=== PATIENT | male | born 1970 | race Caucasian/White ===

== ENCOUNTER 2018-05-21 10:01 | Emergency (ER) | payer BC ==
[2018-05-21] MEDS ORDERED: SODIUM CHLORIDE 0.9% 1,000 ML IV STA ×2 (10:36)
[2018-05-21 11:11] LABS: Basophils # (A) 0.1 k/uL (0-0.2); Basophils % (A) 1 %; Eosinophils # (A) 0.2 k/uL (0-0.7); Eosinophils % (A) 3 %; HCT 45.4 % (39.0-53.0); Lymphocytes # (A) 1.4 k/uL (1.0-4.8); Lymphocytes % (A) 18 %; MCH 27.8 pg (25.0-35.0); MCV 84.1 fL (80.0-100.0); Mean Platelet Volume 7.2; Monocytes # (A) 0.4 k/uL (0-1.0); Monocytes % (A) 5 %; Neutrophils # (A) 5.7 k/uL (1.3-7.7); Neutrophils % (A) 72 %; Platelet Count 228 k/uL (150-450); RDW 13.2 % (11.5-15.5)
[2018-05-21 11:28] LABS: ALT 49 U/L (21-72); AST 27 U/L (17-59); Alkaline Phosphatase 86 U/L (38-126); Amylase 33 U/L (30-110); Anion Gap 9 mmol/L; Blood Urea Nitrogen 19 mg/dL (9-20); Calcium 9.5 mg/dL (8.4-10.2); Carbon Dioxide 25 mmol/L (22-30); Chloride 101 mmol/L (98-107); Glucose 489 mg/dL (74-99); Lipase 139 U/L (23-300); Magnesium 1.9 mg/dL (1.6-2.3); Potassium 4.7 mmol/L (3.5-5.1); Sodium 135 mmol/L (137-145); Total Bilirubin 1.1 mg/dL (0.2-1.3); Total Protein 6.9 g/dL (6.3-8.2)
[2018-05-21 11:29] LABS: Creatine Kinase 71 U/L (55-170)
[2018-05-21 11:42] LABS: Creatine Kinase MB 0.5 ng/mL (0.0-2.4); Troponin I <0.012 ng/mL (0.000-0.034)
[2018-05-21 11:47] LABS: INR 0.9 (<1.2); Prothrombin Time 9.5 sec (9.0-12.0)
[2018-05-21 11:53] LABS: Partial Thromboplastin Time 21.8 sec (22.0-30.0)
--- NOTE | 2018-05-21 11:53 | ED ---
Recheck HPI - General Chief Complaint: Recheck/Abnormal Lab/Rx Stated Complaint: Hypertension,Leg Swelling Time Seen by Provider: 05/21/18 10:31 Source: patient, RN notes reviewed, old records reviewed Mode of arrival: ambulatory Limitations: no limitations - History of Present Illness Initial Comments: Patient is a 48-year-old male presents emergency department today with chief complaint of high blood pressure this morning. He reports that upon awakening he just felt not right. Took his blood pressure was 177/117. He has not been diagnosed with high blood pressure formally. Patient did state that he took one of his sisters blood pressure medications before arriving here. Patient states that a few weeks ago he did test his blood sugar, at that time it was greater than 500. Patient states that he did not have this followed up with. He is to see a primary care physician within the first few weeks of May. He has not seen a doctor in many years. He states that he is also concerned because his right leg has been painful and swollen over the past few weeks. 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 Patient has concern for blood clot. He denies any chest pain or so she had shortness of breath.. - Related Data Previous Rx's Medication Instructions Recorded amLODIPine [Norvasc] 5 mg PO DAILY #7 tab 05/21/18 metFORMIN HCL [Glucophage] 500 mg PO BID #14 tab 05/21/18 Allergies Allergy/AdvReac Type Severity Reaction Status Date / Time No Known Allergies Allergy Verified 05/21/18 10:36 Review of Systems ROS Statement: Those systems with pertinent positive or pertinent negative responses have been documented in the HPI. ROS Other: All systems not noted in ROS Statement are negative. Past Medical History Past Medical History: No Reported History History of Any Multi-Drug Resistant Organisms: None Reported Past Surgical History: No Surgical Hx Reported Past Psychological History: No Psychological Hx Reported Smoking Status: Former smoker Past Alcohol Use History: Occasional Past Drug Use History: Marijuana General Exam - General Exam Comments Initial Comments: Morbidly obese 48-year-old male. Limitations: no limitations General appearance: alert, in no apparent distress Head exam: Present: atraumatic, normocephalic, normal inspection Eye exam: Present: normal appearance, PERRL, EOMI. Absent: scleral icterus, conjunctival injection, periorbital swelling ENT exam: Present: normal exam, mucous membranes moist Neck exam: Present: normal inspection. Absent: tenderness, meningismus, lymphadenopathy Respiratory exam: Present: normal lung sounds bilaterally. Absent: respiratory distress, wheezes, rales, rhonchi, stridor Cardiovascular Exam: Present: regular rate, normal rhythm, normal heart sounds. Absent: systolic murmur, diastolic murmur, rubs, gallop, clicks GI/Abdominal exam: Present: soft, normal bowel sounds. Absent: distended, tenderness, guarding, rebound, rigid Extremities exam: Present: normal inspection, other (Patient has tenderness over the right leg.There is no erythema. No significant swelling compared to left leg.) Back exam: Present: normal inspection Neurological exam: Present: alert, oriented X3, CN II-XII intact Psychiatric exam: Present: normal affect, normal mood Skin exam: Present: warm, dry, intact, normal color. Absent: rash Course Vital Signs 05/21/18 10:24 Temperature 98 F Pulse Rate 78 Respiratory 20 Rate Blood Pressure 161/104 O2 Sat by Pulse 97 Oximetry Medical Decision Making - Medical Decision Making This Patient is a 48-year-old male presents returns today multiple complaints. Patient reports he was concerned for elevated blood pressure, right leg pain and swelling, as well as concern for high blood sugar. Patient's labs show elevated blood sugar at 489. Patient was given insulin bolus. EKG was reviewed and negative for any acute process. Chest x-ray shows no acute changes. Due to the patient's concern for a leg pain, with chief complaint upper ultrasound. This is negative for DVT. Patient's chemistry panels and chest x-ray are reviewed and unremarkable. Discussed the case with Dr. Pascual. At this time we can put the Patient on metformin and have close follow -up with primary care physician. He states he did have an appointment scheduled with Dr. Bernard few weeks. I discussed the Patient follow-up sooner. We'll also put the Patient on a low dose of Norvasc until following up with his new PCP. All questions answered return parameters were discussed. Discussed diet modification and return parameters. - Lab Data Result diagrams: 05/21/18 10:55 05/21/18 10:55 Lab Results 05/21/18 05/21/18 05/21/18 Range/Units 10:55 10:55 10:55 WBC 8.0 (3.8-10.6) k/uL RBC 5.40 (4.30-5.90) m/uL Hgb 15.0 (13.0-17.5) gm/dL Hct 45.4 (39.0-53.0) % MCV 84.1 (80.0-100.0) fL MCH 27.8 (25.0-35.0) pg MCHC 33.0 (31.0-37.0) g/dL RDW 13.2 (11.5-15.5) % Plt Count 228 (150-450) k/uL Neutrophils % 72 % Lymphocytes % 18 % Monocytes % 5 % Eosinophils % 3 % Basophils % 1 % Neutrophils # 5.7 (1.3-7.7) k/uL Lymphocytes # 1.4 (1.0-4.8) k/uL Monocytes # 0.4 (0-1.0) k/uL Eosinophils # 0.2 (0-0.7) k/uL Basophils # 0.1 (0-0.2) k/uL PT (9.0-12.0) sec INR (<1.2) APTT (22.0-30.0) sec Sodium 135 L (137-145) mmol/L Potassium 4.7 (3.5-5.1) mmol/L Chloride 101 (98-107) mmol/L Carbon Dioxide 25 (22-30) mmol/L Anion Gap 9 mmol/L BUN 19 (9-20) mg/dL Creatinine 0.68 (0.66-1.25) mg/dL Est GFR (CKD-EPI)AfAm >90 (>60 ml/min/1.73 sqM) Est GFR (CKD-EPI)NonAf >90 (>60 ml/min/1.73 sqM) Glucose 489 H (74-99) mg/dL POC Glucose (mg/dL) (75-99) mg/dL POC Glu [facility] Care Case Manager ID Calcium 9.5 (8.4-10.2) mg/dL Magnesium 1.9 (1.6-2.3) mg/dL Total Bilirubin 1.1 (0.2-1.3) mg/dL AST 27 (17-59) U/L ALT 49 (21-72) U/L Alkaline Phosphatase 86 (38-126) U/L Total Creatine Kinase 71 (55-170) U/L CK-MB (CK-2) 0.5 (0.0-2.4) ng/mL CK-MB (CK-2) Rel Index 0.7 Troponin I <0.012 (0.000-0.034) ng/mL NT-Pro-B Natriuret Pep pg/mL Total Protein 6.9 (6.3-8.2) g/dL Albumin 4.0 (3.5-5.0) g/dL Amylase 33 (30-110) U/L Lipase 139 (23-300) U/L Acetone, Qual Negative (Negative) 05/21/18 05/21/18 05/21/18 Range/Units 10:55 10:55 12:32 WBC (3.8-10.6) k/uL RBC (4.30-5.90) m/uL Hgb (13.0-17.5) gm/dL Hct (39.0-53.0) % MCV (80.0-100.0) fL MCH (25.0-35.0) pg MCHC (31.0-37.0) g/dL RDW (11.5-15.5) % Plt Count (150-450) k/uL Neutrophils % % Lymphocytes % % Monocytes % % Eosinophils % % Basophils % % Neutrophils # (1.3-7.7) k/uL Lymphocytes # (1.0-4.8) k/uL Monocytes # (0-1.0) k/uL Eosinophils # (0-0.7) k/uL Basophils # (0-0.2) k/uL PT 9.5 (9.0-12.0) sec INR 0.9 (<1.2) APTT 21.8 L (22.0-30.0) sec Sodium (137-145) mmol/L Potassium (3.5-5.1) mmol/L Chloride (98-107) mmol/L Carbon Dioxide (22-30) mmol/L Anion Gap mmol/L BUN (9-20) mg/dL Creatinine (0.66-1.25) mg/dL Est GFR (CKD-EPI)AfAm (>60 ml/min/1.73 sqM) Est GFR (CKD-EPI)NonAf (>60 ml/min/1.73 sqM) Glucose (74-99) mg/dL POC Glucose (mg/dL) 368 H (75-99) mg/dL POC Glu [facility] Care Case Manager ID Keshia Lazaro Calcium (8.4-10.2) mg/dL Magnesium (1.6-2.3) mg/dL Total Bilirubin (0.2-1.3) mg/dL AST (17-59) U/L ALT (21-72) U/L Alkaline Phosphatase (38-126) U/L Total Creatine Kinase (55-170) U/L CK-MB (CK-2) (0.0-2.4) ng/mL CK-MB (CK-2) Rel Index Troponin I (0.000-0.034) ng/mL NT-Pro-B Natriuret Pep 38 pg/mL Total Protein (6.3-8.2) g/dL Albumin (3.5-5.0) g/dL Amylase (30-110) U/L Lipase (23-300) U/L Acetone, Qual (Negative) 05/21/18 11:57EKG performed at 1106 shows normal sinus rhythm normal EKG. Ventricular rate of 76 bpm. Paramedics 156 ms. QRS ration is 98 ms. QT QTc is 376/423 ms. - Radiology Data Radiology results: report reviewed Chest x-rays negative for any acute cardiopulmonary process. Ultrasound of the right leg is negative for DVT. Disposition Clinical Impression: Type 2 diabetes mellitus, Episode of hypertension Disposition: HOME SELF-CARE Condition: Good Instructions: Type 2 Diabetes in Adults: New Diagnosis (ED), Hypertension and Diabetes (ED) Additional Instructions: Patient advised to have close follow-up with primary care physician. Return to emergency department if any alarming signs or symptoms occur. Patient should start taking the medication as prescribed. Avoid high fat sugar in your diet, avoid sodas. Only drinking water. Prescriptions: amLODIPine [Norvasc] 5 mg PO DAILY #7 tab metFORMIN HCL [Glucophage] 500 mg PO BID #14 tab Is patient prescribed a controlled substance at d/c from ED?: No Referrals: None,Stated [Primary Care Provider] - 1-2 days So Collins MD [REFERRING] - 1-2 days Yasmani Bernard MD [REFERRING] - 1-2 days Time of Disposition: 12:48
--- NOTE | 2018-05-21 11:55 | XR ---
EXAMINATION TYPE: XR chest 2V DATE OF EXAM: 05/21/2018 COMPARISON: NONE HISTORY: Chest pain TECHNIQUE: Frontal and lateral views of the chest are obtained. FINDINGS: There is no focal air space opacity. There is incidental azygos lobe and fissure. No evidence for pneumothorax. No pleural effusion. The cardiac silhouette size is within normal limits. The osseous structures are grossly intact. IMPRESSION: 1. No acute cardiopulmonary process.
[2018-05-21] MEDS ORDERED: INSULIN REGULAR 100 UNIT in SODIUM CHLORIDE 0.9% 100 ML IV SCH (12:00)
--- NOTE | 2018-05-21 12:18 | US ---
EXAMINATION TYPE: US venous doppler duplex LE RT DATE OF EXAM: 05/21/2018 12:12 PM COMPARISON: NONE CLINICAL HISTORY: Pain. Pt states right leg pain x 1 day SIDE PERFORMED: Right TECHNIQUE: The lower extremity deep venous system is examined utilizing real time linear array sonog faustino with graded compression, doppler sonography and color-flow sonography. VESSELS IMAGED: External Iliac Vein (EIV) Common Femoral Vein Deep Femoral Vein Greater Saphenous Vein * Femoral Vein Popliteal Vein Small Saphenous Vein * Proximal Calf Veins (* superficial vessels) Morbidly obese pt Right Leg: Negative for DVT IMPRESSION: No evidence for DVT.
[2018-05-21 12:33] LABS: Glucose,Whole Blood 368 mg/dL (75-99)
[2018-05-21 13:24] LABS: Glucose,Whole Blood 329 mg/dL (75-99)
[2018-05-21 13:32] VITALS: BP 148/90; PULSE 79; RESP 35; TEMP 97.8
== END 2018-05-21 13:41 | disposition home or self-care (01) ==
LOC: EC 10:01
DX: E11.9 Type 2 diabetes mellitus without complications (principal); I10 Essential (primary) hypertension; M79.604 Pain in right leg; M79.89 Other specified soft tissue disorders; Z87.891 Personal history of nicotine dependence
CPT/HCPCS: 36415; 71046; 80053; 82009; 82150; 82550; 82553; 83690; 83735; 83880; 84484; 85025; 85610; 85730; 93005; 96360; 96361; 99284

== ENCOUNTER 2020-02-07 11:53 | Day surgery (SDC) | payer BC ==
[2020-02-05 14:35] VITALS: BMI 48.7
[~2020-02-07 11:53] MED LIST: DEXAMETHASONE SOD PHOSPHATE 10 MG/ML 1 ML VIAL IV ONE; HYDROmorphone 0.5 MG/0.5 ML SYRINGE IVP PRN; MIDAZOLAM 2 MG/2 ML VIAL IV PRN; ONDANSETRON 4 MG/2 ML VIAL IVP ONE; Pre Op ABX Message 1 EACH MISC MISCELLANE ONE
[2020-02-07] MEDS: LACTATED RINGERS 1,000 ML IV SCH ×3 (12:49→17:25)
[2020-02-07 12:56] LABS: Glucose,Whole Blood 119 mg/dL (75-99)
[2020-02-07] MEDS ORDERED: ONDANSETRON 4 MG/2 ML VIAL IVP ONE ×2 (13:05→16:00)
[2020-02-07] MEDS ORDERED: MIDAZOLAM 2 MG/2 ML VIAL IV ONE ×2 (13:10)
[2020-02-07] MEDS ORDERED: ceFAZolin 3 GM in SODIUM CHLORIDE 0.9% 100 ML IVPB ONE (13:17)
[2020-02-07] MEDS ORDERED: DEXAMETHASONE SOD PHOSPHATE 4 MG/ML 1 ML VIAL ONE (13:41)
[2020-02-07] MEDS ORDERED: MIDAZOLAM 2 MG/2 ML VIAL ONE (13:41)
[2020-02-07] MEDS ORDERED: ROPIVACAINE 5 MG/ML 30 ML VIAL ONE (13:41)
[2020-02-07] MEDS ORDERED: HYDROmorphone (PF) 1 MG/ML ONE (13:41)
[2020-02-07] MEDS ORDERED: SUCCINYLCHOLINE CHLORIDE VIAL 200 MG/10 ML VIAL IV ONE (13:41)
[2020-02-07] MEDS ORDERED: PROPOFOL 10 MG/ML 20 ML VIAL IV ONE (13:41)
[2020-02-07] MEDS ORDERED: fentaNYL (PF) 50 MCG/ML 2 ML AMP ONE (13:41)
[2020-02-07] MEDS ORDERED: LIDOCAINE 1% INJ 10MG/ML (20 ML MDV) ONE (13:41)
[2020-02-07] MEDS ORDERED: LIDOCAINE 1%-EPI 1:100,000 20 ML VIAL SQ ONE (14:22)
[2020-02-07] MEDS ORDERED: BUPIVACAINE (PF) 0.25% 30 ML VIAL SQ ONE (14:22)
[2020-02-07 15:29] VITALS: TEMP 97.9
[2020-02-07] MEDS ORDERED: ONDANSETRON 4 MG/2 ML VIAL ONE (15:56)
[2020-02-07 16:16] LABS: Glucose,Whole Blood 216 mg/dL (75-99)
[2020-02-07] MEDS: PROMETHAZINE INJ 6.25 MG in SODIUM CHLORIDE 0.9% 50 ML IVPB STA ×2 (16:43→17:00)
[2020-02-07 16:46] VITALS: RESP 20
[2020-02-07 17:01] VITALS: BP 142/79; PULSE 79
--- NOTE | 2020-02-08 03:22 | OP ---
OPERATIVE REPORT DATE PF PROCEDURE: 02/07/2020 SURGEON: Renan Richards MD. DIRECTOR OF SPA AND GUEST EXPERIENCE: Jem BRENNER. PREOPERATIVE DIAGNOSES: 1. Right shoulder full-thickness rotator cuff tear. 2. Right shoulder superior labral tear. 3. Right shoulder subacromial impingement. 4. Right shoulder medial subluxation long head of the biceps tendon. POSTOPERATIVE DIAGNOSES: 1. Right shoulder full-thickness tear of the supraspinatus 2 cm x 2 cm tear. 2. Right shoulder type 2 superior labral tear. 3. Right shoulder medial subluxation of long head of the biceps tendon and high-grade intra-articular partial tearing of the long head of the biceps tendon. 4. Right shoulder type 2 anterolateral acromial spur. PROCEDURE PERFORMED: 1. Right shoulder arthroscopic rotator cuff repair, 2 cm x 2 cm tear of the supraspinatus. 2. Right shoulder arthroscopic acromioplasty. 3. Right shoulder arthroscopic biceps tenotomy. 4. Right shoulder arthroscopic anterior superior and posterior labral debridement. ANESTHESIA: General endotracheal. ESTIMATED BLOOD LOSS: Minimal. TOURNIQUET: None. DRAINS: None. COMPLICATIONS: None apparent. DISPOSITION: Postanesthesia care unit. EXAMINATION UNDER ANESTHESIA OF THE RIGHT SHOULDER: Elevation 160 degrees, external rotation to the side was 40 degrees, external rotation at 90 degrees, abduction was 90 degrees. Internal rotation at 90 degrees, abduction was 60 degrees. Sulcus less than 1 cm, anterior translation glenoid face, posterior translation glenoid face. ARTHROSCOPIC FINDINGS RIGHT SHOULDER: 1. Superior labrum, type 2 superior labral tear tearing both anterior and posterior of the biceps anchor. The biceps anchor was not intact. There is also high-grade partial tearing of the intra-articular portion of long head of the biceps tendon. The biceps tendon was also medially subluxed out of the bicipital groove. 2. Anterior inferior labrum fraying but normal glenoid labral attachment. 3. Posterior labrum tearing of the posterior labrum from the 10 o'clock position to 12 o'clock position on the glenoid face. 4. Humeral head cartilage was normal. 5. Rotator cuff full-thickness tear of the supraspinatus 2 cm x 2 cm tear with just mild retraction. 6. Glenoid face cartilage was normal. 7. Subacromial space significant fraying of the undersurface of the coracoacromial ligament with a type 2 anterolateral acromial spur. INDICATIONS: Steffen is a 49-year-old male with right shoulder pain. He sustained an injury to the shoulder. He has noted weakness as well as significant pain in the shoulder. He has been through fairly significant course of nonoperative treatment up to this point. Further physical examination and MRI reveal tearing of the rotator cuff as well as medial subluxation of long head of the biceps tendon out of the bicipital groove. At this point in time, he feels that he has failed nonoperative treatment like to proceed with operative intervention. Long discussion was held with the patient with regards to treatment options. The risks of procedure were all discussed with him in detail. These risks included, but were not limited to risk of infection, nerve damage, bleeding, pain, and a small risk of deep vein thrombosis which could lead to fatal pulmonary embolism. Further risks include lack of healing rotator cuff and the possibility for biceps contour change with a biceps tenotomy. The patient understands the operation as well as the fact that there is no guarantee of improvement of his symptoms. An appropriate informed consent was obtained. DESCRIPTION OF THE PROCEDURE: Patient identified in preoperative holding area. Surgical site was marked by both the patient and myself. He was given 2 grams of Ancef IV for prophylactic purposes. He was then transported to the operative suite where he was placed supine on the operating room table. The patient was then intubated endotracheally and received general anesthesia throughout the operative procedure. Examination under anesthesia was then performed and the findings noted above. The patient was then placed into the beach chair position, well-padded in preparation for surgery. Great care was taken to ensure that his cervical spine was in neutral alignment, well-padded and maintained that way throughout the operative procedure. Great care was also taken to ensure that his legs were appropriately padded as well. The patient's right upper extremity was then prepped, draped in usual sterile fashion. Standard surgical pause undertaken to ensure that appropriate preoperative antibiotics had been given and that we were operating on the correct site. All staff in the room were in agreement and we proceeded. The acromion as well as the AC joint and coracoid were marked with surgical pen. The skin of the anticipated portal sites were also marked with surgical pen. The skin of the anticipated portal sites were then injected with 0.25% Marcaine with epinephrine. I then proceeded to make the posterior portal. A 30 degree arthroscope was introduced into the glenohumeral joint through this portal. The arthroscopic pump pressure was set at 40 mmHg and maintained at that level throughout the entire case. Next utilizing the 18-gauge spinal needle to topically localize the placement, the anterior superior portal was made. This was made just underneath the biceps tendon high in the rotator interval. A small 5.75 mm cannula was then placed and the outflow was then done through this cannula. Diagnostic arthroscopy of shoulder was then performed. The findings noted above. Great care was taken to probe the superior labral complex as well as the biceps anchor. The biceps anchor was not firmly attached. He had significant tearing of the superior labrum. This extended both anterior and posterior to the biceps anchor. The intra- articular portion of long head of the biceps tendon did have fairly high-grade partial tearing as well. It was also medially subluxed out of the bicipital groove. At this point I proceeded with a biceps tenotomy. The biceps was tenotomized near its attachment on the supraglenoid tubercle. This was done utilizing the ArthroCare wand. I then proceeded to debride the torn loose tissue of the superior labrum. This was debrided anteriorly, superiorly and posteriorly back to stable tissue. I then inspected the rotator cuff from intra-articular. He did have full-thickness tear of the supraspinatus. There was also fraying of the superior rolled border of the subscapularis, but an intact attachment to the lesser tuberosity. At this point in time, no further work seemed necessary for intra-articular. The arthroscope was removed from the glenohumeral joint and utilizing the same posterior skin incision, it was placed in the subacromial space. Next utilizing an 18-gauge spinal needle topically to localize placement of a lateral port was made under direct visualization. Subacromial bursectomy was then performed utilizing synovial shaver as well as the ArthroCare wand. There was significant fraying of the undersurface of the coracoacromial ligament. This was then taken down utilizing the ArthroCare wand. This exposed underlying type 2 anterolateral acromial spur. I then proceed with an acromioplasty. Utilizing synovial shaver in a demario-type fashion the acromioplasty was completed. When the acromioplasty was complete, the arthroscope was placed into the lateral portal. The shaver placed posteriorly to ensure there was adequate and coplanar with posterior aspect of the acromion. I then proceeded to repair the rotator cuff tear. He had full-thickness tear of the supraspinatus. It measured approximately 2 cm x 2 cm. The footprint of the greater tuberosity was then debrided of all devitalized tissue utilizing synovial shaver as well as the ArthroCare wand. I made a fourth portal off the anterolateral angle of the acromion. Again, this was done after first localizing its placement with an 18-gauge spinal needle. I then performed a light decortication of the greater tuberosity utilizing synovial shaver in a demario-type fashion. This provided a nice bleeding surface with repair. I then further placed small microfracture holes along the articular margin to again enhance the healing of the repair. I then utilized [employer] suture passer to place Arthrex FiberTape suture in inverted horizontal mattress fashion in the posterior half of the tear. These sutures were then shuttled out through the anterolateral portal. I then proceeded with a second Arthrex FiberTape suture which was placed in the anterior half of the tear in inverted horizontal mattress fashion. These sutures were also shuttled out through the anterolateral portal. I then proceeded with placement of the posterior anchor first. The awl was placed in the most posterior lateral aspect of the footprint. He had very good bone quality. An Arthrex 4.75 mm bio-SwiveLock anchor was chosen. The FiberTape sutures were shuttled through the eyelet of the anchor and the anchor was placed after tensioning the sutures appropriately. The anchor had an excellent purchase in bone. This brought the posterior half of the tear down very nicely to the most lateral aspect of the footprint. The FiberTape sutures were cut flush with the anchor. I then proceeded to place the awl in the most anterolateral aspect of the footprint. This was just posterior to the bicipital groove. Again, he had very good bone quality. An Arthrex 4.75 mm bio-SwiveLock anchor was chosen. The anterior FiberTape sutures were shuttled through the eyelet of the anchor and then tensioned appropriately. The anchor was placed with an excellent purchase in bone. This brought the anterior half of the tear down very nicely to the most anterolateral aspect of the footprint. At this point time, no further work seemed necessary. The shoulder was thoroughly irrigated and then drained with an outflow cannula. The repair was then probed. The rotator cuff had been repaired down very securely to the most lateral aspect of the footprint. The arthroscopic equipment was then removed from the shoulder. The arthroscopic portals were then closed with 3-0 nylon interrupted suture. Sterile compressive dressings were then applied. The patient's right upper extremity was placed into a standard sling. All sponge and needle counts were deemed correct prior to closure. The patient tolerated procedure without apparent complication. He was transferred to the recovery room in stable condition. MMODL / IJN: [id number] /
--- NOTE | 2020-02-08 07:12 | P.ANPRN ---
Procedure Note - Anesthesia - Nerve Block Performed Right Interscalene Single Time Out Performed: Yes Date of Procedure: 02/07/20 Procedure Start Time: 13:10 Procedure Stop Time: :20 Location of Patient: PreOp Indication: Acute Post-Operative Pain, Requested by Surgeon Sedation Type: Sedate with meaningful contact maintained Preparation: Sterile Prep Position: Supine Needle Types: Pajunk Needle Gauge: 21 Ultrasound used to visualize needle placement: Yes Ultrasound used to observe medication spread: Yes Blood Aspirated: No Pain Paresthesia on Injection Noted: No Resistance on Injection: Normal Image Stored and Saved: Yes Events: Uneventful and Well Tolerated (Ropivacaine 0.5% 30 mL plus dexamethasone 4 mg)
== END 2020-02-07 17:35 | disposition home or self-care (01) ==
LOC: OR 11:53
PROVIDERS: ATTEND Orthopaedic Surgery Sports Medicine
DX: S46.011A Strain of muscle(s) and tendon(s) of the rotator cuff of right shoulder, initial encounter (principal); S46.191A Other injury of muscle, fascia and tendon of long head of biceps, right arm, initial encounter; S43.431A Superior glenoid labrum lesion of right shoulder, initial encounter; S46.111A Strain of muscle, fascia and tendon of long head of biceps, right arm, initial encounter; M66.811 Spontaneous rupture of other tendons, right shoulder; M75.41 Impingement syndrome of right shoulder; M19.011 Primary osteoarthritis, right shoulder; I10 Essential (primary) hypertension; E11.40 Type 2 diabetes mellitus with diabetic neuropathy, unspecified; Z97.3 Presence of spectacles and contact lenses; Z79.84 Long term (current) use of oral hypoglycemic drugs; Z79.899 Other long term (current) drug therapy; Z82.49 Family history of ischemic heart disease and other diseases of the circulatory system; W20.8XXA Other cause of strike by thrown, projected or falling object, initial encounter
CPT/HCPCS: 64415; 76942; 29827; 29826; C1713 ×2; J2250; J0330; J1100 ×2; J2550; J0690; J2405; J2001; J3010; J1170; J2795; J2704

== ENCOUNTER → 2021-08-31 | Day surgery (SDC) | payer BC ==
[2021-08-28 14:42] VITALS: BMI 40.1
--- NOTE | 2021-08-29 15:05 | P.HPIHPCON ---
History of Present Illness H&P Date: 08/29/21 Chief Complaint: left hydrocele, vasectomy this is a 51-year-old male with history of a large left hydrocele, and patient was also interested in performing a vasectomy at the same setting. He is symptomatic from the hydrocele. Discussed with him the option of a left hydroc electomy. Discussed the risk which includes but not limited to bleeding, infection, injury to the testicle, injury to the vas, potential of recurrence. Discussed also the risk from anesthesia. Of note he was also interested in performing a vasectomy at the same setting. Discussed with him the risk of bleeding, infection, failure, chronic pain. Discussed with him that he will need to confirmatory semen analysis before he is cleared to have unprotected intercourse. I discussed with him even with a negative semen analysis there is still a potential of recanalization and . He understood all the risk and agreed to proceed with a left hydrocelectomy and vasectomy Consent for Procedure: I have explained the operation/procedure to the patient, including the risks, benefits, side effects, alternative therapies (including not receiving the proposed treatment or service), the likelihood of the patient achieving his/her goals, and potential recuperation problems for the procedure/sedation/analgesia, as well as any blood products, if indicated. I also explained to the patient the risks, benefits and side effects of the alternatives, as well as the risks related to not receiving the proposed procedure, care, treatment, or services. Past Medical History Past Medical History: COPD, Diabetes Mellitus, GERD/Reflux, Hyperlipidemia, Hypertension, Osteoarthritis (OA) Additional Past Medical History / Comment(s): rt foot neuropathy, edema feet & ankles History of Any Multi-Drug Resistant Organisms: None Reported Past Surgical History: Orthopedic Surgery Additional Past Surgical History / Comment(s): colonoscopy, arthroscopic right rotator cuff Past Anesthesia/Blood Transfusion Reactions: No Reported Reaction, Motion Sickness Additional Past Anesthesia/Blood Transfusion Reaction / Comment(s): has never had anesthesia Smoking Status: Current every day smoker - Past Family History Father Family Medical History: Cancer Additional Family Medical History / Comment(s): prostate cancer Brother(s) Family Medical History: Cancer Additional Family Medical History / Comment(s): lymphoma bicep Medications and Allergies Home Medications Medication Instructions Recorded Confirmed Type Atorvastatin [Lipitor] 10 mg PO DAILY 02/05/20 08/28/21 History Furosemide [Lasix] 20 mg PO DAILY 02/05/20 08/28/21 History Omeprazole 20 mg PO DAILY 02/05/20 08/28/21 History Pregabalin [Lyrica] 150 mg PO DAILY 02/05/20 08/28/21 History amLODIPine [Norvasc] 10 mg PO DAILY 02/05/20 08/28/21 History sitaGLIPtin [Januvia] 100 mg PO DAILY 02/05/20 08/28/21 History Citalopram Hydrobromide [CeleXA] 20 mg PO DAILY 08/28/21 08/28/21 History Pyridoxine [Vitamin B-6] 50 mg PO DAILY 08/28/21 08/28/21 History Sildenafil Citrate 100 mg PO DAILY 08/28/21 08/28/21 History Allergies Allergy/AdvReac Type Severity Reaction Status Date / Time No Known Allergies Allergy Verified 08/28/21 14:36 Surgical - Exam - General no distress, no pain - Eyes normal ocular movement, no pale - Respiratory normal expansion, normal respiratory effort - Abdomen Abdomen: soft, non tender - Psychiatric oriented to time, oriented to person, oriented to place Assessment and Plan Assessment: OR for a left hydrocelectomy, and bilateral vasectomy
[~2021-08-31] MED LIST changes: +BUPIVACAINE (PF) 0.5% 30 ML VIAL SQ ONE; -DEXAMETHASONE SOD PHOSPHATE 10 MG/ML 1 ML VIAL IV ONE; +DEXAMETHASONE SOD PHOSPHATE 4 MG/ML 1 ML VIAL IV ONE; +HYDROmorphone (PF) 1 MG/ML ONE; +KETOROLAC 15 MG/ML 1 ML VIAL ONE; +LACTATED RINGERS 1,000 ML IV SCH; +LIDOCAINE 1% INJ 10MG/ML (20 ML MDV) ONE; +MIDAZOLAM 2 MG/2 ML VIAL ONE; +PROPOFOL 10 MG/ML 20 ML VIAL IV ONE; -Pre Op ABX Message 1 EACH MISC MISCELLANE ONE; +SCOPOLAMINE 1 MG/72 HR PATCH TRANSDERM ONE; +SUCCINYLCHOLINE CHLORIDE 100 MG/5 ML SYR IV ONE; +ceFAZolin 3 GM in SODIUM CHLORIDE 0.9% 100 ML IVPB PRN; +fentaNYL (PF) 50 MCG/ML 2 ML AMP ONE
[2021-08-31 07:02] VITALS: RESP 16
[2021-08-31 07:03] LABS: Glucose,Whole Blood 104 mg/dL (75-99)
[2021-08-31 09:25] VITALS: TEMP 96.8
--- NOTE | 2021-08-31 09:53 | P.OP ---
Date of Procedure: 08/31/21 Preoperative Diagnosis: Left hydrocele, family planning Postoperative Diagnosis: Same Procedure(s) Performed: Left hydrocelectomy, bilateral vasectomy Implants: None Anesthesia: RADA Surgeon: Dante Cedeño Estimated Blood Loss (ml): 25 Pathology: other (Left hydrocele sac, bilateral vas) Condition: stable Disposition: PACU Indications for Procedure: this is a 51-year-old male with history of a large left hydrocele, and patient was also interested in performing a vasectomy at the same setting. He is symptomatic from the hydrocele. Discussed with him the option of a left hydrocelectomy. Discussed the risk which includes but not limited to bleeding, infection, injury to the testicle, injury to the vas, potential of recurrence. Discussed also the risk from anesthesia. Of note he was also interested in performing a vasectomy at the same setting. Discussed with him the risk of bleeding, infection, failure, chronic pain. Discussed with him that he will need to confirmatory semen analysis before he is cleared to have unprotected intercourse. I discussed with him even with a negative semen analysis there is still a potential of recanalization and . He understood all the risk and agreed to proceed with a left hydrocelectomy and vasectomy Description of Procedure: Patient was brought to the operating room, general anesthesia was induced. He was prepped and draped so fashion a placemed in supine position. Local anesthetic was infiltrated along the left hemiscrotum, next a incision was made using scalpel. The dartos fascia was dissected using electrocautery. The hydrocele was sac was delivered into the field. An incision was made in the hydrocele sac and clear fluid was drained. Next the hydrocele sac was excised and sent to pathology. The edges of the hydrocele sac were cauterized. There was no abnormality within the testicle. Next the testicle was returned into the scrotum in normal anatomical lay. Next the dartos fascia was closed using 3-0 Vicryl. And the skin was closed using 4-0 chromic. Next attention was carried to the vasectomy. Using the fine hemostat a small incision was made in the left hemiscrotum over the Vas . Next using the ring clamp the vas was grasped, next the vasal sheath was dissected off of the vas. Once the vas was isolated 2-0 silk ties were placed on each side of the vas. Next a portion of the vas was excise and sent to pathology. Both the proximal and the distal end of the vas were cauterized. Next the vas was returned back to the scrotum. The skin was closed using 4-0 chromic. Repeat procedure was also performed on the right side. Patient tolerated the procedure well was taken to recovery in stable condition
[2021-08-31 10:41] VITALS: BP 146/78; PULSE 83
== END | disposition home or self-care (01) ==
LOC: OR 06:30
PROVIDERS: ATTEND Urology
DX: N43.3 Hydrocele, unspecified (principal); Z30.2 Encounter for sterilization; J44.9 Chronic obstructive pulmonary disease, unspecified; E11.9 Type 2 diabetes mellitus without complications; K21.9 Gastro-esophageal reflux disease without esophagitis; I10 Essential (primary) hypertension; M19.90 Unspecified osteoarthritis, unspecified site; F17.210 Nicotine dependence, cigarettes, uncomplicated; Z79.899 Other long term (current) drug therapy
CPT/HCPCS: 55040; 55250; 88302; J2250; J1100; J0690; J2405; J2001; J3010; J1170; J1885; J0330; J2704

== ENCOUNTER 2024-02-13 07:36 | Inpatient (IN) | payer BC, OTHER ==
--- NOTE | 2024-02-13 07:46 | ED ---
Nausea/Vomiting/Diarrhea HPI - General Chief complaint: Nausea/Vomiting/Diarrhea Stated complaint: SOB Time Seen by Provider: 02/13/24 07:41 Source: patient, family, RN notes reviewed, old records reviewed Mode of arrival: ambulatory Limitations: no limitations - History of Present Illness Initial comments: This is a 53-year-old male to the ER for evaluation patient presents today for evaluation abdominal pain chest pain shortness of breath, multiple recurrent evaluations for abdominal pain with unknown cause. Nausea vomiting and diarrhea. MD complaint: nausea, vomiting, diarrhea, abdominal pain -: days(s) Description of Vomiting: food contents Associated Abdominal Pain: Yes Location: diffuse Radiation: none Severity: moderate Severity scale (1-10): 4 Quality: cramping, stabbing Consistency: constant Improves with: none Worsens with: none Associated Symptoms: myalgias, diaphoresis, loss of appetite, malaise, nausea/ vomiting, shortness of breath, weakness - Related Data Home Medications Medication Instructions Recorded Confirmed Furosemide [Lasix] 40 mg PO DAILY 02/05/20 02/13/24 Omeprazole 20 mg PO AC-BRKFST 02/05/20 02/13/24 sitaGLIPtin [Januvia] 100 mg PO DAILY 02/05/20 02/13/24 Citalopram Hydrobromide [CeleXA] 20 mg PO DAILY 08/28/21 02/13/24 Sildenafil Citrate 100 mg PO DAILY PRN 08/28/21 02/13/24 Albuterol Inhaler [Ventolin Hfa 2 puff INHALATION RT-Q4H PRN 08/31/21 02/13/24 Inhaler] Budesonide [Pulmicort] 0.5 mg INHALATION RT-BID PRN 02/13/24 02/13/24 Dextroamphetamine/Amphetamine 30 mg PO DAILY 02/13/24 02/13/24 [Adderall] Fluticasone/Umeclidin/Vilanter 1 puff INHALATION RT-DAILY 02/13/24 02/13/24 [Trelegy Ellipta 200-62.5-25] Ipratropium-Albuterol Nebulize 3 ml INHALATION RT-Q4H PRN 02/13/24 02/13/24 [Duoneb 0.5 mg-3 mg/3 ml Soln] Potassium Chloride ER [K-Dur 20] 20 meq PO DAILY 02/13/24 02/13/24 Pregabalin [Lyrica] 150 mg PO DAILY 02/13/24 02/13/24 glipiZIDE XL [Glucotrol XL] 5 mg PO DAILY 02/13/24 02/13/24 Previous Rx's Medication Instructions Recorded Aspirin 81 mg PO DAILY tab 02/16/24 Atorvastatin [Lipitor] 40 mg PO DAILY #30 tab 02/16/24 Metoprolol Tartrate [Lopressor] 25 mg PO BID #60 tab 02/16/24 Nicotine 21Mg/24Hr Patch [Habitrol] 1 patch TRANSDERM DAILY #30 patch 02/16/24 Nitroglycerin Sl Tabs [Nitrostat] 0.4 mg SUBLINGUAL Q5M PRN #30 tab 02/16/24 Spironolactone [Aldactone] 12.5 mg PO DAILY@1300 #30 tab 02/16/24 lisinopriL [Zestril] 2.5 mg PO HS #30 tab 02/16/24 metFORMIN HCL [Glucophage] 500 mg PO AC-BID #60 tab 02/16/24 Allergies Allergy/AdvReac Type Severity Reaction Status Date / Time No Known Allergies Allergy Verified 02/13/24 12:11 Review of Systems ROS Statement: Those systems with pertinent positive or pertinent negative responses have been documented in the HPI. ROS Other: All systems not noted in ROS Statement are negative. Past Medical History Past Medical History: COPD, Diabetes Mellitus, GERD/Reflux, Hyperlipidemia, Hypertension, Neurologic Disorder Additional Past Medical History / Comment(s): rt foot neuropathy History of Any Multi-Drug Resistant Organisms: None Reported Past Surgical History: No Surgical Hx Reported Past Anesthesia/Blood Transfusion Reactions: Motion Sickness Additional Past Anesthesia/Blood Transfusion Reaction / Comment(s): has never had anesthesia Past Psychological History: No Psychological Hx Reported Smoking Status: Former smoker Past Alcohol Use History: None Reported Additional Past Alcohol Use History / Comment(s): smoker for 40 years 1-2ppd quit 2019 Past Drug Use History: Marijuana - Past Family History Father Family Medical History: Cancer Additional Family Medical History / Comment(s): prostate cancer Brother(s) Family Medical History: Cancer Additional Family Medical History / Comment(s): lymphoma bicep General Exam Limitations: no limitations General appearance: anxious, in distress Head exam: Present: atraumatic, normocephalic, normal inspection Eye exam: Present: normal appearance, PERRL, EOMI. Absent: scleral icterus, conjunctival injection, periorbital swelling ENT exam: Present: normal exam, mucous membranes moist Neck exam: Present: normal inspection. Absent: tenderness, meningismus, lymphadenopathy Respiratory exam: Present: wheezes, rhonchi, decreased breath sounds, prolonged expiratory. Absent: respiratory distress, rales, stridor Cardiovascular Exam: Present: regular rate, normal rhythm, normal heart sounds. Absent: systolic murmur, diastolic murmur, rubs, gallop, clicks GI/Abdominal exam: Present: soft, normal bowel sounds. Absent: distended, tenderness, guarding, rebound, rigid Extremities exam: Present: normal inspection, full ROM, normal capillary refill. Absent: tenderness, pedal edema, joint swelling, calf tenderness Back exam: Present: normal inspection Neurological exam: Present: alert, oriented X3, CN II-XII intact Psychiatric exam: Present: normal affect, normal mood Skin exam: Present: warm, dry, intact, normal color. Absent: rash Course Vital Signs 02/13/24 02/13/24 02/13/24 07:37 08:09 09:20 Temperature 97.9 F Pulse Rate 92 92 90 Pulse Rate [ Pulse Oximetery ] Respiratory 18 20 Rate Blood Pressure 75/56 135/101 O2 Sat by Pulse 98 90 L Oximetry 02/13/24 02/13/24 02/13/24 09:38 09:58 11:00 Temperature Pulse Rate 90 93 96 Pulse Rate [ Pulse Oximetery ] Respiratory 18 18 Rate Blood Pressure 119/74 121/83 O2 Sat by Pulse 95 97 Oximetry 02/13/24 02/13/24 02/13/24 12:34 14:02 16:00 Temperature 97.6 F Pulse Rate 89 90 90 Pulse Rate [ Pulse Oximetery ] Respiratory 18 18 18 Rate Blood Pressure 139/95 116/94 122/91 O2 Sat by Pulse 97 97 98 Oximetry 02/13/24 02/13/24 02/13/24 16:54 17:01 17:48 Temperature Pulse Rate 94 91 87 Pulse Rate [ Pulse Oximetery ] Respiratory 18 Rate Blood Pressure 135/87 O2 Sat by Pulse 95 Oximetry 02/13/24 02/13/24 02/13/24 19:01 20:00 20:10 Temperature Pulse Rate 87 94 Pulse Rate [ 96 Pulse Oximetery ] Respiratory 18 18 Rate Blood Pressure 133/98 O2 Sat by Pulse 95 Oximetry 02/13/24 02/13/24 02/13/24 20:19 20:20 20:32 Temperature Pulse Rate 91 91 95 Pulse Rate [ Pulse Oximetery ] Respiratory Rate Blood Pressure O2 Sat by Pulse Oximetry 02/13/24 21:25 Temperature Pulse Rate 95 Pulse Rate [ Pulse Oximetery ] Respiratory 16 Rate Blood Pressure 118/73 O2 Sat by Pulse 98 Oximetry - Reevaluation(s) Reevaluation #1: 02/13/24 12:39 Medical records reviewed Reevaluation #2: Patient symptoms unchanged here in the ER Reevaluation #3: Patient informed of results and questions answered Reevaluation #4: Was pt. sent in by a medical professional or institution ([facility], PREPARER, urgent care, hospital, or longterm...) When possible be specific @ -no Did you speak to anyone other than the patient for history (EMS, parent, family, police, friend...)? What history was obtained from this source @ -no Did you review nursing and triage notes (agree or disagree)? Why? @ -agree Are old charts reviewed (outside hosp., previous admission, EMS record, old EKG, old radiological studies, urgent care reports/EKG's, longterm records)? Report findings @ -yes Differential Diagnosis (chest pain, altered mental status, abdominal pain women, abdominal pain men, vaginal bleeding, weakness, fever, dyspnea, syncope, headache, dizziness, GI bleed, back pain, seizure, CVA, palpatations, mental health, musculoskeletal)? @ -prior EKG interpreted by me (3pts min.). @ -yes X-rays interpreted by me (1pt min.). @ -no CT interpreted by me (1pt min.). @ -Yes positive for CHF U/S interpreted by me (1pt. min.). @ -yes negative for acute disease What testing was considered but not performed or refused? (CT, X-rays, U/S, labs)? Why? @ -none What meds were considered but not given or refused? Why? @ -none Did you discuss the management of the patient with other professionals (professionals i.e. [facility], PREPARER, lab, RT, psych nurse, licensed master social worker, telephone solicitor, teacher, officer lieutenant, rehabilitation caseworker)? Give summary @ -no Was smoking cessation discussed for >3mins.? @ -no Was critical care preformed (if so, how long)? @ -no Were there social determinants of health that impacted care today? How? (Homelessness, low income, unemployed, alcoholism, drug addiction, transportation, low edu. Level, literacy, decrease access to med. care, penitentiary, rehab)? @ -none Was there de-escalation of care discussed even if they declined (Discuss DNR or withdrawal of care, Hospice)? DNR status @ -no What co-morbidities impacted this encounter? (DM, HTN, Smoking, COPD, CAD, Cancer, CVA, ARF, Chemo, Hep., AIDS, mental health diagnosis, sleep apnea, morbid obesity)? @ -none Was patient admitted / discharged? Hospital course, mention meds given and route, prescriptions, significant lab abnormalities, going to OR and other pertinent info. @ - 53 male to the ER for evaluation today. This patient presents today for evaluation of weakness abdominal pain nausea vomiting diarrhea history of diabetes COPD CHF and hypoxia Admitted Undiagnosed new problem with uncertain prognosis? @ -no Drug Therapy requiring intensive monitoring for toxicity (Heparin, Nitro, Insulin, Cardizem)? @ -no Were any procedures done? @ -no Diagnosis/symptom? @ -COPD CHF hypoxia non-STEMI Acute, or Chronic, or Acute on Chronic? @ -Acute Uncomplicated (without systemic symptoms) or Complicated (systemic symptoms)? @ -Complicated Side effects of treatment? @ -no Exacerbation, Progression, or Severe Exacerbation? @ -exacerbation Poses a threat to life or bodily function? How? (Chest pain, USA, PR, pneumonia, PE, COPD, DKA, ARF, appy, cholecystitis, CVA, Diverticulitis, Homicidal, Suicidal, threat to staff... and all critical care pts) @ -yes with significant disease Reevaluation #5: Differential Abdominal Pain Men: Appendicitis, cholecystitis, diverticulosis, ischemic bowel, pancreatitis, hepatitis, UTI, gastroenteritis, AAA, incarcerated hernia, bowel obstruction, constipation, inflammatory bowel, hepatitis, peptic ulcer disease, splenic infarction, perforated viscus, testicular torsion, this is not meant to be an all-inclusive list Differential Dyspnea: Coronary syndrome, arrhythmia, tamponade, asthma, COPD, pulmonary embolism, pneumonia, pneumothorax, pulmonary effusion, anaphylaxis, diabetic ketoacidosis, flailed chest, pulmonary contusion, diaphragmatic rupture, anemia, neuromuscula r, this is not meant to be an all-inclusive list. - Consultations Consultation #1: Spoke with [facility] who agrees to admit this patient Medical Decision Making - Medical Decision Making 53 male to the ER for evaluation today. This patient presents today for evaluation of weakness abdominal pain nausea vomiting diarrhea history of diabetes COPD CHF and hypoxia - Lab Data Result diagrams: 02/15/24 06:56 02/15/24 16:52 Lab Results 02/13/24 02/13/24 02/13/24 Range/Units 08:19 08:19 08:19 WBC 8.0 (3.8-10.6) k/uL RBC 4.83 (4.30-5.90) m/uL Hgb 13.0 (13.0-17.5) gm/dL Hct 41.0 (39.0-53.0) % MCV 84.9 (80.0-100.0) fL MCH 26.9 (25.0-35.0) pg MCHC 31.8 (31.0-37.0) g/dL RDW 13.2 (11.5-15.5) % Plt Count 277 (150-450) k/uL MPV 7.0 Neutrophils % 75 % Lymphocytes % 16 % Monocytes % 5 % Eosinophils % 2 % Basophils % 0 % Neutrophils # 5.9 (1.3-7.7) k/uL Lymphocytes # 1.3 (1.0-4.8) k/uL Monocytes # 0.4 (0-1.0) k/uL Eosinophils # 0.2 (0-0.7) k/uL Basophils # 0.0 (0-0.2) k/uL Hypochromasia Slight PT 10.3 (10.0-12.5) sec INR 0.9 (<1.2) APTT 23.9 (22.0-30.0) sec Sodium 138 (137-145) mmol/L Potassium 4.2 (3.5-5.1) mmol/L Chloride 111 H (98-107) mmol/L Carbon Dioxide 23 (22-30) mmol/L Anion Gap 4 mmol/L BUN 12 (9-20) mg/dL Creatinine 0.63 L (0.66-1.25) mg/dL Est GFR (CKD-EPI)AfAm >90 (>60 ml/min/1.73 sqM) Est GFR (CKD-EPI)NonAf >90 (>60 ml/min/1.73 sqM) Glucose 164 H (74-99) mg/dL POC Glucose (mg/dL) (70-110) mg/dL POC Glu [employer] Specialist ID Plasma Lactic Acid Giuseppe (0.7-2.0) mmol/L Calcium 9.2 (8.4-10.2) mg/dL Phosphorus 2.9 (2.5-4.5) mg/dL Magnesium 2.0 (1.6-2.3) mg/dL Total Bilirubin 1.3 (0.2-1.3) mg/dL AST 21 (17-59) U/L ALT 27 (4-49) U/L Alkaline Phosphatase 92 (38-126) U/L Troponin I (0.000-0.034) ng/mL NT-Pro-B Natriuret Pep 1910 pg/mL Total Protein 5.7 L (6.3-8.2) g/dL Albumin 3.4 L (3.5-5.0) g/dL Acetone, Qual Negative (Negative) 02/13/24 02/13/24 02/13/24 Range/Units 08:19 08:19 08:28 WBC (3.8-10.6) k/uL RBC (4.30-5.90) m/uL Hgb (13.0-17.5) gm/dL Hct (39.0-53.0) % MCV (80.0-100.0) fL MCH (25.0-35.0) pg MCHC (31.0-37.0) g/dL RDW (11.5-15.5) % Plt Count (150-450) k/uL MPV Neutrophils % % Lymphocytes % % Monocytes % % Eosinophils % % Basophils % % Neutrophils # (1.3-7.7) k/uL Lymphocytes # (1.0-4.8) k/uL Monocytes # (0-1.0) k/uL Eosinophils # (0-0.7) k/uL Basophils # (0-0.2) k/uL Hypochromasia PT (10.0-12.5) sec INR (<1.2) APTT (22.0-30.0) sec Sodium (137-145) mmol/L Potassium (3.5-5.1) mmol/L Chloride (98-107) mmol/L Carbon Dioxide (22-30) mmol/L Anion Gap mmol/L BUN (9-20) mg/dL Creatinine (0.66-1.25) mg/dL Est GFR (CKD-EPI)AfAm (>60 ml/min/1.73 sqM) Est GFR (CKD-EPI)NonAf (>60 ml/min/1.73 sqM) Glucose (74-99) mg/dL POC Glucose (mg/dL) 168 H (70-110) mg/dL POC Glu [employer] Marketing Specialist ID Albaro Morinta Plasma Lactic Acid Giuseppe 0.9 (0.7-2.0) mmol/L Calcium (8.4-10.2) mg/dL Phosphorus (2.5-4.5) mg/dL Magnesium (1.6-2.3) mg/dL Total Bilirubin (0.2-1.3) mg/dL AST (17-59) U/L ALT (4-49) U/L Alkaline Phosphatase (38-126) U/L Troponin I 0.050 H* (0.000-0.034) ng/mL NT-Pro-B Natriuret Pep pg/mL Total Protein (6.3-8.2) g/dL Albumin (3.5-5.0) g/dL Acetone, Qual (Negative) - EKG Data -: EKG Interpreted by Me (EKG is sinus 91 IL 169 QRS 106 QTc 393) - Radiology Data Radiology results: pending (Gallbladder), report reviewed (CTA chest CT abdomen pelvis positive for CHF), image reviewed Critical Care Time Critical Care Time: Yes Total Critical Care Time: 31 Disposition Clinical Impression: Dehydration, Gastroenteritis, Abdominal pain, Weakness, CHF (congestive heart failure), COPD (chronic obstructive pulmonary disease), Hypoxia, NSTEMI (non-ST elevated myocardial infarction) Disposition: ADMITTED IP TO THIS [facility] Condition: Serious Is patient prescribed a controlled substance at d/c from ED?: No Time of Disposition: 12:30
[2024-02-13] MEDS: ONDANSETRON 4 MG/2 ML VIAL IVP STA (08:21)
[2024-02-13] MEDS: PANTOPRAZOLE 40 MG/10 ML VIAL IV STA (08:22)
[2024-02-13] MEDS: SODIUM CHLORIDE 0.9% 1,000 ML IV STA ×2 (08:22)
[2024-02-13 08:30] LABS: Glucose,Whole Blood 168 mg/dL (70-110)
[2024-02-13 08:34] LABS: Basophils % (A) 0 %; Eosinophils # (A) 0.2 k/uL (0-0.7); Eosinophils % (A) 2 %; Hypochromasia Slight; Lymphocytes # (A) 1.3 k/uL (1.0-4.8); Lymphocytes % (A) 16 %; MCH 26.9 pg (25.0-35.0); MCHC 31.8 g/dL (31.0-37.0); MCV 84.9 fL (80.0-100.0); Monocytes # (A) 0.4 k/uL (0-1.0); Monocytes % (A) 5 %; Neutrophils # (A) 5.9 k/uL (1.3-7.7); Neutrophils % (A) 75 %; Platelet Count 277 k/uL (150-450); RBC 4.83 m/uL (4.30-5.90); RDW 13.2 % (11.5-15.5)
[2024-02-13 09:05] LABS: INR 0.9 (<1.2); Partial Thromboplastin Time 23.9 sec (22.0-30.0); Prothrombin Time 10.3 sec (10.0-12.5)
[2024-02-13] MEDS: IPRATROPIUM-ALBUTEROL 3 ML NEB INHALATION STA (09:19)
[2024-02-13 09:48] LABS: ALT 27 U/L (4-49); AST 21 U/L (17-59); African American GFR (CKD) >90 (>60 ml/min/1.73 sqM); Albumin 3.4 g/dL (3.5-5.0); Alkaline Phosphatase 92 U/L (38-126); Anion Gap 4 mmol/L; Blood Urea Nitrogen 12 mg/dL (9-20); Calcium 9.2 mg/dL (8.4-10.2); Carbon Dioxide 23 mmol/L (22-30); Chloride 111 mmol/L (98-107); Glucose 164 mg/dL (74-99); Non-African American GFR(CKD) >90 (>60 ml/min/1.73 sqM); Phosphorus 2.9 mg/dL (2.5-4.5); Potassium 4.2 mmol/L (3.5-5.1); Sodium 138 mmol/L (137-145); Total Bilirubin 1.3 mg/dL (0.2-1.3); Total Protein 5.7 g/dL (6.3-8.2)
[2024-02-13 09:56] LABS: NT-Pro-B-Type Natriuretic Pept 1910 pg/mL
--- NOTE | 2024-02-13 11:06 | CT ---
EXAMINATION TYPE: CT angio chest DATE OF EXAM: 02/13/2024 COMPARISON: None HISTORY: nausea, vomiting, MEREDITH and chest pain CT DLP: 4237.2 mGycm CONTRAST: CT chest with contrast and 3D reconstruction with MIP imaging is performed with IV Contrast, patient injected with 100 ml mL of Isovue 370. Contrast-enhanced CT of the chest was performed through the course of the pulmonary arteries with walter g and mediastinal window settings submitted. 3D reconstruction with MIP imaging was also performed. PULMONARY ARTERIES: The pulmonary arteries and their major tributaries are patent. I do not see lorraine dence for sizable filling defect to suggest pulmonary embolic process. LUNGS: Scattered groundglass infiltrates with a pulmonary venous congestion No evidence for atelectas is. No pulmonary nodule or mass is detected. Small bilateral pleural effusions are noted. MEDIASTINUM: Thoracic aorta is of normal caliber. The heart is enlarged. No evidence for mediastina l mass. No mediastinal lymph nodes greater than 1cm. HILAR STRUCTURES: No evidence for mass. No hilar lymph nodes greater than 1 cm. UPPER ABDOMEN: No significant abnormality is seen. IMPRESSION: 1. No evidence for Pulmonary embolism at this time. 2. Correlate for congestive failure. [facility], , 02/13/2024 11:03 AM
--- NOTE | 2024-02-13 11:12 | CT ---
EXAMINATION TYPE: CT abdomen pelvis w con DATE OF EXAM: 02/13/2024 COMPARISON: none HISTORY: nausea, vomiting, MEREDITH and chest pain CT DLP: 4237.2 mGycm CONTRAST: CT scan of the abdomen and pelvis is performed without Oral Contrast and with IV Contrast, patient in jected with 100 ml mL of Isovue 370. FINDINGS: LUNG BASES-: No visible nodule. No infiltrate. Small effusions identified. LIVER/GB: No calcified gallstones. No space occupying hepatic lesion. Biliary tree is of normal ca liber. PANCREAS: Hypoattenuating area within the upper pole of the spleen with somewhat of a wedgelike appea johana could reflect splenic infarct. Correlate clinically. Lesion of other etiology not excluded. SPLEEN: No splenic enlargement. No lesion seen. ADRENALS: No nodule. No thickening. KIDNEYS/BLADDER: No hydronephrosis. No nephrolithiasis. Right-sided renal cysts noted. Urinary blad chalo grossly unremarkable. BOWEL: Nonvisualization of the spleen. Normal bowel caliber. No inflammation. GENITAL ORGANS: No gross abnormality. LYMPH NODES: No greater than 1cm abdominal or pelvic lymph nodes are appreciated. AORTA: No significant abnormality. OSSEOUS STRUCTURES: Degenerative changes lumbar spine. OTHER: No significant additional abnormality is seen. IMPRESSION: 1. Hypoattenuating area within the upper pole of the spleen with somewhat of a wedgelike appearance c ould reflect splenic infarct. Correlate clinically. Lesion of other etiology not excluded. 2. Small pleural effusions. [facility], , 02/13/2024 11:10 AM
[2024-02-13] MEDS ORDERED: ONDANSETRON 4 MG/2 ML VIAL IVP PRN (12:51)
[2024-02-13] MEDS ORDERED: HYDROmorphone 1 MG/ML 1 ML SYRINGE IVP PRN (12:51)
[2024-02-13] MEDS ORDERED: NALOXONE 0.4 MG/ML 1 ML VIAL IV PRN (12:51)
[2024-02-13 13:15] LABS: VBG PH 7.35 (7.31-7.41)
[2024-02-13] MEDS: SODIUM CHLORIDE 0.9% 1,000 ML IV SCH (14:05)
--- NOTE | 2024-02-13 14:38 | P.GSCN ---
History of Present Illness Consult date: 02/13/24 History of present illness: CHIEF COMPLAINT: Abdominal pain HISTORY OF PRESENT ILLNESS: This is a 53-year-old male who presents the hospital with complaints of right upper quadrant epigastric abdominal pain for 2 weeks. He is also been having episodes of nausea and vomiting. He vomited 3 times this past Tuesday. He reports the pain is worse after eating fatty meals. He does report having prior history of gallbladder attacks. Gallbladder ultrasound is pending. Patient also had a CTA of the chest which was negative for PE and to correlate for CHF. Patient does report a history of CHF and on water pills at home. Denies any prior abdominal surgeries. PAST MEDICAL HISTORY: COPD, Diabetes Mellitus, GERD/Reflux, Hyperlipidemia, Hypertension, Neurologic Disorder, CHF PAST SURGICAL HISTORY: See below MEDICATIONS: See below ALLERGIES: See below SOCIAL HISTORY: No illicit drug use. REVIEW OF SYSTEMS: CONSTITUTIONAL: Denies fever or chills. HEENT: Denies blurred vision, vision changes, or eye pain. Denies hemoptysis CARDIOVASCULAR: Denies chest pain or pressure. RESPIRATORY: No shortness of breath. GASTROINTESTINAL: See HPI for pertinent findings HEMATOLOGIC: Denies bleeding disorders. GENITOURINARY: Denies any blood in urine or increased urinary frequency. SKIN: Denies pruitis. Denies rash. PHYSICAL EXAM: VITAL SIGNS: Reviewed GENERAL: Well-developed in no acute distress. HEENT: No sclera icterus. Extraocular movements grossly intact. Moist buccal mucosa. Head is atraumatic, normocephalic. No nasal drainage. ABDOMEN: Soft. Obese. Nondistended. Tenderness with palpation right upper quadrant and epigastric area. Left upper quadrant nontender NEUROLOGIC: Alert and oriented. Cranial nerves II through XII grossly intact. LABORATORY DATA: WBC 8.0 Hgb 13 platelets 277 INR 0.9 Sodium 138 potassium 4.2 creatinine 0.63 lactic acid 0.9 LFTs normal BNP level elevated Troponin 0.050 IMAGING: CTA of the chest no evidence for PE. Correlate for congestive heart failure CT scan abdomen pelvis reports hypoattenuating area within the upper pole of the spleen with somewhat of a wedgelike appearance could reflect splenic infarct. Correlate clinically. Lesion of other etiology not excluded. Small pleural effusions. ASSESSMENT: 1. Right upper quadrant and epigastric abdominal pain 2. CT reporting hypoattenuating area within the upper pole of the spleen with somewhat of a wedgelike appearance could reflect splenic infarct PLAN: -Surgeon recommends laparoscopic cholecystectomy when medically stable. Patient is tentatively boarded for tomorrow or Tuesday if cleared by medicine service -Follow-up on abdominal ultrasound results -Possible CHF exacerbation. Fluid overload management per medicine service -Okay for clear liquid diet today -N.p.o. after midnight Physician Pasting Machine Operator note has been reviewed by physician. Signing provider agrees with the documented findings, assessment, and plan of care. Past Medical History Past Medical History: COPD, Diabetes Mellitus, GERD/Reflux, Hyperlipidemia, Hypertension, Neurologic Disorder Additional Past Medical History / Comment(s): rt foot neuropathy History of Any Multi-Drug Resistant Organisms: None Reported Past Surgical History: No Surgical Hx Reported Past Anesthesia/Blood Transfusion Reactions: Motion Sickness Additional Past Anesthesia/Blood Transfusion Reaction / Comm: has never had anesthesia Past Psychological History: No Psychological Hx Reported Smoking Status: Former smoker Past Alcohol Use History: None Reported Additional Past Alcohol Use History / Comment(s): smoker for 40 years 1-2ppd quit 2019 Past Drug Use History: Marijuana - Past Family History Father Family Medical History: Cancer Additional Family Medical History / Comment(s): prostate cancer Brother(s) Family Medical History: Cancer Additional Family Medical History / Comment(s): lymphoma bicep Medications and Allergies Home Medications Medication Instructions Recorded Confirmed Type Atorvastatin [Lipitor] 10 mg PO DAILY 02/05/20 02/13/24 History Furosemide [Lasix] 40 mg PO DAILY 02/05/20 02/13/24 History Omeprazole 20 mg PO AC-BRKFST 02/05/20 02/13/24 History sitaGLIPtin [Januvia] 100 mg PO DAILY 02/05/20 02/13/24 History Citalopram Hydrobromide [CeleXA] 20 mg PO DAILY 08/28/21 02/13/24 History Sildenafil Citrate 100 mg PO DAILY PRN 08/28/21 02/13/24 History Albuterol Inhaler [Ventolin Hfa 2 puff INHALATION RT-Q4H PRN 08/31/21 02/13/24 History Inhaler] Budesonide [Pulmicort] 0.5 mg INHALATION RT-BID PRN 02/13/24 02/13/24 History Bumetanide [Bumex] 1 mg PO DAILY 02/13/24 02/13/24 History Dextroamphetamine/Amphetamine 30 mg PO DAILY 02/13/24 02/13/24 History [Adderall] Fluticasone/Umeclidin/Vilanter 1 puff INHALATION RT-DAILY 02/13/24 02/13/24 H istory [Trelegy Ellipta 200-62.5-25] Ipratropium-Albuterol Nebulize 3 ml INHALATION RT-Q4H PRN 02/13/24 02/13/24 History [Duoneb 0.5 mg-3 mg/3 ml Soln] Potassium Chloride ER [K-Dur 20] 20 meq PO DAILY 02/13/24 02/13/24 History Pregabalin [Lyrica] 150 mg PO DAILY 02/13/24 02/13/24 History amLODIPine [Norvasc] 10 mg PO DAILY 02/13/24 02/13/24 History glipiZIDE XL [Glucotrol Xl] 5 mg PO DAILY 02/13/24 02/13/24 History Allergies Allergy/AdvReac Type Severity Reaction Status Date / Time No Known Allergies Allergy Verified 02/13/24 12:11 Surgical - Exam Vital Signs Temp Pulse Resp BP Pulse Ox 97.9 F 92 18 75/56 98 02/13/24 07:37 02/13/24 07:37 02/13/24 07:37 02/13/24 07:37 02/13/24 07:37 Results - Labs 02/13/24 08:19 02/13/24 08:19 Abnormal Lab Results - Last 24 Hours (Table) 02/13/24 02/13/24 02/13/24 Range/Units 08:19 08:19 08:28 Chloride 111 H (98-107) mmol/L Creatinine 0.63 L (0.66-1.25) mg/dL Glucose 164 H (74-99) mg/dL POC Glucose (mg/dL) 168 H (70-110) mg/dL Troponin I 0.050 H* (0.000-0.034) ng/mL Total Protein 5.7 L (6.3-8.2) g/dL Albumin 3.4 L (3.5-5.0) g/dL Diabetes panel 02/13/24 Range/Units 08:19 Sodium 138 (137-145) mmol/L Potassium 4.2 (3.5-5.1) mmol/L Chloride 111 H (98-107) mmol/L Carbon Dioxide 23 (22-30) mmol/L BUN 12 (9-20) mg/dL Creatinine 0.63 L (0.66-1.25) mg/dL Glucose 164 H (74-99) mg/dL Calcium 9.2 (8.4-10.2) mg/dL AST 21 (17-59) U/L ALT 27 (4-49) U/L Alkaline Phosphatase 92 (38-126) U/L Total Protein 5.7 L (6.3-8.2) g/dL Albumin 3.4 L (3.5-5.0) g/dL Calcium panel 02/13/24 Range/Units 08:19 Calcium 9.2 (8.4-10.2) mg/dL Phosphorus 2.9 (2.5-4.5) mg/dL Albumin 3.4 L (3.5-5.0) g/dL Pituitary panel 02/13/24 Range/Units 08:19 Sodium 138 (137-145) mmol/L Potassium 4.2 (3.5-5.1) mmol/L Chloride 111 H (98-107) mmol/L Carbon Dioxide 23 (22-30) mmol/L BUN 12 (9-20) mg/dL Creatinine 0.63 L (0.66-1.25) mg/dL Glucose 164 H (74-99) mg/dL Calcium 9.2 (8.4-10.2) mg/dL Adrenal panel 02/13/24 Range/Units 08:19 Sodium 138 (137-145) mmol/L Potassium 4.2 (3.5-5.1) mmol/L Chloride 111 H (98-107) mmol/L Carbon Dioxide 23 (22-30) mmol/L BUN 12 (9-20) mg/dL Creatinine 0.63 L (0.66-1.25) mg/dL Glucose 164 H (74-99) mg/dL Calcium 9.2 (8.4-10.2) mg/dL Total Bilirubin 1.3 (0.2-1.3) mg/dL AST 21 (17-59) U/L ALT 27 (4-49) U/L Alkaline Phosphatase 92 (38-126) U/L Total Protein 5.7 L (6.3-8.2) g/dL Albumin 3.4 L (3.5-5.0) g/dL
[2024-02-13] MEDS ORDERED: IPRATROPIUM-ALBUTEROL 3 ML NEB INHALATION PRN (15:37)
[2024-02-13] MEDS ORDERED: HYDROcodone/APAP 5-325MG 1 EACH TAB PO PRN (15:39)
[2024-02-13] MEDS ORDERED: HYDROmorphone 0.5 MG/0.5 ML SYRINGE IVP PRN (15:39)
[2024-02-13] MEDS ORDERED: DEXTROSE 50% SYRINGE 50 ML IVP PRN ×2 (15:40)
[2024-02-13] MEDS ORDERED: SILDENAFIL 20 MG TAB PO PRN (15:42)
[2024-02-13] MEDS: FORMOTEROL FUMARATE 20 MCG/2 ML NEBU INHALATION SCH (16:36)
[2024-02-13] MEDS: BUDESONIDE 1 MG/2 ML NEBU INHALATION SCH (16:36)
[2024-02-13 16:40] LABS: Glucose,Whole Blood 146 mg/dL (70-110)
--- NOTE | 2024-02-13 16:42 | US ---
EXAMINATION TYPE: US gallbladder DATE OF EXAM: 02/13/2024 COMPARISON: None CLINICAL INDICATION: Male, 53 years old with history of pain; Pain TECHNIQUE: Multiple sonographic images of the right upper quadrant are obtained. FINDINGS: EXAM MEASUREMENTS: Liver Length: 19.0 cm Gallbladder Wall: 0.3 cm CBD: 0.6 cm Right Kidney: 10.4 x 5.1 x 5.3 cm BASKET HAND WEAVER NOTES:Limited due to overlying bowel gas Pancreas: Limited, echogenic in appearance, tail obscured by overlying bowel gas Liver: Enlarged in size. Echogenic and heterogenous. Gallbladder: No stones or wall thickening Evidence for sonographic Richards's sign: neg CBD: wnl Right Kidney: Lateral inferior anechoic lesion = 4.9 x 4.8 x 4.6 cm IMPRESSION: 1. Normal gallbladder. 2. Hepatomegaly with fatty infiltration 3. 5 cm cyst in the inferior right kidney [facility], Workstation: [facility], 02/13/2024 4:40 PM
[2024-02-13] MEDS: FUROSEMIDE 10 MG/ML 4 ML VIAL IV SCH (16:43)
[2024-02-13] MEDS: INSULIN ASPART (NovoLOG) 100 UNIT/ML VIAL SQ SCH (16:47)
--- NOTE | 2024-02-13 16:47 | US ---
EXAMINATION TYPE: US venous doppler duplex LE BI DATE OF EXAM: 02/13/2024 3:51 PM COMPARISON: NONE CLINICAL INDICATION: Male, 53 years old with history of dvt; right leg swelling x 2 years. No rednes s. No injury. SIDE PERFORMED: Bilateral TECHNIQUE: The lower extremity deep venous system is examined utilizing real time linear array sonog faustino with graded compression, doppler sonography and color-flow sonography. VESSELS IMAGED: Common Femoral Vein Deep Femoral Vein Greater Saphenous Vein * Femoral Vein Popliteal Vein Small Saphenous Vein * Proximal Calf Veins (* superficial vessels) Suboptimal due to body habitus Right Leg: Negative for DVT Left Leg: Negative for DVT The deep venous systems of both lower extremities from the common femoral remains to the proximal alexandro f veins are patent and compressible with augmentable flow and with normal waveforms. IMPRESSION: No evidence of bilateral lower extremity DVT from the common femoral veins to the proximal calf veins [facility], , 02/13/2024 4:45 PM
[2024-02-13] MEDS: IPRATROPIUM-ALBUTEROL 3 ML NEB INHALATION SCH (16:53)
[2024-02-13] MEDS: methylPREDNISolone SOD SUCCI 125 MG/2 ML VIAL IV SCH (17:50)
[2024-02-13 18:12] LABS: Appearance,Urine Clear (Clear); Bilirubin,Urine Negative (Negative); Blood,Urine Negative (Negative); Color,Urine Yellow; Glucose,Urine (UA) 1+ (Negative); Ketones,Urine Negative (Negative); Leukocyte Esterase,Urine Negative (Negative); Nitrite,Urine Negative (Negative); PH, Urine 5.5 (5.0-8.0); Protein,Urine Negative (Negative); Urobilinogen,Urine <2.0 mg/dL (<2.0)
[2024-02-13 18:15] LABS: Specific Gravity,Urine >1.050 (1.001-1.035)
[2024-02-13] MEDS ORDERED: SYMBICORT 160-4.5 MCG INHALER INHALATION SCH (20:00)
--- NOTE | 2024-02-13 20:01 | HP ---
HISTORY AND PHYSICAL CHIEF COMPLAINT: Shortness of breath. HISTORY OF PRESENT ILLNESS: This is a 53-year-old gentleman with a past medical history of diabetes, COPD, was complaining of shortness of breath. The patient also complaining of abdominal pain in the epigastric on the right side. The patient also had some splenic infarct in the CT scan and a CTA showed no evidence of pulmonary embolism, but CHF suspected. There is no history of any fever, rigors, or chills at this time. The patient also had bilateral leg swelling and PVCs also in the EKG. PAST MEDICAL HISTORY: Reviewed include COPD, diabetes. Rest of the history and rest of the chart is also reviewed. HOME MEDICATIONS: Reviewed include DuoNeb and dose and rest of medications reviewed. ALLERGIES: None. FAMILY HISTORY: History of prostate cancer. SOCIAL HISTORY: Previous history of smoking, THC. REVIEW OF SYSTEMS: A 14-point review is negative except as mentioned earlier. PHYSICAL EXAMINATION: VITAL SIGNS: Pulse is 89, blood pressure 139/95, respirations 18. HEENT: Conjunctivae normal. NECK: Full breathing efforts are markedly increased. Extremely short of breath. CARDIOVASCULAR: S1, S2 muffled. RESPIRATIONS: A few bilateral scattered rhonchi and crackles. ABDOMEN: Soft, obese. Mild diffuse tenderness in the epigastrium. There is no guarding. No rigidity. LEGS: Bilateral leg edema. NERVOUS SYSTEM: No focal deficits. SKIN: No ulcer, rash, bleeding. JOINTS: No active deforming arthropathy. LABORATORY DATA: Reviewed. ASSESSMENT: 1. Shortness of breath, possibly congestive heart failure acute exacerbation as well as chronic obstructive pulmonary disease acute exacerbation. 2. Troponin 0.050. Rule out acute [id number] myocardial infarction. 3. Bilateral leg edema. 4. Splenic infarct. 5. Diabetes mellitus, type 2. 6. Hypertension. 7. Hyperlipidemia. 8. Multiple complex medical issues. RECOMMENDATIONS: This is a 53-year-old gentleman presented with multiple complex medical issues, we will monitor the patient closely. I would recommend intravenous Lasix. Restrict the fluids to 1500 mL per 24 hours. I would also recommend intensive bronchodilators as well as IV steroids. Monitor blood sugars closely. Resume the home medications. DVT prophylaxis. I would also recommend Cardiology, Pulmonology evaluations. 2D echo to evaluate the cardiac function also. Prognosis may be guarded because of multiple complex medical issues. Further recommendations to follow. Surgery has already seen the patient and recommended possible laparoscopic cholecystectomy. We will continue to monitor. Further recommendations to follow. MMODL / IJN: [id number] /
[2024-02-13 20:49] LABS: Glucose,Whole Blood 249 mg/dL (70-110)
[2024-02-13] MEDS: HEPARIN SODIUM,PORCINE 5,000 UNIT/ML 1 ML VIAL SQ SCH (20:53)
[2024-02-14 06:22] LABS: Glucose,Whole Blood 241 mg/dL (70-110)
[2024-02-14 07:25] LABS: Basophils % (A) 0 %; Eosinophils % (A) 1 %; HCT 43.5 % (39.0-53.0); HGB 13.6 gm/dL (13.0-17.5); Hypochromasia Slight; Lymphocytes # (A) 0.4 k/uL (1.0-4.8); Lymphocytes % (A) 5 %; MCH 26.8 pg (25.0-35.0); MCHC 31.3 g/dL (31.0-37.0); MCV 85.8 fL (80.0-100.0); Mean Platelet Volume 7.1; Monocytes # (A) 0.1 k/uL (0-1.0); Monocytes % (A) 1 %; Neutrophils # (A) 6.9 k/uL (1.3-7.7); Neutrophils % (A) 92 %; Platelet Count 306 k/uL (150-450); RBC 5.07 m/uL (4.30-5.90); RDW 13.2 % (11.5-15.5); WBC 7.4 k/uL (3.8-10.6)
--- NOTE | 2024-02-14 07:25 | XR ---
EXAMINATION TYPE: XR chest 1V portable DATE OF EXAM: 02/14/2024 COMPARISON: 05/21/2018 HISTORY: Shortness of breath TECHNIQUE: Single frontal view of the chest is obtained. FINDINGS: Heart size is enlarged. No sizable pleural effusion or pneumothorax. Basilar atelectasis f avored over infiltrate. No overt failure. Underlying COPD. Osteopenia and degenerative change of the spine. Arthropathy of the shoulders. IMPRESSION: Basilar atelectasis favored over infiltrate correlate clinically. [facility], , 02/14/2024 7:23 AM
[2024-02-14 07:38] LABS: ALT 26 U/L (4-49); AST 21 U/L (17-59); African American GFR (CKD) >90 (>60 ml/min/1.73 sqM); Albumin 3.5 g/dL (3.5-5.0); Alkaline Phosphatase 85 U/L (38-126); Anion Gap 6 mmol/L; Blood Urea Nitrogen 12 mg/dL (9-20); Calcium 9.2 mg/dL (8.4-10.2); Carbon Dioxide 27 mmol/L (22-30); Chloride 105 mmol/L (98-107); Glucose 252 mg/dL (74-99); Magnesium 1.9 mg/dL (1.6-2.3); Non-African American GFR(CKD) >90 (>60 ml/min/1.73 sqM); Phosphorus 3.5 mg/dL (2.5-4.5); Potassium 4.5 mmol/L (3.5-5.1); Sodium 138 mmol/L (137-145); Total Bilirubin 1.2 mg/dL (0.2-1.3); Total Protein 6.1 g/dL (6.3-8.2)
[2024-02-14] MEDS ORDERED: ALPRAZolam 0.25 MG TAB PO PRN (09:21)
[2024-02-14] MEDS ORDERED: NITROGLYCERIN SL TABS 0.4 MG TAB SUBLINGUAL PRN (09:21)
[2024-02-14] MEDS ORDERED: ALPRAZolam 0.5 MG TAB PO PRN (09:21)
[2024-02-14] MEDS: glipiZIDE 5 MG TAB PO SCH (09:28)
[2024-02-14] MEDS: NON FORMULARY DRUG (Dextroamphetamine/Amphetamine [Adderall] 30 MG Tablet) PO SCH (09:28)
[2024-02-14] MEDS: PANTOPRAZOLE 40 MG/10 ML VIAL IV SCH (09:53)
[2024-02-14] MEDS: ATORVASTATIN 80 MG TAB PO STA (09:53)
[2024-02-14] MEDS: ASPIRIN 325 MG TAB PO STA (09:53)
--- NOTE | 2024-02-14 10:16 | P.CNPUL ---
History of Present Illness Consult date: 02/13/24 Reason for consult: dyspnea History of present illness: This is a 53-year-old male patient presented to the hospital because of worsening shortness of breath. He also noted some ongoing abdominal pain specially over the right upper quadrant it has been ongoing for the past 2 weeks. Is been also having episodes of nausea and emesis. No fever. No chills. No hemoptysis. No pleurisy. White cell count is at 8 with a hemoglobin 13.0 and a platelet count of 277. Normal coagulation profile. Normal electrolytes. Normal LFTs. Troponin 0.05. proBNP level is 1910. UA is showing +1 glucose, otherwise negative. Viral screen has been negative. Serum acetone is negative. CT of the chest is consistent with bilateral pleural effusions and some increased pulm vascular markings consistent with CHF. No lung masses or mediastinal lymph nodes. Scattered groundglass infiltrates along with pulm vessel congestion seen. No atelectasis. CT scan of the abdomen and pelvis was also done that showed a hypoattenuating area within the upper pole of the spleen, wedge-shaped, suspecting an underlying infarct. No splenic enlargement. No splenic lesions. The ultrasound of the gallbladder was normal. There is a 5 cm inferior right renal cyst and the Doppler of the lower extremity was also negative for DVT. Review of Systems Constitutional: Denies chills, Denies fever Eyes: denies as per HPI, denies blurred vision, denies bulging eye, denies decreased vision, denies diplopia, denies discharge, denies dry eye, denies irritation, denies itching, denies pain, denies photophobia, denies loss of peripheral vision, denies loss of vision, denies tunnel vision/blind spots Ears: deny: decreased hearing, ear discharge, earache, tinnitus Ears, nose, mouth and throat: Reports as per HPI Breasts: absent: as per HPI, gynecomastia Cardiovascular: Reports decreased exercise tolerance, Reports dyspnea on exertion Respiratory: Reports dyspnea Gastrointestinal: Reports abdominal pain, Reports nausea, Reports vomiting Genitourinary: Reports as per HPI Musculoskeletal: Reports as per HPI Musculoskeletal: absent: ankle pain, ankle stiffness, ankle swelling, as per HPI, elbow pain, elbow stiffness, elbow swelling, foot pain, foot stiffness, foot swelling, hand pain, hand stiffness, hand swelling, hip pain, hip stiffness, hip swelling, knee pain, knee stiffness, knee swelling, shoulder pain, shoulder stiffness, shoulder swelling, wrist pain, wrist stiffness, wrist swelling Integumentary: Reports as per HPI Neurological: Reports as per HPI Psychiatric: Reports as per HPI Endocrine: Reports as per HPI Hematologic/Lymphatic: Reports as per HPI Allergic/Immunologic: Reports as per HPI Past Medical History Past Medical History: COPD, Diabetes Mellitus, GERD/Reflux, Hyperlipidemia, Hypertension, Neurologic Disorder Additional Past Medical History / Comment(s): rt foot neuropathy History of Any Multi-Drug Resistant Organisms: None Reported Additional Past Surgical History / Comment(s): Left hydrocelectomy, bilateral vasectomy Past Anesthesia/Blood Transfusion Reactions: Motion Sickness Additional Past Anesthesia/Blood Transfusion Reaction / Comment(s): has never had anesthesia Past Psychological History: No Psychological Hx Reported Smoking Status: Former smoker Past Alcohol Use History: None Reported Additional Past Alcohol Use History / Comment(s): smoker for 40 years 1-2ppd quit 2019 Past Drug Use History: Marijuana - Past Family History Father Family Medical History: Cancer Additional Family Medical History / Comment(s): prostate cancer Brother(s) Family Medical History: Cancer Additional Family Medical History / Comment(s): lymphoma bicep Medications and Allergies Home Medications Medication Instructions Recorded Confirmed Type Atorvastatin [Lipitor] 10 mg PO DAILY 02/05/20 02/13/24 History Furosemide [Lasix] 40 mg PO DAILY 02/05/20 02/13/24 History Omeprazole 20 mg PO AC-BRKFST 02/05/20 02/13/24 History sitaGLIPtin [Januvia] 100 mg PO DAILY 02/05/20 02/13/24 History Citalopram Hydrobromide [CeleXA] 20 mg PO DAILY 08/28/21 02/13/24 History Sildenafil Citrate 100 mg PO DAILY PRN 08/28/21 02/13/24 History Albuterol Inhaler [Ventolin Hfa 2 puff INHALATION RT-Q4H PRN 08/31/21 02/13/24 History Inhaler] Budesonide [Pulmicort] 0.5 mg INHALATION RT-BID PRN 02/13/24 02/13/24 History Bumetanide [Bumex] 1 mg PO DAILY 02/13/24 02/13/24 History Dextroamphetamine/Amphetamine 30 mg PO DAILY 02/13/24 02/13/24 History [Adderall] Fluticasone/Umeclidin/Vilanter 1 puff INHALATION RT-DAILY 02/13/24 02/13/24 History [Trelegy Ellipta 200-62.5-25] Ipratropium-Albuterol Nebulize 3 ml INHALATION RT-Q4H PRN 02/13/24 02/13/24 History [Duoneb 0.5 mg-3 mg/3 ml Soln] Potassium Chloride ER [K-Dur 20] 20 meq PO DAILY 02/13/24 02/13/24 History Pregabalin [Lyrica] 150 mg PO DAILY 02/13/24 02/13/24 History amLODIPine [Norvasc] 10 mg PO DAILY 02/13/24 02/13/24 History glipiZIDE XL [Glucotrol Xl] 5 mg PO DAILY 02/13/24 02/13/24 History Allergies Allergy/AdvReac Type Severity Reaction Status Date / Time No Known Allergies Allergy Verified 02/13/24 12:11 Physical Exam Vitals: Vital Signs Temp Pulse Resp BP Pulse Ox 02/13/24 20:20 91 02/13/24 20:19 91 02/13/24 20:10 94 02/13/24 19:01 87 18 133/98 95 02/13/24 17:48 87 18 135/87 95 02/13/24 17:01 91 02/13/24 16:54 94 02/13/24 16:00 97.6 F 90 18 122/91 98 02/13/24 14:02 90 18 116/94 97 02/13/24 12:34 89 18 139/95 97 02/13/24 11:00 96 18 121/83 97 02/13/24 09:58 93 18 119/74 95 02/13/24 09:38 90 02/13/24 09:20 90 02/13/24 08:09 92 20 135/101 90 L 02/13/24 07:37 97.9 F 92 18 75/56 98 Intake and Output 02/13/24 02/13/24 02/13/24 06:59 14:59 22:59 Other: Weight 163.293 kg The patient appeared well nourished and normally developed. Vital signs as documented. Head exam is unremarkable. No scleral icterus or corneal arcus noted. Neck is without jugular venous distension, thyromegaly, or carotid bruits. Carotid upstrokes are brisk bilaterally. Lungs are diminished breath sounds bilaterally along with bibasilar crackles.. Cardiac exam reveals the PMI to be normally sized and situated. Rhythm is regular. First and second heart sounds normal. No murmurs, rubs or gallops. Abdominal exam reveals normal bowel sounds, no masses, no organomegaly and no aortic enlargement. Extremities are nonedematous and both femoral and pedal pulses are normal. Examination of the skin revealed no evidence of significant rashes, suspicious appearing nevi or ot her concerning lesions. Neurologically, the patient is awake and alert and the patient does not have any focal neurological deficit. Cranial nerves are essentially intact. Results - Laboratory Findings CBC and BMP: 02/14/24 06:56 02/14/24 06:56 ABG WBC 8.0 k/uL (3.8-10.6) 02/13/24 08:19 RBC 4.83 m/uL (4.30-5.90) 02/13/24 08:19 Hgb 13.0 gm/dL (13.0-17.5) 02/13/24 08:19 Hct 41.0 % (39.0-53.0) 02/13/24 08:19 MCV 84.9 fL (80.0-100.0) 02/13/24 08:19 MCH 26.9 pg (25.0-35.0) 02/13/24 08:19 MCHC 31.8 g/dL (31.0-37.0) 02/13/24 08:19 RDW 13.2 % (11.5-15.5) 02/13/24 08:19 Plt Count 277 k/uL (150-450) 02/13/24 08:19 MPV 7.0 02/13/24 08:19 Neutrophils % 75 % 02/13/24 08:19 Lymphocytes % 16 % 02/13/24 08:19 Monocytes % 5 % 02/13/24 08:19 Eosinophils % 2 % 02/13/24 08:19 Basophils % 0 % 02/13/24 08:19 Neutrophils # 5.9 k/uL (1.3-7.7) 02/13/24 08:19 Lymphocytes # 1.3 k/uL (1.0-4.8) 02/13/24 08:19 Monocytes # 0.4 k/uL (0-1.0) 02/13/24 08:19 Eosinophils # 0.2 k/uL (0-0.7) 02/13/24 08:19 Basophils # 0.0 k/uL (0-0.2) 02/13/24 08:19 Hypochromasia Slight 02/13/24 08:19 PT 10.3 sec (10.0-12.5) 02/13/24 08:19 INR 0.9 (<1.2) 02/13/24 08:19 APTT 23.9 sec (22.0-30.0) 02/13/24 08:19 VBG pH 7.35 (7.31-7.41) 02/13/24 13:03 VBG pCO2 50 mmHg (37-51) 02/13/24 13:03 VBG HCO3 27 mmol/L (24-28) 02/13/24 13:03 Sodium 138 mmol/L (137-145) 02/13/24 08:19 Potassium 4.2 mmol/L (3.5-5.1) 02/13/24 08:19 Chloride 111 mmol/L (98-107) H 02/13/24 08:19 Carbon Dioxide 23 mmol/L (22-30) 02/13/24 08:19 Anion Gap 4 mmol/L 02/13/24 08:19 BUN 12 mg/dL (9-20) 02/13/24 08:19 Creatinine 0.63 mg/dL (0.66-1.25) L 02/13/24 08:19 Est GFR (CKD-EPI)AfAm >90 (>60 ml/min/1.73 sqM) 02/13/24 08:19 Est GFR (CKD-EPI)NonAf >90 (>60 ml/min/1.73 sqM) 02/13/24 08:19 Glucose 164 mg/dL (74-99) H 02/13/24 08:19 POC Glucose (mg/dL) 146 mg/dL (70-110) H 02/13/24 16:39 POC Glu Director Of Institutional Giving Scot Colón 02/13/24 16:39 Plasma Lactic Acid Giuseppe 0.9 mmol/L (0.7-2.0) 02/13/24 08:19 Calcium 9.2 mg/dL (8.4-10.2) 02/13/24 08:19 Phosphorus 2.9 mg/dL (2.5-4.5) 02/13/24 08:19 Magnesium 2.0 mg/dL (1.6-2.3) 02/13/24 08:19 Total Bilirubin 1.3 mg/dL (0.2-1.3) 02/13/24 08:19 AST 21 U/L (17-59) 02/13/24 08:19 ALT 27 U/L (4-49) 02/13/24 08:19 Alkaline Phosphatase 92 U/L (38-126) 02/13/24 08:19 Troponin I 0.050 ng/mL (0.000-0.034) H* 02/13/24 08:19 NT-Pro-B Natriuret Pep 1910 pg/mL 02/13/24 08:19 Total Protein 5.7 g/dL (6.3-8.2) L 02/13/24 08:19 Albumin 3.4 g/dL (3.5-5.0) L 02/13/24 08:19 Urine Color Yellow 02/13/24 16:34 Urine Appearance Clear (Clear) 02/13/24 16:34 Urine pH 5.5 (5.0-8.0) 02/13/24 16:34 Ur Specific [place] >1.050 (1.001-1.035) H 02/13/24 16:34 Urine Protein Negative (Negative) 02/13/24 16:34 Urine Glucose (UA) 1+ (Negative) H 02/13/24 16:34 Urine Ketones Negative (Negative) 02/13/24 16:34 Urine Blood Negative (Negative) 02/13/24 16:34 Urine Nitrite Negative (Negative) 02/13/24 16:34 Urine Bilirubin Negative (Negative) 02/13/24 16:34 Urine Urobilinogen <2.0 mg/dL (<2.0) 02/13/24 16:34 Ur Leukocyte Esterase Negative (Negative) 02/13/24 16:34 Acetone, Qual Negative (Negative) 02/13/24 08:19 Influenza Type A (PCR) Not Detected (Not Detectd) 02/13/24 16:47 Influenza Type B (PCR) Not Detected (Not Detectd) 02/13/24 16:47 RSV (PCR) Not Detected (Not Detectd) 02/13/24 16:47 SARS-CoV-2 (PCR) Not Detected (Not Detectd) 02/13/24 16:47 PT/INR, D-dimer PT 10.3 sec (10.0-12.5) 02/13/24 08:19 INR 0.9 (<1.2) 02/13/24 08:19 Abnormal lab findings: Abnormal Labs 02/13/24 02/13/24 02/13/24 08:19 08:19 08:28 Chloride 111 H Creatinine 0.63 L Glucose 164 H POC Glucose (mg/dL) 168 H Troponin I 0.050 H* Total Protein 5.7 L Albumin 3.4 L Ur Specific [place] Urine Glucose (UA) 02/13/24 02/13/24 16:34 16:39 Chloride Creatinine Glucose POC Glucose (mg/dL) 146 H Troponin I Total Protein Albumin Ur Specific [place] >1.050 H Urine Glucose (UA) 1+ H - Diagnostic Findings Chest x-ray: image reviewed CT scan - chest: image reviewed Assessment and Plan Plan: Acute hypoxic respiratory failure, currently on 2 L of oxygen by nasal cannula Acute CHF exacerbation with pulm vessel congestion and bilateral pleural effusion in addition to increased groundglass changes and pulm vessel congestion as evident on the CAT scan of the chest. NSTEMI Shortness of breath secondary to above COPD, quit smoking 2 weeks and he has a 40 py smoking history and he has been taking Trelegy Ellipta AMADA, nontolerant to CPAP Splenic infarcts versus a lesion, please refer to the CAT scan of the abdomen pelvis Abdominal pain/nausea/emesis Diabetes mellitus type 2 Hypertension Hyperlipidemia Plan cardiology consult Titrate FiO2 to maintain saturation above 90% Echocardiogram to evaluate LV function IV Lasix General Surgery consultation
--- NOTE | 2024-02-14 10:23 | P.CRDCN ---
History of Present Illness Consult date: 02/14/24 Consult reason: congestive heart failure History of present illness: This is a 53-year-old male patient with past medical history of diabetes tariq litus type 2, hypertension, hyperlipidemia, COPD, tobacco use and dependence. Patient's states the patient has been in and out of the hospital due to pneumonia at [facility]. Patient also had mid abdominal pain in the epigastric region with nausea and vomiting which has been going on for a while. He apparently had a CAT scan done at [facility] that showed the gallbladder was without disease. Patient complains of difficulty in breathing this been going on for about 2 months and also dyspnea on exertion for short distances. He occasionally has chest pain but is not related to activity. He denies any previous cardiac history. He has lower extremity edema which he states he has had for about 2 years. He normally sleeps on 2 pillows. He was a smoker of 2 packs/day and quit smoking 2 weeks ago. He denies having any cough or fever. No wheezing. He denies any blood in his stool or urine. He denies history of stroke or seizure activity. 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 Blood pressure 132/79, heart rate 90, pulse ox 99% on 3 L nasal cannula. Discussed with patient that recommendations are for left heart catheterization and he is agreeable to move forward with this. Also recommended that any gallbladder surgery be postponed. EKG: Sinus rhythm with occasional PVCs, nonspecific T wave abnormalities Chest x-ray: basilar atelectasis favored over infiltrate. Venous Doppler duplex of the bilateral lower extremities negative for DVT. CTA of the chest reveals no pulmonary embolism. Correlate for heart failure. Ultrasound of the gallbladder: Normal gallbladder. Hepatomegaly with fatty infiltration. 5 cm cyst in the inferior right kidney. CAT scan of the abdomen and pelvis reveals hypoattenuating area within the upper pole of the spleen may reflect splenic infarct. Small pleural effusions. Laboratory studies: WBC 7.4, hemoglobin 13.6. Sodium 138, potassium 4.5, creatinine 0.64, blood sugar 249. Liver function tests are normal. Troponins 0.05. proBNP 1910. Influenza A, influenza B, RSV, COVID-19 not detected. Home cardiac medications: Amlodipine 10 mg daily, atorvastatin 10 mg daily, Bum ex 1 mg daily, Lasix 40 mg daily, potassium chloride 20 mill equivalents daily. Review Of Systems: At the time of my exam: CONSTITUTIONAL: Denies fever or chills. HEENT: Denies blurred vision, vision changes, or eye pain. Denies hemoptysis CARDIOVASCULAR: Denies chest pain. Denies orthopnea. Denies PND. Denies palpitations RESPIRATORY: Reports dyspnea on exertion, reports shortness of breath. GASTROINTESTINAL: Denies abdominal pain. Denies nausea or vomiting. HEMATOLOGIC: Denies bleeding disorders. GENITOURINARY: Denies any blood in urine. SKIN: Denies puritis. Denies rash. Physical examination: Gen: This is a morbidly obese 53-year-old male appears to be in no acute distress. VS: reviewed HEENT: Head is atraumatic, normocephalic. Pupils equal, round. Sclerae is anicteric. NECK: Supple. No JVD. LUNGS: Diminished breath sounds. No intercostal retractions. HEART: Regular rate and rhythm. No murmur. ABDOMEN: Soft No tenderness. EXTREMITIES: Minimal bilateral lower extremity edema. Diminished right radial pulse. no calf tenderness. NEUROLOGICAL: Patient is awake, alert and oriented x3. Assessment: Elevated troponin and abnormal EKG, possible non-ST elevated SD Dyspnea on exertion Diabetes mellitus type 2 Hyperlipidemia Hypertension COPD Active tobacco use and dependence Plan: Resume patient's home cardiac medications with the following changes: Hold Bumex Discontinue Sildenafil Discontinue IV Lasix Schedule patient for cardiac catheterization today with Dr. Amador NGalileopangy. Obtain 2-D echocardiogram and Doppler study to assess cardiac structure and function Further recommendations to follow based upon clinical course Thank you kindly for this consultation. Nurse practitioner note has been reviewed, I agree with documented findings and plan of care. Patient was seen and examined. Past Medical History Past Medical History: COPD, Diabetes Mellitus, GERD/Reflux, Hyperlipidemia, Hypertension, Neurologic Disorder Additional Past Medical History / Comment(s): rt foot neuropathy History of Any Multi-Drug Resistant Organisms: None Reported Past Surgical History: No Surgical Hx Reported Additional Past Surgical History / Comment(s): Left hydrocelectomy, bilateral vasectomy Past Anesthesia/Blood Transfusion Reactions: Motion Sickness Additional Past Anesthesia/Blood Transfusion Reaction / Comment(s): has never had anesthesia Past Psychological History: No Psychological Hx Reported Smoking Status: Former smoker Past Alcohol Use History: None Reported Additional Past Alcohol Use History / Comment(s): smoker for 40 years 1-2ppd quit 2019 Past Drug Use History: Marijuana - Past Family History Father Family Medical History: Cancer Additional Family Medical History / Comment(s): prostate cancer Brother(s) Family Medical History: Cancer Additional Family Medical History / Comment(s): lymphoma bicep Medications and Allergies Home Medications Medication Instructions Recorded Confirmed Type Atorvastatin [Lipitor] 10 mg PO DAILY 02/05/20 02/13/24 History Furosemide [Lasix] 40 mg PO DAILY 02/05/20 02/13/24 History Omeprazole 20 mg PO AC-BRKFST 02/05/20 02/13/24 History sitaGLIPtin [Januvia] 100 mg PO DAILY 02/05/20 02/13/24 History Citalopram Hydrobromide [CeleXA] 20 mg PO DAILY 08/28/21 02/13/24 History Sildenafil Citrate 100 mg PO DAILY PRN 08/28/21 02/13/24 History Albuterol Inhaler [Ventolin Hfa 2 puff INHALATION RT-Q4H PRN 08/31/21 02/13/24 History Inhaler] Budesonide [Pulmicort] 0.5 mg INHALATION RT-BID PRN 02/13/24 02/13/24 History Bumetanide [Bumex] 1 mg PO DAILY 02/13/24 02/13/24 History Dextroamphetamine/Amphetamine 30 mg PO DAILY 02/13/24 02/13/24 History [Adderall] Fluticasone/Umeclidin/Vilanter 1 puff INHALATION RT-DAILY 02/13/24 02/13/24 History [Trelegy Ellipta 200-62.5-25] Ipratropium-Albuterol Nebulize 3 ml INHALATION RT-Q4H PRN 02/13/24 02/13/24 History [Duoneb 0.5 mg-3 mg/3 ml Soln] Potassium Chloride ER [K-Dur 20] 20 meq PO DAILY 02/13/24 02/13/24 History Pregabalin [Lyrica] 150 mg PO DAILY 02/13/24 02/13/24 History amLODIPine [Norvasc] 10 mg PO DAILY 02/13/24 02/13/24 History glipiZIDE XL [Glucotrol Xl] 5 mg PO DAILY 02/13/24 02/13/24 History Allergies Allergy/AdvReac Type Severity Reaction Status Date / Time No Known Allergies Allergy Verified 02/13/24 12:11 Physical Exam Vitals: Vital Signs Temp Pulse Pulse Resp BP BP Pulse Ox 02/14/24 03:28 97.7 F 90 18 132/79 99 02/14/24 01:29 96 18 02/13/24 22:27 98.1 F 96 18 116/68 95 02/13/24 21:25 95 16 118/73 98 02/13/24 20:32 95 02/13/24 20:20 91 02/13/24 20:19 91 02/13/24 20:10 94 02/13/24 20:00 96 18 02/13/24 19:01 87 18 133/98 95 02/13/24 17:48 87 18 135/87 95 02/13/24 17:01 91 02/13/24 16:54 94 02/13/24 16:00 97.6 F 90 18 122/91 98 02/13/24 14:02 90 18 116/94 97 02/13/24 12:34 89 18 139/95 97 02/13/24 11:00 96 18 121/83 97 02/13/24 09:58 93 18 119/74 95 02/13/24 09:38 90 02/13/24 09:20 90 Intake and Output 02/13/24 02/14/24 02/14/24 22:59 06:59 14:59 Output Total 0 0 Balance 0 0 Output: Urine 0 0 Other: Voiding Method Toilet Toilet Urinal Urinal Weight 163.293 kg 159.9 kg Results 02/14/24 06:56 02/14/24 06:56 Cardiac Enzymes 02/13/24 02/13/24 02/14/24 Range/Units 08:19 08:19 06:56 AST 21 21 (17-59) U/L Troponin I 0.050 H* (0.000-0.034) ng/mL CBC 02/14/24 Range/Units 06:56 WBC 7.4 (3.8-10.6) k/uL RBC 5.07 (4.30-5.90) m/uL Hgb 13.6 (13.0-17.5) gm/dL Hct 43.5 (39.0-53.0) % Plt Count 306 (150-450) k/uL Comprehensive Metabolic Panel 02/13/24 02/14/24 Range/Units 08:19 06:56 Sodium 138 138 (137-145) mmol/L Potassium 4.2 4.5 (3.5-5.1) mmol/L Chloride 111 H 105 (98-107) mmol/L Carbon Dioxide 23 27 (22-30) mmol/L BUN 12 12 (9-20) mg/dL Creatinine 0.63 L 0.64 L (0.66-1.25) mg/dL Glucose 164 H 252 H (74-99) mg/dL Calcium 9.2 9.2 (8.4-10.2) mg/dL AST 21 21 (17-59) U/L ALT 27 26 (4-49) U/L Alkaline Phosphatase 92 85 (38-126) U/L Total Protein 5.7 L 6.1 L (6.3-8.2) g/dL Albumin 3.4 L 3.5 (3.5-5.0) g/dL Current Medications Generic Name Dose Route Start Last Admin Trade Name Freq PRN Reason Stop Dose Admin Hydrocodone Bitart/Acetaminophen 1 each 02/13/24 15:39 Hydrocodone/Apap 5-325mg 1 Each Tab PO Q6HR PRN Pain Albuterol/Ipratropium 3 ml 02/13/24 16:00 02/14/24 08:21 Ipratropium-Albuterol 3 Ml Neb INHALATION Not Given RT-QID RAJ Albuterol/Ipratropium 3 ml 02/13/24 15:37 Ipratropium-Albuterol 3 Ml Neb INHALATION RT-QID PRN Shortness Of Breath Or Wheezing Atorvastatin Calcium 10 mg 02/14/24 09:00 Atorvastatin 10 Mg Tab PO DAILY RAJ Budesonide 1 mg 02/13/24 15:44 02/14/24 08:21 Budesonide 1 Mg/2 Ml Nebu INHALATION Not Given RT-BID RAJ Citalopram Hydrobromide 20 mg 02/14/24 09:00 Citalopram Hydrobromide 20 Mg Tab PO DAILY [facility] Dapagliflozin 10 mg 02/14/24 09:00 Dapagliflozin Propanediol 10 Mg Tablet PO DAILY RAJ Dextrose/Water 25 ml 02/13/24 15:40 Dextrose 50% Syringe 50 Ml IVP PER PROTOCOL PRN Hypoglycemia Protocol Dextrose/Water 50 ml 02/13/24 15:40 Dextrose 50% Syringe 50 Ml IVP PER PROTOCOL PRN Hypoglycemia Protocol Formoterol Fumarate 20 mcg 02/13/24 15:44 02/14/24 08:21 Formoterol Fumarate 20 Mcg/2 Ml Nebu INHALATION Not Given RT-BID [facility] Furosemide 40 mg 02/13/24 16:00 02/13/24 23:16 Furosemide 10 Mg/Ml 4 Ml Vial IV 40 mg Q8HR RAJ Administration Glipizide 5 mg 02/14/24 09:00 Glipizide 5 Mg Tab PO DAILY RAJ Heparin Sodium (Porcine) 5,000 unit 02/13/24 21:00 02/13/24 20:53 Heparin Sodium,Porcine 5,000 Unit/Ml 1 Ml Vial SQ 5,000 unit Q12HR RAJ Administration Hydromorphone HCl 1 mg 02/13/24 12:51 Hydromorphone 1 Mg/Ml 1 Ml Syringe IVP Q3HR PRN Severe Pain (Scale 7 to 10) Hydromorphone HCl 0.5 mg 02/13/24 15:39 Hydromorphone 0.5 Mg/0.5 Ml Syringe IVP Q6HR PRN Severe Pain (Scale 7 to 10) Insulin Aspart 0 unit 02/13/24 17:30 02/14/24 06:29 Insulin Aspart (Novolog) 100 Unit/Ml Vial SQ 4 unit ACHS RAJ Administration Protocol Methylprednisolone Sodium Succinate 60 mg 02/13/24 18:00 02/14/24 06:28 Methylprednisolone Sod Succi 125 Mg/2 Ml Vial IV 60 mg Q6HR RAJ Administration Naloxone HCl 0.2 mg 02/13/24 12:51 Naloxone 0.4 Mg/Ml 1 Ml Vial IV Q2M PRN Opioid Reversal Non-Formulary Medication 30 mg 02/14/24 09:00 Dextroamphetamine/Amphetamine [Adderall] PO DAILY [facility] Ondansetron HCl 4 mg 02/13/24 12:51 Ondansetron 4 Mg/2 Ml Vial IVP Q8HR PRN Nausea And Vomiting Pantoprazole Sodium 40 mg 02/14/24 09:00 Pantoprazole 40 Mg/10 Ml Vial IV DAILY [facility] Potassium Chloride 20 meq 02/14/24 09:00 Potassium Chloride Er 20 Meq Tab.Er PO DAILY [facility] Pregabalin 150 mg 02/14/24 09:00 Pregabalin 75 Mg Cap PO DAILY [facility] Sildenafil Citrate 100 mg 02/13/24 15:42 Sildenafil 20 Mg Tab PO DAILY PRN E.D. Intake and Output 02/13/24 02/14/24 02/14/24 22:59 06:59 14:59 Output Total 0 0 Balance 0 0 Output: Urine 0 0 Other: Voiding Method Toilet Toilet Urinal Urinal Weight 163.293 kg 159.9 kg 02/14/24 06:56 02/14/24 06:56
[2024-02-14 11:32] LABS: Glucose,Whole Blood 182 mg/dL (70-110)
[2024-02-14] MEDS: ATORVASTATIN 10 MG TAB PO SCH (11:49)
[2024-02-14] MEDS: HEPARIN SODIUM,PORCINE 10,000 UNIT in SODIUM CHLORIDE 0.9% 1,000 ML IRRIGATION PRN (12:07)
[2024-02-14] MEDS: SODIUM CHLORIDE 0.9% 1,000 ML IV ONE (12:07)
[2024-02-14] MEDS: HEPARIN SODIUM,PORCINE (1 ML) 2,500 UNIT in SODIUM CHLORIDE 0.9% 250 ML IRRIGATION PRN (12:08)
--- NOTE | 2024-02-14 12:16 | P.PN ---
Subjective Progress Note Date: 02/14/24 CHIEF COMPLAINT: Abdominal pain HISTORY OF PRESENT ILLNESS: Patient reports abdominal pain has resolved. Family at bedside reporting that patient has had occasions where he becomes very ill and has abdominal pain after eating fatty foods. Patient seen by cardiology for elevated troponin and abnormal EKG. They have him scheduled for heart catheterization today. Patient denies any nausea or vomiting. Afebrile. WBC 7.4 LFTs normal. Gallbladder ultrasound reports normal gallbladder. PHYSICAL EXAM: VITAL SIGNS: Reviewed. GENERAL: Well-developed in no acute distress. ABDOMEN: Soft. Nondistended. Nontender. NEUROLOGIC: Alert and oriented. Cranial nerves II through XII grossly intact. ASSESSMENT: 1. Right upper quadrant abdominal pain and pain after eating fatty foods PLAN: -HIDA scan ordered for further evaluation of the gallbladder -Patient scheduled for heart catheterization today with cardiology service Physician Deicer Repairer Pneumatic note has been reviewed by physician. Signing provider agrees with the documented findings, assessment, and plan of care. Objective - Vital Signs Vital signs: Vital Signs Temp 97.7 F 02/14/24 03:28 Pulse 90 02/14/24 11:22 Resp 18 02/14/24 03:28 BP 132/79 02/14/24 03:28 Pulse Ox 99 02/14/24 03:28 FiO2 Intake & Output 02/13/24 02/14/24 02/14/24 18:59 06:59 18:59 Output Total 0 Balance 0 Weight 163.293 kg 159.9 kg Output: Urine 0 Other: Voiding Method Toilet Urinal - Labs CBC & Chem 7: 02/14/24 06:56 02/14/24 06:56 Labs: Abnormal Lab Results - Last 24 Hours (Table) 02/13/24 02/13/24 02/13/24 Range/Units 16:34 16:39 20:47 Lymphocytes # (1.0-4.8) k/uL Creatinine (0.66-1.25) mg/dL Glucose (74-99) mg/dL POC Glucose (mg/dL) 146 H 249 H (70-110) mg/dL Hemoglobin A1c (<=6.0) % Total Protein (6.3-8.2) g/dL Ur Specific [place] >1.050 H (1.001-1.035) Urine Glucose (UA) 1+ H (Negative) 02/14/24 02/14/24 02/14/24 Range/Units 06:20 06:56 06:56 Lymphocytes # 0.4 L (1.0-4.8) k/uL Creatinine (0.66-1.25) mg/dL Glucose (74-99) mg/dL POC Glucose (mg/dL) 241 H (70-110) mg/dL Hemoglobin A1c 9.5 H (<=6.0) % Total Protein (6.3-8.2) g/dL Ur Specific [place] (1.001-1.035) Urine Glucose (UA) (Negative) 02/14/24 02/14/24 Range/Units 06:56 11:30 Lymphocytes # (1.0-4.8) k/uL Creatinine 0.64 L (0.66-1.25) mg/dL Glucose 252 H (74-99) mg/dL POC Glucose (mg/dL) 182 H (70-110) mg/dL Hemoglobin A1c (<=6.0) % Total Protein 6.1 L (6.3-8.2) g/dL Ur Specific [place] (1.001-1.035) Urine Glucose (UA) (Negative)
[2024-02-14] MEDS: fentaNYL (PF) 50 MCG/ML 2 ML AMP IVP ONE (12:23)
[2024-02-14] MEDS: LIDOCAINE 1% INJ 10MG/ML (20 ML MDV) SQ ONE (12:26)
[2024-02-14] MEDS: MIDAZOLAM 2 MG/2 ML VIAL IVP ONE (12:28)
[2024-02-14] MEDS: VERAPAMIL SYRINGE (5 MG/10 ML) INTRAARTER ONE (12:31)
[2024-02-14] MEDS: HEPARIN SODIUM 1,000 UN/ML (10ML VL) IVP ONE (12:34)
[2024-02-14] MEDS: IOPAMIDOL-370 200ML BTL INJ ONE (12:46)
[2024-02-14] MEDS ORDERED: RX INFO: IV CONTRAST WAS GIVEN 1 EACH MISC MISCELLANE PRN (12:58)
--- NOTE | 2024-02-14 13:05 | P.CARDCATH ---
Date of Procedure: 02/14/24 Description of Procedure: Cardiac Catheterization: The patient is a 53-year-old male with known history of hypertension, hyperlipidemia, diabetes and chronic tobacco use who presented with symptoms of epigastric and lower chest discomfort, dyspnea and had minimal troponin elevation. Recommendations were made regarding cardiac catheterization, the risks and the complications were discussed with the patient who is in full understanding and agreement. Procedure Description: Patient was brought to laborer salvage in fasting semi-sedated state after receiving Fentanyl and Benadryl achieiving moderate conscious sedated state. Using Xylocaine Anesthesia and modified Seldinger technique, a 6-Malay sheath was in troduced in the left radial artery . Subsequently, selective coronary angiography was performed using a 5-Malay 4 bend Favio catheter. Multiple views of the coronary artery including hemiaxial views were obtained. The left Favio catheter was used to cross the aortic valve and LVEDP was calculated. Following that, catheter and sheath were removed. Hemostasis was obtained with deployment of vascular band . There was no immediate complication. Patient was returned to room in stable condition. Of note, the patient received a total of 5000 units of intravenous heparin as well as intra-arterial verapamil. Findings: Left main: This is a short size vessel, bifurcating into left circumflex and LAD, left main has no obstructive disease LAD: This is a large size vessel, reaching to the apex with a wraparound apex segment, giving rise to small diagonal branch, the LAD and its branches have no obstructive disease. Left circumflex: This is a large codominant vessel bifurcating distally to PDA and PLV giving rise to 2 obtuse marginal branch, the left circumflex and its branches have no obstructive disease RCA: This is a small codominant vessel giving rise to a small PDA, the right coronary artery has no obstructive disease Left Ventriculogram: Not performed Hemodynamics: There was no gradient across the aortic valve, LVEDP was 26-30 mmHg Conclusion: 1. Normal coronary arteries 2. Codominant system 3. Elevated LVEDP Recommendations: I have recommended to continue medical therapy with aggressive coronary risks modification and weight reduction. The importance of continuing smoking cessation was discussed with the patient. The findings and the recommendations were discussed with the patient and the family and they were in full understanding and agreement. Duration of sedation is 18 minutes.
[2024-02-14 13:09] LABS: Glucose,Whole Blood 212 mg/dL (70-110)
[2024-02-14] MEDS: PREGABALIN 75 MG CAP PO SCH (13:33)
[2024-02-14] MEDS: DAPAGLIFLOZIN PROPANEDIOL 10 MG TABLET PO SCH (13:33)
[2024-02-14] MEDS: POTASSIUM CHLORIDE ER 20 MEQ TAB.ER PO SCH (13:33)
[2024-02-14] MEDS: CITALOPRAM HYDROBROMIDE 20 MG TAB PO SCH (13:33)
[2024-02-14] MEDS: SODIUM CHLORIDE 0.9% 1,000 ML IV SCH (13:34)
--- NOTE | 2024-02-14 13:43 | P.PN ---
Subjective Progress Note Date: 02/14/24 This is a 53-year-old male patient presented to the hospital because of worsening shortness of breath. He also noted some ongoing abdominal pain specially over the right upper quadrant it has been ongoing for the past 2 weeks. Is been also having episodes of nausea and emesis. No fever. No chills. No hemoptysis. No pleurisy. White cell count is at 8 with a hemoglobin 13.0 and a platelet count of 277. Normal coagulation profile. Normal electrolytes. Normal LFTs. Troponin 0.05. proBNP level is 1910. UA is showing +1 glucose, otherwise negative. Viral screen has been negative. Serum acetone is negative. CT of the chest is consistent with bilateral pleural effusions and some increased pulm vascular markings consistent with CHF. No lung masses or mediastinal lymph nodes. Scattered groundglass infiltrates along with pulm vessel congestion seen. No atelectasis. CT scan of the abdomen and pelvis was also done that showed a hypoattenuating area within the upper pole of the spleen, wedge-shaped, suspecting an underlying infarct. No splenic enlargement. No splenic lesions. The ultrasound of the gallbladder was normal. There is a 5 cm inferior right renal cyst and the Doppler of the lower extremity was also negative for DVT. 02/14/2024, patient is being seen for a follow-up. Patient was seen in consultation yesterday for increased shortness of breath. The patient came in with hypoxia respiratory failure the patient had increased pulm vas congestion and bilateral pleural effusion. Noted his cardiac enzymes were also elevated and the patient had a baseline troponin of 0.05. Based on that, cardiology consultation was requested and the patient underwent a cardiac catheterization today and the coronaries were essentially normal and the patient had a elevated left ventricular and diastolic pressure. The patient remains on bronchodilators. The patient has a component of COPD and started on systemic steroids. IV heparin can be discontinued. On today's blood work, the patient's BUN is at 12 with a creatinine of 0.6. Rest of the electrolytes are all within normal limits. WBC count is at 7.4 with hemoglobin 13.6. Fluid balance over the past 24 hours has been negative. He remains on oxygen at 3 L with a pulse ox of 99%. Echocardiogram has been ordered and results are still pending for now. No nausea. No vomiting. No abdominal pain. No other new complaints otherwise for now. Objective - Vital Signs Vital signs: Vital Signs Temp 98.5 F 02/14/24 11:45 Pulse 92 02/14/24 11:45 Resp 18 02/14/24 11:45 BP 140/80 02/14/24 11:45 Pulse Ox 99 02/14/24 11:45 FiO2 Intake & Output 02/13/24 02/14/24 02/14/24 18:59 06:59 18:59 Intake Total 150 Output Total 0 Balance 0 150 Weight 163.293 kg 159.9 kg Intake: IV 150 Output: Urine 0 Other: Voiding Method Toilet Toilet Urinal Urinal - Exam The patient appeared well nourished and normally developed. Vital signs as do cumented. Head exam is unremarkable. No scleral icterus or corneal arcus noted. Neck is without jugular venous distension, thyromegaly, or carotid bruits. Carotid upstrokes are brisk bilaterally. Lungs are diminished breath sounds bilaterally along with bibasilar crackles.. Cardiac exam reveals the PMI to be normally sized and situated. Rhythm is regular. First and second heart sounds normal. No murmurs, rubs or gallops. Abdominal exam reveals normal bowel sounds, no masses, no organomegaly and no aortic enlargement. Extremities are nonedematous and both femoral and pedal pulses are normal. Examination of the skin revealed no evidence of significant rashes, suspicious appearing nevi or other concerning lesions. Neurologically, the patient is awake and alert and the patient does not have any focal neurological deficit. Cranial nerves are essentially intact. - Labs CBC & Chem 7: 02/14/24 06:56 02/14/24 06:56 Labs: Abnormal Lab Results - Last 24 Hours (Table) 02/13/24 02/13/24 02/13/24 Range/Units 16:34 16:39 20:47 Lymphocytes # (1.0-4.8) k/uL Creatinine (0.66-1.25) mg/dL Glucose (74-99) mg/dL POC Glucose (mg/dL) 146 H 249 H (70-110) mg/dL Hemoglobin A1c (<=6.0) % Total Protein (6.3-8.2) g/dL Ur Specific [place] >1.050 H (1.001-1.035) Urine Glucose (UA) 1+ H (Negative) 02/14/24 02/14/24 02/14/24 Range/Units 06:20 06:56 06:56 Lymphocytes # 0.4 L (1.0-4.8) k/uL Creatinine (0.66-1.25) mg/dL Glucose (74-99) mg/dL POC Glucose (mg/dL) 241 H (70-110) mg/dL Hemoglobin A1c 9.5 H (<=6.0) % Total Protein (6.3-8.2) g/dL Ur Specific [place] (1.001-1.035) Urine Glucose (UA) (Negative) 02/14/24 02/14/24 02/14/24 Range/Units 06:56 11:30 13:08 Lymphocytes # (1.0-4.8) k/uL Creatinine 0.64 L (0.66-1.25) mg/dL Glucose 252 H (74-99) mg/dL POC Glucose (mg/dL) 182 H 212 H (70-110) mg/dL Hemoglobin A1c (<=6.0) % Total Protein 6.1 L (6.3-8.2) g/dL Ur Specific [place] (1.001-1.035) Urine Glucose (UA) (Negative) Assessment and Plan Plan: Acute hypoxic respiratory failure, currently on 2 L of oxygen by nasal cannula Acute CHF exacerbation with pulm vessel congestion and bilateral pleural effusion in addition to increased groundglass changes and pulm vessel congestion as evident on the CAT scan of the chest. Abnormal troponins with a normal cardiac catheterization. Elevated left- ventricular diastolic pressure consistent with CHF Shortness of breath secondary to above COPD, quit smoking 2 weeks and he has a 40 py smoking history and he has been taking Trelegy Ellipta AMADA, nontolerant to CPAP Splenic infarcts versus a lesion, please refer to the CAT scan of the abdomen pelvis Abdominal pain/nausea/emesis Diabetes mellitus type 2 Hypertension Hyperlipidemia Plan Cardiac catheterization was noted Titrate FiO2 to maintain saturation above 90% Echocardiogram to evaluate LV function IV Lasix 20 mg every 12 hours IV fluids to KVO Titrate FiO2 to maintain saturation above 90% No issues with ongoing abdominal pain General Surgery consultation regarding the splenic findings.
[2024-02-14 16:54] LABS: Glucose,Whole Blood 332 mg/dL (70-110)
[2024-02-14 19:36] LABS: Glucose,Whole Blood 242 mg/dL (70-110)
[2024-02-14] MEDS: lisinopriL 5 MG TAB PO SCH (20:29)
[2024-02-15] MEDS: LACTATED RINGERS 1,000 ML IV SCH (00:21)
--- NOTE | 2024-02-15 05:43 | P.PN ---
Subjective Progress Note Date: 02/14/24 This is a 53-year-old male who was recently admitted with abdominal pain and epigastric pain on the right side. Patient underwent a CTa with no evidence of PE. Patient with multiple consultations following including general surgery, cardiology, pulmonary as patient was noted to be in CHF exacerbation and started on IV Lasix. Patient does have some bilateral leg swelling which is showing some improvements. Cardiology following and patient will undergo cardiac catheterization today. Patient was initially scheduled for laparoscopic cholecystectomy although placed on hold due to other multiple comorbidities and ongoing exacerbation. Will await cardiac catheterization report and patient is also scheduled to undergo HIDA scan per general surgery. Review of systems: Constitutional: No reports of fatigue, fever, or chills Cardiovascular: No reports of chest pain or palpitations Respiratory: No reports of worsening shortness of breath or cough GI: reports of nausea, no reports of vomiting, no diarrhea : No reports of dysuria or retention Neurovascular: reports of generalized weakness All medications have been reviewed Active Medications Hydrocodone Bitart/Acetaminophen (Hydrocodone/Apap 5-325mg 1 Each Tab) 1 each PO Q6HR PRN PRN Reason: Pain Albuterol/Ipratropium (Ipratropium-Albuterol 3 Ml Neb) 3 ml INHALATION RT-QID [facility] Last Admin: 02/14/24 20:32 Dose: 3 ml Albuterol/Ipratropium (Ipratropium-Albuterol 3 Ml Neb) 3 ml INHALATION RT-QID PRN PRN Reason: Shortness Of Breath Or Wheezing Alprazolam (Alprazolam 0.25 Mg Tab) 0.25 mg PO Q6HR PRN PRN Reason: Mild Anxiety Alprazolam (Alprazolam 0.5 Mg Tab) 0.5 mg PO Q6HR PRN PRN Reason: Moderate Anxiety Aspirin (Aspirin 81 Mg) 81 mg PO DAILY [facility] Atorvastatin Calcium (Atorvastatin 40 Mg Tab) 40 mg PO DAILY [facility] Budesonide (Budesonide 1 Mg/2 Ml Nebu) 1 mg INHALATION RT-BID [facility] Last Admin: 02/14/24 20:32 Dose: Not Given Citalopram Hydrobromide (Citalopram Hydrobromide 20 Mg Tab) 20 mg PO DAILY [facility] Last Admin: 02/14/24 13:33 Dose: 20 mg Dapagliflozin (Dapagliflozin Propanediol 10 Mg Tablet) 10 mg PO DAILY [facility] Last Admin: 02/14/24 13:33 Dose: 10 mg Dextrose/Water (Dextrose 50% Syringe 50 Ml) 25 ml IVP PER PROTOCOL PRN; Protocol PRN Reason: Hypoglycemia Dextrose/Water (Dextrose 50% Syringe 50 Ml) 50 ml IVP PER PROTOCOL PRN; Protocol PRN Reason: Hypoglycemia Formoterol Fumarate (Formoterol Fumarate 20 Mcg/2 Ml Nebu) 20 mcg INHALATION RT-BID [facility] Last Admin: 02/14/24 20:32 Dose: Not Given Glipizide (Glipizide 5 Mg Tab) 5 mg PO DAILY [facility] Last Admin: 02/14/24 09:28 Dose: Not Given Heparin Sodium (Porcine) (Heparin Sodium,Porcine 5,000 Unit/Ml 1 Ml Vial) 5,000 unit SQ Q12HR [facility] Last Admin: 02/14/24 20:29 Dose: 5,000 unit Hydromorphone HCl (Hydromorphone 1 Mg/Ml 1 Ml Syringe) 1 mg IVP Q3HR PRN PRN Reason: Severe Pain (Scale 7 to 10) Hydromorphone HCl (Hydromorphone 0.5 Mg/0.5 Ml Syringe) 0.5 mg IVP Q6HR PRN PRN Reason: Severe Pain (Scale 7 to 10) Hydromorphone HCl (Hydromorphone 0.5 Mg/0.5 Ml Syringe) 0.5 mg IVP Q5M PRN PRN Reason: Phase 1 or 2 - Pain Control Stop: 02/15/24 23:00 Heparin Sodium (Porcine) 10, (000 unit/ Sodium Chloride) 1,001 mls @ 999 mls/hr IRRIGATION ONCE PRN PRN Reason: INTRA-OP Stop: 02/15/24 23:00 Last Admin: 02/14/24 12:07 Dose: 25 mls Heparin Sodium (Porcine) 2,500 (unit/ Sodium Chloride) 250.5 mls @ 250 mls/hr IRRIGATION ONCE PRN PRN Reason: INTRA-OP Stop: 02/15/24 23:00 Last Admin: 02/14/24 12:08 Dose: 25 mls Lactated Ringer's (Lactated Ringers) 1,000 mls @ 20 mls/hr IV .Q24H [facility] Insulin Aspart (Insulin Aspart (Novolog) 100 Unit/Ml Vial) 0 unit SQ ACHS [facility]; Protocol Last Admin: 02/14/24 20:29 Dose: 4 unit Lisinopril (Lisinopril 5 Mg Tab) 5 mg PO BID [facility] Last Admin: 02/14/24 20:29 Dose: 5 mg Methylprednisolone Sodium Succinate (Methylprednisolone Sod Succi 125 Mg/2 Ml Vial) 60 mg IV Q6HR [facility] Last Admin: 02/14/24 23:24 Dose: 60 mg Miscellaneous Information (Rx Info: Iv Contrast Was Given 1 Each Misc) 1 each MISCELLANE DAILY PRN PRN Reason: Per Protocol Stop: 02/16/24 12:58 Naloxone HCl (Naloxone 0.4 Mg/Ml 1 Ml Vial) 0.2 mg IV Q2M PRN PRN Reason: Opioid Reversal Nitroglycerin (Nitroglycerin Sl Tabs 0.4 Mg Tab) 0.4 mg SUBLINGUAL Q5M PRN PRN Reason: Chest Pain Non-Formulary Medication (Dextroamphetamine/Amphetamine [Adderall]) 30 mg PO DAILY [facility] Last Admin: 02/14/24 09:28 Dose: Not Given Ondansetron HCl (Ondansetron 4 Mg/2 Ml Vial) 4 mg IVP Q8HR PRN PRN Reason: Nausea And Vomiting Pantoprazole Sodium (Pantoprazole 40 Mg/10 Ml Vial) 40 mg IV DAILY [facility] Last Admin: 02/14/24 09:53 Dose: 40 mg Potassium Chloride (Potassium Chloride Er 20 Meq Tab.Er) 20 meq PO DAILY [facility] Last Admin: 02/14/24 13:33 Dose: 20 meq Pregabalin (Pregabalin 75 Mg Cap) 150 mg PO DAILY [facility] Last Admin: 02/14/24 13:33 Dose: 150 mg PHYSICAL EXAMINATION: GENERAL: The patient is alert and oriented x4, Well developed, well nourished. HEENT: Pupils are round and equally reacting to light. EOMI. no scleral icterus. No conjunctival pallor. Normocephalic, atraumatic. No pharyngeal erythema. No thyromegaly. CARDIOVASCULAR: S1 and S2 muffled PULMONARY: diminished breath sounds bilaterally with no wheezing or rhonchi noted. ABDOMEN: soft. Nontender on exam. obese. non-distended, normoactive bowel sounds. No palpable organomegaly. MUSCULOSKELETAL: No joint swelling or deformity. EXTREMITIES: No cyanosis, clubbing, or pedal edema. NEUROLOGICAL: Gross neurological examination did not reveal any focal deficits. Diffuse weakness SKIN: No rashes. 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 Patient is maintained on IV Lasix with fluid restrictions and diuresing with cardiology following scheduled to undergo cardiac catheterization today. Will await official report General Surgery following and was scheduled for laparoscopic cholecystectomy although found to be in CHF exacerbation and other issues going on as well as acute COPD exacerbation recommending holding on surgery at this time. Patient will undergo HIDA scan sometime today as well Continue monitoring Accu-Cheks before meals and at bedtime and will titrate insulins accordingly Appropriate home medications have been reviewed and resumed. Follow-up on repeat labs Overall prognosis is guarded at this time The impression and plan of care has been dictated by Angelique Hawkins, nurse practitioner as directed. Dr. Alexy MD I have performed a history and examination and MDM of this patient, discussed the same with the dictator, and agree with the dictator's assessment and plan as written ,documented as a scribe. Based on total visit time, I have performed more than 50% of the visit. Any additional findings or plans will be noted. Objective - Vital Signs Vital signs: Vital Signs Temp 98.0 F 02/14/24 12:58 Pulse 90 02/14/24 12:58 Resp 19 02/14/24 12:58 BP 125/75 02/14/24 12:58 Pulse Ox 94 L 02/14/24 12:58 FiO2 Intake & Output 02/13/24 02/14/24 02/14/24 18:59 06:59 18:59 Intake Total 150 Output Total 0 Balance 0 150 Weight 163.293 kg 159.9 kg Intake: IV 150 Output: Urine 0 Other: Voiding Method Toilet Toilet Urinal Urinal - Labs CBC & Chem 7: 02/14/24 06:56 02/14/24 06:56 Labs: Abnormal Lab Results - Last 24 Hours (Table) 02/13/24 02/13/24 02/13/24 Range/Units 16:34 16:39 20:47 Lymphocytes # (1.0-4.8) k/uL Creatinine (0.66-1.25) mg/dL Glucose (74-99) mg/dL POC Glucose (mg/dL) 146 H 249 H (70-110) mg/dL Hemoglobin A1c (<=6.0) % Total Protein (6.3-8.2) g/dL Ur Specific Strum >1.050 H (1.001-1.035) Urine Glucose (UA) 1+ H (Negative) 02/14/24 02/14/24 02/14/24 Range/Units 06:20 06:56 06:56 Lymphocytes # 0.4 L (1.0-4.8) k/uL Creatinine (0.66-1.25) mg/dL Glucose (74-99) mg/dL POC Glucose (mg/dL) 241 H (70-110) mg/dL Hemoglobin A1c 9.5 H (<=6.0) % Total Protein (6.3-8.2) g/dL Ur Specific Strum (1.001-1.035) Urine Glucose (UA) (Negative) 02/14/24 02/14/24 02/14/24 Range/Units 06:56 11:30 13:08 Lymphocytes # (1.0-4.8) k/uL Creatinine 0.64 L (0.66-1.25) mg/dL Glucose 252 H (74-99) mg/dL POC Glucose (mg/dL) 182 H 212 H (70-110) mg/dL Hemoglobin A1c (<=6.0) % Total Protein 6.1 L (6.3-8.2) g/dL Ur Specific Strum (1.001-1.035) Urine Glucose (UA) (Negative)
[2024-02-15 06:00] LABS: Glucose,Whole Blood 348 mg/dL (70-110)
--- NOTE | 2024-02-15 06:54 | CA ---
Transthoracic Echo Report Name: Steffen Robertson Age: 53 Gender: M : 1970 Exam Date: 02/14/2024 07:55 Exam Location: [facility] Ht (in): 75 Wt (lb): 360 Ordering Physician: Claudia Tracey MD Attending/Referring Phys: Visual Training Aide Lia Louis RDCS Procedure CPT: Indications: chf Cardiac Hx: Technical Quality: Technically difficult study Contrast 1: Definity Total Dose (mL): 2 Contrast 2: Total Dose (mL): MEASUREMENTS (Male / Female) Normal Values 2D ECHO LV Diastolic Diameter PLAX 6.3 cm 4.2 - 5.9 / 3.9 - 5.3 cm LV Systolic Diameter PLAX 4.6 cm IVS Diastolic Thickness 1.8 cm 0.6 - 1.0 / 0.6 - 0.9 cm LVPW Diastolic Thickness 1.9 cm 0.6 - 1.0 / 0.6 - 0.9 cm LV Relative Wall Thickness 0.6 RV Internal Dim ED PLAX 3.2 cm LA Systolic Diameter LX 4.6 cm 3.0 - 4.0 / 2.7 - 3.8 cm LV Diastolic Volume MOD BP 203.9 cm??? 67 - 155 / 56 - 104 cm??? LV Systolic Volume MOD BP 125.0 cm??? 22 - 58 / 19 - 49 cm??? LV Ejection Fraction MOD BP 38.7 % >= 55 % LV Cardiac Index MOD BP 2385.4 cm???/min???m??? LV Diastolic Volume MOD 4C 194.6 cm??? LV Systolic Volume MOD 4C 115.2 cm??? LV Ejection Fraction MOD 4C 40.8 % LV Cardiac Index MOD 4C 2400.3 cm???/min???m??? LV Diastolic Length 4C 8.4 cm LV Systolic Length 4C 7.9 cm LV Diastolic Volume MOD 2C 208.0 cm??? LV Systolic Volume MOD 2C 123.4 cm??? LV Ejection Fraction MOD 2C 40.7 % LV Cardiac Index MOD 2C 2555.1 cm???/min???m??? LV Diastolic Length 2C 9.0 cm LV Systolic Length 2C 8.2 cm LA Volume 118.3 cm??? 18 - 58 / 22 - 52 cm??? LA Volume Index 39.3 cm???/m??? 16 - 28 cm???/m??? M-MODE Aortic Root Diameter MM 3.4 cm AV Cusp Separation MM 2.1 cm DOPPLER AV Peak Velocity 137.5 cm/s AV Peak Gradient 7.6 mmHg MV Peak Velocity 180.0 cm/s MV Peak Gradient 13.0 mmHg MV Mean Velocity 89.6 cm/s MV Mean Gradient 4.2 mmHg MV Velocity Time Integral 37.2 cm MV Area PHT 5.3 cm??? Mitral E Point Velocity 148.4 cm/s Mitral A Point Velocity 98.5 cm/s Mitral E to A Ratio 1.5 MV Deceleration Time 142.5 ms TR Peak Velocity 240.9 cm/s TR Peak Gradient 23.2 mmHg Right Ventricular Systolic Press 28.2 mmHg FINDINGS Left Ventricle Left ventricular ejection fraction is estimated at 35-40 %. Severely increased septal wall thickness. Mildly increased left ventricular diastolic diameter. Severely increased left ventricular diastolic volume. Severely increased left ventricular systolic volume. Moderately decreased left ventricular ejection fraction. Right Ventricle Normal right ventricular size. Right Atrium Right atrium not well visualized. Left Atrium Mildly increased left atrial diameter. Moderately increased left atrial volume. Moderately increased left atrial area. Mitral Valve Mitral valve not well visualized. Mild mitral regurgitation. Aortic Valve Aortic valve not well visualized. No aortic valve stenosis or regurgitation. Tricuspid Valve Structurally normal tricuspid valve. Mild tricuspid regurgitation. Pulmonic Valve Pulmonic valve not well visualized. Pericardium No pericardial effusion. Aorta Normal size aortic root and proximal ascending aorta. CONCLUSIONS Dilated LV with severely impaired LV function and EF between 35 to 40% Previewed by: Dr. Sotero Baker MD (Electronically Signed) Final Date: 15 February 2024 06:53
[2024-02-15] MEDS ORDERED: HYDROmorphone 0.5 MG/0.5 ML SYRINGE IVP PRN (07:00)
[2024-02-15 07:20] LABS: Basophils % (A) 0 %; Eosinophils # (A) 0.1 k/uL (0-0.7); Eosinophils % (A) 1 %; HCT 40.3 % (39.0-53.0); Lymphocytes # (A) 0.5 k/uL (1.0-4.8); Lymphocytes % (A) 3 %; MCH 27.5 pg (25.0-35.0); MCHC 32.2 g/dL (31.0-37.0); MCV 85.5 fL (80.0-100.0); Mean Platelet Volume 7.6; Monocytes # (A) 0.5 k/uL (0-1.0); Monocytes % (A) 3 %; Neutrophils # (A) 16.5 k/uL (1.3-7.7); Neutrophils % (A) 94 %; Platelet Count 328 k/uL (150-450); RBC 4.71 m/uL (4.30-5.90); RDW 13.7 % (11.5-15.5); WBC 17.7 k/uL (3.8-10.6)
[2024-02-15 07:32] LABS: ALT 57 U/L (4-49); AST 65 U/L (17-59); African American GFR (CKD) >90 (>60 ml/min/1.73 sqM); Albumin 3.4 g/dL (3.5-5.0); Alkaline Phosphatase 97 U/L (38-126); Anion Gap 6 mmol/L; Blood Urea Nitrogen 20 mg/dL (9-20); Calcium 9.2 mg/dL (8.4-10.2); Carbon Dioxide 28 mmol/L (22-30); Chloride 106 mmol/L (98-107); Glucose 322 mg/dL (74-99); Magnesium 2.3 mg/dL (1.6-2.3); Non-African American GFR(CKD) >90 (>60 ml/min/1.73 sqM); Potassium 4.6 mmol/L (3.5-5.1); Sodium 140 mmol/L (137-145); Total Bilirubin 0.9 mg/dL (0.2-1.3); Total Protein 5.9 g/dL (6.3-8.2)
--- NOTE | 2024-02-15 09:18 | NM ---
Nuclear medicine hepatobiliary scan. HISTORY: Pain. DOSAGE: The patient received 3.2 mcg CCK and 5.0 mCi of Technetium 99m Choletec. FINDINGS: There is normal hepatic extraction. The gallbladder is seen by 15 minutes. There is bilia ry to bowel clearance by 20 minutes. Ejection fraction is 97%. IMPRESSION: 1. No evidence of cholecystitis. Ejection fraction of 97% can be associated with hyperdynamic gallbla dder correlate clinically. [facility], , 02/15/2024 9:16 AM
[2024-02-15 10:39] VITALS: BMI 44.3
[2024-02-15] MEDS: ATORVASTATIN 40 MG TAB PO SCH (10:40)
[2024-02-15] MEDS: ASPIRIN 81 MG PO SCH (10:41)
[2024-02-15 11:26] LABS: Glucose,Whole Blood 256 mg/dL (70-110)
[2024-02-15] MEDS: ONDANSETRON 4 MG/2 ML VIAL IVP ONE (12:10)
[2024-02-15] MEDS: DEXAMETHASONE SOD PHOSPHATE 4 MG/ML 1 ML VIAL IV ONE (12:10)
--- NOTE | 2024-02-15 12:16 | P.PN ---
Subjective Progress Note Date: 02/15/24 Consult reason: congestive heart failure History of present illness: This is a 53-year-old male patient with past medical history of diabetes mellitus type 2, hypertension, hyperlipidemia, COPD, tobacco use and dependence. Patient's states the patient has been in and out of the hospital due to pneumonia at [facility]. Patient also had mid abdominal pain in the epigastric region with nausea and vomiting which has been going on for a while. He apparently had a CAT scan done at [facility] that showed the gallbladder was without disease. Patient complains of difficulty in breathing this been going on for about 2 months and also dyspnea on exertion for short distances. He occasionally has chest pain but is not related to activity. He denies any previous cardiac history. He has lower extremity edema which he states he has had for about 2 years. He normally sleeps on 2 pillows. He was a smoker of 2 packs/day and quit smoking 2 weeks ago. He denies having any cough or fever. No wheezing. He denies any blood in his stool or urine. He denies history of stroke or seizure activity. 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 Blood pressure 132/79, heart rate 90, pulse ox 99% on 3 L nasal cannula. Discussed with patient that recommendations are for left heart catheterization and he is agreeable to move forward with this. Also recommended that any gallbladder surgery be postponed. EKG: Sinus rhythm with occasional PVCs, nonspecific T wave abnormalities Chest x-ray: basilar atelectasis favored over infiltrate. Venous Doppler duplex of the bilateral lower extremities negative for DVT. CTA of the chest reveals no pulmonary embolism. Correlate for heart failure. Ultrasound of the gallbladder: Normal gallbladder. Hepatomegaly with fatty infiltration. 5 cm cyst in the inferior right kidney. CAT scan of the abdomen and pelvis reveals hypoattenuating area within the upper pole of the spleen may reflect splenic infarct. Small pleural effusions. Laboratory studies: WBC 7.4, hemoglobin 13.6. Sodium 138, potassium 4.5, creatinine 0.64, blood sugar 249. Liver function tests are normal. Troponins 0.05. proBNP 1910. Influenza A, influenza B, RSV, COVID-19 not detected. Home cardiac medications: Amlodipine 10 mg daily, atorvastatin 10 mg daily, Bumex 1 mg daily, Lasix 40 mg daily, potassium chloride 20 mill equivalents daily. 02/14 Yesterday, patient underwent cardiac catheterization with Dr. Amador that revealed normal coronary arteries and recommendations for medical therapy and aggressive coronary risk modification and weight reduction. Patient is also been instructed that smoking cessation needs to occur. Patient denies having any chest pain. He states his breathing is a little bit heavy sometimes but improved. He denies abdominal pain. No vomiting. His states that shortly after eating last evening he developed back pain and oxygen was applied which helped his pain. No chest pain was described. This morning, patient underwent HIDA scan that revealed no evidence of cholecystitis. EF 97%. Echocardiogram reveals EF of 35 to 40%. Physical examination: Gen: This is a morbidly obese 53-year-old male appears to be in no acute d istress. VS: reviewed HEENT: Head is atraumatic, normocephalic. Pupils equal, round. Sclerae is anic teric. NECK: Supple. No JVD. LUNGS: Diminished breath sounds. No intercostal retractions. HEART: Regular rate and rhythm. No murmur. ABDOMEN: Soft No tenderness. EXTREMITIES: Minimal bilateral lower extremity edema. Diminished right radial pulse. no calf tenderness. NEUROLOGICAL: Patient is awake, alert and oriented x3. Assessment: Elevated troponin and abnormal EKG, possible non-ST elevated OR has been ruled out. Most likely type II OR secondary to vomiting Cardiomyopathy of unclear etiology Dyspnea on exertion Diabetes mellitus type 2 Hyperlipidemia Hypertension COPD Active tobacco use and dependence Plan: Continue current cardiac medications: Aspirin 81 mg daily, atorvastatin 40 mg at daily, Farxiga 10 mg daily, decrease lisinopril to 5 mg daily Patient is cleared for discharge from cardiology and may follow-up in the office with Dr. Amador in 1 week Nurse practitioner note has been reviewed, I agree with documented findings and plan of care. Patient was seen and examined. Objective - Vital Signs Vital signs: Vital Signs Temp 97.9 F 02/15/24 03:54 Pulse 95 02/15/24 03:54 Resp 18 02/15/24 03:54 BP 99/55 02/15/24 03:54 Pulse Ox 99 02/15/24 03:54 FiO2 Intake & Output 02/14/24 02/15/24 02/15/24 18:59 06:59 18:59 Intake Total 690 Balance 690 Weight 160.9 kg 160.9 kg Intake: IV 150 Oral 540 Other: Voiding Method Toilet Toilet Urinal Urinal # Voids 2 - Labs CBC & Chem 7: 02/15/24 06:56 02/15/24 06:56 Labs: Abnormal Lab Results - Last 24 Hours (Table) 02/14/24 02/14/24 02/14/24 Range/Units 11:30 13:08 16:53 WBC (3.8-10.6) k/uL Neutrophils # (1.3-7.7) k/uL Lymphocytes # (1.0-4.8) k/uL Glucose (74-99) mg/dL POC Glucose (mg/dL) 182 H 212 H 332 H (70-110) mg/dL AST (17-59) U/L ALT (4-49) U/L Total Protein (6.3-8.2) g/dL Albumin (3.5-5.0) g/dL 02/14/24 02/15/24 02/15/24 Range/Units 19:34 05:58 06:56 WBC 17.7 H (3.8-10.6) k/uL Neutrophils # 16.5 H (1.3-7.7) k/uL Lymphocytes # 0.5 L (1.0-4.8) k/uL Glucose (74-99) mg/dL POC Glucose (mg/dL) 242 H 348 H (70-110) mg/dL AST (17-59) U/L ALT (4-49) U/L Total Protein (6.3-8.2) g/dL Albumin (3.5-5.0) g/dL 02/15/24 Range/Units 06:56 WBC (3.8-10.6) k/uL Neutrophils # (1.3-7.7) k/uL Lymphocytes # (1.0-4.8) k/uL Glucose 322 H (74-99) mg/dL POC Glucose (mg/dL) (70-110) mg/dL AST 65 H (17-59) U/L ALT 57 H (4-49) U/L Total Protein 5.9 L (6.3-8.2) g/dL Albumin 3.4 L (3.5-5.0) g/dL
--- NOTE | 2024-02-15 12:16 | P.PN ---
Subjective Progress Note Date: 02/15/24 CHIEF COMPLAINT: Abdominal pain HISTORY OF PRESENT ILLNESS: Patient denies any abdominal pain. He tolerated consistent carbohydrate diet last night for dinner. Denies any nausea or vomiting. HIDA scan showed a hyperdynamic gallbladder with a EF of 97%. Patient had a heart cath yesterday with cardiology service and reported normal coronary arteries. Afebrile. WBC 17.7 is up. Patient is receiving IV steroids, possibly contributing to elevated white count. Elevated blood sugar in the 300s. Total bilirubin 0.9 AST 65 ALT 57 and alk phos 97. AST and ALT mildly elevated. Patient reports shortness of breath is improving. PHYSICAL EXAM: VITAL SIGNS: Reviewed. GENERAL: no acute distress. ABDOMEN: Soft. Nondistended. Nontender. NEUROLOGIC: Alert and oriented. Cranial nerves II through XII grossly intact. ASSESSMENT: 1. Right upper quadrant abdominal pain. Patient's pain occurs after eating greasy, fatty foods. 2. Hyperdynamic gallbladder 3. Possible splenic infarct findings on CT scan is an incidental finding per Dr. Avila PLAN: -No surgical intervention planned at this time -Recommend outpatient laparoscopic cholecystectomy -Recommend low-fat diet Physician Tapering Machine Operator note has been reviewed by physician. Signing provider agrees with the documented findings, assessment, and plan of care. Objective - Vital Signs Vital signs: Vital Signs Temp 97.9 F 02/15/24 03:54 Pulse 95 02/15/24 03:54 Resp 18 02/15/24 03:54 BP 99/55 02/15/24 03:54 Pulse Ox 99 02/15/24 03:54 FiO2 Intake & Output 02/14/24 02/15/24 02/15/24 18:59 06:59 18:59 Intake Total 690 Balance 690 Weight 160.9 kg 160.9 kg Intake: IV 150 Oral 540 Other: Voiding Method Toilet Toilet Urinal Urinal # Voids 2 - Labs CBC & Chem 7: 02/15/24 06:56 02/15/24 06:56 Labs: Abnormal Lab Results - Last 24 Hours (Table) 02/14/24 02/14/24 02/14/24 Range/Units 06:56 11:30 13:08 WBC (3.8-10.6) k/uL Neutrophils # (1.3-7.7) k/uL Lymphocytes # (1.0-4.8) k/uL Glucose (74-99) mg/dL POC Glucose (mg/dL) 182 H 212 H (70-110) mg/dL Hemoglobin A1c 9.5 H (<=6.0) % AST (17-59) U/L ALT (4-49) U/L Total Protein (6.3-8.2) g/dL Albumin (3.5-5.0) g/dL 02/14/24 02/14/24 02/15/24 Range/Units 16:53 19:34 05:58 WBC (3.8-10.6) k/uL Neutrophils # (1.3-7.7) k/uL Lymphocytes # (1.0-4.8) k/uL Glucose (74-99) mg/dL POC Glucose (mg/dL) 332 H 242 H 348 H (70-110) mg/dL Hemoglobin A1c (<=6.0) % AST (17-59) U/L ALT (4-49) U/L Total Protein (6.3-8.2) g/dL Albumin (3.5-5.0) g/dL 02/15/24 02/15/24 Range/Units 06:56 06:56 WBC 17.7 H (3.8-10.6) k/uL Neutrophils # 16.5 H (1.3-7.7) k/uL Lymphocytes # 0.5 L (1.0-4.8) k/uL Glucose 322 H (74-99) mg/dL POC Glucose (mg/dL) (70-110) mg/dL Hemoglobin A1c (<=6.0) % AST 65 H (17-59) U/L ALT 57 H (4-49) U/L Total Protein 5.9 L (6.3-8.2) g/dL Albumin 3.4 L (3.5-5.0) g/dL
--- NOTE | 2024-02-15 13:42 | P.PN ---
Subjective Progress Note Date: 02/15/24 This is a 53-year-old male patient presented to the hospital because of worsening shortness of breath. He also noted some ongoing abdominal pain specially over the right upper quadrant it has been ongoing for the past 2 weeks. Is been also having episodes of nausea and emesis. No fever. No chills. No hemoptysis. No pleurisy. White cell count is at 8 with a hemoglobin 13.0 and a platelet count of 277. Normal coagulation profile. Normal electrolytes. Normal LFTs. Troponin 0.05. proBNP level is 1910. UA is showing +1 glucose, otherwise negative. Viral screen has been negative. Serum acetone is negative. CT of the chest is consistent with bilateral pleural effusions and some increased pulm vascular markings consistent with CHF. No lung masses or mediastinal lymph nodes. Scattered groundglass infiltrates along with pulm vessel congestion seen. No atelectasis. CT scan of the abdomen and pelvis was also done that showed a hypoattenuating area within the upper pole of the spleen, wedge-shaped, suspecting an underlying infarct. No splenic enlargement. No splenic lesions. The ultrasound of the gallbladder was normal. There is a 5 cm inferior right renal cyst and the Doppler of the lower extremity was also negative for DVT. 02/14/2024, patient is being seen for a follow-up. Patient was seen in consultation yesterday for increased shortness of breath. The patient came in with hypoxia respiratory failure the patient had increased pulm vas congestion and bilateral pleural effusion. Noted his cardiac enzymes were also elevated and the patient had a baseline troponin of 0.05. Based on that, cardiology consultation was requested and the patient underwent a cardiac catheterization today and the coronaries were essentially normal and the patient had a elevated left ventricular and diastolic pressure. The patient remains on bronchodilators. The patient has a component of COPD and started on systemic steroids. IV heparin can be discontinued. On today's blood work, the patient's BUN is at 12 with a creatinine of 0.6. Rest of the electrolytes are all within normal limits. WBC count is at 7.4 with hemoglobin 13.6. Fluid balance over the past 24 hours has been negative. He remains on oxygen at 3 L with a pulse ox of 99%. Echocardiogram has been ordered and results are still pending for now. No nausea. No vomiting. No abdominal pain. No other new complaints otherwise for now. 02/15/2024, being seen in follow-up. Doing well. No specific complaints. No chest pain. No significant shortness of breath. He has been diuresed adequately and the patient remains on bronchodilators and steroids and the patient is on IV Solu-Medrol 40 mg every 8 hours. He is on Lovenox 40 mg subcu for DVT prophylaxis. No nausea. No vomiting. No emesis. WBC count 17.7 with hemoglobin 13 and a platelet count of 328. Electrolytes. AST 65, ALT is 57, albumin is at 3.4. The patient furthermore underwent a HIDA scan that showed no evidence of any cholecystitis. His ejection fraction was 97%. Cardiology still on the case. The patient underwent a cardiac catheterization that showed no evidence of any coronary artery disease. He has Doppler of the lower extremity was negative for DVT. His echocardiogram showed an ejection fraction of 30 to 35%. No active nausea or emesis at this point in time. Objective - Vital Signs Vital signs: Vital Signs Temp 97.9 F 02/15/24 03:54 Pulse 95 02/15/24 03:54 Resp 18 02/15/24 03:54 BP 99/55 02/15/24 03:54 Pulse Ox 99 02/15/24 03:54 FiO2 Intake & Output 02/14/24 02/15/24 02/15/24 18:59 06:59 18:59 Intake Total 690 Balance 690 Weight 160.9 kg Intake: IV 150 Oral 540 Other: Voiding Method Toilet Toilet Urinal Urinal # Voids 2 - Exam The patient appeared well nourished and normally developed. The patient is obese,, comfortable and currently on 3 L of oxygen by nasal cannula vital signs as documented. Head exam is unremarkable. No scleral icterus or corneal arcus noted. Neck is without jugular venous distension, thyromegaly, or carotid bruits. Carotid upstrokes are brisk bilaterally. Lungs are diminished breath so unds bilaterally along with bibasilar crackles.. Cardiac exam reveals the PMI to be normally sized and situated. Rhythm is regular. First and second heart sounds normal. No murmurs, rubs or gallops. Abdominal exam reveals normal bowel sounds, no masses, no organomegaly and no aortic enlargement. Extremities are nonedematous and both femoral and pedal pulses are normal. Examination of the skin revealed no evidence of significant rashes, suspicious appearing nevi or other concerning lesions. Neurologically, the patient is awake and alert and the patient does not have any focal neurological deficit. Cranial nerves are essentially intact. - Labs CBC & Chem 7: 02/15/24 06:56 02/15/24 06:56 Labs: Abnormal Lab Results - Last 24 Hours (Table) 02/14/24 02/14/24 02/14/24 Range/Units 06:56 11:30 13:08 WBC (3.8-10.6) k/uL Neutrophils # (1.3-7.7) k/uL Lymphocytes # (1.0-4.8) k/uL Glucose (74-99) mg/dL POC Glucose (mg/dL) 182 H 212 H (70-110) mg/dL Hemoglobin A1c 9.5 H (<=6.0) % AST (17-59) U/L ALT (4-49) U/L Total Protein (6.3-8.2) g/dL Albumin (3.5-5.0) g/dL 02/14/24 02/14/24 02/15/24 Range/Units 16:53 19:34 05:58 WBC (3.8-10.6) k/uL Neutrophils # (1.3-7.7) k/uL Lymphocytes # (1.0-4.8) k/uL Glucose (74-99) mg/dL POC Glucose (mg/dL) 332 H 242 H 348 H (70-110) mg/dL Hemoglobin A1c (<=6.0) % AST (17-59) U/L ALT (4-49) U/L Total Protein (6.3-8.2) g/dL Albumin (3.5-5.0) g/dL 02/15/24 02/15/24 Range/Units 06:56 06:56 WBC 17.7 H (3.8-10.6) k/uL Neutrophils # 16.5 H (1.3-7.7) k/uL Lymphocytes # 0.5 L (1.0-4.8) k/uL Glucose 322 H (74-99) mg/dL POC Glucose (mg/dL) (70-110) mg/dL Hemoglobin A1c (<=6.0) % AST 65 H (17-59) U/L ALT 57 H (4-49) U/L Total Protein 5.9 L (6.3-8.2) g/dL Albumin 3.4 L (3.5-5.0) g/dL Assessment and Plan Plan: Acute hypoxic respiratory failure, currently on 2 -3 L of oxygen by nasal cannula Acute CHF exacerbation with pulm vessel congestion and bilateral pleural effusion in addition to increased groundglass changes and pulm vessel congestion as evident on the CAT scan of the chest.The patient has been diuresed adequately and the patient is currently off diuretics Abnormal troponins with a normal cardiac catheterization. Elevated left- ventricular diastolic pressure consistent with CHF CHF with LV dysfunction and ejection fraction of 35% to 40%. There is severely increased septal wall thickness. Increase in left ventricular diastolic volume. Dilated LV without any other significant valvular abnormalities. Shortness of breath secondary to above COPD, quit smoking 2 weeks and he has a 40 py smoking history and he has been taking Trelegy Ellipta AMADA, nontolerant to CPAP Splenic infarcts versus a lesion, please refer to the CAT scan of the abdomen pelvis Abdominal pain/nausea/emesis, HIDA scan showed no evidence of any cholecystitis. Diabetes mellitus type 2 Hypertension Hyperlipidemia Plan Cardiac catheterization was noted Titrate FiO2 to maintain saturation above 90% Echocardiogram showed impairment of LV function with an ejection fraction of 30 to 35% Patient has been diuresed adequately IV fluids to KVO Titrate FiO2 to maintain saturation above 90%, currently still on 2 to 3 L/min nasal cannula Discontinue IV Solu-Medrol No issues with ongoing abdominal pain, HIDA scan is negative General Surgery consultation regarding the splenic findings.
[2024-02-15] MEDS: ENOXAPARIN 40 MG/0.4 ML SYRINGE SQ SCH (14:56)
--- NOTE | 2024-02-15 15:28 | P.PN ---
Progress Note - Text Progress Note Date: 02/15/24 This is a 53-year-old male who was recently admitted with abdominal pain and epigastric pain on the right side. Patient underwent a CTa with no evidence of PE. Patient with multiple consultations following including general surgery, cardiology, pulmonary as patient was noted to be in CHF exacerbation and started on IV Lasix. Patient does have some bilateral leg swelling which is showing some improvements. Cardiology following and patient will undergo cardiac catheterization today. Patient was initially scheduled for laparoscopic cholecystectomy although placed on hold due to other multiple comorbidities and ongoing exacerbation. Will await cardiac catheterization report and patient is also scheduled to undergo HIDA scan per general surgery. February 14: Patient was in bed. On nasal cannula. Will check pulse ox on room air DC the same. Told the patient to ambulate in the hallway. Had a negative cardiac catheterization. Prior to admission patient smoking up to 2 packs a day. Eating fair. Dose of Solu-Medrol to be cut back use incentive spirometry. Up in a chair. Active Medications Hydrocodone Bitart/Acetaminophen (Hydrocodone/Apap 5-325mg 1 Each Tab) 1 each PO Q6HR PRN PRN Reason: Pain Albuterol/Ipratropium (Ipratropium-Albuterol 3 Ml Neb) 3 ml INHALATION RT-QID [facility] Last Admin: 02/15/24 11:52 Dose: 3 ml Albuterol/Ipratropium (Ipratropium-Albuterol 3 Ml Neb) 3 ml INHALATION RT-QID PRN PRN Reason: Shortness Of Breath Or Wheezing Alprazolam (Alprazolam 0.25 Mg Tab) 0.25 mg PO Q6HR PRN PRN Reason: Mild Anxiety Alprazolam (Alprazolam 0.5 Mg Tab) 0.5 mg PO Q6HR PRN PRN Reason: Moderate Anxiety Aspirin (Aspirin 81 Mg) 81 mg PO DAILY [facility] Last Admin: 02/15/24 10:41 Dose: 81 mg Atorvastatin Calcium (Atorvastatin 40 Mg Tab) 40 mg PO DAILY [facility] Last Admin: 02/15/24 10:40 Dose: 40 mg Budesonide (Budesonide 1 Mg/2 Ml Nebu) 1 mg INHALATION RT-BID [facility] Last Admin: 02/15/24 08:09 Dose: Not Given Citalopram Hydrobromide (Citalopram Hydrobromide 20 Mg Tab) 20 mg PO DAILY [facility] Last Admin: 02/15/24 10:41 Dose: 20 mg Dapagliflozin (Dapagliflozin Propanediol 10 Mg Tablet) 10 mg PO DAILY [facility] Last Admin: 02/15/24 10:41 Dose: 10 mg Dextrose/Water (Dextrose 50% Syringe 50 Ml) 25 ml IVP PER PROTOCOL PRN; Pro tocol PRN Reason: Hypoglycemia Dextrose/Water (Dextrose 50% Syringe 50 Ml) 50 ml IVP PER PROTOCOL PRN; Protocol PRN Reason: Hypoglycemia Enoxaparin Sodium (Enoxaparin 40 Mg/0.4 Ml Syringe) 40 mg SQ DAILY [facility] Last Admin: 02/15/24 14:56 Dose: Not Given Formoterol Fumarate (Formoterol Fumarate 20 Mcg/2 Ml Nebu) 20 mcg INHALATION RT-BID [facility] Last Admin: 02/15/24 08:09 Dose: Not Given Glipizide (Glipizide 5 Mg Tab) 5 mg PO DAILY [facility] Last Admin: 02/15/24 10:41 Dose: 5 mg Hydromorphone HCl (Hydromorphone 0.5 Mg/0.5 Ml Syringe) 0.5 mg IVP Q5M PRN PRN Reason: Phase 1 or 2 - Pain Control Stop: 02/15/24 23:00 Lactated Ringer's (Lactated Ringers) 1,000 mls @ 20 mls/hr IV .Q24H [facility] Last Admin: 02/15/24 00:21 Dose: 20 mls/hr Insulin Aspart (Insulin Aspart (Novolog) 100 Unit/Ml Vial) 0 unit SQ ACHS [facility]; Protocol Last Admin: 02/15/24 12:11 Dose: 6 unit Lisinopril (Lisinopril 5 Mg Tab) 5 mg PO DAILY [facility] Miscellaneous Information (Rx Info: Iv Contrast Was Given 1 Each Misc) 1 each MISCELLANE DAILY PRN PRN Reason: Per Protocol Stop: 02/16/24 12:58 Naloxone HCl (Naloxone 0.4 Mg/Ml 1 Ml Vial) 0.2 mg IV Q2M PRN PRN Reason: Opioid Reversal Nitroglycerin (Nitroglycerin Sl Tabs 0.4 Mg Tab) 0.4 mg SUBLINGUAL Q5M PRN PRN Reason: Chest Pain Non-Formulary Medication (Dextroamphetamine/Amphetamine [Adderall]) 30 mg PO DAILY [facility] Last Admin: 02/15/24 10:40 Dose: Not Given Ondansetron HCl (Ondansetron 4 Mg/2 Ml Vial) 4 mg IVP Q8HR PRN PRN Reason: Nausea And Vomiting Pantoprazole Sodium (Pantoprazole 40 Mg/10 Ml Vial) 40 mg IV DAILY [facility] Last Admin: 02/15/24 10:41 Dose: 40 mg Potassium Chloride (Potassium Chloride Er 20 Meq Tab.Er) 20 meq PO DAILY [facility] Last Admin: 02/15/24 10:41 Dose: 20 meq Pregabalin (Pregabalin 75 Mg Cap) 150 mg PO DAILY [facility] Last Admin: 02/15/24 10:41 Dose: 150 mg On examination: VITAL SIGNS: [97.9, 95, 18, 99 x 55, 99% on 3 L] GENERAL APPEARANCE: Reclining in bed, eating lunch HEENT: Normal external appearance of nose and ear. Oral cavity normal EYES: Pupils equal. Conjunctiva normal. NECK: JVD not raised. Mass not palpable. RESPIRATORY: Respiratory effort increased l. Lungs diminished breath sounds CARDIOVASCULAR: First and second sounds normal. No edema. ABDOMEN: Soft. Liver and spleen not palpable. No tenderness. No mass palpable. PSYCHIATRY: Alert and oriented x3. Mood and affect normal. INVESTIGATIONS, reviewed in the clinical context: February 14: White count 7.7 hemoglobin 13 platelets 328 potassium 4.6 creatinine 0.73 AST 65 ALT 57 HIDA scan: EF 97% Cardiac catheterization: Normal coronaries 2D echocardiogram: EF 35 to 40% Venous Doppler: Bilateral: Negative for DVT Gallbladder ultrasound: Hepatomegaly with fatty infiltration. Normal gallbladder. CT abdomen: Hypoattenuating area with the upper pole of the spleen. Somewhat of which like. Chest CT: Negative for PE Assessment and plan: -Shortness of breath, combination of congestive heart failure acute exacerbation as well as chronic obstructive pulmonary disease acute exacerbation -Nonischemic cardiomyopathy acute on chronic exacerbation EF 35 to 40% Zestril. Add Aldactone 12.5 mg daily . -Type II NSTEMI, Aspirin 81 mg. Cardiac catheterization showed normal coronaries -Chronic nicotine dependence cigarette smoker Nicotine patch -Acute COPD exacerbation in a current smoker Lori. Perforomist. IV steroids Add Symbicort upon discharge. -Questionable splenic infarct on the CT -Diabetes mellitus, type II, on oral hypoglycemic. Uncontrolled with hyperglycemia, secondary steroids Glyburide. Farxiga. Add metformin tomorrow -Hyperlipidemia Lipitor 40 mg/day -Morbid obesity with a BMI of 44.1 Weight loss measures -Full code Discussed with patient nurse at the bedside. Increase activity. Walk in the hallway. Check oxygen with activity. Patient counseled.
[2024-02-15] MEDS: NICOTINE 21MG/24HR PATCH TRANSDERM SCH (15:48)
[2024-02-15] MEDS ORDERED: methylPREDNISolone SOD SUCCI 40 MG/ML 1 ML VIAL IV SCH (16:00)
[2024-02-15] MEDS: guaiFENesin 600 MG TABLET.ER PO SCH (16:10)
[2024-02-15 16:48] LABS: Glucose,Whole Blood 212 mg/dL (70-110)
[2024-02-15] MEDS: METOPROLOL TARTRATE 25 MG TAB PO SCH (17:13)
[2024-02-15 17:19] LABS: African American GFR (CKD) >90 (>60 ml/min/1.73 sqM); Anion Gap 3 mmol/L; Blood Urea Nitrogen 21 mg/dL (9-20); Calcium 9.2 mg/dL (8.4-10.2); Carbon Dioxide 26 mmol/L (22-30); Chloride 107 mmol/L (98-107); Glucose 230 mg/dL (74-99); Magnesium 2.2 mg/dL (1.6-2.3); Non-African American GFR(CKD) >90 (>60 ml/min/1.73 sqM); Potassium 4.4 mmol/L (3.5-5.1); Sodium 136 mmol/L (137-145)
[2024-02-15 20:22] VITALS: RESP 18
[2024-02-15 20:39] LABS: Glucose,Whole Blood 324 mg/dL (70-110)
[2024-02-16 05:43] LABS: Glucose,Whole Blood 249 mg/dL (70-110)
[2024-02-16] MEDS: lisinopriL 5 MG TAB PO SCH (09:03)
--- NOTE | 2024-02-16 10:49 | P.PN ---
Subjective Progress Note Date: 02/16/24 CHIEF COMPLAINT: Abdominal pain HISTORY OF PRESENT ILLNESS: Patient denies any abdominal pain. Denies any nausea or vomiting. Tolerating regular diet. Patient reports his breathing is improved. He thinks he is going to be discharged today. Patient had echo with a EF of 35 to 40%. Follow-up with cardiology regarding his cardiomyopathy. Heart cath normal coronary arteries. Cleared by cardiology for discharge. They adjusted medications. PHYSICAL EXAM: VITAL SIGNS: Reviewed. GENERAL: no acute distress. ABDOMEN: Soft. Nondistended. Nontender. NEUROLOGIC: Alert and oriented. Cranial nerves II through XII grossly intact. ASSESSMENT: 1. Right upper quadrant abdominal pain. Patient's pain occurs after eating greasy, fatty foods. 2. Hyperdynamic gallbladder 3. Possible splenic infarct findings on CT scan is an incidental finding per Dr. Avila PLAN: -No surgical intervention planned at this time -Recommend outpatient laparoscopic cholecystectomy -Recommend low-fat diet Physician Endodontic Assistant note has been reviewed by physician. Signing provider agrees with the documented findings, assessment, and plan of care. Objective - Vital Signs Vital signs: Vital Signs Temp 98.3 F 02/16/24 04:00 Pulse 80 02/16/24 09:54 Resp 18 02/16/24 04:00 BP 94/46 02/16/24 04:00 Pulse Ox 98 02/16/24 09:29 FiO2 Intake & Output 02/15/24 02/16/24 02/16/24 18:59 06:59 18:59 Intake Total 250 240 Balance 250 240 Weight 160.9 kg 163.8 kg Intake: Oral 250 240 Other: Voiding Method Toilet Toilet Urinal Urinal # Voids 3 - Labs CBC & Chem 7: 02/15/24 06:56 02/15/24 16:52 Labs: Abnormal Lab Results - Last 24 Hours (Table) 02/15/24 02/15/24 02/15/24 Range/Units 11:25 16:47 16:52 Sodium 136 L (137-145) mmol/L BUN 21 H (9-20) mg/dL Glucose 230 H (74-99) mg/dL POC Glucose (mg/dL) 256 H 212 H (70-110) mg/dL 02/15/24 02/16/24 Range/Units 20:38 05:42 Sodium (137-145) mmol/L BUN (9-20) mg/dL Glucose (74-99) mg/dL POC Glucose (mg/dL) 324 H 249 H (70-110) mg/dL
--- NOTE | 2024-02-16 10:56 | P.PN ---
Subjective Progress Note Date: 02/16/24 Consult reason: congestive heart failure History of present illness: This is a 53-year-old male patient with past medical history of diabetes mellitus type 2, hypertension, hyperlipidemia, COPD, tobacco use and dependence. Patient's states the patient has been in and out of the hospital due to pneumonia at [facility]. Patient also had mid abdominal pain in the epigastric region with nausea and vomiting which has been going on for a while. He apparently had a CAT scan done at [facility] that showed the gallbladder was without disease. Patient complains of difficulty in breathing this been going on for about 2 months and also dyspnea on exertion for short distances. He occasionally has chest pain but is not related to activity. He denies any previous cardiac history. He has lower extremity edema which he states he has had for about 2 years. He normally sleeps on 2 pillows. He was a smoker of 2 packs/day and quit smoking 2 weeks ago. He denies having any cough or fever. No wheezing. He denies any blood in his stool or urine. He denies history of stroke or seizure activity. 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 Blood pressure 132/79, heart rate 90, pulse ox 99% on 3 L nasal cannula. Discussed with patient that recommendations are for left heart catheterization and he is agreeable to move forward with this. Also recommended that any gallbladder surgery be postponed. EKG: Sinus rhythm with occasional PVCs, nonspecific T wave abnormalities Chest x-ray: basilar atelectasis favored over infiltrate. Venous Doppler duplex of the bilateral lower extremities negative for DVT. CTA of the chest reveals no pulmonary embolism. Correlate for heart failure. Ultrasound of the gallbladder: Normal gallbladder. Hepatomegaly with fatty infiltration. 5 cm cyst in the inferior right kidney. CAT scan of the abdomen and pelvis reveals hypoattenuating area within the upper pole of the spleen may reflect splenic infarct. Small pleural effusions. Laboratory studies: WBC 7.4, hemoglobin 13.6. Sodium 138, potassium 4.5, creatinine 0.64, blood sugar 249. Liver function tests are normal. Troponins 0.05. proBNP 1910. Influenza A, influenza B, RSV, COVID-19 not detected. Home cardiac medications: Amlodipine 10 mg daily, atorvastatin 10 mg daily, Bumex 1 mg daily, Lasix 40 mg daily, potassium chloride 20 mill equivalents daily. 02/14 Yesterday, patient underwent cardiac catheterization with Dr. Amador that revealed normal coronary arteries and recommendations for medical therapy and aggressive coronary risk modification and weight reduction. Patient is also been instructed that smoking cessation needs to occur. Patient denies having any chest pain. He states his breathing is a little bit heavy sometimes but improved. He denies abdominal pain. No vomiting. His states that shortly after eating last evening he developed back pain and oxygen was applied which helped his pain. No chest pain was described. This morning, patient underwent HIDA scan that revealed no evidence of cholecystitis. EF 97%. Echocardiogram reveals EF of 35 to 40%. 02/15 Yesterday lisinopril was decreased to 5 mg daily for blood pressure this morning is 90 systolic. He had a run of nonsustained ventricular tachycardia around 4 PM yesterday. He is now in a sinus rhythm with PVCs. Patient states he slept okay last night. His breathing is better. No chest pain. He is denies having abdominal pain. Pulmonary medicine has placed him on IV Lasix 40 mg daily. Physical examination: Gen: This is a morbidly obese 53-year-old male appears to be in no acute distress. VS: reviewed HEENT: Head is atraumatic, normocephalic. Pupils equal, round. Sclerae is ani cteric. NECK: Supple. No JVD. LUNGS: Diminished breath sounds. No intercostal retractions. HEART: Regular rate and rhythm. No murmur. ABDOMEN: Soft No tenderness. EXTREMITIES: Minimal bilateral lower extremity edema. Diminished right radial pulse. no calf tenderness. NEUROLOGICAL: Patient is awake, alert and oriented x3. Assessment: Elevated troponin and abnormal EKG, possible non-ST elevated RI has been ruled out. Most likely type II RI secondary to vomiting Cardiomyopathy of unclear etiology, nonischemic Dyspnea on exertion Diabetes mellitus type 2 Hyperlipidemia Hypertension COPD Active tobacco use and dependence Plan: Continue current cardiac medications: Aspirin 81 mg daily, atorvastatin 40 mg at daily, Farxiga 10 mg daily, decrease lisinopril to 2.5 mg daily Discontinue IV Lasix and place patient on oral 20 mg daily Patient may be discharged on the current cardiac medications Patient is cleared for discharge from cardiology and may follow-up in the office with Dr. Amador in 1 week Smoking cessation. Patient will be provided the [place] quit line information at discharge. Nurse practitioner note has been reviewed, I agree with documented findings and plan of care. Patient was seen and examined. Objective - Vital Signs Vital signs: Vital Signs Temp 98.3 F 02/16/24 04:00 Pulse 80 02/16/24 09:54 Resp 18 02/16/24 04:00 BP 94/46 02/16/24 04:00 Pulse Ox 98 02/16/24 09:29 FiO2 Intake & Output 02/15/24 02/16/24 02/16/24 18:59 06:59 18:59 Intake Total 250 Balance 250 Weight 160.9 kg 163.8 kg Intake: Oral 250 Other: Voiding Method Toilet Toilet Urinal Urinal # Voids 3 - Labs CBC & Chem 7: 02/15/24 06:56 02/15/24 16:52 Labs: Abnormal Lab Results - Last 24 Hours (Table) 02/15/24 02/15/24 02/15/24 Range/Units 11:25 16:47 16:52 Sodium 136 L (137-145) mmol/L BUN 21 H (9-20) mg/dL Glucose 230 H (74-99) mg/dL POC Glucose (mg/dL) 256 H 212 H (70-110) mg/dL 02/15/24 02/16/24 Range/Units 20:38 05:42 Sodium (137-145) mmol/L BUN (9-20) mg/dL Glucose (74-99) mg/dL POC Glucose (mg/dL) 324 H 249 H (70-110) mg/dL
[2024-02-16 11:17] VITALS: TEMP 97.9
[2024-02-16 11:53] LABS: Glucose,Whole Blood 237 mg/dL (70-110)
[2024-02-16] MEDS: FUROSEMIDE 10 MG/ML 4 ML VIAL IV SCH (12:12)
[2024-02-16] MEDS: predniSONE 20 MG TAB PO SCH (12:18)
[2024-02-16] MEDS: SPIRONOLACTONE 25 MG TAB PO SCH (12:18)
[2024-02-16 13:01] VITALS: BP 114/79; PULSE 76
[2024-02-16] MEDS ORDERED: metFORMIN 500 MG TAB PO SCH (17:30)
--- NOTE | 2024-02-16 18:45 | P.DS ---
Providers Date of admission: 02/13/24 12:52 Expected date of discharge: 02/16/24 Attending physician: Leonel Guerra Consults: 02/13/24 12:50 Consult Physician Routine Consulting Provider: Conor Avila Consult Reason/Comments: Ton Do you want consulting provider notified?: Yes 02/13/24 15:37 Consult Physician Routine Consulting Provider: Leanne Carranza Consult Reason/Comments: copd Do you want consulting provider notified?: Yes Consult Physician Routine Consulting Provider: Sotero Baker Consult Reason/Comments: chf Do you want consulting provider notified?: Yes Primary care physician: [facility] Course: This is a 53-year-old male who was recently admitted with abdominal pain and epigastric pain on the right side. Patient underwent a CTa with no evidence of PE. Patient with multiple consultations following including general surgery, cardiology, pulmonary as patient was noted to be in CHF exacerbation and started on IV Lasix. Patient does have some bilateral leg swelling which is showing some improvements. Cardiology following and patient will undergo cardiac catheterization today. Patient was initially scheduled for laparoscopic chol ecystectomy although placed on hold due to other multiple comorbidities and ongoing exacerbation. Will await cardiac catheterization report and patient is also scheduled to undergo HIDA scan per general surgery. February 14: Patient was in bed. On nasal cannula. Will check pulse ox on room air DC the same. Told the patient to ambulate in the hallway. Had a negative cardiac catheterization. Prior to admission patient smoking up to 2 packs a day. Eating fair. Dose of Solu-Medrol to be cut back use incentive spirometry. Up in a chair. February 15: at the bedside. Much better. Counseled about smoking. Patient will follow outpatient with pulmonary, cardiology, surgery. Questions answered. Metformin added. Weight loss discussed. Discussion and discharge planning more than 35 minutes On examination: VITAL SIGNS: Afebrile, 82, 18, 114 x 79, 98% room air GENERAL APPEARANCE: Comfortable HEENT: Normal external appearance of nose and ear. Oral cavity normal EYES: Pupils equal. Conjunctiva normal. NECK: JVD not raised. Mass not palpable. RESPIRATORY: Respiratory effort normal. Lungs diminished breath sounds CARDIOVASCULAR: First and second sounds normal. No edema. ABDOMEN: Soft. Liver and spleen not palpable. No tenderness. No mass palpable. PSYCHIATRY: Alert and oriented x3. Mood and affect normal. INVESTIGATIONS, reviewed in the clinical context: February 14: White count 7.7 hemoglobin 13 platelets 328 potassium 4.6 creatinine 0.73 AST 65 ALT 57 HIDA scan: EF 97% Cardiac catheterization: Normal coronaries 2D echocardiogram: EF 35 to 40% Venous Doppler: Bilateral: Negative for DVT Gallbladder ultrasound: Hepatomegaly with fatty infiltration. Normal gallbladder. CT abdomen: Hypoattenuating area with the upper pole of the spleen. Somewhat of which like. Chest CT: Negative for PE Assessment and plan: -Shortness of breath, combination of congestive heart failure acute exacerbation as well as chronic obstructive pulmonary disease acute exacerbation -Nonischemic cardiomyopathy acute on chronic exacerbation EF 35 to 40% Zestril. Aldactone 12.5 mg daily . -Type II NSTEMI, Aspirin 81 mg. Cardiac catheterization showed normal coronaries -Chronic nicotine dependence cigarette smoker Nicotine patch -Acute COPD exacerbation in a current smoker DuoNeb. Perforomist. IV steroids Discharged on Trelegy, albuterol as needed, DuoNeb -Questionable splenic infarct on the CT -Diabetes mellitus, type II, on oral hypoglycemic. Uncontrolled with hyperglycemia, secondary steroids Glyburide. Farxiga. Metformin added -Hyperlipidemia Lipitor 40 mg/day -Morbid obesity with a BMI of 44.1 Weight loss measures -Full code Disposition: Home Plan - Discharge Summary Discharge Rx Participant: No New Discharge Prescriptions: New Aspirin 81 mg PO DAILY tab metFORMIN HCL [Glucophage] 500 mg PO AC-BID #60 tab Nicotine 21Mg/24Hr Patch [Habitrol] 1 patch TRANSDERM DAILY #30 patch Atorvastatin [Lipitor] 40 mg PO DAILY #30 tab Spironolactone [Aldactone] 12.5 mg PO DAILY@1300 #30 tab Metoprolol Tartrate [Lopressor] 25 mg PO BID #60 tab Nitroglycerin Sl Tabs [Nitrostat] 0.4 mg SUBLINGUAL Q5M PRN #30 tab PRN Reason: Chest Pain lisinopriL [Zestril] 2.5 mg PO HS #30 tab Continue Omeprazole 20 mg PO AC-BRKFST Furosemide [Lasix] 40 mg PO DAILY sitaGLIPtin [Januvia] 100 mg PO DAILY Citalopram Hydrobromide [CeleXA] 20 mg PO DAILY Albuterol Inhaler [Ventolin Hfa Inhaler] 2 puff INHALATION RT-Q4H PRN PRN Reason: Shortness Of Breath Potassium Chloride ER [K-Dur 20] 20 meq PO DAILY glipiZIDE XL [Glucotrol XL] 5 mg PO DAILY Budesonide [Pulmicort] 0.5 mg INHALATION RT-BID PRN PRN Reason: Shortness Of Breath Ipratropium-Albuterol Nebulize [Duoneb 0.5 mg-3 mg/3 ml Soln] 3 ml INHALATION RT-Q4H PRN PRN Reason: Shortness Of Breath Sildenafil Citrate 100 mg PO DAILY PRN PRN Reason: E.D. Pregabalin [Lyrica] 150 mg PO DAILY Fluticasone/Umeclidin/Vilanter [Trelegy Ellipta 200-62.5-25] 1 puff INHALATION RT-DAILY Dextroamphetamine/Amphetamine [Adderall] 30 mg PO DAILY Discontinued Atorvastatin [Lipitor] 10 mg PO DAILY amLODIPine [Norvasc] 10 mg PO DAILY Bumetanide [Bumex] 1 mg PO DAILY Discharge Medication List Furosemide [Lasix] 40 mg PO DAILY 02/05/20 [History] Omeprazole 20 mg PO AC-BRKFST 02/05/20 [History] sitaGLIPtin [Januvia] 100 mg PO DAILY 02/05/20 [History] Citalopram Hydrobromide [CeleXA] 20 mg PO DAILY 08/28/21 [History] Sildenafil Citrate 100 mg PO DAILY PRN 08/28/21 [History] Albuterol Inhaler [Ventolin Hfa Inhaler] 2 puff INHALATION RT-Q4H PRN 08/31/21 [History] Budesonide [Pulmicort] 0.5 mg INHALATION RT-BID PRN 02/13/24 [History] Dextroamphetamine/Amphetamine [Adderall] 30 mg PO DAILY 02/13/24 [History] Fluticasone/Umeclidin/Vilanter [Trelegy Ellipta 200-62.5-25] 1 puff INHALATION RT-DAILY 02/13/24 [History] Ipratropium-Albuterol Nebulize [Duoneb 0.5 mg-3 mg/3 ml Soln] 3 ml INHALATION RT-Q4H PRN 02/13/24 [History] Potassium Chloride ER [K-Dur 20] 20 meq PO DAILY 02/13/24 [History] Pregabalin [Lyrica] 150 mg PO DAILY 02/13/24 [History] glipiZIDE XL [Glucotrol XL] 5 mg PO DAILY 02/13/24 [History] Aspirin 81 mg PO DAILY tab 02/16/24 [Rx] Atorvastatin [Lipitor] 40 mg PO DAILY #30 tab 02/16/24 [Rx] Metoprolol Tartrate [Lopressor] 25 mg PO BID #60 tab 02/16/24 [Rx] Nicotine 21Mg/24Hr Patch [Habitrol] 1 patch TRANSDERM DAILY #30 patch 02/16/24 [Rx] Nitroglycerin Sl Tabs [Nitrostat] 0.4 mg SUBLINGUAL Q5M PRN #30 tab 02/16/24 [Rx] Spironolactone [Aldactone] 12.5 mg PO DAILY@1300 #30 tab 02/16/24 [Rx] lisinopriL [Zestril] 2.5 mg PO HS #30 tab 02/16/24 [Rx] metFORMIN HCL [Glucophage] 500 mg PO AC-BID #60 tab 02/16/24 [Rx] Follow up Appointment(s)/Referral(s): Jazmin Amador MD [STAFF PHYSICIAN] - 1 Week (office will call with appointment date and time) Yasmani Bernard MD [Primary Care Provider] - 02/23/24 3:00 pm Leanne Carranza MD [STAFF PHYSICIAN] - 03/16/24 9:00 am Conor Avila MD [STAFF PHYSICIAN] - 02/28/24 1:45 pm Patient Instructions/Handouts: Heart Failure (GEN), COPD (Chronic Obstructive Pulmonary Disease) (GEN), Basic Carbohydrate Counting (GEN), Diabetes and Nutrition (GEN) Discharge Disposition: HOME SELF-CARE
--- NOTE | 2024-02-16 18:48 | P.PN ---
Subjective Progress Note Date: 02/16/24 This is a 53-year-old male patient presented to the hospital because of worsening shortness of breath. He also noted some ongoing abdominal pain specially over the right upper quadrant it has been ongoing for the past 2 weeks. Is been also having episodes of nausea and emesis. No fever. No chills. No hemoptysis. No pleurisy. White cell count is at 8 with a hemoglobin 13.0 and a platelet count of 277. Normal coagulation profile. Normal electrolytes. Normal LFTs. Troponin 0.05. proBNP level is 1910. UA is showing +1 glucose, otherwise negative. Viral screen has been negative. Serum acetone is negative. CT of the chest is consistent with bilateral pleural effusions and some increased pulm vascular markings consistent with CHF. No lung masses or mediastinal lymph nodes. Scattered groundglass infiltrates along with pulm vessel congestion seen. No atelectasis. CT scan of the abdomen and pelvis was also done that showed a hypoattenuating area within the upper pole of the spleen, wedge-shaped, suspecting an underlying infarct. No splenic enlargement. No splenic lesions. The ultrasound of the gallbladder was normal. There is a 5 cm inferior right renal cyst and the Doppler of the lower extremity was also negative for DVT. 02/14/2024, patient is being seen for a follow-up. Patient was seen in consultation yesterday for increased shortness of breath. The patient came in with hypoxia respiratory failure the patient had increased pulm vas congestion and bilateral pleural effusion. Noted his cardiac enzymes were also elevated and the patient had a baseline troponin of 0.05. Based on that, cardiology consultation was requested and the patient underwent a cardiac catheterization today and the coronaries were essentially normal and the patient had a elevated left ventricular and diastolic pressure. The patient remains on bronchodilators. The patient has a component of COPD and started on systemic steroids. IV heparin can be discontinued. On today's blood work, the patient's BUN is at 12 with a creatinine of 0.6. Rest of the electrolytes are all within normal limits. WBC count is at 7.4 with hemoglobin 13.6. Fluid balance over the past 24 hours has been negative. He remains on oxygen at 3 L with a pulse ox of 99%. Echocardiogram has been ordered and results are still pending for now. No nausea. No vomiting. No abdominal pain. No other new complaints otherwise for now. 02/15/2024, being seen in follow-up. Doing well. No specific complaints. No chest pain. No significant shortness of breath. He has been diuresed adequately and the patient remains on bronchodilators and steroids and the patient is on IV Solu-Medrol 40 mg every 8 hours. He is on Lovenox 40 mg subcu for DVT prophylaxis. No nausea. No vomiting. No emesis. WBC count 17.7 with hemoglobin 13 and a platelet count of 328. Electrolytes. AST 65, ALT is 57, albumin is at 3.4. The patient furthermore underwent a HIDA scan that showed no evidence of any cholecystitis. His ejection fraction was 97%. Cardiology still on the case. The patient underwent a cardiac catheterization that showed no evidence of any coronary artery disease. He has Doppler of the lower extremity was negative for DVT. His echocardiogram showed an ejection fraction of 30 to 35%. No active nausea or emesis at this point in time. 02/16/2024, patient is ambulating. The patient is on room air oxygen. No significant shortness of breath. No chest pain. The patient remains on DuoNeb nebulized treatments [id number]. The patient had an echocardiogram that showed an impaired LV function with an EF of around 30 to 35%. Cardiac catheterization was negative for any significant coronary artery disease. IV Solu-Medrol was discontinued and the patient will be given a prednisone burst taper at time of discharge to be utilized along with Trelegy Ellipta as maintenance. Outpatient follow-up regarding gallbladder disease. The HIDA scan was hyperfunctional. No evidence of any acute cholecystitis. Objective - Vital Signs Vital signs: Vital Signs Temp 98.3 F 02/16/24 04:00 Pulse 84 02/16/24 09:29 Resp 18 02/16/24 04:00 BP 94/46 02/16/24 04:00 Pulse Ox 98 02/16/24 09:29 FiO2 Intake & Output 02/15/24 02/16/24 02/16/24 18:59 06:59 18:59 Intake Total 250 Balance 250 Weight 160.9 kg 163.8 kg Intake: Oral 250 Other: Voiding Method Toilet Toilet Urinal Urinal # Voids 3 - Exam The patient appeared well nourished and normally developed. The patient is obese,, comfortable and currently on room air oxygen by nasal cannula vital signs as documented. Head exam is unremarkable. No scleral icterus or corneal arcus noted. Neck is without jugular venous distension, thyromegaly, or carotid bruits. Carotid upstrokes are brisk bilaterally. Lungs are diminished breath sounds bilaterally along with bibasilar crackles.. Cardiac exam reveals the PMI to be normally sized and situated. Rhythm is regular. First and second heart sounds normal. No murmurs, rubs or gallops. Abdominal exam reveals normal bowel sounds, no masses, no organomegaly and no aortic enlargement. Extremities are nonedematous and both femoral and pedal pulses are normal. Examination of the skin revealed no evidence of significant rashes, suspicious appearing nevi or other concerning lesions. Neurologically, the patient is awake and alert and the patient does not have any focal neurological deficit. Cranial nerves are essentially intact. - Labs CBC & Chem 7: 02/15/24 06:56 02/15/24 16:52 Labs: Abnormal Lab Results - Last 24 Hours (Table) 02/15/24 02/15/24 02/15/24 Range/Units 11:25 16:47 16:52 Sodium 136 L (137-145) mmol/L BUN 21 H (9-20) mg/dL Glucose 230 H (74-99) mg/dL POC Glucose (mg/dL) 256 H 212 H (70-110) mg/dL 02/15/24 02/16/24 Range/Units 20:38 05:42 Sodium (137-145) mmol/L BUN (9-20) mg/dL Glucose (74-99) mg/dL POC Glucose (mg/dL) 324 H 249 H (70-110) mg/dL Assessment and Plan Plan: Acute hypoxic respiratory failure, currently on room air oxygen Acute CHF exacerbation with pulm vessel congestion and bilateral pleural effusion in addition to increased groundglass changes and pulm vessel congestion as evident on the CAT scan of the chest.The patient has been diuresed adequately and the patient is currently off diuretics, the patient oxygenation is also improved. No significant shortness of breath Abnormal troponins with a normal cardiac catheterization. Elevated left- ventricular diastolic pressure consistent with CHF CHF with LV dysfunction and ejection fraction of 35% to 40%. There is severely increased septal wall thickness. Increase in left ventricular diastolic volume. Dilated LV without any other significant valvular abnormalities. Shortness of breath secondary to above COPD, quit smoking 2 weeks and he has a 40 py smoking history and he has been taking Trelegy Ellipta AMADA, nontolerant to CPAP Splenic infarcts versus a lesion, please refer to the CAT scan of the abdomen pelvis Abdominal pain/nausea/emesis, HIDA scan showed no evidence of any cholecystitis. Diabetes mellitus type 2 Hypertension Hyperlipidemia Plan Cardiac catheterization was noted, no significant coronary disease Patient is currently on room air oxygen Echocardiogram showed impairment of LV function with an ejection fraction of 30 to 35% Patient has been diuresed adequately IV fluids to KVO May be discharged the patient home on Trelegy Ellipta and prednisone burst taper No issues with ongoing abdominal pain, HIDA scan is negative, outpatient follow- up regarding the gallbladder issue General Surgery consultation regarding the splenic findings. Cleared for discharge from pulmonary standpoint
[2024-02-17] MEDS ORDERED: FUROSEMIDE 20 MG TAB PO SCH (09:00)
--- NOTE | 2024-03-01 17:19 | CDI ---
Documentation Clarification Form Date: 03/01/2024 05:01:15 PM From: Johanny Fernandez Phone: Admit Date: 02/13/2024 12:52:00 PM Patient Name: Steffen Robertson Visit Number: [id number] Discharge Date: 02/16/2024 02:58:00 PM ATTENTION: The Clinical Documentation Specialists (CDI) and [facility] Coding Staff appreciate your assistance in clarifying documentation. Please respond to the clarification below the line at the bottom and electronically sign. The CDI & [facility] Coding staff will review the response and follow-up if needed. Please note: Queries are made part of the Legal Health Record. If you have any questions, please contact the author of this message via ITS. Doctor/Provider: Jazmin Amador Your patient has the documented diagnosis of CHFexacerbation Consult 02/12 and following Progress Notes. Additional information regarding the type and acuity of CHF is requested. History/Risk Factors: 53yo M, AHRF, AECHF, NSTEMI II, AECOPDY, AMADA, AECOPD,splenicinfarctsDMII, HTN, HLD, quit smoking <2 weeks Clinical Indicators: VS/Pulse OX: 90-98 BNP: 1910 Echo: DilatedLV with severelyimpairedLV function and EF between 35 to 40% Chest x ray: Heart size is enlarged. Nosizablepleural effusionorpneumothorax. Basilaratelectasisfavored overinfiltrate. No overt failure. UnderlyingCOPD. Osteopeniaand degenerative change of the spine. Arthropathyof the shoulders. Pulm vessel congestion and bilateral pleural effusion in addition to increased groundglass changes and pulm vessel congestion as evident on the CAT scan of the chest. Treatment: on water pills at home. Started on IV Lasix In your professional opinion, can you please clarify the acuity and type of CHF if known? [ ] Acute Systolic Heart Failure (reduced EF) [ xx] Acute on Chronic Systolic Heart Failure (reduced EF) [ ] Acute Diastolic Heart Failure (preserved EF) [ ] Acute on Chronic Diastolic Heart Failure (preserved EF) [ ] Acute Systolic & Diastolic Heart Failure [ ] Acute on Chronic Heart Failure Systolic & Diastolic Heart Failure [ ] Other, please specify [ ] Unable to determine (Template Last Revised: June 2020) MTDD
== END 2024-02-16 14:58 | disposition home or self-care (01) | DRG 280 ==
LOC: EC 07:36 → 3SCARD 12:52
PROVIDERS: ADMIT Hospitalist; ATTEND Hospitalist
PROC: B2111ZZ Fluoroscopy of Multiple Coronary Arteries using Low Osmolar Contrast (ICD-10-PCS; 2024-02-14)
PROC: 4A023N7 Measurement of Cardiac Sampling and Pressure, Left Heart, Percutaneous Approach (ICD-10-PCS; principal; 2024-02-14 11:50)
DX: I11.0 Hypertensive heart disease with heart failure (principal); I50.23 Acute on chronic systolic (congestive) heart failure; I21.A1 Myocardial infarction type 2; J96.01 Acute respiratory failure with hypoxia; I47.20 Ventricular tachycardia, unspecified; Q25.0 Patent ductus arteriosus; J44.1 Chronic obstructive pulmonary disease with (acute) exacerbation; Z68.41 Body mass index [BMI] 40.0-44.9, adult; I42.8 Other cardiomyopathies; E11.42 Type 2 diabetes mellitus with diabetic polyneuropathy; E66.01 Morbid (severe) obesity due to excess calories; E11.65 Type 2 diabetes mellitus with hyperglycemia; D73.5 Infarction of spleen; K76.0 Fatty (change of) liver, not elsewhere classified; E78.5 Hyperlipidemia, unspecified; T38.0X5A Adverse effect of glucocorticoids and synthetic analogues, initial encounter; N28.1 Cyst of kidney, acquired; I49.3 Ventricular premature depolarization; K82.9 Disease of gallbladder, unspecified; G47.33 Obstructive sleep apnea (adult) (pediatric); Z79.82 Long term (current) use of aspirin; Z79.899 Other long term (current) drug therapy; Z79.84 Long term (current) use of oral hypoglycemic drugs; Z79.51 Long term (current) use of inhaled steroids; Z87.891 Personal history of nicotine dependence; Z11.52 Encounter for screening for COVID-19
CPT/HCPCS: 36415; 71045; 71275; 74177; 76705; 78227; 80048; 80053; 81003; 82009; 82803; 83036; 83605; 83735; 83880; 84100; 84484; 85025; 85610; 85730; 87636; 93005; 93306; 93458; 93970; 94640; 94760

== ENCOUNTER 2024-03-12 06:02 | Day surgery (SDC) | payer OTHER ==
[2024-03-07 11:27] VITALS: BMI 43.6
[~2024-03-12 06:02] MED LIST changes: -BUPIVACAINE (PF) 0.5% 30 ML VIAL SQ ONE; -DEXAMETHASONE SOD PHOSPHATE 4 MG/ML 1 ML VIAL IV ONE; -HYDROmorphone (PF) 1 MG/ML ONE; -HYDROmorphone 0.5 MG/0.5 ML SYRINGE IVP PRN; -KETOROLAC 15 MG/ML 1 ML VIAL ONE; -LACTATED RINGERS 1,000 ML IV SCH; +LIDOCAINE 1% (10MG/ML) FOR IV START INTRADERMA PRN; -LIDOCAINE 1% INJ 10MG/ML (20 ML MDV) ONE; -MIDAZOLAM 2 MG/2 ML VIAL IV PRN; -MIDAZOLAM 2 MG/2 ML VIAL ONE; -ONDANSETRON 4 MG/2 ML VIAL IVP ONE; -PROPOFOL 10 MG/ML 20 ML VIAL IV ONE; -SUCCINYLCHOLINE CHLORIDE 100 MG/5 ML SYR IV ONE; -ceFAZolin 3 GM in SODIUM CHLORIDE 0.9% 100 ML IVPB PRN; +droPERidol 5 MG/2 ML VIAL IVP ONE; -fentaNYL (PF) 50 MCG/ML 2 ML AMP ONE
[2024-03-12 07:03] LABS: Glucose,Whole Blood 116 mg/dL (70-110)
[2024-03-12] MEDS: IV FLUID CONTINUATION 1,000 ML IV ONE ×2 (07:04→09:40)
[2024-03-12] MEDS: LACTATED RINGERS 1,000 ML IV SCH (07:05)
[2024-03-12] MEDS: ACETAMINOPHEN TAB 500 MG TAB PO PRN (07:09)
[2024-03-12] MEDS: ONDANSETRON 4 MG/2 ML VIAL IVP ONE (07:10)
[2024-03-12] MEDS: DEXAMETHASONE SOD PHOSPHATE 4 MG/ML 1 ML VIAL IV ONE (07:10)
[2024-03-12] MEDS: HEPARIN SODIUM,PORCINE 5,000 UNIT/ML 1 ML VIAL SQ PRN (07:10)
[2024-03-12] MEDS: IPRATROPIUM-ALBUTEROL 3 ML NEB INHALATION STA (07:17)
[2024-03-12] MEDS: LIDOCAINE 1%-EPI 1:100,000 20 ML VIAL SQ ONE ×2 (07:19→08:04)
[2024-03-12] MEDS ORDERED: GLYCOPYRROLATE 0.2 MG/ML 2 ML VIAL ONE (07:40)
[2024-03-12] MEDS ORDERED: LIDOCAINE 1% INJ 10MG/ML (20 ML MDV) ONE (07:40)
[2024-03-12] MEDS ORDERED: fentaNYL (PF) 50 MCG/ML 2 ML AMP ONE (07:40)
[2024-03-12] MEDS ORDERED: ROCURONIUM 10 MG/ML (5 ML VIAL) IV ONE (07:40)
[2024-03-12] MEDS: ceFAZolin 3 GM in SODIUM CHLORIDE 0.9% 100 ML IVPB PRN (07:40)
[2024-03-12] MEDS ORDERED: SUCCINYLCHOLINE CHLORIDE 200 MG/10 ML VIAL IV ONE (07:40)
[2024-03-12] MEDS ORDERED: PROPOFOL 10 MG/ML 20 ML VIAL IV ONE (07:40)
[2024-03-12] MEDS ORDERED: PHENYLEPHRINE 10 MG/ML VIAL ONE (07:40)
[2024-03-12] MEDS ORDERED: MIDAZOLAM 2 MG/2 ML VIAL ONE (07:40)
--- NOTE | 2024-03-12 08:37 | P.OP ---
Date of Procedure: 03/12/24 Preoperative Diagnosis: Cholecystitis Postoperative Diagnosis: Cholecystitis Procedure(s) Performed: Laparoscopic cholecystectomy Anesthesia: ROB Surgeon: Conor Avila Pathology: none sent (Gallbladder) Disposition: PACU Description of Procedure: The patient was placed on the operating table. The patient received a general endotracheal tube anesthesia. The patients abdomen was prepped and draped in the usual sterile fashion. Through an infraumbilical stab incision, the fascia of the anterior abdominal wall was grasped with a pair of Kochers and then the Veress needle was placed in the peritoneal cavity. Position of the Veress needle was confirmed with positive drop test. The abdomen was then insufflated. After adequate insufflation, the 10 mm trocar was placed in the peritoneal cavity. Following this the laparoscope was placed in the peritoneal cavity. The patient was placed in the head-up, right side up position and then a 5 mm trocar was placed in the right lateral and right subcostal position under direct visualization. A 8 mm trocar was placed in the epigastric position. The gallbladder was grasped in the fundus and infundibulum. Traction on the gallbladder was placed in the lateral and the cephalad positions. The triangle of Calot was visualized.. The cystic duct was bluntly dissected until the union of the cystic duct and common bile duct was seen. A critical view of safety was achieved. The cystic duct was then divided and sealed with the Harmonic scissors. A PDS Endoloop was then placed throughout the cystic duct stump. The cystic artery divided and sealed with the Harmonic scissors. The gallbladder was then removed from the liver bed using Harmonic scissors. The gallbladder was then extracted through the epigastric port site. Operative field was checked for any bleeding spots and Harmonic scissors was used to coagulate the liver bed. The abdomen was irrigated. The trocars were removed. The skin was closed using interrupted 3-0 Vicryl suture. Dermabond dressing were applied. The patient tolerated the procedure well.
[2024-03-12 08:42] VITALS: TEMP 97
[2024-03-12 09:04] LABS: Glucose,Whole Blood 205 mg/dL (70-110)
[2024-03-12 11:01] VITALS: RESP 18
[2024-03-12] MEDS: HYDROmorphone 0.5 MG/0.5 ML SYRINGE IVP PRN (11:12)
[2024-03-12 12:01] VITALS: BP 107/85; PULSE 82
== END 2024-03-12 13:20 | disposition home or self-care (01) ==
LOC: OR 06:02
PROVIDERS: ATTEND Surgery
CPT/HCPCS: 88304

== ENCOUNTER 2024-03-15 08:36 | Inpatient (IN) | payer OTHER ==
[2024-03-15 08:50] VITALS: TEMP 97.7
--- NOTE | 2024-03-15 09:16 | ED ---
General Adult HPI - General Chief complaint: Shortness of Breath Stated complaint: SOB Time Seen by Provider: 03/15/24 08:55 Source: patient, family, RN notes reviewed Mode of arrival: ambulatory Limitations: no limitations - History of Present Illness Initial comments: 53-year-old male presents emergency department with chief complaint of shortness of breath. Patient states he started having shortness of breath of the last day or 2. Patient did have cholecystectomy 9 days ago. Patient states he has a history of congestive heart failure has noted 10 pound weight gain. Admit that he is a smoker and on likely has COPD. Patient does have some right sided rib, chest discomfort. Denies any left-sided no arm symptoms no headache or dizziness no reports of fever. - Related Data Home Medications Medication Instructions Recorded Confirmed Furosemide [Lasix] 40 mg PO DAILY 02/05/20 03/15/24 Omeprazole 20 mg PO AC-BRKFST 02/05/20 03/15/24 sitaGLIPtin [Januvia] 100 mg PO DAILY 02/05/20 03/15/24 Citalopram Hydrobromide [CeleXA] 20 mg PO HS 08/28/21 03/15/24 Sildenafil Citrate 100 mg PO DAILY PRN 08/28/21 03/15/24 Albuterol Inhaler [Ventolin Hfa 2 puff INHALATION RT-Q4H PRN 08/31/21 03/15/24 Inhaler] Budesonide [Pulmicort] 0.5 mg INHALATION RT-BID PRN 02/13/24 03/15/24 Dextroamphetamine/Amphetamine 30 mg PO DAILY 02/13/24 03/15/24 [Adderall] Ipratropium-Albuterol Nebulize 3 ml INHALATION RT-Q4H PRN 02/13/24 03/15/24 [Duoneb 0.5 mg-3 mg/3 ml Soln] Potassium Chloride ER [K-Dur 20] 20 meq PO DAILY 02/13/24 03/15/24 Pregabalin [Lyrica] 150 mg PO DAILY 02/13/24 03/15/24 glipiZIDE XL [Glucotrol XL] 5 mg PO DAILY 02/13/24 03/15/24 Dapagliflozin Propanediol [Farxiga] 10 mg PO DAILY 03/08/24 03/15/24 Sacubitril/Valsartan [Entresto 24 1 tab PO DIRECTED 03/08/24 03/15/24 mg-26 mg Tablet] Acetaminophen Tab [Tylenol] 650 mg PO Q6H PRN 03/15/24 03/15/24 Fluticasone/Umeclidin/Vilanter 1 puff INHALATION RT-DAILY 03/15/24 03/15/24 [Trelegy Ellipta 200-62.5-25] Ondansetron [Zofran] 4 mg PO DAILY PRN 03/15/24 03/15/24 Previous Rx's Medication Instructions Recorded Aspirin 81 mg PO DAILY tab 02/16/24 Atorvastatin [Lipitor] 40 mg PO DAILY #30 tab 02/16/24 Metoprolol Tartrate [Lopressor] 25 mg PO BID #60 tab 02/16/24 Nitroglycerin Sl Tabs [Nitrostat] 0.4 mg SUBLINGUAL Q5M PRN #30 tab 02/16/24 Spironolactone [Aldactone] 12.5 mg PO DAILY@1300 #30 tab 02/16/24 Docusate [Colace] 100 mg PO BID #20 capsule 03/12/24 Ibuprofen [Motrin] 600 mg PO Q6HR PRN #40 tab 03/12/24 oxyCODONE HCL [OxyIR] 5 mg PO Q6H PRN 3 Days #10 tab 03/12/24 Allergies Allergy/AdvReac Type Severity Reaction Status Date / Time No Known Allergies Allergy Verified 03/15/24 11:17 Review of Systems ROS Statement: Those systems with pertinent positive or pertinent negative responses have been documented in the HPI. ROS Other: All systems not noted in ROS Statement are negative. Past Medical History Past Medical History: COPD, Diabetes Mellitus, GERD/Reflux, Hyperlipidemia, Hypertension, Neurologic Disorder, Vascular Disorder Additional Past Medical History / Comment(s): recent hospitalization to [facility] Jan 2024 for sob,abdominal pain and N/V,hx rt foot neuropathy History of Any Multi-Drug Resistant Organisms: None Reported Past Surgical History: Orthopedic Surgery Additional Past Surgical History / Comment(s): Left hydrocelectomy, vasectomy, rt shoulder rotator cuff Past Anesthesia/Blood Transfusion Reactions: Motion Sickness Additional Past Anesthesia/Blood Transfusion Reaction / Comment(s): no hx blood transfusion Past Psychological History: No Psychological Hx Reported Smoking Status: Former smoker Past Alcohol Use History: None Reported Past Drug Use History: Marijuana - Past Family History Father Family Medical History: Cancer Additional Family Medical History / Comment(s): prostate cancer Brother(s) Family Medical History: Cancer Additional Family Medical History / Comment(s): lymphoma bicep General Exam Limitations: no limitations General appearance: alert, in no apparent distress Head exam: Present: atraumatic, normocephalic, normal inspection Eye exam: Present: normal appearance, PERRL, EOMI. Absent: scleral icterus, conjunctival injection, periorbital swelling ENT exam: Present: normal exam, normal oropharynx, mucous membranes moist Neck exam: Present: normal inspection, full ROM. Absent: tenderness, meningismus, lymphadenopathy Respiratory exam: Present: wheezes. Absent: normal lung sounds bilaterally, respiratory distress, rales, rhonchi, stridor Cardiovascular Exam: Present: regular rate, normal rhythm, normal heart sounds. Absent: systolic murmur, diastolic murmur, rubs, gallop, clicks GI/Abdominal exam: Present: soft, tenderness, normal bowel sounds, other (Incisions noted, adhesive glue with no erythema or purulent drainage). Absent: distended, guarding, rebound, rigid Course Vital Signs 03/15/24 03/15/24 08:45 11:10 Temperature 97.7 F Pulse Rate 97 76 Respiratory 22 16 Rate Blood Pressure 127/81 126/104 O2 Sat by Pulse 98 96 Oximetry Medical Decision Making - Medical Decision Making Was pt. sent in by a medical professional or institution (, PA, PRECISION LENS GRINDER, urgent care, hospital, or longterm...) When possible be specific @ -No Did you speak to anyone other than the patient for history (EMS, parent, family, police, friend...)? What history was obtained from this source @ -No Did you review nursing and triage notes (agree or disagree)? Why? @ -I reviewed and agree with nursing and triage notes Were old charts reviewed (outside hosp., previous admission, EMS record, old EKG, old radiological studies, urgent care reports/EKG's, longterm records)? Report findings @ -No old charts were reviewed Differential Diagnosis (chest pain, altered mental status, abdominal pain women, abdominal pain men, vaginal bleeding, weakness, fever, dyspnea, syncope, headache, dizziness, GI bleed, back pain, seizure, CVA, palpatations, mental health, musculoskeletal)? @ -Differential Dyspnea: Coronary syndrome, arrhythmia, tamponade, asthma, COPD, pulmonary embolism, pneumonia, pneumothorax, pulmonary effusion, anaphylaxis, diabetic ketoacidosis, flailed chest, pulmonary contusion, diaphragmatic rupture, anemia, neuromuscular, this is not meant to be an all-inclusive list. EKG interpreted by me (3pts min.). @ -As above X-rays interpreted by me (1pt min.). @ -None done CT interpreted by me (1pt min.). @ -CTA of the chest showing no evidence of PE, mild pulmonary edema U/S interpreted by me (1pt. min.). @ -None done What testing was considered but not performed or refused? (CT, X-rays, U/S, labs)? Why? @ -None What meds were considered but not given or refused? Why? @ -None Did you discuss the management of the patient with other professionals (professionals i.e. , PA, PRECISION L[employer] GRINDER, lab, RT, psych nurse, social studies teacher, screen printing inspector, teacher, senior commercial loan officer, housing case manager)? Give summary @ - for admission Was smoking cessation discussed for >3mins.? @ -No Was critical care preformed (if so, how long)? @ -35 mins Were there social determinants of health that impacted care today? How? (Homelessness, low income, unemployed, alcoholism, drug addiction, transportati on, low edu. Level, literacy, decrease access to med. care, shelter, rehab)? @ -No Was there de-escalation of care discussed even if they declined (Discuss DNR or withdrawal of care, Hospice)? DNR status @ -No What co-morbidities impacted this encounter? (DM, HTN, Smoking, COPD, CAD, Cancer, CVA, ARF, Chemo, Hep., AIDS, mental health diagnosis, sleep apnea, morbid obesity)? @ -None Was patient admitted / discharged? Hospital course, mention meds given and route, prescriptions, significant lab abnormalities, going to OR and other pertinent info. @ -Admitted patient's found to have significant elevated troponin at 0.27 patient does have mild pulm edema patient was given Lasix, aspirin started on heparin. Patient had recent surgery and was concern for PE negative on CTA. Patient did have recent cardiac cath 1 month ago with no acute findings. Patient will be admitted for serial troponins. Undiagnosed new problem with uncertain prognosis? @ -No Drug Therapy requiring intensive monitoring for toxicity (Heparin, Nitro, Insulin, Cardizem)? @ -No Were any procedures done? @ -No Diagnosis/symptom? @ -NSTEMI Acute, or Chronic, or Acute on Chronic? @ -Acute Uncomplicated (without systemic symptoms) or Complicated (systemic symptoms)? @ -complicated Side effects of treatment? @ -No Exacerbation, Progression, or Severe Exacerbation? @ -No Poses a threat to life or bodily function? How? (Chest pain, USA, PR, pneumonia, PE, COPD, DKA, ARF, appy, cholecystitis, CVA, Diverticulitis, Homicidal, Suicidal, threat to staff... and all critical care pts) @ -Yes possible ACS causing cardiac arrest - Lab Data Result diagrams: 03/15/24 09:08 03/15/24 09:08 Lab Results 03/15/24 03/15/24 03/15/24 Range/Units 09:08 09:08 09:08 WBC 8.7 (3.8-10.6) k/uL RBC 5.00 (4.30-5.90) m/uL Hgb 14.0 (13.0-17.5) gm/dL Hct 42.1 (39.0-53.0) % MCV 84.1 (80.0-100.0) fL MCH 28.0 (25.0-35.0) pg MCHC 33.3 (31.0-37.0) g/dL RDW 14.2 (11.5-15.5) % Plt Count 252 (150-450) k/uL MPV 7.8 Neutrophils % 78 % Lymphocytes % 13 % Monocytes % 5 % Eosinophils % 2 % Basophils % 0 % Neutrophils # 6.8 (1.3-7.7) k/uL Lymphocytes # 1.1 (1.0-4.8) k/uL Monocytes # 0.4 (0-1.0) k/uL Eosinophils # 0.2 (0-0.7) k/uL Basophils # 0.0 (0-0.2) k/uL PT 10.8 (10.0-12.5) sec INR 1.0 (<1.2) APTT 23.4 (22.0-30.0) sec D-Dimer 2.77 H (<0.60) mg/L FEU Sodium 139 (137-145) mmol/L Potassium 4.3 (3.5-5.1) mmol/L Chloride 104 (98-107) mmol/L Carbon Dioxide 28 (22-30) mmol/L Anion Gap 7 mmol/L BUN 15 (9-20) mg/dL Creatinine 0.66 (0.66-1.25) mg/dL Est GFR (CKD-EPI)AfAm >90 (>60 ml/min/1.73 sqM) Est GFR (CKD-EPI)NonAf >90 (>60 ml/min/1.73 sqM) Glucose 187 H (74-99) mg/dL Plasma Lactic Acid Giuseppe (0.7-2.0) mmol/L Calcium 8.7 (8.4-10.2) mg/dL Magnesium 1.9 (1.6-2.3) mg/dL Total Bilirubin 1.8 H (0.2-1.3) mg/dL AST 27 (17-59) U/L ALT 33 (4-49) U/L Alkaline Phosphatase 95 (38-126) U/L Troponin I (0.000-0.034) ng/mL NT-Pro-B Natriuret Pep 4490 pg/mL Total Protein 6.1 L (6.3-8.2) g/dL Albumin 3.6 (3.5-5.0) g/dL 03/15/24 03/15/24 Range/Units 09:08 09:08 WBC (3.8-10.6) k/uL RBC (4.30-5.90) m/uL Hgb (13.0-17.5) gm/dL Hct (39.0-53.0) % MCV (80.0-100.0) fL MCH (25.0-35.0) pg MCHC (31.0-37.0) g/dL RDW (11.5-15.5) % Plt Count (150-450) k/uL MPV Neutrophils % % Lymphocytes % % Monocytes % % Eosinophils % % Basophils % % Neutrophils # (1.3-7.7) k/uL Lymphocytes # (1.0-4.8) k/uL Monocytes # (0-1.0) k/uL Eosinophils # (0-0.7) k/uL Basophils # (0-0.2) k/uL PT (10.0-12.5) sec INR (<1.2) APTT (22.0-30.0) sec D-Dimer (<0.60) mg/L FEU Sodium (137-145) mmol/L Potassium (3.5-5.1) mmol/L Chloride (98-107) mmol/L Carbon Dioxide (22-30) mmol/L Anion Gap mmol/L BUN (9-20) mg/dL Creatinine (0.66-1.25) mg/dL Est GFR (CKD-EPI)AfAm (>60 ml/min/1.73 sqM) Est GFR (CKD-EPI)NonAf (>60 ml/min/1.73 sqM) Glucose (74-99) mg/dL Plasma Lactic Acid Giuseppe 1.9 (0.7-2.0) mmol/L Calcium (8.4-10.2) mg/dL Magnesium (1.6-2.3) mg/dL Total Bilirubin (0.2-1.3) mg/dL AST (17-59) U/L ALT (4-49) U/L Alkaline Phosphatase (38-126) U/L Troponin I 0.232 H* (0.000-0.034) ng/mL NT-Pro-B Natriuret Pep pg/mL Total Protein (6.3-8.2) g/dL Albumin (3.5-5.0) g/dL Critical Care Time Critical Care Time: Yes Total Critical Care Time: 35 Disposition Clinical Impression: NSTEMI (non-ST elevated myocardial infarction) Disposition: ADMITTED IP TO THIS [facility] Condition: Fair Time of Disposition: 11:06
[2024-03-15 09:21] LABS: Basophils % (A) 0 %; Eosinophils # (A) 0.2 k/uL (0-0.7); Eosinophils % (A) 2 %; HCT 42.1 % (39.0-53.0); Lymphocytes # (A) 1.1 k/uL (1.0-4.8); Lymphocytes % (A) 13 %; MCHC 33.3 g/dL (31.0-37.0); MCV 84.1 fL (80.0-100.0); Mean Platelet Volume 7.8; Monocytes # (A) 0.4 k/uL (0-1.0); Monocytes % (A) 5 %; Neutrophils # (A) 6.8 k/uL (1.3-7.7); Neutrophils % (A) 78 %; Platelet Count 252 k/uL (150-450); RDW 14.2 % (11.5-15.5); WBC 8.7 k/uL (3.8-10.6)
[2024-03-15 09:35] LABS: Partial Thromboplastin Time 23.4 sec (22.0-30.0); Prothrombin Time 10.8 sec (10.0-12.5)
[2024-03-15 09:37] LABS: ALT 33 U/L (4-49); AST 27 U/L (17-59); African American GFR (CKD) >90 (>60 ml/min/1.73 sqM); Albumin 3.6 g/dL (3.5-5.0); Alkaline Phosphatase 95 U/L (38-126); Anion Gap 7 mmol/L; Blood Urea Nitrogen 15 mg/dL (9-20); Calcium 8.7 mg/dL (8.4-10.2); Carbon Dioxide 28 mmol/L (22-30); Chloride 104 mmol/L (98-107); Glucose 187 mg/dL (74-99); Magnesium 1.9 mg/dL (1.6-2.3); Non-African American GFR(CKD) >90 (>60 ml/min/1.73 sqM); Potassium 4.3 mmol/L (3.5-5.1); Sodium 139 mmol/L (137-145); Total Bilirubin 1.8 mg/dL (0.2-1.3); Total Protein 6.1 g/dL (6.3-8.2)
[2024-03-15 09:44] LABS: NT-Pro-B-Type Natriuretic Pept 4490 pg/mL
--- NOTE | 2024-03-15 10:42 | CT ---
EXAMINATION TYPE: CT chest angio for PE DATE OF EXAM: 03/15/2024 COMPARISON: 02/13/2024 HISTORY: SOB, elevated dimer, post op from Tuesday, gallbladder removal. Hx COPD. CT DLP: 1320 mGycm Automated exposure control for dose reduction was used. CONTRAST: CT Chest for pulmonary embolism performed with with IV Contrast, patient injected with 100 mL of Isov ue 370. FINDINGS: There are mild emphysematous changes in the lung apices. There are small bilateral pleural effusions which have decreased in the interval since the prior stud y. There is diffuse groundglass opacity in the lower lobes reflective of either pulmonary edema or an infectious process. There is persistent mediastinal and right hilar lymphadenopathy there is a 2.4 cm subcarinal lymph no de, a 2.6 cm paratracheal node and a 2.8 cm right hilar lymph node. There are no filling defects within the pulmonary arterial circulation to suggest pulmonary embolism. No focal osseous lesions are seen. Limited scanning through the upper abdomen reveals no significant abnormality. IMPRESSION: 1. No pulmonary embolus. 2. Cardiopulmonary disease as described above with lymphadenopathy in the mediastinum and right hilum . [facility], , 03/15/2024 10:39 AM
[2024-03-15] MEDS: FUROSEMIDE 10 MG/ML 4 ML VIAL IV STA (11:00)
[2024-03-15] MEDS: HYDROmorphone 0.5 MG/0.5 ML SYRINGE IVP STA (11:01)
[2024-03-15] MEDS: ASPIRIN 81 MG PO STA (11:01)
[2024-03-15] MEDS ORDERED: NITROGLYCERIN SL TABS 0.4 MG TAB SUBLINGUAL PRN (11:06)
[2024-03-15] MEDS: HEPARIN SOD,PORK IN 0.45% NACL 25,000 UNIT in 0.45% NACL 1 250ML.BAG IV SCH (11:08)
[2024-03-15] MEDS: HEPARIN SODIUM 1,000 UN/ML (10ML VL) IV ONE (11:08)
[2024-03-15] MEDS ORDERED: BUDESONIDE 0.5 MG/2 ML NEBU INHALATION PRN (14:37)
[2024-03-15] MEDS ORDERED: DEXTROSE 50% SYRINGE 50 ML IVP PRN ×2 (14:38)
[2024-03-15] MEDS: PANTOPRAZOLE 40 MG TABLET PO SCH (14:46)
--- NOTE | 2024-03-15 15:44 | US ---
EXAMINATION TYPE: US abdomen limited DATE OF EXAM: 03/15/2024 COMPARISON: NONE CLINICAL INDICATION: Male, 53 years old with history of Hyperbilirubinemia, recent cholecystectomy; D IB TECHNIQUE: Grayscale and color Doppler imaging of the right upper quadrant was performed. FINDINGS: EXAM MEASUREMENTS: Liver Length: 18.8 cm Gallbladder Wall: Surgically absent cm CBD: 0.3 cm Right Kidney: 10.7 x 5.8 x 5.3 cm RESPIRATORY SUPERVISOR NOTES: Pancreas: Tail obscured by overlying bowel gas Liver: Increased attenuation Gallbladder: Surgically absent Evidence for sonographic Richards's sign: No CBD: wnl Right Kidney: Anechoic area seen = 5.8 x 5.2 x 4.6 cm IMPRESSION: 1. No acute process. 2. Hepatic steatosis. 3. No evidence for obstructive uropathy. [facility], , 03/15/2024 3:42 PM
[2024-03-15] MEDS: HEPARIN SODIUM 1,000 UN/ML (10ML VL) IV PRN (16:42)
[2024-03-15 17:08] LABS: Glucose,Whole Blood 193 mg/dL (70-110)
[2024-03-15] MEDS: IPRATROPIUM 0.5 MG/2.5 ML NEBU INHALATION SCH (17:08)
[2024-03-15] MEDS: INSULIN ASPART (NovoLOG) 100 UNIT/ML VIAL SQ SCH (17:16)
[2024-03-15] MEDS: CITALOPRAM HYDROBROMIDE 20 MG TAB PO SCH (20:17)
[2024-03-15] MEDS: SACUBITRIL/VALSARTAN 24 MG-26 MG TABLET PO SCH (20:17)
[2024-03-15] MEDS: METOPROLOL TARTRATE 25 MG TAB PO SCH (20:17)
[2024-03-15] MEDS: DOCUSATE 100 MG CAP PO SCH (20:17)
[2024-03-15 20:22] LABS: Glucose,Whole Blood 120 mg/dL (70-110)
[2024-03-15] MEDS: SYMBICORT 160-4.5 MCG INHALER INHALATION SCH (20:59)
[2024-03-15] MEDS: IPRATROPIUM-ALBUTEROL 3 ML NEB INHALATION PRN (22:15)
--- NOTE | 2024-03-15 22:23 | P.HPIM ---
History of Present Illness H&P Date: 03/15/24 Chief Complaint: Shortness of breath Patient is a 53-year-old male with a past medical history of COPD, hypertension, hyperlipidemia, diabetes type 2 [id number], chronic CHF with ejection fraction 35-40 % as well recent echocardiogram and status post cardiac nikhil terization on 02/14/2024 showing normal coronaries, codominant system, elevated LVEDP, laparoscopic cholecystectomy about a week ago presents to ER with complaints of shortness of breath and chest pain. Patient states that he has been having worsening shortness of breath since 2 days and also right lower chest pain, patient felt sweaty. Denied any radiation of the pain. Does have congested cough. No sputum production. Denied any fever or chills at home.. Patient also states that he has history of congestive heart failure which was diagnosed recently and also has 5 LB weight gain recently. Patient does have a history of smoking and COPD. CT angiogram of the chest on admission showed no pulmonary embolism. Cardiopulmonary disease as described above with lymphadenopathy in the mediasti num and right hilum. Laboratory showed WBC 8.7 hemoglobin 14.0 and platelets 252 D-dimer 2.77 Sodium 139 potassium 4.3 chloride 104 bicarb is 28 BUN 15 and creatinine 0.66 and blood sugar 187 total bili 1.8 liver enzymes not elevated Troponin 0.232, 0.244, 0.178 and proBNP 4490., Albumin 3.6. EKG showed sinus rhythm. No significant ST-T wave changes. Patient was given a dose of IV Lasix 40 mg x 1 in the ER. Review of Systems Constitutional: Patient denies any fever or chills . No generalized weakness or weight loss. Abdomen: Patient denied nausea vomiting and diarrhea and abdominal pain. Cardiovascular: Patient does complain of right-sided chest pain and shortness of breath. Leg swelling and weight gain. No palpitations. Respiratory: patient denied any cough or sputum production. Positive for shortness of breath Neurologic: Patient denied any numbness or tingling. no headache. Musculoskeletal: Patient denies any complaints of joint swelling or deformity. Skin: Negative Psychiatric: Negative Endocrine: No heat or cold intolerance. No recent weight gain. Genitourinary: No dysuria or hematuria. All other 14 point ROS negative except the above Past Medical History Past Medical History: COPD, Diabetes Mellitus, GERD/Reflux, Hyperlipidemia, Hypertension, Neurologic Disorder, Vascular Disorder Additional Past Medical History / Comment(s): recent hospitalization to [facility] Jan 2024 for sob,abdominal pain and N/V,hx rt foot neuropathy History of Any Multi-Drug Resistant Organisms: None Reported Past Surgical History: Orthopedic Surgery Additional Past Surgical History / Comment(s): Left hydrocelectomy, vasectomy, rt shoulder rotator cuff Past Anesthesia/Blood Transfusion Reactions: Motion Sickness Additional Past Anesthesia/Blood Transfusion Reaction / Comment(s): no hx blood transfusion Past Psychological History: No Psychological Hx Reported Smoking Status: Former smoker Past Alcohol Use History: None Reported Past Drug Use History: Marijuana - Past Family History Father Family Medical History: Cancer Additional Family Medical History / Comment(s): prostate cancer Brother(s) Family Medical History: Cancer Additional Family Medical History / Comment(s): lymphoma bicep Medications and Allergies Home Medications Medication Instructions Recorded Confirmed Type Furosemide [Lasix] 40 mg PO DAILY 02/05/20 03/15/24 History Omeprazole 20 mg PO AC-BRKFST 02/05/20 03/15/24 History sitaGLIPtin [Januvia] 100 mg PO DAILY 02/05/20 03/15/24 History Citalopram Hydrobromide [CeleXA] 20 mg PO HS 08/28/21 03/15/24 History Sildenafil Citrate 100 mg PO DAILY PRN 08/28/21 03/15/24 History Albuterol Inhaler [Ventolin Hfa 2 puff INHALATION RT-Q4H PRN 08/31/21 03/15/24 History Inhaler] Budesonide [Pulmicort] 0.5 mg INHALATION RT-BID PRN 02/13/24 03/15/24 History Dextroamphetamine/Amphetamine 30 mg PO DAILY 02/13/24 03/15/24 History [Adderall] Ipratropium-Albuterol Nebulize 3 ml INHALATION RT-Q4H PRN 02/13/24 03/15/24 History [Duoneb 0.5 mg-3 mg/3 ml Soln] Potassium Chloride ER [K-Dur 20] 20 meq PO DAILY 02/13/24 03/15/24 History Pregabalin [Lyrica] 150 mg PO DAILY 02/13/24 03/15/24 History glipiZIDE XL [Glucotrol XL] 5 mg PO DAILY 02/13/24 03/15/24 History Aspirin 81 mg PO DAILY tab 02/16/24 03/15/24 Rx Atorvastatin [Lipitor] 40 mg PO DAILY #30 tab 02/16/24 03/15/24 Rx Metoprolol Tartrate [Lopressor] 25 mg PO BID #60 tab 02/16/24 03/15/24 Rx Nitroglycerin Sl Tabs [Nitrostat] 0.4 mg SUBLINGUAL Q5M PRN #30 tab 02/16/24 03/15/24 Rx Spironolactone [Aldactone] 12.5 mg PO DAILY@1300 #30 tab 02/16/24 03/15/24 Rx Dapagliflozin Propanediol [Farxiga] 10 mg PO DAILY 03/08/24 03/15/24 History Sacubitril/Valsartan [Entresto 24 1 tab PO DIRECTED 03/08/24 03/15/24 History mg-26 mg Tablet] Docusate [Colace] 100 mg PO BID #20 capsule 03/12/24 03/15/24 Rx Ibuprofen [Motrin] 600 mg PO Q6HR PRN #40 tab 03/12/24 03/15/24 Rx oxyCODONE HCL [OxyIR] 5 mg PO Q6H PRN 3 Days #10 tab 03/12/24 03/15/24 Rx Acetaminophen Tab [Tylenol] 650 mg PO Q6H PRN 03/15/24 03/15/24 History Fluticasone/Umeclidin/Vilanter 1 puff INHALATION RT-DAILY 03/15/24 03/15/24 History [Trelegy Ellipta 200-62.5-25] Ondansetron [Zofran] 4 mg PO DAILY PRN 03/15/24 03/15/24 History Allergies Allergy/AdvReac Type Severity Reaction Status Date / Time No Known Allergies Allergy Verified 03/15/24 11:17 Physical Exam Vitals: Vital Signs Temp Pulse Resp BP Pulse Ox 03/15/24 11:10 76 16 126/104 96 03/15/24 08:45 97.7 F 97 22 127/81 98 Intake and Output 03/14/24 03/15/24 03/15/24 22:59 06:59 14:59 Other: Weight 162.84 kg PHYSICAL EXAMINATION: Patient is lying in the bed. No acute distress, awake alert and oriented.. Morbidly obese. HEENT: Normocephalic. Neck is supple. Pupils reactive. Nostrils clear. Oral cavity is moist. Neck reveals no JVD, carotid bruits, or thyromegaly. CHEST EXAMINATION: Trachea is central. Symmetrical expansion. Bibasilar diminished sounds otherwise lung rutherford clear to auscultation and percussion. CARDIAC: Normal S1, S2 with no gallops. No murmurs ABDOMEN: Soft. Bowel sounds present no organomegaly. No abdominal bruits. Extremities: Bilateral lower extremity trace edema. No clubbing or cyanosis Neurologically awake, alert, oriented x3 with well-coordinated movements. No focal deficits noted Skin: No rash or skin lesions. Psychiatric: Coperative. Nonsuicidal Musculoskeletal: No joint swelling or deformity. Normal range of motion. Results CBC & Chem 7: 03/15/24 09:08 03/15/24 09:08 Labs: Abnormal Lab Results - Last 24 Hours (Table) 03/15/24 03/15/24 03/15/24 Range/Units 09:08 09:08 09:08 D-Dimer 2.77 H (<0.60) mg/L FEU Glucose 187 H (74-99) mg/dL Total Bilirubin 1.8 H (0.2-1.3) mg/dL Troponin I 0.232 H* (0.000-0.034) ng/mL Total Protein 6.1 L (6.3-8.2) g/dL 03/15/24 Range/Units 11:24 D-Dimer (<0.60) mg/L FEU Glucose (74-99) mg/dL Total Bilirubin (0.2-1.3) mg/dL Troponin I 0.244 H* (0.000-0.034) ng/mL Total Protein (6.3-8.2) g/dL Thrombosis Risk Factor Assmnt - DVT/VTE Prophylaxis DVT/VTE Prophylaxis: Pharmacologic Prophylaxis ordered Assessment and Plan Assessment: Acute on chronic CHF with reduced EF 35 to 40%. Status post cardiac catheterization on 02/14/2024 showed normal coronaries, elevated LVEDP Elevated troponin level possible type II AR Worsening shortness of breath and right-sided chest pain. Status post laparoscopic cholecystectomy on 03/06/2024 Hypertension Hyperlipidemia Diabetes type 2 nausea and dependent Diabetic neuropathy Prior to smoking and history of marijuana use GI prophylaxis with PPI Plan: Patient will be continued on telemonitoring. Started on heparin drip and continue to trend troponins. Cardiology consult for evaluation. Pertinent was given Lasix 40 mg x 1 in the ER. Continue with IV Lasix 40 mg daily and also continue with aspirin, statins, Entresto and metoprolol. Continue with DuoNebs and Symbicort inhalation and encourage incentive spirometry. Ultrasound abdominal was ordered due to elevated bilirubin level and ordered repeat level tomorrow. Continue other home medications and follow-up closely. Prognosis is guarded at this time. Time with Patient: Greater than 30
[2024-03-16 07:48] LABS: Basophils % (A) 0 %; Eosinophils # (A) 0.2 k/uL (0-0.7); Eosinophils % (A) 3 %; HCT 45.4 % (39.0-53.0); HGB 14.7 gm/dL (13.0-17.5); Lymphocytes # (A) 1.3 k/uL (1.0-4.8); Lymphocytes % (A) 17 %; MCH 26.8 pg (25.0-35.0); MCHC 32.3 g/dL (31.0-37.0); Mean Platelet Volume 8.1; Monocytes # (A) 0.4 k/uL (0-1.0); Monocytes % (A) 6 %; Neutrophils # (A) 5.3 k/uL (1.3-7.7); Neutrophils % (A) 72 %; Platelet Count 251 k/uL (150-450); RBC 5.47 m/uL (4.30-5.90); RDW 14.2 % (11.5-15.5); WBC 7.4 k/uL (3.8-10.6)
[2024-03-16 07:59] LABS: Partial Thromboplastin Time 39.6 sec (22.0-30.0); Prothrombin Time 11.4 sec (10.0-12.5)
[2024-03-16] MEDS ORDERED: NON FORMULARY DRUG (Fluticasone/Umeclidin/Vilanter [Trelegy Ellipta 200-62.5-25] 1 EACH Bl INHALATION SCH (08:00)
[2024-03-16 08:25] LABS: ALT 28 U/L (4-49); African American GFR (CKD) >90 (>60 ml/min/1.73 sqM); Albumin 3.6 g/dL (3.5-5.0); Anion Gap 6 mmol/L; Blood Urea Nitrogen 11 mg/dL (9-20); Calcium 8.8 mg/dL (8.4-10.2); Carbon Dioxide 28 mmol/L (22-30); Chloride 104 mmol/L (98-107); Glucose 135 mg/dL (74-99); Non-African American GFR(CKD) >90 (>60 ml/min/1.73 sqM); Sodium 138 mmol/L (137-145); Total Bilirubin 2.3 mg/dL (0.2-1.3); Total Protein 6.1 g/dL (6.3-8.2)
[2024-03-16 08:52] LABS: AST 30 U/L (17-59); Alkaline Phosphatase 91 U/L (38-126); Potassium 4.8 mmol/L (3.5-5.1)
[2024-03-16] MEDS: ASPIRIN 325 MG TAB PO SCH (08:54)
[2024-03-16] MEDS: ATORVASTATIN 40 MG TAB PO SCH (08:55)
[2024-03-16] MEDS: METOPROLOL SUCCINATE (ER) 50 MG TAB.ER.24H PO SCH (08:55)
[2024-03-16] MEDS: FUROSEMIDE 10 MG/ML 4 ML VIAL IV SCH (08:56)
[2024-03-16] MEDS ORDERED: FUROSEMIDE 40 MG TAB PO SCH (09:00)
[2024-03-16 09:13] VITALS: BP 131/85; RESP 18
--- NOTE | 2024-03-16 10:52 | P.CRDCN ---
History of Present Illness Consult date: 03/16/24 Reason for Consult (text): NSTEMI History of present illness: This is a 53-year-old male patient of Dr. Amador with past medical history of nonischemic cardiomyopathy, diabetes mellitus type 2, hypertension, hyperlipidemia, chronic tobacco use and dependence, COPD, morbid obesity, obstructive sleep apnea. We have been asked to evaluate the patient for NSTEMI. Patient reports shortness of breath for the past 2 days with weight gain. He d enies having any palpitations, no chest pain. Blood pressure 128/53, heart rate 89. Patient has been started on Lasix IV 40 mg daily. He gives history that he had a cholecystectomy on Tuesday with Dr. Avila. EKG: Sinus rhythm with no acute ST changes CTA of the chest negative for pulmonary embolus. Cardiopulmonary disease with lymphadenopathy in the mediastinum and right hilum Laboratory studies: CBC within normal limits. D-dimer 2.77. Electrolytes and renal function are normal. Troponin 0.232 and 0.244. proBNP 4490. Magnesium 1.9. Home cardiac medications: Aspirin 81 mg daily, atorvastatin 40 mg daily, Farxiga 10 mg daily, Lasix 40 mg daily, Lopressor 25 mg twice daily, Nitrostat as needed, potassium chloride 20 mEq daily, Entresto 24-26 mg twice daily--patient has not started, spironolactone 12.5 mg daily at 1300. Cardiac catheterization performed 02/14/2024 revealed normal coronary arteries. Codominant system. Elevated LVEDP. Echocardiogram performed 02/13/2024 revealed EF of 35 to 40%, dilated LV. Mild MR, mild TR. Review Of Systems: At the time of my exam: CONSTITUTIONAL: Denies fever or chills. HEENT: Denies blurred vision, vision changes, or eye pain. Denies hemoptysis CARDIOVASCULAR: Denies chest pain. Denies orthopnea. Denies PND. Denies palpitations RESPIRATORY: Denies shortness of breath. GASTROINTESTINAL: Denies abdominal pain. Denies nausea or vomiting. HEMATOLOGIC: Denies bleeding disorders. GENITOURINARY: Denies any blood in urine. SKIN: Denies puritis. Denies rash. Physical examination: Gen: This is a 53-year-old male in no acute distress VS: reviewed HEENT: Head is atraumatic, normocephalic. Pupils equal, round. Sclerae is anicteric. NECK: Supple. No JVD. LUNGS: Clear to auscultation. No wheezes or rhonchi. No intercostal retracti ons. HEART: Regular rate and rhythm. No murmur. ABDOMEN: Soft No tenderness. EXTREMITIES: Minimal left lower extremity edema. No calf tenderness. NEUROLOGICAL: Patient is awake, alert and oriented x3. Assessment: Iatrogenic fluid overload secondary to recent surgery Nonischemic cardiomyopathy Cholecystectomy on 03/12 Chronically elevated troponins not indicative of acute coronary syndrome Diabetes mellitus type 2 Hypertension Hyperlipidemia Tobacco use and dependence Obstructive sleep apnea COPD Morbid obesity with BMI of 44 Plan: Resume patient's home cardiac medications Continue IV Lasix until tomorrow morning and transition to oral for Tuesday morning at his normal home dose of 40 mg daily Increase Aldactone to 25 mg daily at noon No need to repeat echocardiogram Further recommendations to follow based upon clinical course Thank you kindly for this consultation. Nurse practitioner note has been reviewed, I agree with documented findings and plan of care. Patient was seen and examined. Past Medical History Past Medical History: COPD, Diabetes Mellitus, GERD/Reflux, Hyperlipidemia, Hypertension, Neurologic Disorder, Vascular Disorder Additional Past Medical History / Comment(s): recent hospitalization to [facility] Jan 2024 for sob,abdominal pain and N/V,hx rt foot neuropathy History of Any Multi-Drug Resistant Organisms: None Reported Past Surgical History: Orthopedic Surgery Additional Past Surgical History / Comment(s): Left hydrocelectomy, vasectomy, rt shoulder rotator cuff Past Anesthesia/Blood Transfusion Reactions: Motion Sickness Additional Past Anesthesia/Blood Transfusion Reaction / Comment(s): no hx blood transfusion Past Psychological History: No Psychological Hx Reported Smoking Status: Former smoker Past Alcohol Use History: None Reported Past Drug Use History: Marijuana - Past Family History Father Family Medical History: Cancer Additional Family Medical History / Comment(s): prostate cancer Brother(s) Family Medical History: Cancer Additional Family Medical History / Comment(s): lymphoma bicep Medications and Allergies Home Medications Medication Instructions Recorded Confirmed Type Furosemide [Lasix] 40 mg PO DAILY 02/05/20 03/15/24 History Omeprazole 20 mg PO AC-BRKFST 02/05/20 03/15/24 History sitaGLIPtin [Januvia] 100 mg PO DAILY 02/05/20 03/15/24 History Citalopram Hydrobromide [CeleXA] 20 mg PO HS 08/28/21 03/15/24 History Sildenafil Citrate 100 mg PO DAILY PRN 08/28/21 03/15/24 History Albuterol Inhaler [Ventolin Hfa 2 puff INHALATION RT-Q4H PRN 08/31/21 03/15/24 History Inhaler] Budesonide [Pulmicort] 0.5 mg INHALATION RT-BID PRN 02/13/24 03/15/24 History Dextroamphetamine/Amphetamine 30 mg PO DAILY 02/13/24 03/15/24 History [Adderall] Ipratropium-Albuterol Nebulize 3 ml INHALATION RT-Q4H PRN 02/13/24 03/15/24 History [Duoneb 0.5 mg-3 mg/3 ml Soln] Potassium Chloride ER [K-Dur 20] 20 meq PO DAILY 02/13/24 03/15/24 History Pregabalin [Lyrica] 150 mg PO DAILY 02/13/24 03/15/24 History glipiZIDE XL [Glucotrol XL] 5 mg PO DAILY 02/13/24 03/15/24 History Aspirin 81 mg PO DAILY tab 02/16/24 03/15/24 Rx Atorvastatin [Lipitor] 40 mg PO DAILY #30 tab 02/16/24 03/15/24 Rx Metoprolol Tartrate [Lopressor] 25 mg PO BID #60 tab 02/16/24 03/15/24 Rx Nitroglycerin Sl Tabs [Nitrostat] 0.4 mg SUBLINGUAL Q5M PRN #30 tab 02/16/24 03/15/24 Rx Spironolactone [Aldactone] 12.5 mg PO DAILY@1300 #30 tab 02/16/24 03/15/24 Rx Dapagliflozin Propanediol [Farxiga] 10 mg PO DAILY 03/08/24 03/15/24 History Sacubitril/Valsartan [Entresto 24 1 tab PO DIRECTED 03/08/24 03/15/24 History mg-26 mg Tablet] Docusate [Colace] 100 mg PO BID #20 capsule 03/12/24 03/15/24 Rx Ibuprofen [Motrin] 600 mg PO Q6HR PRN #40 tab 03/12/24 03/15/24 Rx oxyCODONE HCL [OxyIR] 5 mg PO Q6H PRN 3 Days #10 tab 03/12/24 03/15/24 Rx Acetaminophen Tab [Tylenol] 650 mg PO Q6H PRN 03/15/24 03/15/24 History Fluticasone/Umeclidin/Vilanter 1 puff INHALATION RT-DAILY 03/15/24 03/15/24 History [Trelegy Ellipta 200-62.5-25] Ondansetron [Zofran] 4 mg PO DAILY PRN 03/15/24 03/15/24 History Allergies Allergy/AdvReac Type Severity Reaction Status Date / Time No Known Allergies Allergy Verified 03/15/24 11:17 Physical Exam Vitals: Vital Signs Temp Pulse Resp BP Pulse Ox 03/15/24 11:10 76 16 126/104 96 03/15/24 08:45 97.7 F 97 22 127/81 98 Intake and Output 03/14/24 03/15/24 03/15/24 22:59 06:59 14:59 Other: Weight 162.84 kg Results 03/16/24 07:26 03/16/24 07:26 Cardiac Enzymes 03/15/24 03/15/24 03/15/24 Range/Units 09:08 09:08 11:24 AST 27 (17-59) U/L Troponin I 0.232 H* 0.244 H* (0.000-0.034) ng/mL Coagulation 03/15/24 Range/Units 09:08 PT 10.8 (10.0-12.5) sec APTT 23.4 (22.0-30.0) sec CBC 03/15/24 Range/Units 09:08 WBC 8.7 (3.8-10.6) k/uL RBC 5.00 (4.30-5.90) m/uL Hgb 14.0 (13.0-17.5) gm/dL Hct 42.1 (39.0-53.0) % Plt Count 252 (150-450) k/uL Comprehensive Metabolic Panel 03/15/24 Range/Units 09:08 Sodium 139 (137-145) mmol/L Potassium 4.3 (3.5-5.1) mmol/L Chloride 104 (98-107) mmol/L Carbon Dioxide 28 (22-30) mmol/L BUN 15 (9-20) mg/dL Creatinine 0.66 (0.66-1.25) mg/dL Glucose 187 H (74-99) mg/dL Calcium 8.7 (8.4-10.2) mg/dL AST 27 (17-59) U/L ALT 33 (4-49) U/L Alkaline Phosphatase 95 (38-126) U/L Total Protein 6.1 L (6.3-8.2) g/dL Albumin 3.6 (3.5-5.0) g/dL Current Medications Generic Name Dose Route Start Last Admin Trade Name Freq PRN Reason Stop Dose Admin Aspirin 325 mg 03/16/24 09:00 Aspirin 325 Mg Tab PO DAILY [facility] Heparin Sodium (Porcine) 0 unit 03/15/24 10:51 Heparin Sodium 1,000 Un/Ml (10ml Vl) IV PER PROTOCOL PRN Low PTT Protocol Heparin Sodium/Sodium Chloride 250 mls @ 9.998 mls/hr 03/15/24 11:00 03/15/24 11:08 25,000 unit/ Sodium Chloride IV 6.14 units/kg/hr .Q24H RAJ 9.998 mls/hr Administration Protocol 6.14 UNITS/KG/HR Nitroglycerin 0.4 mg 03/15/24 11:06 Nitroglycerin Sl Tabs 0.4 Mg Tab SUBLINGUAL Q5M PRN Chest Pain Intake and Output 03/14/24 03/15/24 03/15/24 22:59 06:59 14:59 Other: Weight 162.84 kg Patient Weight 03/16/24 06:59 Weight 162.84 kg 03/15/24 09:08 03/15/24 09:08
[2024-03-16] MEDS: IPRATROPIUM-ALBUTEROL 3 ML NEB INHALATION SCH (11:31)
[2024-03-16 11:42] VITALS: PULSE 80
[2024-03-16 12:16] LABS: Glucose,Whole Blood 131 mg/dL (70-110)
[2024-03-16] MEDS: ACETAMINOPHEN TAB 325 MG TAB PO PRN (12:18)
[2024-03-16] MEDS: SPIRONOLACTONE 25 MG TAB PO SCH (12:18)
[2024-03-16] MEDS ORDERED: SPIRONOLACTONE 25 MG TAB PO SCH (13:00)
[2024-03-18] MEDS ORDERED: FUROSEMIDE 40 MG TAB PO SCH (09:00)
[2024-03-21 12:58] LABS: Glucose,Whole Blood 131 mg/dL (70-110)
--- NOTE | 2024-03-23 23:11 | P.DS ---
Providers Date of admission: 03/15/24 10:53 Expected date of discharge: 03/16/24 Attending physician: Colin Noe Consults: 03/15/24 11:06 Consult Physician Urgent Consulting Provider: Jazmin Amador Consult Reason/Comments: NSTEMI Do you want consulting provider notified?: Yes Primary care physician: [facility] Course: Discharge diagnosis Acute on chronic CHF with reduced EF 35 to 40%. Status post cardiac catheterization on 02/14/2024 showed normal coronaries, elevated LVEDP Elevated troponin level possible type II TX Worsening shortness of breath and right-sided chest pain. Status post laparoscopic cholecystectomy on 03/06/2024 Hypertension Hyperlipidemia Diabetes type 2 nausea and dependent Diabetic neuropathy Prior to smoking and history of marijuana use GI prophylaxis with PPI Hospital course Patient is a 53-year-old male with a past medical history of COPD, hypertension, hyperlipidemia, diabetes type 2 [id number], chronic CHF with ejection fraction 35-40 % as well recent echocardiogram and status post cardiac catheterization on 02/14/2024 showing normal coronaries, codominant system, elevated LVEDP, laparoscopic cholecystectomy about a week ago presents to ER with complaints of shortness of breath and chest pain. Patient states that he has been having worsening shortness of breath since 2 days and also right lower chest pain, patient felt sweaty. Denied any radiation of the pain. Does have congested cough. No sputum production. Denied any fever or chills at home.. Patient also states that he has history of congestive heart failure which was diagnosed recently and also has 5 LB weight gain recently. Patient does have a history of smoking and COPD. CT angiogram of the chest on admission showed no pulmonary embolism. Cardiopulmonary disease as described above with lymphadenopathy in the mediastinum and right hilum. Laboratory showed WBC 8.7 hemoglobin 14.0 and platelets 252 D-dimer 2.77 Sodium 139 potassium 4.3 chloride 104 bicarb is 28 BUN 15 and creatinine 0.66 and blood sugar 187 total bili 1.8 liver enzymes not elevated Troponin 0.232, 0.244, 0.178 and proBNP 4490., Albumin 3.6. EKG showed sinus rhythm. No significant ST-T wave changes. Patient was given a dose of IV Lasix 40 mg x 1 in the ER. Patient was continued on telemonitoring. Started on heparin drip and continue to trend troponins. Troponin levels trending down. Pertinent was given Lasix 40 mg x 1 in the ER. Continued with IV Lasix 40 mg daily and also continue with aspirin, statins, Entresto and metoprolol. Continue with DuoNebs and Symbicort inhalation and encourage incentive spirometry. Ultrasound abdominal was ordered due to elevated bilirubin level and ordered repeat level improved. Patient was seen by cardiology. 03/16/2024 Patient is atrial X 3. Breathing Status Is Much Improved. Patient Was Seen by Cardiology. Heparin Drip Has Been Discontinued. Troponin Trending down. Patient Was Continued on IV Lasix Changed to P.O.. Spironolactone Dose Increased. Cardiology Recommends Outpatient Follow-Up. Ultrasound Abdomen Was Done Due To Elevated Liver Enzymes Showed No Acute Process. Hepatic Steatosis. No Evidence of Obstructive Uropathy. Patient Did Improve Symptomatically and Would like to Be Discharged Home. PHYSICAL EXAMINATION: Patient is lying in the bed comfortably, no acute distress, awake alert and oriented. Morbidly obese. HEENT: Normocephalic. Neck is supple. Pupils reactive. Nostrils clear. Oral cavity is moist. Neck reveals no JVD, carotid bruits, or thyromegaly. CHEST EXAMINATION: Trachea is central. Symmetrical expansion. Lung rutherford clear to auscultation and percussion. CARDIAC: Normal S1, S2 with no gallops. No murmurs ABDOMEN: Soft. Bowel sounds normal. No organomegaly. No abdominal bruits. Extremities: reveal no edema. No clubbing or cyanosis Neurologically awake, alert, oriented x3 with well-coordinated movements. No focal deficits noted Skin: No rash or skin lesions. Psychiatric: Coperative. Nonsuicidal Musculoskeletal: No joint swelling or deformity. Normal range of motion. Vital signs: Vital Signs Temp 97.7 F 03/15/24 08:45 Pulse 80 03/16/24 11:41 Resp 18 03/16/24 09:00 BP 131/85 03/16/24 09:00 Pulse Ox 96 03/16/24 09:00 FiO2 Intake & Output 03/15/24 03/16/24 03/16/24 18:59 06:59 18:59 Intake Total 54.822 173.399 Balance 54.822 173.399 Weight 162.84 kg Intake: Intake, IV Titration 54.822 173.399 Amount Heparin Sod,Pork in 0.45% 54.822 173.399 NaCl 25,000 unit In 0.45 % NaCl 1 250ml.bag @ 6.14 UNITS/KG/HR 9.998 mls/hr IV .Q24H [facility] Rx#: [id number] - Labs CBC & Chem 7: 03/16/24 07:26 03/16/24 07:26 Labs: Abnormal Lab Results - Last 24 Hours (Table) 03/15/24 03/15/24 03/15/24 Range/Units 11:24 16:05 17:07 APTT (22.0-30.0) sec Glucose (74-99) mg/dL POC Glucose (mg/dL) 193 H (70-110) mg/dL Total Bilirubin (0.2-1.3) mg/dL Troponin I 0.244 H* 0.178 H* (0.000-0.034) ng/mL Total Protein (6.3-8.2) g/dL 03/15/24 03/15/24 03/16/24 Range/Units 20:21 22:51 07:26 APTT 37.9 H 39.6 H (22.0-30.0) sec Glucose (74-99) mg/dL POC Glucose (mg/dL) 120 H (70-110) mg/dL Total Bilirubin (0.2-1.3) mg/dL Troponin I (0.000-0.034) ng/mL Total Protein (6.3-8.2) g/dL 03/16/24 Range/Units 07:26 APTT (22.0-30.0) sec Glucose 135 H (74-99) mg/dL POC Glucose (mg/dL) (70-110) mg/dL Total Bilirubin 2.3 H (0.2-1.3) mg/dL Troponin I (0.000-0.034) ng/mL Total Protein 6.1 L (6.3-8.2) g/dL Total time taken greater than 35 minutes including 18 minutes for counseling and coordination of care. Patient Condition at Discharge: Fair Plan - Discharge Summary New Discharge Prescriptions: New Spironolactone [Aldactone] 25 mg PO DAILY@1300 #30 tab Metoprolol Succinate (ER) [Toprol XL] 50 mg PO DAILY #30 tab Continue Omeprazole 20 mg PO AC-BRKFST Furosemide [Lasix] 40 mg PO DAILY sitaGLIPtin [Januvia] 100 mg PO DAILY Citalopram Hydrobromide [CeleXA] 20 mg PO HS Albuterol Inhaler [Ventolin Hfa Inhaler] 2 puff INHALATION RT-Q4H PRN PRN Reason: Shortness Of Breath Potassium Chloride ER [K-Dur 20] 20 meq PO DAILY glipiZIDE XL [Glucotrol XL] 5 mg PO DAILY Budesonide [Pulmicort] 0.5 mg INHALATION RT-BID PRN PRN Reason: Shortness Of Breath Ipratropium-Albuterol Nebulize [Duoneb 0.5 mg-3 mg/3 ml Soln] 3 ml INHALATION RT-Q4H PRN PRN Reason: Shortness Of Breath Aspirin 81 mg PO DAILY tab Atorvastatin [Lipitor] 40 mg PO DAILY #30 tab Ibuprofen [Motrin] 600 mg PO Q6HR PRN #40 tab PRN Reason: Pain Ondansetron [Zofran] 4 mg PO DAILY PRN PRN Reason: Nausea Sildenafil Citrate 100 mg PO DAILY PRN PRN Reason: E.D. Pregabalin [Lyrica] 150 mg PO DAILY Dextroamphetamine/Amphetamine [Adderall] 30 mg PO DAILY Nitroglycerin Sl Tabs [Nitrostat] 0.4 mg SUBLINGUAL Q5M PRN #30 tab PRN Reason: Chest Pain Sacubitril/Valsartan [Entresto 24 mg-26 mg Tablet] 1 tab PO DIRECTED Dapagliflozin Propanediol [Farxiga] 10 mg PO DAILY Docusate [Colace] 100 mg PO BID #20 capsule oxyCODONE HCL [OxyIR] 5 mg PO Q6H PRN 3 Days #10 tab PRN Reason: Pain Acetaminophen Tab [Tylenol] 650 mg PO Q6H PRN PRN Reason: Pain Or Fever > 100.5 Fluticasone/Umeclidin/Vilanter [Trelegy Ellipta 200-62.5-25] 1 puff INHALATION RT-DAILY Discontinued Spironolactone [Aldactone] 12.5 mg PO DAILY@1300 #30 tab Metoprolol Tartrate [Lopressor] 25 mg PO BID #60 tab Discharge Medication List Furosemide [Lasix] 40 mg PO DAILY 02/05/20 [History] Omeprazole 20 mg PO AC-BRKFST 02/05/20 [History] sitaGLIPtin [Januvia] 100 mg PO DAILY 02/05/20 [History] Citalopram Hydrobromide [CeleXA] 20 mg PO HS 08/28/21 [History] Sildenafil Citrate 100 mg PO DAILY PRN 08/28/21 [History] Albuterol Inhaler [Ventolin Hfa Inhaler] 2 puff INHALATION RT-Q4H PRN 08/31/21 [History] Budesonide [Pulmicort] 0.5 mg INHALATION RT-BID PRN 02/13/24 [History] Dextroamphetamine/Amphetamine [Adderall] 30 mg PO DAILY 02/13/24 [History] Ipratropium-Albuterol Nebulize [Duoneb 0.5 mg-3 mg/3 ml Soln] 3 ml INHALATION RT-Q4H PRN 02/13/24 [History] Potassium Chloride ER [K-Dur 20] 20 meq PO DAILY 02/13/24 [History] Pregabalin [Lyrica] 150 mg PO DAILY 02/13/24 [History] glipiZIDE XL [Glucotrol XL] 5 mg PO DAILY 02/13/24 [History] Aspirin 81 mg PO DAILY tab 02/16/24 [Rx] Atorvastatin [Lipitor] 40 mg PO DAILY #30 tab 02/16/24 [Rx] Nitroglycerin Sl Tabs [Nitrostat] 0.4 mg SUBLINGUAL Q5M PRN #30 tab 02/16/24 [Rx] Dapagliflozin Propanediol [Farxiga] 10 mg PO DAILY 03/08/24 [History] Sacubitril/Valsartan [Entresto 24 mg-26 mg Tablet] 1 tab PO DIRECTED 03/08/24 [History] Docusate [Colace] 100 mg PO BID #20 capsule 03/12/24 [Rx] Ibuprofen [Motrin] 600 mg PO Q6HR PRN #40 tab 03/12/24 [Rx] oxyCODONE HCL [OxyIR] 5 mg PO Q6H PRN 3 Days #10 tab 03/12/24 [Rx] Acetaminophen Tab [Tylenol] 650 mg PO Q6H PRN 03/15/24 [History] Fluticasone/Umeclidin/Vilanter [Trelegy Ellipta 200-62.5-25] 1 puff INHALATION RT-DAILY 03/15/24 [History] Ondansetron [Zofran] 4 mg PO DAILY PRN 03/15/24 [History] Metoprolol Succinate (ER) [Toprol XL] 50 mg PO DAILY #30 tab 03/16/24 [Rx] Spironolactone [Aldactone] 25 mg PO DAILY@1300 #30 tab 03/16/24 [Rx] Follow up Appointment(s)/Referral(s): Jazmin Amador MD [STAFF PHYSICIAN] - 1 Week Yasmani Bernard MD [Primary Care Provider] - 1-2 days Discharge Disposition: HOME SELF-CARE
== END 2024-03-16 14:34 | disposition home or self-care (01) | DRG 280 ==
LOC: EC 08:36 → 3SCARD 10:53
PROVIDERS: ADMIT Internal Medicine; ATTEND Internal Medicine
DX: I11.0 Hypertensive heart disease with heart failure (principal); I50.23 Acute on chronic systolic (congestive) heart failure; I21.A1 Myocardial infarction type 2; Z68.41 Body mass index [BMI] 40.0-44.9, adult; E11.41 Type 2 diabetes mellitus with diabetic mononeuropathy; J44.9 Chronic obstructive pulmonary disease, unspecified; E66.01 Morbid (severe) obesity due to excess calories; I42.8 Other cardiomyopathies; K76.0 Fatty (change of) liver, not elsewhere classified; E78.5 Hyperlipidemia, unspecified; G47.33 Obstructive sleep apnea (adult) (pediatric); R59.1 Generalized enlarged lymph nodes; Z79.84 Long term (current) use of oral hypoglycemic drugs; Z79.899 Other long term (current) drug therapy; Z79.82 Long term (current) use of aspirin; Z79.51 Long term (current) use of inhaled steroids; Z87.891 Personal history of nicotine dependence
CPT/HCPCS: 36415; 71275; 76705; 80053; 83036; 83605; 83735; 83880; 84484; 85025; 85379; 85610; 85730; 93005; 94640; 96365; 96366; 96375; 96376; 99291

== ENCOUNTER 2024-07-18 21:14 | Inpatient (IN) | payer OTHER ==
--- NOTE | 2024-07-18 22:13 | XR ---
EXAMINATION TYPE: XR chest 2V DATE OF EXAM: 07/18/2024 10:04 PM COMPARISON: Chest x-ray February 14, 2024 CLINICAL INDICATION: Male, 54 years old with history of difficulty breathing, TECHNIQUE: Frontal and lateral views of the chest are obtained. FINDINGS: There is azygos lobe/fissure redemonstrated which is normal variant. There is no focal air space opacity, pleural effusion, or pneumothorax seen. Persistent cardiomegaly. The osseous structu res are intact. IMPRESSION: Cardiomegaly without acute pulmonary process. [facility], , 07/18/2024 10:11 PM
[2024-07-19 01:22] LABS: Basophils # (A) 0.1 k/uL (0-0.2); Basophils % (A) 0 %; Eosinophils # (A) 0.1 k/uL (0-0.7); Eosinophils % (A) 1 %; HCT 50.1 % (39.0-53.0); HGB 15.3 gm/dL (13.0-17.5); Hypochromasia Marked; Lymphocytes # (A) 1.4 k/uL (1.0-4.8); Lymphocytes % (A) 12 %; MCH 24.9 pg (25.0-35.0); MCHC 30.6 g/dL (31.0-37.0); MCV 81.3 fL (80.0-100.0); Mean Platelet Volume 7.4; Monocytes # (A) 0.7 k/uL (0-1.0); Monocytes % (A) 6 %; Neutrophils # (A) 9.4 k/uL (1.3-7.7); Neutrophils % (A) 79 %; Platelet Count 364 k/uL (150-450); RBC 6.16 m/uL (4.30-5.90); WBC 11.9 k/uL (3.8-10.6)
[2024-07-19 01:39] LABS: ALT 112 U/L (4-49); AST 64 U/L (17-59); African American GFR (CKD) 87 (>60 ml/min/1.73 sqM); Albumin 3.9 g/dL (3.5-5.0); Alkaline Phosphatase 165 U/L (38-126); Anion Gap 10 mmol/L; Blood Urea Nitrogen 28 mg/dL (9-20); Calcium 9.2 mg/dL (8.4-10.2); Carbon Dioxide 29 mmol/L (22-30); Chloride 97 mmol/L (98-107); Glucose 100 mg/dL (74-99); Magnesium 2.1 mg/dL (1.6-2.3); Non-African American GFR(CKD) 75 (>60 ml/min/1.73 sqM); Sodium 136 mmol/L (137-145); Total Bilirubin 1.4 mg/dL (0.2-1.3); Total Protein 7.2 g/dL (6.3-8.2)
[2024-07-19 01:42] LABS: INR 1.2 (<1.2); Prothrombin Time 12.7 sec (10.0-12.5)
[2024-07-19 01:46] LABS: NT-Pro-B-Type Natriuretic Pept 8030 pg/mL
[2024-07-19 01:52] LABS: Partial Thromboplastin Time 20.5 sec (22.0-30.0)
[2024-07-19] MEDS: NITROGLYCERIN OINT 1 INCH/GM PACKET TOPICAL STA (02:24)
[2024-07-19] MEDS: ASPIRIN 81 MG PO STA (02:25)
[2024-07-19] MEDS: ONDANSETRON 4 MG/2 ML VIAL IVP STA (02:26)
[2024-07-19] MEDS: FUROSEMIDE 10 MG/ML 4 ML VIAL IV STA (02:31)
[2024-07-19] MEDS: MORPHINE SULFATE 4 MG/ML SYRINGE IV STA (02:35)
[2024-07-19 03:12] LABS: Influenza A Detected (Not Detectd); Influenza B Not Detected (Not Detectd); RSV Not Detected (Not Detectd)
[2024-07-19] MEDS ORDERED: BUDESONIDE 0.5 MG/2 ML NEBU INHALATION PRN (05:11)
[2024-07-19] MEDS: FUROSEMIDE 10 MG/ML 4 ML VIAL IV SCH ×2 (05:36→08:53)
[2024-07-19] MEDS: SACUBITRIL/VALSARTAN 24 MG-26 MG TABLET PO SCH (05:36)
[2024-07-19] MEDS: NITROGLYCERIN OINT 1 INCH/GM PACKET TOPICAL SCH (07:17)
[2024-07-19] MEDS: TIOTROPIUM 2.5 MCG INHALER INHALATION SCH (08:48)
[2024-07-19] MEDS: ALBUTEROL HFA INHALER INHALATION PRN (08:48)
[2024-07-19] MEDS: SYMBICORT 160-4.5 MCG INHALER INHALATION SCH (08:49)
[2024-07-19] MEDS: ASPIRIN 81 MG PO SCH (08:51)
[2024-07-19] MEDS: PREGABALIN 75 MG CAP PO SCH (08:52)
[2024-07-19] MEDS: ATORVASTATIN 40 MG TAB PO SCH (08:52)
[2024-07-19] MEDS: METOPROLOL SUCCINATE (ER) 50 MG TAB.ER.24H PO SCH (08:52)
[2024-07-19] MEDS: LINAGLIPTIN 5 MG TABLET PO SCH (08:52)
[2024-07-19] MEDS: PANTOPRAZOLE 40 MG TABLET PO SCH (08:52)
[2024-07-19] MEDS: POTASSIUM CHLORIDE ER 20 MEQ TAB.ER PO SCH (08:52)
[2024-07-19] MEDS: DAPAGLIFLOZIN PROPANEDIOL 10 MG TABLET PO SCH (08:52)
[2024-07-19] MEDS ORDERED: NON FORMULARY DRUG (Sildenafil Citrate [Sildenafil Citrate] 100 MG Tablet) PO PRN (09:00)
[2024-07-19] MEDS: OSELTAMIVIR 75 MG CAP PO SCH (09:56)
[2024-07-19] MEDS ORDERED: DEXTROSE 50% SYRINGE 50 ML IVP PRN ×2 (10:04)
--- NOTE | 2024-07-19 10:26 | P.HPIM ---
History of Present Illness This is a pleasant 54 years old male with past medical history of multiple medical problems as below Presents because of dyspnea and shortness of breath and chest pain. Information was obtained mainly from the patient, at bedside Patient presents because of dyspnea since Tuesday especially with exertion. Also he is complaining from chest pain on the left side going to the central, About 8/10 worse with breathing and coughing. Tyro like heaviness. He has little headache and dizziness Feels generally weak Denies any specific GI or symptoms. No specific limb weakness or tingling Denies alcohol. He smokes 1 pack which lasts about a week. And he smokes marijuana Patient states that he has been diagnosed with COPD and he follow-up with pulmonary physician in the system. Review of record showed that he has cardiac cath on 01/2024 showing normal coronary arteries Patient is hemodynamically stable, is mildly tachypneic while at rest. Afebrile. Blood pressure slightly elevated. Labs including CBC, BMP, liver enzymes and INR are unremarkable Troponin are elevated with flat affect at 0.04, 0.04, 0.05. Chest x-ray showing mild pulmonary vascular congestion proBNP is also elevated at 8030. Review of Systems Review of systems CONSTITUTIONAL: No fever, no malaise, no fatigue. HEENT: No recent visual problems or hearing problems. Denied any sore throat. CARDIOVASCULAR: No orthopnea, PND, no palpitations, no syncope. PULMONARY: No chest wall tenderness, no hemoptysis. GASTROINTESTINAL: No diarrhea, no nausea, no vomiting, no abdominal pain. Normoactive bowel sounds. NEUROLOGICAL: No headaches, no weakness, no numbness. HEMATOLOGICAL: Denies any bleeding or petechiae. GENITOURINARY: Denies any burning micturition, frequency, or urgency. MUSCULOSKELETAL/RHEUMATOLOGICAL: Denies any joint pain, swelling, or any muscle pain. ENDOCRINE: Denies any polyuria or polydipsia. Past Medical History Past Medical History: Heart Failure, COPD, Diabetes Mellitus, GERD/Reflux, Hyperlipidemia, Hypertension, Neurologic Disorder, Vascular Disorder Additional Past Medical History / Comment(s): recent hospitalization to [facility] Jan 2024 for sob,abdominal pain and N/V,hx rt foot neuropathy History of Any Multi-Drug Resistant Organisms: None Reported Past Surgical History: Orthopedic Surgery Additional Past Surgical History / Comment(s): Left hydrocelectomy, vasectomy, rt shoulder rotator cuff Past Anesthesia/Blood Transfusion Reactions: Motion Sickness Additional Past Anesthesia/Blood Transfusion Reaction / Comment(s): no hx blood transfusion Past Psychological History: No Psychological Hx Reported Smoking Status: Current every day smoker Past Alcohol Use History: None Reported Past Drug Use History: Marijuana - Past Family History Father Family Medical History: Cancer Additional Family Medical History / Comment(s): prostate cancer Brother(s) Family Medical History: Cancer Additional Family Medical History / Comment(s): lymphoma bicep Medications and Allergies Home Medications Medication Instructions Recorded Confirmed Type Furosemide [Lasix] 40 mg PO DAILY 02/05/20 07/19/24 History Omeprazole 20 mg PO AC-BRKFST 02/05/20 07/19/24 History sitaGLIPtin [Januvia] 100 mg PO DAILY 02/05/20 07/19/24 History Sildenafil Citrate 100 mg PO DAILY PRN 08/28/21 07/19/24 History Albuterol Inhaler [Ventolin Hfa 2 puff INHALATION RT-Q4H PRN 08/31/21 07/19/24 History Inhaler] Budesonide [Pulmicort] 0.5 mg INHALATION RT-BID PRN 02/13/24 07/19/24 History Dextroamphetamine/Amphetamine 30 mg PO DAILY 02/13/24 07/19/24 History [Adderall] Ipratropium-Albuterol Nebulize 3 ml INHALATION RT-Q4H PRN 02/13/24 07/19/24 History [Duoneb 0.5 mg-3 mg/3 ml Soln] Potassium Chloride ER [K-Dur 20] 20 meq PO DAILY 02/13/24 07/19/24 History Pregabalin [Lyrica] 150 mg PO DAILY 02/13/24 07/19/24 History Aspirin 81 mg PO DAILY tab 02/16/24 07/19/24 Rx Atorvastatin [Lipitor] 40 mg PO DAILY #30 tab 02/16/24 07/19/24 Rx Nitroglycerin Sl Tabs [Nitrostat] 0.4 mg SUBLINGUAL Q5M PRN #30 tab 02/16/24 07/19/24 Rx Fluticasone/Umeclidin/Vilanter 1 puff INHALATION RT-DAILY 03/15/24 07/19/24 History [Trelegy Ellipta 200-62.5-25] Citalopram Hydrobromide [CeleXA] 40 mg PO DAILY 07/19/24 07/19/24 History Metoprolol Tartrate [Lopressor] 25 mg PO BID 07/19/24 07/19/24 History Spironolactone [Aldactone] 12.5 mg PO DAILY@1300 07/19/24 07/19/24 History glipiZIDE [Glucotrol] 5 mg PO DAILY 07/19/24 07/19/24 History lisinopriL [Zestril] 2.5 mg PO HS 07/19/24 07/19/24 History Allergies Allergy/AdvReac Type Severity Reaction Status Date / Time No Known Allergies Allergy Verified 07/19/24 08:54 Physical Exam Vitals: Vital Signs Temp Pulse Resp BP Pulse Ox 07/19/24 09:00 98.1 F 89 20 142/100 97 07/19/24 06:00 98 18 112/90 98 07/19/24 04:00 86 20 109/90 98 07/19/24 02:44 92 20 131/74 99 07/19/24 01:30 20 07/19/24 01:28 90 20 119/95 97 07/18/24 21:20 98.4 F 91 18 108/78 98 Intake and Output 07/18/24 07/19/24 07/19/24 22:59 06:59 14:59 Output Total 550 Balance -550 Output: Urine 550 Other: Weight 174.633 kg -GENERAL: The patient is alert and oriented x3, not in any acute distress. Well developed, well nourished. Obese HEENT: Pupils are round and equally reacting to light. EOMI. No scleral icterus. No conjunctival pallor. Normocephalic, atraumatic. No pharyngeal erythema. No thyromegaly. CARDIOVASCULAR: S1 and S2 present. No murmurs, rubs, or gallops. -PULMONARY: Chest is clear to auscultation, bilateral expiratory bilateral basal wheezing , bilateral basal crackles. ABDOMEN: Soft, nontender, nondistended, normoactive bowel sounds. No palpable organomegaly. MUSCULOSKELETAL: No joint swelling or deformity. -EXTREMITIES: No cyanosis, clubbing, mild to moderate bilateral pitting leg edema. NEUROLOGICAL: Gross neurological examination did not reveal any focal deficits. SKIN: No rashes. no petechiae. Bilateral expiratory Results CBC & Chem 7: 07/19/24 01:03 07/19/24 01:03 Labs: Abnormal Lab Results - Last 24 Hours (Table) 07/19/24 07/19/24 07/19/24 Range/Units 01:03 01:03 01:03 WBC 11.9 H (3.8-10.6) k/uL RBC 6.16 H (4.30-5.90) m/uL MCH 24.9 L (25.0-35.0) pg MCHC 30.6 L (31.0-37.0) g/dL Neutrophils # 9.4 H (1.3-7.7) k/uL PT 12.7 H (10.0-12.5) sec INR 1.2 H (<1.2) APTT 20.5 L (22.0-30.0) sec Sodium 136 L (137-145) mmol/L Chloride 97 L (98-107) mmol/L BUN 28 H (9-20) mg/dL Glucose 100 H (74-99) mg/dL Total Bilirubin 1.4 H (0.2-1.3) mg/dL AST 64 H (17-59) U/L ALT 112 H (4-49) U/L Alkaline Phosphatase 165 H (38-126) U/L Troponin I (0.000-0.034) ng/mL Influenza Type A (PCR) (Not Detectd) 07/19/24 07/19/24 07/19/24 Range/Units 01:03 02:24 02:24 WBC (3.8-10.6) k/uL RBC (4.30-5.90) m/uL MCH (25.0-35.0) pg MCHC (31.0-37.0) g/dL Neutrophils # (1.3-7.7) k/uL PT (10.0-12.5) sec INR (<1.2) APTT (22.0-30.0) sec Sodium (137-145) mmol/L Chloride (98-107) mmol/L BUN (9-20) mg/dL Glucose (74-99) mg/dL Total Bilirubin (0.2-1.3) mg/dL AST (17-59) U/L ALT (4-49) U/L Alkaline Phosphatase (38-126) U/L Troponin I 0.049 H* 0.046 H* (0.000-0.034) ng/mL Influenza Type A (PCR) Detected A (Not Detectd) 07/19/24 07/19/24 Range/Units 06:24 09:07 WBC (3.8-10.6) k/uL RBC (4.30-5.90) m/uL MCH (25.0-35.0) pg MCHC (31.0-37.0) g/dL Neutrophils # (1.3-7.7) k/uL PT (10.0-12.5) sec INR (<1.2) APTT (22.0-30.0) sec Sodium (137-145) mmol/L Chloride (98-107) mmol/L BUN (9-20) mg/dL Glucose (74-99) mg/dL Total Bilirubin (0.2-1.3) mg/dL AST (17-59) U/L ALT (4-49) U/L Alkaline Phosphatase (38-126) U/L Troponin I 0.053 H* 0.047 H* (0.000-0.034) ng/mL Influenza Type A (PCR) (Not Detectd) Assessment and Plan Assessment: Acute CHF Chest pain could be pleuritic, could be pleurisy from influenza A infection. Cardiac also possibility although less likely. Rule out PE Elevated troponin with flat affect most likely secondary to renal disease and CHF Influenza A infection Acute COPD exacerbation Acute kidney injury, mild mild transaminitis Diabetes mellitus Hypertension Hyperlipidemia Hearing difficulty Obesity with BMI of 50.8 Plan: Continue with IV Lasix Start Tamiflu Start Solu-Medrol Continue with aspirin Continue with insulin sliding scale and resume cardiac and diabetes medication Check D-dimer Cardiology team consult Pulmonary team consult Labs and medication were reviewed.. Continue same treatment. Continue with symptomatic treatment. Resume home medication. Monitor lytes and vitals. DVT and GI prophylaxis. Further recommendations depends on the clinical course of the patient DVT prophylaxis: Subcutaneous heparin GI Prophylaxis: Pepcid PT/OT: Pending Prognosis is guarded
[2024-07-19] MEDS: HEPARIN SODIUM,PORCINE 5,000 UNIT/ML 1 ML VIAL SQ SCH (11:09)
[2024-07-19] MEDS: methylPREDNISolone SOD SUCCI 40 MG/ML 1 ML VIAL IV SCH (11:09)
[2024-07-19 12:38] LABS: Glucose,Whole Blood 138 mg/dL (70-110)
[2024-07-19] MEDS: INSULIN LISPRO (HumaLOG) 100 UNIT/ML 10 mL VL SQ SCH (12:41)
[2024-07-19] MEDS: SPIRONOLACTONE 25 MG TAB PO SCH (12:50)
[2024-07-19] MEDS ORDERED: SPIRONOLACTONE 25 MG TAB PO SCH (13:00)
--- NOTE | 2024-07-19 13:58 | P.CNPUL ---
History of Present Illness Consult date: 07/19/24 Requesting physician: Jasson Montes Reason for consult: dyspnea, abnormal CXR/CT Chief complaint: Shortness of breath History of present illness: This is a 54-year-old male patient with a known history of diabetes mellitus, congestive heart failure, hypertension, hyperlipidemia, chronic obstructive pulmonary disease, former smoker, obstructive sleep apnea intolerant to CPAP. He had recently had the norovirus approximately 1 week ago. He was then in [facility] this week for influenza A. He was discharged from there yesterday and ended up here last night with increasing shortness of breath. Chest x-ray reveals cardiomegaly without an acute pulmonary process. White count 11.9. Hemoglobin 15.3. Platelets 364. D-dimer 1.62. Sodium 136. Potassium 5.0. Bicarb 29. BUN 28. Creatinine 1.10. Glucose 100. AST 64. ALT 112. Troponin 0.047. proBNP 8030. Viral screen positive for influenza A. He is seen today in consultation in the emergency department. He is currently resting on a stretcher. Awake and alert in no acute distress. Maintaining O2 saturations in the high 90s on 2 L/min per nasal cannula. He is afebrile. Hemodynamically stable. Review of Systems REVIEW OF SYSTEMS: CONSTITUTIONAL: Denies any recent significant weight loss or weight gain. EYES: Denies change in vision. EARS, NOSE, MOUTH, THROAT: Denies headaches, denies sore throat. CARDIOVASCULAR: Denies chest pain, palpitations or syncopal episodes. RESPIRATORY: Positive for shortness of breath, cough, congestion no hemoptysis. GASTROINTESTINAL: Denies change in appetite, denies abdominal pain GENITOURINARY: Denies hematuria, denies infections. MUSKULOSKELETAL: Denies pain, denies swelling. INTEGUMENTARY: Denies rash, denies eczema. NEUROLOGICAL: Denies recent memory loss, no recent seizure activity. PSYCHIATRIC: Denies anxiety, denies depression. HEMATOLOGIC/LYMPHATIC: Denies anemia, denies enlarged lymph nodes. Past Medical History Past Medical History: Heart Failure, COPD, Diabetes Mellitus, GERD/Reflux, Hy perlipidemia, Hypertension, Neurologic Disorder, Vascular Disorder Additional Past Medical History / Comment(s): recent hospitalization to [facility] Jan 2024 for sob,abdominal pain and N/V,hx rt foot neuropathy History of Any Multi-Drug Resistant Organisms: None Reported Past Surgical History: Orthopedic Surgery Additional Past Surgical History / Comment(s): Left hydrocelectomy, vasectomy, rt shoulder rotator cuff Past Anesthesia/Blood Transfusion Reactions: Motion Sickness Additional Past Anesthesia/Blood Transfusion Reaction / Comment(s): no hx blood transfusion Past Psychological History: No Psychological Hx Reported Smoking Status: Current every day smoker Past Alcohol Use History: None Reported Past Drug Use History: Marijuana - Past Family History Father Family Medical History: Cancer Additional Family Medical History / Comment(s): prostate cancer Brother(s) Family Medical History: Cancer Additional Family Medical History / Comment(s): lymphoma bicep Medications and Allergies Home Medications Medication Instructions Recorded Confirmed Type Furosemide [Lasix] 40 mg PO DAILY 02/05/20 07/19/24 History Omeprazole 20 mg PO AC-BRKFST 02/05/20 07/19/24 History sitaGLIPtin [Januvia] 100 mg PO DAILY 02/05/20 07/19/24 History Sildenafil Citrate 100 mg PO DAILY PRN 08/28/21 07/19/24 History Albuterol Inhaler [Ventolin Hfa 2 puff INHALATION RT-Q4H PRN 08/31/21 07/19/24 History Inhaler] Budesonide [Pulmicort] 0.5 mg INHALATION RT-BID PRN 02/13/24 07/19/24 History Dextroamphetamine/Amphetamine 30 mg PO DAILY 02/13/24 07/19/24 History [Adderall] Ipratropium-Albuterol Nebulize 3 ml INHALATION RT-Q4H PRN 02/13/24 07/19/24 His tory [Duoneb 0.5 mg-3 mg/3 ml Soln] Potassium Chloride ER [K-Dur 20] 20 meq PO DAILY 02/13/24 07/19/24 History Pregabalin [Lyrica] 150 mg PO DAILY 02/13/24 07/19/24 History Aspirin 81 mg PO DAILY tab 02/16/24 07/19/24 Rx Atorvastatin [Lipitor] 40 mg PO DAILY #30 tab 02/16/24 07/19/24 Rx Nitroglycerin Sl Tabs [Nitrostat] 0.4 mg SUBLINGUAL Q5M PRN #30 tab 02/16/24 07/19/24 Rx Fluticasone/Umeclidin/Vilanter 1 puff INHALATION RT-DAILY 03/15/24 07/19/24 History [Trelegy Ellipta 200-62.5-25] Citalopram Hydrobromide [CeleXA] 40 mg PO DAILY 07/19/24 07/19/24 History Metoprolol Tartrate [Lopressor] 25 mg PO BID 07/19/24 07/19/24 History Spironolactone [Aldactone] 12.5 mg PO DAILY@1300 07/19/24 07/19/24 History glipiZIDE [Glucotrol] 5 mg PO DAILY 07/19/24 07/19/24 History lisinopriL [Zestril] 2.5 mg PO HS 07/19/24 07/19/24 History Allergies Allergy/AdvReac Type Severity Reaction Status Date / Time No Known Allergies Allergy Verified 07/19/24 08:54 Physical Exam Vitals: Vital Signs Temp Pulse Resp BP Pulse Ox 07/19/24 09:00 98.1 F 89 20 142/100 97 07/19/24 06:00 98 18 112/90 98 07/19/24 04:00 86 20 109/90 98 07/19/24 02:44 92 20 131/74 99 07/19/24 01:30 20 07/19/24 01:28 90 20 119/95 97 07/18/24 21:20 98.4 F 91 18 108/78 98 Intake and Output 07/18/24 07/19/24 07/19/24 22:59 06:59 14:59 Output Total 1900 Balance -1900 Output: Urine 1900 Other: Weight 174.633 kg GENERAL EXAM: Alert, morbidly obese, 54-year-old male, on 2 L nasal cannula, comfortable in no apparent distress. HEAD: Normocephalic. EYES: Normal reaction of pupils, equal size. NOSE: Clear with pink turbinates. THROAT: No erythema or exudates. NECK: No masses, no JVD. CHEST: No chest wall deformity. LUNGS: Equal air entry with no crackles, wheeze, rhonchi or dullness. CVS: S1 and S2 normal with no audible murmur, regular rhythm. ABDOMEN: No hepatosplenomegaly, normal bowel sounds, no guarding or rigidity. SPINE: No scoliosis or deformity SKIN: No rashes CENTRAL NERVOUS SYSTEM: No focal deficits, tone is normal in all 4 extremities. EXTREMITIES: There is trace peripheral edema. No clubbing, no cyanosis. Peripheral pulses are intact. Results - Laboratory Findings CBC and BMP: 07/19/24 01:03 07/19/24 01:03 PT/INR, D-dimer PT 12.7 sec (10.0-12.5) H 07/19/24 01:03 INR 1.2 (<1.2) H 07/19/24 01:03 D-Dimer 1.62 mg/L FEU (<0.60) H 07/19/24 10:10 Abnormal lab findings: Abnormal Labs 07/19/24 07/19/24 07/19/24 01:03 01:03 01:03 WBC 11.9 H RBC 6.16 H MCH 24.9 L MCHC 30.6 L Neutrophils # 9.4 H PT 12.7 H INR 1.2 H APTT 20.5 L D-Dimer Sodium 136 L Chloride 97 L BUN 28 H Glucose 100 H POC Glucose (mg/dL) Total Bilirubin 1.4 H AST 64 H ALT 112 H Alkaline Phosphatase 165 H Troponin I Influenza Type A (PCR) 07/19/24 07/19/24 07/19/24 01:03 02:24 02:24 WBC RBC MCH MCHC Neutrophils # PT INR APTT D-Dimer Sodium Chloride BUN Glucose POC Glucose (mg/dL) Total Bilirubin AST ALT Alkaline Phosphatase Troponin I 0.049 H* 0.046 H* Influenza Type A (PCR) Detected A 07/19/24 07/19/24 07/19/24 06:24 09:07 10:10 WBC RBC MCH MCHC Neutrophils # PT INR APTT D-Dimer 1.62 H Sodium Chloride BUN Glucose POC Glucose (mg/dL) Total Bilirubin AST ALT Alkaline Phosphatase Troponin I 0.053 H* 0.047 H* Influenza Type A (PCR) 07/19/24 12:37 WBC RBC MCH MCHC Neutrophils # PT INR APTT D-Dimer Sodium Chloride BUN Glucose POC Glucose (mg/dL) 138 H Total Bilirubin AST ALT Alkaline Phosphatase Troponin I Influenza Type A (PCR) - Diagnostic Findings Chest x-ray: image reviewed Assessment and Plan Assessment: Acute influenza A infection Acute exacerbation of chronic obstructive pulmonary disease Acute exacerbation of chronic systolic congestive heart failure Troponin leak secondary to above Recent norovirus infection Morbid obesity with a BMI of 50.8 kg/m Obstructive sleep apnea intolerant to CPAP Chronic tobacco dependence Diabetes mellitus Hypertension Hyperlipidemia Diabetic neuropathy Marijuana use Plan: The patient was seen and evaluated Imaging, labs and medications reviewed Initiated on Tamiflu Initiated on albuterol as needed, Symbicort, Spiriva Initiated on Solu-Medrol Initiated on IV diuretics Heparin for DVT prophylaxis Titrate down the FiO2 as tolerated We will continue to follow and make further recommendations based on his clinical status I have personally seen and examined the patient, performed the documentation and the assessment and plan as written. Number of minutes spent on the visit: 20 Dictation was produced using [employer] dictation software. Please excuse any grammatical, word or spelling errors.
--- NOTE | 2024-07-19 17:44 | NM ---
EXAMINATION TYPE: NM pul perfusion DATE OF EXAM: 07/19/2024 COMPARISON: 07/18/2024 chest x-ray CLINICAL INDICATION: Male, 54 years old with history of cp , high ddimer; Following administration of 5.48 mCi Tc 99m MAA. Images obtained post injection. FINDINGS: No moderate or large defects identified. Ventilation was not performed. IMPRESSION: Low probability for pulmonary embolism based on modified PIOPED 2 criteria. [facility], , 07/19/2024 5:42 PM
[2024-07-19 18:16] LABS: Glucose,Whole Blood 134 mg/dL (70-110)
--- NOTE | 2024-07-19 20:18 | US ---
EXAMINATION TYPE: US venous doppler duplex LE BI DATE OF EXAM: 07/19/2024 8:10 PM COMPARISON: 02/13/2024 CLINICAL INDICATION: Male, 54 years old with history of leg swelling; patient states leg swelling for years. no hx dvt. not on thinners., Pain TECHNIQUE: The lower extremity deep venous system is examined utilizing real time linear array sonog faustino with graded compression, color doppler sonography, and spectral doppler. SIDE PERFORMED: Bilateral FINDINGS: VESSELS IMAGED: Common Femoral Vein Deep Femoral Vein Greater Saphenous Vein * Femoral Vein Popliteal Vein Small Saphenous Vein * Proximal Calf Veins (* superficial vessels) suboptimal due to body habitus Right Leg: Negative for DVT, Color Doppler imaging shows patency of the vessels. Spectral waveforms are within normal limits. unable to visualize distal femoral vein in transverse for compression views , color and spectral doppler seen Left Leg: Negative for DVT, Color Doppler imaging shows patency of the vessels. Spectral waveforms a re within normal limits. IMPRESSION: 1. Bilateral lower extremity ultrasound negative for deep venous thrombosis [facility], , 07/19/2024 8:16 PM
[2024-07-19 21:20] LABS: Glucose,Whole Blood 169 mg/dL (70-110)
[2024-07-20] MEDS: glipiZIDE 5 MG TAB PO SCH (05:53)
[2024-07-20 06:38] LABS: Glucose,Whole Blood 171 mg/dL (70-110)
--- NOTE | 2024-07-20 08:57 | P.PN ---
Subjective This is a pleasant 54 years old male with past medical history of multiple medical problems as below Presents because of dyspnea and shortness of breath and chest pain. Information was obtained mainly from the patient, at bedside Patient presents because of dyspnea since Tuesday especially with exertion. Also he is complaining from chest pain on the left side going to the central, About 8/10 worse with breathing and coughing. [place] like heaviness. He has little headache and dizziness Feels generally weak Denies any specific GI or symptoms. No specific limb weakness or tingling Denies alcohol. He smokes 1 pack which lasts about a week. And he smokes marijuana Patient states that he has been diagnosed with COPD and he follow-up with pulmonary physician in the system. Review of record showed that he has cardiac cath on 01/2024 showing normal coronary arteries Patient is hemodynamically stable, is mildly tachypneic while at rest. Afebrile. Blood pressure slightly elevated. Labs including CBC, BMP, liver enzymes and INR are unremarkable Troponin are elevated with flat affect at 0.04, 0.04, 0.05. Chest x-ray showing mild pulmonary vascular congestion proBNP is also elevated at 8030. 07/20 Patient feels improvement but not back to normal. He still have some exertional symptoms. He still tachypneic. No chest pain no significant coughing. Blood pressure is 95 /67. Patient saturating 97% on room air. D-dimer was elevated 1.6. However perfusion scans showing low probability for PE, ultrasound of the leg also negative for DVT. Patient remains on Tamiflu, Lovenox IV 40 mg twice daily and IV Solu-Medrol 40 mg as well as aspirin. Review of systems CONSTITUTIONAL: No fever, no malaise, no fatigue. HEENT: No recent visual problems or hearing problems. Denied any sore throat. CARDIOVASCULAR: No orthopnea, PND, no palpitations, no syncope. HEMATOLOGICAL: Denies any bleeding or petechiae. GENITOURINARY: Denies any burning micturition, frequency, or urgency. MUSCULOSKELETAL/RHEUMATOLOGICAL: Denies any joint pain, swelling, or any muscle pain. ENDOCRINE: Denies any polyuria or polydipsia. Active Medications Generic Name Dose Route Start Last Admin Trade Name Freq PRN Reason Stop Dose Admin Albuterol Sulfate 2 puff 07/19/24 05:11 07/19/24 08:48 Albuterol Hfa Inhaler INHALATION 2 puff RT-Q4H PRN Administration Shortness Of Breath Albuterol/Ipratropium 3 ml 07/19/24 05:11 Ipratropium-Albuterol 3 Ml Neb INHALATION RT-Q4H PRN Shortness Of Breath Aspirin 81 mg 07/19/24 09:00 07/19/24 08:51 Aspirin 81 Mg PO 81 mg DAILY RAJ Administration Atorvastatin Calcium 40 mg 07/19/24 09:00 07/19/24 08:52 Atorvastatin 40 Mg Tab PO 40 mg DAILY RAJ Administration Dextrose/Water 25 ml 07/19/24 10:04 Dextrose 50% Syringe 50 Ml IVP PER PROTOCOL PRN Hypoglycemia Protocol Dextrose/Water 50 ml 07/19/24 10:04 Dextrose 50% Syringe 50 Ml IVP PER PROTOCOL PRN Hypoglycemia Protocol Furosemide 40 mg 07/19/24 09:00 07/19/24 21:01 Furosemide 10 Mg/Ml 4 Ml Vial IV 40 mg Q12HR RAJ Administration Glipizide 5 mg 07/20/24 07:30 07/20/24 05:53 Glipizide 5 Mg Tab PO 5 mg AC-BRKFST RAJ Administration Heparin Sodium (Porcine) 5,000 unit 07/19/24 10:15 07/19/24 23:23 Heparin Sodium,Porcine 5,000 Unit/Ml 1 Ml Vial SQ 5,000 unit Q8HR RAJ Administration Insulin Human Lispro 0 unit 07/19/24 12:30 07/20/24 06:42 Insulin Lispro (Humalog) 100 Unit/Ml 10 Ml Vl SQ 1 unit ACHS RAJ Administration Protocol Linagliptin 5 mg 07/19/24 09:00 07/19/24 08:52 Linagliptin 5 Mg Tablet PO 5 mg DAILY RAJ Administration Methylprednisolone Sodium Succinate 40 mg 07/19/24 10:15 07/19/24 23:33 Methylprednisolone Sod Succi 40 Mg/Ml 1 Ml Vial IV 40 mg Q8HR RAJ Administration Metoprolol Tartrate 25 mg 07/20/24 09:00 Metoprolol Tartrate 25 Mg Tab PO BID RAJ Non-Formulary Medication 100 mg 07/19/24 09:00 Sildenafil Citrate [Sildenafil Citrate] PO DAILY PRN E.D. Oseltamivir Phosphate 75 mg 07/19/24 09:00 07/19/24 21:02 Oseltamivir 75 Mg Cap PO 07/24/24 08:59 75 mg Q12HR RAJ Administration Protocol Oxycodone HCl 5 mg 07/19/24 06:00 Oxycodone Hcl 5 Mg Tab PO Q6H PRN Pain Pantoprazole Sodium 40 mg 07/19/24 07:30 07/20/24 05:52 Pantoprazole 40 Mg Tablet PO 40 mg AC-BRKFST RAJ Administration Potassium Chloride 20 meq 07/19/24 09:00 07/19/24 08:52 Potassium Chloride Er 20 Meq Tab.Er PO 20 meq DAILY RAJ Administration Pregabalin 150 mg 07/19/24 09:00 07/19/24 08:52 Pregabalin 75 Mg Cap PO 150 mg DAILY RAJ Administration Sodium Chloride 10 ml 07/19/24 09:00 07/19/24 21:03 Sodium Chloride 0.9% Flush 10 Ml Syringe IV 10 ml BID RAJ Administration Spironolactone 12.5 mg 07/19/24 13:00 07/19/24 21:50 Spironolactone 25 Mg Tab PO 12.5 mg QID RAJ Administration Tiotropium [place] 2 puff 07/19/24 08:00 07/20/24 07:50 Tiotropium 2.5 Mcg Inhaler INHALATION 2 puff RT-DAILY RAJ Administration Objective - Vital Signs Vital signs: Vital Signs Temp 98.3 F 07/20/24 01:13 Pulse 81 07/20/24 04:00 Resp 18 07/20/24 04:00 BP 95/67 07/20/24 04:00 Pulse Ox 97 07/20/24 04:00 FiO2 Intake & Output 07/19/24 07/20/24 07/20/24 18:59 06:59 18:59 Output Total 1900 1320 Balance -1900 -1320 Weight 169.9 kg Output: Urine 1900 1320 Other: Voiding Method Toilet # Voids 2 - Exam -GENERAL: The patient is alert and oriented x3, not in any acute distress. Well developed, well nourished. Obese HEENT: Pupils are round and equally reacting to light. EOMI. No scleral icterus. No conjunctival pallor. Normocephalic, atraumatic. No pharyngeal erythema. No thyromegaly. CARDIOVASCULAR: S1 and S2 present. No murmurs, rubs, or gallops. -PULMONARY: Chest is clear to auscultation, bilateral expiratory bilateral basal wheezing , bilateral basal crackles. ABDOMEN: Soft, nontender, nondistended, normoactive bowel sounds. No palpable organomegaly. MUSCULOSKELETAL: No joint swelling or deformity. -EXTREMITIES: No cyanosis, clubbing, mild to moderate bilateral pitting leg edema. NEUROLOGICAL: Gross neurological examination did not reveal any focal deficits. SKIN: No rashes. no petechiae. Bilateral expiratory - Labs CBC & Chem 7: 07/19/24 01:03 07/19/24 01:03 Labs: Abnormal Lab Results - Last 24 Hours (Table) 07/19/24 07/19/24 07/19/24 Range/Units 09:07 10:10 12:37 D-Dimer 1.62 H (<0.60) mg/L FEU POC Glucose (mg/dL) 138 H (70-110) mg/dL Troponin I 0.047 H* (0.000-0.034) ng/mL 07/19/24 07/19/24 07/20/24 Range/Units 18:15 21:18 06:24 D-Dimer (<0.60) mg/L FEU POC Glucose (mg/dL) 134 H 169 H 171 H (70-110) mg/dL Troponin I (0.000-0.034) ng/mL Assessment and Plan Assessment: Acute CHF Chest pain could be pleuritic, could be pleurisy from influenza A infection. Cardiac also possibility although less likely. Rule out PE Elevated troponin with flat affect most likely secondary to renal disease and CHF Influenza A infection Acute COPD exacerbation Acute kidney injury, mild mild transaminitis Diabetes mellitus Hypertension Hyperlipidemia Hearing difficulty Obesity with BMI of 50.8 Plan: Continue with IV Lasix Start Tamiflu Start Solu-Medrol Continue with aspirin Continue with insulin sliding scale and resume cardiac and diabetes medication Check D-dimer Cardiology team consult Pulmonary team consult Labs and medication were reviewed.. Continue same treatment. Continue with symptomatic treatment. Resume home medication. Monitor lytes and vitals. DVT and GI prophylaxis. Further recommendations depends on the clinical course of the patient DVT prophylaxis: Subcutaneous heparin GI Prophylaxis: Pepcid PT/OT: Pending Prognosis is guarded
[2024-07-20 09:02] LABS: ALT 91 U/L (4-49); AST 46 U/L (17-59); African American GFR (CKD) >90 (>60 ml/min/1.73 sqM); Albumin 3.4 g/dL (3.5-5.0); Alkaline Phosphatase 157 U/L (38-126); Anion Gap 10 mmol/L; Blood Urea Nitrogen 33 mg/dL (9-20); Calcium 8.5 mg/dL (8.4-10.2); Carbon Dioxide 29 mmol/L (22-30); Chloride 95 mmol/L (98-107); Glucose 155 mg/dL (74-99); Non-African American GFR(CKD) 84 (>60 ml/min/1.73 sqM); Potassium 5.1 mmol/L (3.5-5.1); Sodium 134 mmol/L (137-145); Total Bilirubin 1.6 mg/dL (0.2-1.3); Total Protein 6.6 g/dL (6.3-8.2)
[2024-07-20] MEDS: METOPROLOL TARTRATE 25 MG TAB PO SCH (09:40)
[2024-07-20] MEDS ORDERED: SACUBITRIL/VALSARTAN 24 MG-26 MG TABLET PO SCH (10:15)
--- NOTE | 2024-07-20 10:58 | P.CRDCN ---
History of Present Illness Consult date: 07/20/24 Reason for Consult (text): CHF and chest pain History of present illness: This is a 54-year-old male patient of Dr. Amador with past medical history of diabetes mellitus type 2, hypertension, hyperlipidemia, chronic tobacco use, COPD, morbid obesity. We have been asked to evaluate the patient for CHF and chest pain. Patient came into the hospital due to shortness of breath that has been ongoing for a long time but worsening over the past year. He also complains of swelling in his legs and hands along with the shortness of breath worsening. Patient was last seen in the office with Dr. Amador on 02/27/2024. Patient at that time was started on Entresto but unfortunately this was too costly for the patient. He was also started on Farxiga. Blood pressure 95/67, heart rate 81, pulse ox 97% on room air. Patient has been started on IV Lasix 40 mg every 12 hours as well as Tamiflu, Solu-Medrol. Patient has been a smoker of 2 packs/day and is now cut back to 1 pack/week. He denies any alcohol use or abuse. He does use marijuana regularly. -EKG: Sinus rhythm 87 bpm -Chest x-ray: Cardiomegaly without acute process. -VQ scan: Low probability for pulmonary embolism. -Venous duplex bilateral lower extremities negative for DVT, suboptimal due to body habitus. -Laboratory studies: WBC 11.9, hemoglobin 15.3, INR 1.2. D-dimer 1.62. Sodium 136, potassium 5, BUN 28 creatinine 1.1. Troponins 0.0490.046 and 0.053, 0.047. Influenza detected. AST 64, ALT 112, alkaline phosphatase 165. -Home cardiac medications: Aspirin 81 mg daily, atorvastatin 40 mg daily, Lasix 40 mg daily, lisinopril 2.5 mg at bedtime, metoprolol tartrate 25 mg twice daily, Nitrostat as needed, potassium chloride 20 mill equivalents daily, spironolactone 12.5 mg at 1300. Also on Farxiga 10 mg daily not on his home list. -Cardiac catheterization performed 02/10/2024 revealed normal coronary arteries. -Echocardiogram performed 02/15/2024 revealed EF of 35 to 40%, dilated LV. Review Of Systems: At the time of my exam: CONSTITUTIONAL: Denies fever or chills. HEENT: Denies blurred vision, vision changes, or eye pain. Denies hemoptysis CARDIOVASCULAR: Denies chest pain. Denies orthopnea. Denies PND. Denies palpitations. Reports edema RESPIRATORY: Reports shortness of breath. GASTROINTESTINAL: Denies abdominal pain. Denies nausea or vomiting. HEMATOLOGIC: Denies bleeding disorders. GENITOURINARY: Denies any blood in urine. SKIN: Denies puritis. Denies rash. Physical examination: Gen: This is a morbidly obese 54-year-old male in no acute distress VS: reviewed HEENT: Head is atraumatic, normocephalic. Pupils equal, round. Sclerae is anicteric. NECK: Supple. No JVD. LUNGS: Diminished to the bilateral bases. No intercostal retractions. HEART: Regular rate and rhythm. ABDOMEN: Soft No tenderness. EXTREMITIES: Bilateral lower extremity edema. No calf tenderness. NEUROLOGICAL: Patient is awake, alert and oriented x3. 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 Plan: Resume patient's home cardiac medications Resume patient on Farxiga 10 mg daily Patient was unable to afford Entresto Continue IV Lasix 40 mg every 12 hours Monitor TOYA, daily weights, electrolytes and renal function Obtain 2-D echocardiogram and Doppler study to assess cardiac structure and function Obtain kappa Light chain, lambda light chain, protein electrophoresis Further recommendations to follow based upon clinical course Thank you kindly for this consultation. Nurse practitioner note has been reviewed, I agree with documented findings and plan of care. Patient was seen and examined. Past Medical History Past Medical History: Heart Failure, COPD, Diabetes Mellitus, GERD/Reflux, Hyperlipidemia, Hypertension, Neurologic Disorder, Vascular Disorder Additional Past Medical History / Comment(s): recent hospitalization to [facility] Jan 2024 for sob,abdominal pain and N/V,hx rt foot neuropathy History of Any Multi-Drug Resistant Organisms: None Reported Past Surgical History: Cholecystectomy, Orthopedic Surgery Additional Past Surgical History / Comment(s): Left hydrocelectomy, vasectomy, rt shoulder rotator cuff Past Anesthesia/Blood Transfusion Reactions: Motion Sickness Additional Past Anesthesia/Blood Transfusion Reaction / Comment(s): no hx blood transfusion Past Psychological History: No Psychological Hx Reported Smoking Status: Current some day smoker Past Alcohol Use History: None Reported Additional Past Alcohol Use History / Comment(s): started smoking cigarettes at age 8 Past Drug Use History: Marijuana Additional Drug Use History / Comment(s): smokes marijuana daily - Past Family History Father Family Medical History: Cancer Additional Family Medical History / Comment(s): prostate cancer Brother(s) Family Medical History: Cancer Additional Family Medical History / Comment(s): lymphoma bicep Medications and Allergies Home Medications Medication Instructions Recorded Confirmed Type Furosemide [Lasix] 40 mg PO DAILY 02/05/20 07/19/24 History Omeprazole 20 mg PO AC-BRKFST 02/05/20 07/19/24 History sitaGLIPtin [Januvia] 100 mg PO DAILY 02/05/20 07/19/24 History Sildenafil Citrate 100 mg PO DAILY PRN 08/28/21 07/19/24 History Albuterol Inhaler [Ventolin Hfa 2 puff INHALATION RT-Q4H PRN 08/31/21 07/19/24 History Inhaler] Budesonide [Pulmicort] 0.5 mg INHALATION RT-BID PRN 02/13/24 07/19/24 History Dextroamphetamine/Amphetamine 30 mg PO DAILY 02/13/24 07/19/24 History [Adderall] Ipratropium-Albuterol Nebulize 3 ml INHALATION RT-Q4H PRN 02/13/24 07/19/24 History [Duoneb 0.5 mg-3 mg/3 ml Soln] Potassium Chloride ER [K-Dur 20] 20 meq PO DAILY 02/13/24 07/19/24 History Pregabalin [Lyrica] 150 mg PO DAILY 02/13/24 07/19/24 History Aspirin 81 mg PO DAILY tab 02/16/24 07/19/24 Rx Atorvastatin [Lipitor] 40 mg PO DAILY #30 tab 02/16/24 07/19/24 Rx Nitroglycerin Sl Tabs [Nitrostat] 0.4 mg SUBLINGUAL Q5M PRN #30 tab 02/16/24 07/19/24 Rx Fluticasone/Umeclidin/Vilanter 1 puff INHALATION RT-DAILY 03/15/24 07/19/24 His tory [Trelegy Ellipta 200-62.5-25] Citalopram Hydrobromide [CeleXA] 40 mg PO DAILY 07/19/24 07/19/24 History Metoprolol Tartrate [Lopressor] 25 mg PO BID 07/19/24 07/19/24 History Spironolactone [Aldactone] 12.5 mg PO DAILY@1300 07/19/24 07/19/24 History glipiZIDE [Glucotrol] 5 mg PO DAILY 07/19/24 07/19/24 History lisinopriL [Zestril] 2.5 mg PO HS 07/19/24 07/19/24 History Allergies Allergy/AdvReac Type Severity Reaction Status Date / Time No Known Allergies Allergy Verified 07/19/24 08:54 Physical Exam Vitals: Vital Signs Temp Pulse Pulse Resp BP BP Pulse Ox 07/20/24 04:00 81 18 95/67 97 07/20/24 01:13 98.3 F 84 18 108/79 96 07/20/24 00:19 97.8 F 75 16 111/78 100 07/19/24 23:29 81 24 119/94 95 07/19/24 21:52 97.6 F 80 20 123/88 95 07/19/24 18:22 82 20 129/97 97 07/19/24 09:00 98.1 F 89 20 142/100 97 Intake and Output 07/19/24 07/20/24 07/20/24 22:59 06:59 14:59 Output Total 1320 Balance -1320 Output: Urine 1320 Other: Voiding Method Toilet # Voids 2 Weight 169.9 kg Results 07/19/24 01:03 07/20/24 07:26 Cardiac Enzymes 07/19/24 Range/Units 09:07 Troponin I 0.047 H* (0.000-0.034) ng/mL Current Medications Generic Name Dose Route Start Last Admin Trade Name Freq PRN Reason Stop Dose Admin Albuterol Sulfate 2 puff 07/19/24 05:11 07/19/24 08:48 Albuterol Hfa Inhaler INHALATION 2 puff RT-Q4H PRN Administration Shortness Of Breath Albuterol/Ipratropium 3 ml 07/19/24 05:11 Ipratropium-Albuterol 3 Ml Neb INHALATION RT-Q4H PRN Shortness Of Breath Aspirin 81 mg 07/19/24 09:00 07/19/24 08:51 Aspirin 81 Mg PO 81 mg DAILY RAJ Administration Atorvastatin Calcium 40 mg 07/19/24 09:00 07/19/24 08:52 Atorvastatin 40 Mg Tab PO 40 mg DAILY RAJ Administration Dextrose/Water 25 ml 07/19/24 10:04 Dextrose 50% Syringe 50 Ml IVP PER PROTOCOL PRN Hypoglycemia Protocol Dextrose/Water 50 ml 07/19/24 10:04 Dextrose 50% Syringe 50 Ml IVP PER PROTOCOL PRN Hypoglycemia Protocol Furosemide 40 mg 07/19/24 09:00 07/19/24 21:01 Furosemide 10 Mg/Ml 4 Ml Vial IV 40 mg Q12HR RAJ Administration Glipizide 5 mg 07/20/24 07:30 07/20/24 05:53 Glipizide 5 Mg Tab PO 5 mg AC-BRKFST RAJ Administration Heparin Sodium (Porcine) 5,000 unit 07/19/24 10:15 07/19/24 23:23 Heparin Sodium,Porcine 5,000 Unit/Ml 1 Ml Vial SQ 5,000 unit Q8HR RAJ Administration Insulin Human Lispro 0 unit 07/19/24 12:30 07/20/24 06:42 Insulin Lispro (Humalog) 100 Unit/Ml 10 Ml Vl SQ 1 unit ACHS RAJ Administration Protocol Linagliptin 5 mg 07/19/24 09:00 07/19/24 08:52 Linagliptin 5 Mg Tablet PO 5 mg DAILY RAJ Administration Methylprednisolone Sodium Succinate 40 mg 07/19/24 10:15 07/19/24 23:33 Methylprednisolone Sod [place]cci 40 Mg/Ml 1 Ml Vial IV 40 mg Q8HR RAJ Administration Metoprolol Tartrate 25 mg 07/20/24 09:00 Metoprolol Tartrate 25 Mg Tab PO BID RAJ Non-Formulary Medication 100 mg 07/19/24 09:00 Sildenafil Citrate [Sildenafil Citrate] PO DAILY PRN E.D. Oseltamivir Phosphate 75 mg 07/19/24 09:00 07/19/24 21:02 Oseltamivir 75 Mg Cap PO 07/24/24 08:59 75 mg Q12HR RAJ Administration Protocol Oxycodone HCl 5 mg 07/19/24 06:00 Oxycodone Hcl 5 Mg Tab PO Q6H PRN Pain Pantoprazole Sodium 40 mg 07/19/24 07:30 07/20/24 05:52 Pantoprazole 40 Mg Tablet PO 40 mg AC-BRKFST RAJ Administration Potassium Chloride 20 meq 07/19/24 09:00 07/19/24 08:52 Potassium Chloride Er 20 Meq Tab.Er PO 20 meq DAILY RAJ Administration Pregabalin 150 mg 07/19/24 09:00 07/19/24 08:52 Pregabalin 75 Mg Cap PO 150 mg DAILY RAJ Administration Sodium Chloride 10 ml 07/19/24 09:00 07/19/24 21:03 Sodium Chloride 0.9% Flush 10 Ml Syringe IV 10 ml BID RAJ Administration Spironolactone 12.5 mg 07/19/24 13:00 07/19/24 21:50 Spironolactone 25 Mg Tab PO 12.5 mg QID RAJ Administration Tiotropium [place] 2 puff 07/19/24 08:00 07/20/24 07:50 Tiotropium 2.5 Mcg Inhaler INHALATION 2 puff RT-DAILY RAJ Administration Intake and Output 07/19/24 07/20/24 07/20/24 22:59 06:59 14:59 Output Total 1320 Balance -1320 Output: Urine 1320 Other: Voiding Method Toilet # Voids 2 Weight 169.9 kg 07/19/24 01:03 07/19/24 01:03
[2024-07-20 11:51] LABS: Glucose,Whole Blood 251 mg/dL (70-110)
[2024-07-20] MEDS: DAPAGLIFLOZIN PROPANEDIOL 10 MG TABLET PO SCH (12:45)
--- NOTE | 2024-07-20 16:01 | P.PN ---
Subjective Progress Note Date: 07/20/24 This is a 54-year-old male patient with a known history of diabetes mellitus, congestive heart failure, hypertension, hyperlipidemia, chronic obstructive pulmonary disease, former smoker, obstructive sleep apnea intolerant to CPAP. He had recently had the norovirus approximately 1 week ago. He was then in [facility] this week for influenza A. He was discharged from there yesterday and ended up here last night with increasing shortness of breath. Chest x-ray reveals cardiomegaly without an acute pulmonary process. White count 11.9. Hemoglobin 15.3. Platelets 364. D-dimer 1.62. Sodium 136. Potassium 5.0. Bicarb 29. BUN 28. Creatinine 1.10. Glucose 100. AST 64. ALT 112. Troponin 0.047. proBNP 8030. Viral screen positive for influenza A. He is seen today in consultation in the emergency department. He is currently resting on a stretcher. Awake and alert in no acute distress. Maintaining O2 saturations in the high 90s on 2 L/min per nasal cannula. He is afebrile. Hemodynamically stable. The patient is seen today July 20, 2024 in follow-up on the selective care unit. He is currently sitting up in bed. Awake and alert in no acute distress. Maintaining good O2 saturations in the 90s on room air. Been afebrile. Hemodynamically stable. Doppler of the bilateral lower extremities revealed no evidence of DVT. Ventilation perfusion scan revealed low probability for pulmonary embolism. Sodium 134. Potassium 5.1. Bicarb 29. BUN 33. Creatinine 1.00. Glucose 155. AST 46. ALT 91. He remains on IV diuretics. Continued on bronchodilators, steroids. Heparin for DVT prophylaxis. Currently in a -3.2 L balance. Objective - Vital Signs Vital signs: Vital Signs Temp 97.0 F L 07/20/24 12:00 Pulse 88 07/20/24 12:00 Resp 20 07/20/24 12:00 BP 125/89 07/20/24 12:00 Pulse Ox 98 07/20/24 12:00 FiO2 Intake & Output 07/19/24 07/20/24 07/20/24 18:59 06:59 18:59 Intake Total 236 Output Total 1900 1320 Balance -1900 -1320 236 Weight 169.9 kg Intake: Oral 236 Output: Urine 1900 1320 Other: Voiding Method Toilet Toilet # Voids 2 - Exam GENERAL EXAM: Alert, morbidly obese, 54-year-old male, on room air, comfortable in no apparent distress. HEAD: Normocephalic. EYES: Normal reaction of pupils, equal size. NOSE: Clear with pink turbinates. THROAT: No erythema or exudates. NECK: No masses, no JVD. CHEST: No chest wall deformity. LUNGS: Equal air entry with no crackles, wheeze, rhonchi or dullness. CVS: S1 and S2 normal with no audible murmur, regular rhythm. ABDOMEN: No hepatosplenomegaly, normal bowel sounds, no guarding or rigidity. SPINE: No scoliosis or deformity SKIN: No rashes CENTRAL NERVOUS SYSTEM: No focal deficits, tone is normal in all 4 extremities. EXTREMITIES: There is trace peripheral edema. No clubbing, no cyanosis. Peripheral pulses are intact. - Labs CBC & Chem 7: 07/19/24 01:03 07/20/24 07:26 Labs: Abnormal Lab Results - Last 24 Hours (Table) 07/19/24 07/19/24 07/20/24 Range/Units 18:15 21:18 06:24 Sodium (137-145) mmol/L Chloride (98-107) mmol/L BUN (9-20) mg/dL Glucose (74-99) mg/dL POC Glucose (mg/dL) 134 H 169 H 171 H (70-110) mg/dL Hemoglobin A1c (<=6.0) % Total Bilirubin (0.2-1.3) mg/dL ALT (4-49) U/L Alkaline Phosphatase (38-126) U/L Albumin (3.5-5.0) g/dL 07/20/24 07/20/24 07/20/24 Range/Units 07:26 07:26 11:49 Sodium 134 L (137-145) mmol/L Chloride 95 L (98-107) mmol/L BUN 33 H (9-20) mg/dL Glucose 155 H (74-99) mg/dL POC Glucose (mg/dL) 251 H (70-110) mg/dL Hemoglobin A1c 7.7 H (<=6.0) % Total Bilirubin 1.6 H (0.2-1.3) mg/dL ALT 91 H (4-49) U/L Alkaline Phosphatase 157 H (38-126) U/L Albumin 3.4 L (3.5-5.0) g/dL Assessment and Plan Assessment: Acute influenza A infection Acute exacerbation of chronic obstructive pulmonary disease Acute exacerbation of chronic systolic congestive heart failure Troponin leak secondary to above Recent norovirus infection Morbid obesity with a BMI of 50.8 kg/m Obstructive sleep apnea intolerant to CPAP Chronic tobacco dependence Diabetes mellitus Hypertension Hyperlipidemia Diabetic neuropathy Marijuana use Plan: The patient was seen and evaluated Currently stable and on room air Labs and medications reviewed Continue Tamiflu Continue albuterol as needed, Symbicort, Spiriva Continue Solu-Medrol Continue IV diuretics Heparin for DVT prophylaxis We will continue to follow I have personally seen and examined the patient, performed the documentation and the assessment and plan as written. Number of minutes spent on the visit: 10 Dictation was produced using [employer] dictation software. Please excuse any grammatical, word or spelling errors.
[2024-07-20 16:26] VITALS: BMI 49.4
[2024-07-20 16:33] LABS: Glucose,Whole Blood 175 mg/dL (70-110)
[2024-07-20 20:33] LABS: Glucose,Whole Blood 201 mg/dL (70-110)
[2024-07-21 06:25] LABS: Glucose,Whole Blood 156 mg/dL (70-110)
[2024-07-21 07:27] LABS: Basophils % (A) 0 %; Eosinophils % (A) 0 %; HCT 48.6 % (39.0-53.0); HGB 14.8 gm/dL (13.0-17.5); Hypochromasia Moderate; Lymphocytes # (A) 0.8 k/uL (1.0-4.8); Lymphocytes % (A) 5 %; MCH 24.9 pg (25.0-35.0); MCHC 30.5 g/dL (31.0-37.0); MCV 81.6 fL (80.0-100.0); Mean Platelet Volume 7.6; Monocytes # (A) 0.5 k/uL (0-1.0); Monocytes % (A) 3 %; Neutrophils # (A) 13.7 k/uL (1.3-7.7); Neutrophils % (A) 90 %; Platelet Count 422 k/uL (150-450); RBC 5.96 m/uL (4.30-5.90); RDW 14.3 % (11.5-15.5); WBC 15.2 k/uL (3.8-10.6)
[2024-07-21 07:39] LABS: ALT 91 U/L (4-49); AST 50 U/L (17-59); African American GFR (CKD) >90 (>60 ml/min/1.73 sqM); Albumin 3.5 g/dL (3.5-5.0); Alkaline Phosphatase 145 U/L (38-126); Anion Gap 7 mmol/L; Blood Urea Nitrogen 40 mg/dL (9-20); Carbon Dioxide 32 mmol/L (22-30); Chloride 94 mmol/L (98-107); Glucose 142 mg/dL (74-99); Non-African American GFR(CKD) 84 (>60 ml/min/1.73 sqM); Potassium 5.4 mmol/L (3.5-5.1); Sodium 133 mmol/L (137-145); Total Bilirubin 1.2 mg/dL (0.2-1.3); Total Protein 6.6 g/dL (6.3-8.2)
[2024-07-21 11:42] LABS: Glucose,Whole Blood 223 mg/dL (70-110)
--- NOTE | 2024-07-21 13:20 | P.PN ---
Subjective Progress Note Date: 07/21/24 Reason for Consult (text): CHF and chest pain History of present illness: This is a 54-year-old male patient of Dr. Amador with past medical history of di abetes mellitus type 2, hypertension, hyperlipidemia, chronic tobacco use, COPD, morbid obesity. We have been asked to evaluate the patient for CHF and chest pain. Patient came into the hospital due to shortness of breath that has been ongoing for a long time but worsening over the past year. He also complains of swelling in his legs and hands along with the shortness of breath worsening. Patient was last seen in the office with Dr. Amador on 02/27/2024. Patient at that time was started on Entresto but unfortunately this was too costly for the patient. He was also started on Farxiga. Blood pressure 95/67, heart rate 81, pulse ox 97% on room air. Patient has been started on IV Lasix 40 mg every 12 hours as well as Tamiflu, Solu-Medrol. Patient has been a smoker of 2 packs/day and is now cut back to 1 pack/week. He denies any alcohol use or abuse. He does use marijuana regularly. -EKG: Sinus rhythm 87 bpm -Chest x-ray: Cardiomegaly without acute process. -VQ scan: Low probability for pulmonary embolism. -Venous duplex bilateral lower extremities negative for DVT, suboptimal due to body habitus. -Laboratory studies: WBC 11.9, hemoglobin 15.3, INR 1.2. D-dimer 1.62. Sodium 136, potassium 5, BUN 28 creatinine 1.1. Troponins 0.0490.046 and 0.053, 0.047. Influenza detected. AST 64, ALT 112, alkaline phosphatase 165. -Home cardiac medications: Aspirin 81 mg daily, atorvastatin 40 mg daily, Lasix 40 mg daily, lisinopril 2.5 mg at bedtime, metoprolol tartrate 25 mg twice daily, Nitrostat as needed, potassium chloride 20 mill equivalents daily, spironolactone 12.5 mg at 1300. Also on Farxiga 10 mg daily not on his home list. -Cardiac catheterization performed 02/10/2024 revealed normal coronary arteries. -Echocardiogram performed 02/15/2024 revealed EF of 35 to 40%, dilated LV. 07/21 Patient seen and examined. Patient denies having any chest pain. Breathing is not as bad. He is off oxygen. Blood pressure 110/72, heart rate 85, pulse ox 95%. Repeat blood work reveals potassium of 5.4, sodium 133, BUN 40 and creatinine 1.01. WBC 15.2 and hemoglobin 14.8. Physical examination: Gen: This is a morbidly obese 54-year-old male in no acute distress VS: reviewed HEENT: Head is atraumatic, normocephalic. Pupils equal, round. Sclerae is anicteric. NECK: Supple. No JVD. LUNGS: Diminished to the bilateral bases. No intercostal retractions. HEART: Regular rate and rhythm. ABDOMEN: Soft No tenderness. EXTREMITIES: Bilateral lower extremity edema. No calf tenderness. NEUROLOGICAL: Patient is awake, alert and oriented x3. 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 Plan: Continue current cardiac medications: Aspirin 81 mg daily, atorvastatin 40 mg daily, Farxiga 10 mg daily, Aldactone 12.5 mg 4 times daily Continue patient on IV Lasix 40 mg every 12 hours Continue treatment for influenza and COPD exacerbation Patient was cannot afford Entresto Monitor TOYA, daily weights, electrolytes and renal function Discontinue potassium for hyperkalemia Obtain 2-D echocardiogram and Doppler study to assess cardiac structure and function Obtain kappa Light chain, lambda light chain, protein electrophoresis Further recommendations to follow based upon clinical course. Nurse practitioner note has been reviewed, I agree with documented findings and plan of care. Patient was seen and examined. Objective - Vital Signs Vital signs: Vital Signs Temp 98.2 F 07/21/24 08:00 Pulse 85 07/21/24 08:00 Resp 16 07/21/24 08:00 BP 110/72 07/21/24 08:00 Pulse Ox 95 07/21/24 08:00 FiO2 Intake & Output 07/20/24 07/21/24 07/21/24 18:59 06:59 18:59 Intake Total 458 240 Output Total 300 500 Balance 458 -300 -260 Weight 169.9 kg 167.7 kg Intake: Oral 458 240 Output: Urine 300 500 Other: Voiding Method Toilet Toilet Toilet # Voids 2 - Labs CBC & Chem 7: 07/21/24 06:40 07/21/24 06:36 Labs: Abnormal Lab Results - Last 24 Hours (Table) 07/20/24 07/20/24 07/20/24 Range/Units 11:49 16:31 20:32 WBC (3.8-10.6) k/uL RBC (4.30-5.90) m/uL MCH (25.0-35.0) pg MCHC (31.0-37.0) g/dL Neutrophils # (1.3-7.7) k/uL Lymphocytes # (1.0-4.8) k/uL Sodium (137-145) mmol/L Potassium (3.5-5.1) mmol/L Chloride (98-107) mmol/L Carbon Dioxide (22-30) mmol/L BUN (9-20) mg/dL Glucose (74-99) mg/dL POC Glucose (mg/dL) 251 H 175 H 201 H (70-110) mg/dL ALT (4-49) U/L Alkaline Phosphatase (38-126) U/L 07/21/24 07/21/24 07/21/24 Range/Units 06:24 06:36 06:40 WBC 15.2 H (3.8-10.6) k/uL RBC 5.96 H (4.30-5.90) m/uL MCH 24.9 L (25.0-35.0) pg MCHC 30.5 L (31.0-37.0) g/dL Neutrophils # 13.7 H (1.3-7.7) k/uL Lymphocytes # 0.8 L (1.0-4.8) k/uL Sodium 133 L (137-145) mmol/L Potassium 5.4 H (3.5-5.1) mmol/L Chloride 94 L (98-107) mmol/L Carbon Dioxide 32 H (22-30) mmol/L BUN 40 H (9-20) mg/dL Glucose 142 H (74-99) mg/dL POC Glucose (mg/dL) 156 H (70-110) mg/dL ALT 91 H (4-49) U/L Alkaline Phosphatase 145 H (38-126) U/L
--- NOTE | 2024-07-21 15:10 | P.PN ---
Subjective Progress Note Date: 07/21/24 This is a 54-year-old male patient with a known history of diabetes mellitus, congestive heart failure, hypertension, hyperlipidemia, chronic obstructive pulmonary disease, former smoker, obstructive sleep apnea intolerant to CPAP. He had recently had the norovirus approximately 1 week ago. He was then in [facility] this week for influenza A. He was discharged from there yesterday and ended up here last night with increasing shortness of breath. Chest x-ray reveals cardiomegaly without an acute pulmonary process. White count 11.9. Hemoglobin 15.3. Platelets 364. D-dimer 1.62. Sodium 136. Potassium 5.0. Bicarb 29. BUN 28. Creatinine 1.10. Glucose 100. AST 64. ALT 112. Troponin 0.047. proBNP 8030. Viral screen positive for influenza A. He is seen today in consultation in the emergency department. He is currently resting on a stretcher. Awake and alert in no acute distress. Maintaining O2 saturations in the high 90s on 2 L/min per nasal cannula. He is afebrile. Hemodynamically stable. The patient is seen today July 20, 2024 in follow-up on the selective care unit. He is currently sitting up in bed. Awake and alert in no acute distress. Maintaining good O2 saturations in the 90s on room air. Been afebrile. Hemodynamically stable. Doppler of the bilateral lower extremities revealed no evidence of DVT. Ventilation perfusion scan revealed low probability for pulmonary embolism. Sodium 134. Potassium 5.1. Bicarb 29. BUN 33. Creatinine 1.00. Glucose 155. AST 46. ALT 91. He remains on IV diuretics. Continued on bronchodilators, steroids. Heparin for DVT prophylaxis. Currently in a -3.2 L balance. The patient is seen today July 21, 2024 in follow-up on the selective care unit. He is currently sitting up at the bedside. Awake and alert in no acute distress. Maintaining good O2 saturations in the 90s on room air. He is afebr ile. Hemodynamically stable. White count 15.2. Hemoglobin 14.8. Platelets 422. Sodium 133. Potassium 5.4. Bicarb 32. BUN 40. Creatinine 1.01. Glucose 142. Lasix 40 mg IV every 12 hours. Heparin for DVT prophylaxis. Remains on Tamiflu. Continued on bronchodilators and steroids. Objective - Vital Signs Vital signs: Vital Signs Temp 98.1 F 07/21/24 12:00 Pulse 78 07/21/24 14:00 Resp 18 07/21/24 14:00 BP 124/76 07/21/24 12:00 Pulse Ox 94 L 07/21/24 12:00 FiO2 Intake & Output 07/20/24 07/21/24 07/21/24 18:59 06:59 18:59 Intake Total 458 1200 Output Total 300 500 Balance 458 -300 700 Weight 169.9 kg 167.7 kg Intake: Oral 458 1200 Output: Urine 300 500 Other: Voiding Method Toilet Toilet Toilet # Voids 2 - Exam GENERAL EXAM: Alert, morbidly obese, 54-year-old male, sitting up at the bedside, on room air, comfortable in no apparent distress. HEAD: Normocephalic. EYES: Normal reaction of pupils, equal size. NOSE: Clear with pink turbinates. THROAT: No erythema or exudates. NECK: No masses, no JVD. CHEST: No chest wall deformity. LUNGS: Equal air entry with no crackles, wheeze, rhonchi or dullness. CVS: S1 and S2 normal with no audible murmur, regular rhythm. ABDOMEN: No hepatosplenomegaly, normal bowel sounds, no guarding or rigidity. SPINE: No scoliosis or deformity SKIN: No rashes CENTRAL NERVOUS SYSTEM: No focal deficits, tone is normal in all 4 extremities. EXTREMITIES: There is 1-2+ peripheral edema. No clubbing, no cyanosis. Peripheral pulses are intact. - Labs CBC & Chem 7: 07/21/24 06:40 07/21/24 06:36 Labs: Abnormal Lab Results - Last 24 Hours (Table) 07/20/24 07/20/24 07/21/24 Range/Units 16:31 20:32 06:24 WBC (3.8-10.6) k/uL RBC (4.30-5.90) m/uL MCH (25.0-35.0) pg MCHC (31.0-37.0) g/dL Neutrophils # (1.3-7.7) k/uL Lymphocytes # (1.0-4.8) k/uL Sodium (137-145) mmol/L Potassium (3.5-5.1) mmol/L Chloride (98-107) mmol/L Carbon Dioxide (22-30) mmol/L BUN (9-20) mg/dL Glucose (74-99) mg/dL POC Glucose (mg/dL) 175 H 201 H 156 H (70-110) mg/dL ALT (4-49) U/L Alkaline Phosphatase (38-126) U/L 07/21/24 07/21/24 07/21/24 Range/Units 06:36 06:40 11:40 WBC 15.2 H (3.8-10.6) k/uL RBC 5.96 H (4.30-5.90) m/uL MCH 24.9 L (25.0-35.0) pg MCHC 30.5 L (31.0-37.0) g/dL Neutrophils # 13.7 H (1.3-7.7) k/uL Lymphocytes # 0.8 L (1.0-4.8) k/uL Sodium 133 L (137-145) mmol/L Potassium 5.4 H (3.5-5.1) mmol/L Chloride 94 L (98-107) mmol/L Carbon Dioxide 32 H (22-30) mmol/L BUN 40 H (9-20) mg/dL Glucose 142 H (74-99) mg/dL POC Glucose (mg/dL) 223 H (70-110) mg/dL ALT 91 H (4-49) U/L Alkaline Phosphatase 145 H (38-126) U/L Assessment and Plan Assessment: Acute influenza A infection Acute exacerbation of chronic obstructive pulmonary disease Acute exacerbation of chronic systolic congestive heart failure Troponin leak secondary to above Recent norovirus infection Morbid obesity with a BMI of 50.8 kg/m Obstructive sleep apnea intolerant to CPAP Chronic tobacco dependence Diabetes mellitus Hypertension Hyperlipidemia Diabetic neuropathy Marijuana use Plan: The patient was seen and evaluated Currently stable and on room air Labs and medications reviewed Echocardiogram pending Continue Tamiflu Continue albuterol as needed, Symbicort, Spiriva Transition to oral steroids Continue IV diuretics Heparin for DVT prophylaxis Increase his activity as tolerated We will continue to follow I have personally seen and examined the patient, performed the documentation and the assessment and plan as written. Number of minutes spent on the visit: 10 Dictation was produced using [employer] software. Please excuse any grammatical, word or spelling errors.
--- NOTE | 2024-07-21 15:16 | P.PN ---
Progress Note - Text Interval History: This is a pleasant 54 years old male with past medical history of multiple medical problems as below Presents because of dyspnea and shortness of breath and chest pain. Information was obtained mainly from the patient, at bedside Patient presents because of dyspnea since Tuesday especially with exertion. Also he is complaining from chest pain on the left side going to the central, About 8/10 worse with breathing and coughing. Letcher like heaviness. He has little headache and dizziness Feels generally weak Denies any specific GI or symptoms. No specific limb weakness or tingling Denies alcohol. He smokes 1 pack which lasts about a week. And he smokes marijuana Patient states that he has been diagnosed with COPD and he follow-up with pulmonary physician in the system. Review of record showed that he has cardiac cath on 01/2024 showing normal coronary arteries Patient is hemodynamically stable, is mildly tachypneic while at rest. Afebrile. Blood pressure slightly elevated. Labs including CBC, BMP, liver enzymes and INR are unremarkable Troponin are elevated with flat affect at 0.04, 0.04, 0.05. Chest x-ray showing mild pulmonary vascular congestion proBNP is also elevated at 8030. 07/20 Patient feels improvement but not back to normal. He still have some exertional symptoms. He still tachypneic. No chest pain no significant coughing. Blood pressure is 95 /67. Patient saturating 97% on room air. D-dimer was elevated 1.6. However perfusion scans showing low probability for PE, ultrasound of the leg also negative for DVT. Patient remains on Tamiflu, Lovenox IV 40 mg twice daily and IV Solu-Medrol 40 mg as well as aspirin. 07/21--Patient was seen and examined today. Continue complain of shortness of breath, cough. Remained afebrile, heart rate 78, respiratory rate 18, blood pressure 124/76, saturating 94% on room air. Pulmonary and cardiology following. Potassium is elevated 5.4 today, we will hold off lisinopril and Aldactone if potassium remains elevated. Patient remains on bronchodilator/inhaler, steroids, Tamiflu, IV diuresis. Assessment and plan: Acute on chronic systolic CHF: Acute COPD exacerbation Influenza A infection: Recent norovirus infection Elevated troponin: Type II PR Hyperkalemia: Diabetes mellitus Obstructive sleep apnea on CPAP Hypertension Hyperlipidemia Diabetic neuropathy Marijuana use Morbid obesity with BMI of 50.8 ROSA: Mild transaminitis: Secondary to viral infection Hard of hearing Plan: Continue with IV Lasix, continue home meds, cardiology consulted-- Continue home meds aspirin, statin, Farxiga, Aldactone, lisinopril, will hold Aldactone and lisinopril if potassium remains elevated. Echocardiogram Tamiflu Solu-Medrol, inhalers right bronchodilator protocol, pulmonary consult. Continue with aspirin Continue with insulin sliding scale and resume cardiac and diabetes medication Labs and medication were reviewed.. Continue same treatment. Continue with symptomatic treatment. Resume home medication. Monitor lytes and vitals. DVT and GI prophylaxis. Further recommendations depends on the clinical course of the patient DVT prophylaxis: Subcutaneous heparin GI Prophylaxis: Pepcid PT/OT: Pending Prognosis is guarded DVT prophylaxis: Monitor vital signs and labs Labs and medication were reviewed. Continue same treatment. Further recommendations as per clinical course of the patient PHYSICAL EXAMINATION: GENERAL: The patient is A&O x3, NAD HEENT: EOMI, Sclerae anicteric, Moist Mucous membranes Neck: Supple, Non tender, No JVD PULMONARY: Equal breath souds B/L, No wheezing, No crackles. CARDIOVASCULAR: S1, S2 present. No murmurs, rubs, or gallops. ABDOMEN: Soft, nontender, nondistended, normoactive bowel sounds. No guarding or rebound tenderness. MUSCULOSKELETAL: No edema, No cyanosis. No clubbing. Normal ROM. Intact peripheral pulses. NEUROLOGICAL: CN 2-12 grossly intact. No FND Skin: No Rash REVIEW OF SYSTEMS: CONSTITUTIONAL: No fever or chills. CARDIOVASCULAR: No chest pain, palpitations or syncope. PULMONARY: No shortness of breath, no cough, sore throat. GASTROINTESTINAL: No nausea, vomiting, diarrhea, abdominal pain. : No Dysuria, urgency, frequency. Extremities: No edema. NEUROLOGICAL: No headaches, no weakness, or numbness Dictation was produced using [employer] software. please excuse any grammatical, word or spelling errors.
[2024-07-21 16:24] LABS: Glucose,Whole Blood 177 mg/dL (70-110)
[2024-07-21 19:57] LABS: Glucose,Whole Blood 159 mg/dL (70-110)
[2024-07-21] MEDS: SYMBICORT 160-4.5 MCG INHALER INHALATION SCH (21:49)
[2024-07-22 06:02] LABS: Glucose,Whole Blood 134 mg/dL (70-110)
[2024-07-22 08:23] LABS: Basophils % (A) 0 %; Eosinophils % (A) 0 %; Hypochromasia Marked; Lymphocytes % (A) 13 %; MCH 24.8 pg (25.0-35.0); MCHC 30.5 g/dL (31.0-37.0); MCV 81.3 fL (80.0-100.0); Mean Platelet Volume 7.2; Monocytes % (A) 6 %; Neutrophils # (A) 12.6 k/uL (1.3-7.7); Neutrophils % (A) 79 %; Platelet Count 446 k/uL (150-450); RBC 6.03 m/uL (4.30-5.90); RDW 14.3 % (11.5-15.5)
[2024-07-22] MEDS: predniSONE 20 MG TAB PO SCH (08:35)
[2024-07-22 08:45] LABS: African American GFR (CKD) >90 (>60 ml/min/1.73 sqM); Anion Gap 6 mmol/L; Blood Urea Nitrogen 34 mg/dL (9-20); Calcium 8.6 mg/dL (8.4-10.2); Carbon Dioxide 32 mmol/L (22-30); Chloride 97 mmol/L (98-107); Glucose 111 mg/dL (74-99); Magnesium 2.5 mg/dL (1.6-2.3); Non-African American GFR(CKD) >90 (>60 ml/min/1.73 sqM); Potassium 4.9 mmol/L (3.5-5.1); Sodium 135 mmol/L (137-145)
--- NOTE | 2024-07-22 09:05 | CA ---
Transthoracic Echo Report Name: tSeffen Robertson Age: 54 Gender: M : 1970 Exam Date: 07/21/2024 15:10 Exam Location: [facility] Ht (in): 73 Wt (lb): 369 Ordering Physician: Kelsie Bashir Attending/Referring Phys: [id number], Krysten [employer] Lia Louis RDCS Procedure CPT: Indications: LVF Cardiac Hx: Technical Quality: Technically difficult study Contrast 1: Definity Total Dose (mL): 2 Contrast 2: Total Dose (mL): MEASUREMENTS (Male / Female) Normal Values 2D ECHO LV Diastolic Diameter PLAX 5.8 cm 4.2 - 5.9 / 3.9 - 5.3 cm LV Systolic Diameter PLAX 5.3 cm IVS Diastolic Thickness 1.4 cm 0.6 - 1.0 / 0.6 - 0.9 cm LVPW Diastolic Thickness 1.5 cm 0.6 - 1.0 / 0.6 - 0.9 cm LV Relative Wall Thickness 0.5 RV Internal Dim ED PLAX 3.9 cm LA Systolic Diameter LX 5.3 cm 3.0 - 4.0 / 2.7 - 3.8 cm LV Diastolic Volume MOD BP 199.8 cm??? 67 - 155 / 56 - 104 cm??? LV Systolic Volume MOD BP 158.5 cm??? - 58 / 19 - 49 cm??? LV Ejection Fraction MOD BP 20.7 % >= 55 % LV Cardiac Index MOD BP 1093.5 cm???/min???m??? LV Diastolic Volume MOD 4C 193.4 cm??? LV Systolic Volume MOD 4C 154.9 cm??? LV Ejection Fraction MOD 4C 19.9 % LV Cardiac Index MOD 4C 1020.0 cm???/min???m??? LV Diastolic Length 4C 8.8 cm LV Systolic Length 4C 8.8 cm LV Diastolic Volume MOD 2C 197.7 cm??? LV Systolic Volume MOD 2C 163.9 cm??? LV Ejection Fraction MOD 2C 17.1 % LV Cardiac Index MOD 2C 895.8 cm???/min???m??? LV Diastolic Length 2C 9.2 cm LV Systolic Length 2C 8.8 cm LA Volume 80.3 cm??? 18 - 58 / 22 - 52 cm??? LA Volume Index 26.6 cm???/m??? 16 - 28 cm???/m??? M-MODE Aortic Root Diameter MM 3.3 cm DOPPLER AV Peak Velocity 105.8 cm/s AV Peak Gradient 4.5 mmHg MV Area PHT 5.9 cm??? Mitral E Point Velocity 107.9 cm/s Mitral A Point Velocity 56.3 cm/s Mitral E to A Ratio 1.9 MV Deceleration Time 128.5 ms TR Peak Velocity 315.8 cm/s TR Peak Gradient 39.9 mmHg Right Ventricular Systolic Press 44.0 mmHg FINDINGS Left Ventricle Left ventricular ejection fraction is estimated at 15-20 %. Mildly increased septal wall thickness. Moderately increased left ventricular diastolic volume. Severely increased left ventricular systolic volume. Severely decreased left ventricular ejection fraction. Right Ventricle Moderate to severe right ventricular dilatation. Mild pulmonary hypertension. Right Atrium Right atrium not well visualized. Left Atrium Severely increased left atrial diameter. Severely increased left atrial volume. Mildly increased left atrial area. Mitral Valve No mitral stenosis, regurgitation or prolapse. No evidence for mitral valve prolapse. No mitral stenosis. Trace to mild mitral regurgitation. Aortic Valve Aortic valve not well visualized. No aortic valve stenosis or regurgitation. Tricuspid Valve Structurally normal tricuspid valve. [id number] tricuspid regurgitation. Pulmonic Valve Pulmonic valve not well visualized. Pericardium No pericardial effusion. Aorta Normal size aortic root and proximal ascending aorta. CONCLUSIONS Left ventricular ejection fraction 15-20% Mildly dilated left ventricle Mildly increased left ventricular wall thickness RVSP 44 Moderate to severe right ventricular dilation Severely dilated left atrium Trace to mild mitral regurgitation Mild to moderate tricuspid regurgitation No pericardial effusion Previewed by: Dr. Luis Killian DO (Electronically Signed) Final Date: 22 July 2024 09:04
[2024-07-22 11:40] LABS: Glucose,Whole Blood 282 mg/dL (70-110)
--- NOTE | 2024-07-22 13:26 | P.PN ---
Subjective Progress Note Date: 07/22/24 This is a 54-year-old male patient with a known history of diabetes mellitus, congestive heart failure, hypertension, hyperlipidemia, chronic obstructive pulmonary disease, former smoker, obstructive sleep apnea intolerant to CPAP. He had recently had the norovirus approximately 1 week ago. He was then in [facility] this week for influenza A. He was discharged from there yesterday and ended up here last night with increasing shortness of breath. Chest x-ray reveals cardiomegaly without an acute pulmonary process. White count 11.9. Hemoglobin 15.3. Platelets 364. D-dimer 1.62. Sodium 136. Potassium 5.0. Bicarb 29. BUN 28. Creatinine 1.10. Glucose 100. AST 64. ALT 112. Troponin 0.047. proBNP 8030. Viral screen positive for influenza A. He is seen today in consultation in the emergency department. He is currently resting on a stretcher. Awake and alert in no acute distress. Maintaining O2 saturations in the high 90s on 2 L/min per nasal cannula. He is afebrile. Hemodynamically stable. The patient is seen today July 20, 2024 in follow-up on the selective care unit. He is currently sitting up in bed. Awake and alert in no acute distress. Maintaining good O2 saturations in the 90s on room air. Been afebrile. Hemodynamically stable. Doppler of the bilateral lower extremities revealed no evidence of DVT. Ventilation perfusion scan revealed low probability for pulmonary embolism. Sodium 134. Potassium 5.1. Bicarb 29. BUN 33. Creatinine 1.00. Glucose 155. AST 46. ALT 91. He remains on IV diuretics. Continued on bronchodilators, steroids. Heparin for DVT prophylaxis. Currently in a -3.2 L balance. The patient is seen today July 21, 2024 in follow-up on the selective care unit. He is currently sitting up at the bedside. Awake and alert in no acute distress. Maintaining good O2 saturations in the 90s on room air. He is afebr ile. Hemodynamically stable. White count 15.2. Hemoglobin 14.8. Platelets 422. Sodium 133. Potassium 5.4. Bicarb 32. BUN 40. Creatinine 1.01. Glucose 142. Lasix 40 mg IV every 12 hours. Heparin for DVT prophylaxis. Remains on Tamiflu. Continued on bronchodilators and steroids. The patient is seen today July 22, 2024 in follow-up on the selective care unit. He is awake and alert in no acute distress. Sitting up in bed. Denies any worsening shortness of breath, cough or congestion. Maintaining good O2 saturations in the upper 90s on room air. He has been afebrile. Hemodyna mically stable. White count 16.0. Hemoglobin 15.0. Platelets 446. Sodium 135. Potassium 4.9. Bicarb 32. BUN 34. Creatinine 0.92. Glucose 111. Echocardiogram reveals severely impaired left ventricular systolic function with an ejection fraction of 15 to 20%. He remains on IV and oral diuretics. Currently in a -1.8 L balance. Continued on bronchodilators and prednisone taper. Remains on Tamiflu. Heparin for DVT prophylaxis. Objective - Vital Signs Vital signs: Vital Signs Temp 97.5 F L 07/22/24 12:00 Pulse 71 07/22/24 12:00 Resp 16 07/22/24 12:00 BP 119/68 07/22/24 12:00 Pulse Ox 97 07/22/24 12:00 FiO2 Intake & Output 07/21/24 07/22/24 07/22/24 18:59 06:59 18:59 Intake Total 1740 720 Output Total 500 3050 1350 Balance 1240 -3050 -630 Weight 166.8 kg Intake: Oral 1740 720 Output: Urine 500 3050 1350 Other: Voiding Method Toilet Toilet Toilet - Exam GENERAL EXAM: Alert, morbidly obese, 54-year-old male, resting in bed, on room air, comfortable in no apparent distress. HEAD: Normocephalic. EYES: Normal reaction of pupils, equal size. NOSE: Clear with pink turbinates. THROAT: No erythema or exudates. NECK: No masses, no JVD. CHEST: No chest wall deformity. LUNGS: Equal air entry with no crackles, wheeze, rhonchi or dullness. CVS: S1 and S2 normal with no audible murmur, regular rhythm. ABDOMEN: No hepatosplenomegaly, normal bowel sounds, no guarding or rigidity. SPINE: No scoliosis or deformity SKIN: No rashes CENTRAL NERVOUS SYSTEM: No focal deficits, tone is normal in all 4 extremities. EXTREMITIES: There is 1-2+ peripheral edema. No clubbing, no cyanosis. Peripheral pulses are intact. - Labs CBC & Chem 7: 07/22/24 07:17 07/22/24 07:17 Labs: Abnormal Lab Results - Last 24 Hours (Table) 07/21/24 07/21/24 07/22/24 Range/Units 16:22 19:43 05:57 WBC (3.8-10.6) k/uL RBC (4.30-5.90) m/uL MCH (25.0-35.0) pg MCHC (31.0-37.0) g/dL Neutrophils # (1.3-7.7) k/uL Sodium (137-145) mmol/L Chloride (98-107) mmol/L Carbon Dioxide (22-30) mmol/L BUN (9-20) mg/dL Glucose (74-99) mg/dL POC Glucose (mg/dL) 177 H 159 H 134 H (70-110) mg/dL Magnesium (1.6-2.3) mg/dL 07/22/24 07/22/24 07/22/24 Range/Units 07:17 07:17 11:39 WBC 16.0 H (3.8-10.6) k/uL RBC 6.03 H (4.30-5.90) m/uL MCH 24.8 L (25.0-35.0) pg MCHC 30.5 L (31.0-37.0) g/dL Neutrophils # 12.6 H (1.3-7.7) k/uL Sodium 135 L (137-145) mmol/L Chloride 97 L (98-107) mmol/L Carbon Dioxide 32 H (22-30) mmol/L BUN 34 H (9-20) mg/dL Glucose 111 H (74-99) mg/dL POC Glucose (mg/dL) 282 H (70-110) mg/dL Magnesium 2.5 H (1.6-2.3) mg/dL Assessment and Plan Assessment: Acute influenza A infection Acute exacerbation of chronic obstructive pulmonary disease Acute exacerbation of chronic systolic congestive heart failure. Echocardiogram reveals severely impaired left ventricular systolic function with an ejection fraction of 15 to 20% Troponin leak secondary to above Recent norovirus infection Morbid obesity with a BMI of 48.5 kg/m Obstructive sleep apnea intolerant to CPAP Chronic tobacco dependence Diabetes mellitus Hypertension Hyperlipidemia Diabetic neuropathy Marijuana use Plan: The patient was seen and evaluated Currently stable and on room air Labs and medications reviewed Echocardiogram reviewed Continue IV diuretics Continue Tamiflu Continue Symbicort, Spiriva Continue prednisone taper Heparin for DVT prophylaxis We will continue to follow I have personally seen and examined the patient, performed the documentation and the assessment and plan as written. Number of minutes spent on the visit: 10 Dictation was produced using [employer] dictation software. Please excuse any grammatical, word or spelling errors.
--- NOTE | 2024-07-22 14:06 | P.PN ---
Subjective Progress Note Date: 07/22/24 Interval History: This is a pleasant 54 years old male with past medical history of multiple medical problems as below Presents because of dyspnea and shortness of breath and chest pain. Information was obtained mainly from the patient, at bedside Patient presents because of dyspnea since Tuesday especially with exertion. Also he is complaining from chest pain on the left side going to the central, About 8/10 worse with breathing and coughing. [place] like heaviness. He has little headache and dizziness Feels generally weak Denies any specific GI or symptoms. No specific limb weakness or tingling Denies alcohol. He smokes 1 pack which lasts about a week. And he smokes marijuana Patient states that he has been diagnosed with COPD and he follow-up with pulmonary physician in the system. Review of record showed that he has cardiac cath on 01/2024 showing normal coronary arteries Patient is hemodynamically stable, is mildly tachypneic while at rest. Afebrile. Blood pressure slightly elevated. Labs including CBC, BMP, liver enzymes and INR are unremarkable Troponin are elevated with flat affect at 0.04, 0.04, 0.05. Chest x-ray showing mild pulmonary vascular congestion proBNP is also elevated at 8030. 07/20 Patient feels improvement but not back to normal. He still have some exertional symptoms. He still tachypneic. No chest pain no significant coughing. Blood pressure is 95 /67. Patient saturating 97% on room air. D-dimer was elevated 1.6. However perfusion scans showing low probability for PE, ultrasound of the leg also negative for DVT. Patient remains on Tamiflu, Lovenox IV 40 mg twice daily and IV Solu-Medrol 40 mg as well as aspirin. 07/21--Patient was seen and examined today. Continue complain of shortness of breath, cough. Remained afebrile, heart rate 78, respiratory rate 18, blood pressure 124/76, saturating 94% on room air. Pulmonary and cardiology following. Potassium is elevated 5.4 today, we will hold off lisinopril and Aldactone if potassium remains elevated. Patient remains on bronchodilator/inhaler, steroids, Tamiflu, IV diuresis. 07/22--patient was seen and examined today. Remained afebrile, heart rate 71, respiratory 16, blood pressure 119/68, saturating 97% on room air. WBC 16.0, hemoglobin 15.0, platelet 446. BMP unremarkable. CO2 32. Magnesium 2.5. Pulmonary following. Remains on inhaler/bronchodilator protocol, prednisone taper, IV diuresis. Assessment and plan: Acute on chronic systolic CHF: Acute COPD exacerbation Influenza A infection: Recent norovirus infection Elevated troponin: Type II CA Hyperkalemia: Diabetes mellitus Obstructive sleep apnea on CPAP Hypertension Hyperlipidemia Diabetic neuropathy Marijuana use Morbid obesity with BMI of 50.8 ROSA: Mild transaminitis: Secondary to viral infection Hard of hearing Plan: Continue with IV Lasix, continue home meds, cardiology consulted-- Continue home meds aspirin, statin, Farxiga, Aldactone, lisinopril, will hold Aldactone and lisinopril if potassium remains elevated. Echocardiogram--EF of 15 to 20%. Tamiflu Pulmonary consulted, steroid taper, inhaler/bronchodilator protocol. Continue with aspirin Continue with insulin sliding scale and resume cardiac and diabetes medication Labs and medication were reviewed.. Continue same treatment. Continue with symptomatic treatment. Resume home medication. Monitor lytes and vitals. DVT and GI prophylaxis. Further recommendations depends on the clinical course of the patient DVT prophylaxis: Subcutaneous heparin GI Prophylaxis: Pepcid PT/OT: Pending Prognosis is guarded DVT prophylaxis: Monitor vital signs and labs Labs and medication were reviewed. Continue same treatment. Further recommendations as per clinical course of the patient PHYSICAL EXAMINATION: GENERAL: The patient is A&O x3, NAD HEENT: EOMI, Sclerae anicteric, Moist Mucous membranes Neck: Supple, Non tender, No JVD PULMONARY: Equal breath souds B/L, No wheezing, No crackles. CARDIOVASCULAR: S1, S2 present. No murmurs, rubs, or gallops. ABDOMEN: Soft, nontender, nondistended, normoactive bowel sounds. No guarding or rebound tenderness. MUSCULOSKELETAL: No edema, No cyanosis. No clubbing. Normal ROM. Intact peripheral pulses. NEUROLOGICAL: CN 2-12 grossly intact. No FND Skin: No Rash REVIEW OF SYSTEMS: CONSTITUTIONAL: No fever or chills. CARDIOVASCULAR: No chest pain, palpitations or syncope. PULMONARY: No shortness of breath, no cough, sore throat. GASTROINTESTINAL: No nausea, vomiting, diarrhea, abdominal pain. : No Dysuria, urgency, frequency. Extremities: No edema. NEUROLOGICAL: No headaches, no weakness, or numbness Dictation was produced using [employer] dictation software. please excuse any grammatical, word or spelling errors. Objective - Vital Signs Vital signs: Vital Signs Temp 97.5 F L 07/22/24 12:00 Pulse 71 07/22/24 12:00 Resp 16 07/22/24 12:00 BP 119/68 07/22/24 12:00 Pulse Ox 97 07/22/24 12:00 FiO2 Intake & Output 07/21/24 07/22/24 07/22/24 18:59 06:59 18:59 Intake Total 1740 720 Output Total 500 3050 1350 Balance 1240 -3050 -630 Weight 166.8 kg Intake: Oral 1740 720 Output: Urine 500 3050 1350 Other: Voiding Method Toilet Toilet Toilet - Labs CBC & Chem 7: 07/22/24 07:17 07/22/24 07:17 Labs: Abnormal Lab Results - Last 24 Hours (Table) 07/21/24 07/21/24 07/22/24 Range/Units 16:22 19:43 05:57 WBC (3.8-10.6) k/uL RBC (4.30-5.90) m/uL MCH (25.0-35.0) pg MCHC (31.0-37.0) g/dL Neutrophils # (1.3-7.7) k/uL Sodium (137-145) mmol/L Chloride (98-107) mmol/L Carbon Dioxide (22-30) mmol/L BUN (9-20) mg/dL Glucose (74-99) mg/dL POC Glucose (mg/dL) 177 H 159 H 134 H (70-110) mg/dL Magnesium (1.6-2.3) mg/dL 07/22/24 07/22/24 07/22/24 Range/Units 07:17 07:17 11:39 WBC 16.0 H (3.8-10.6) k/uL RBC 6.03 H (4.30-5.90) m/uL MCH 24.8 L (25.0-35.0) pg MCHC 30.5 L (31.0-37.0) g/dL Neutrophils # 12.6 H (1.3-7.7) k/uL Sodium 135 L (137-145) mmol/L Chloride 97 L (98-107) mmol/L Carbon Dioxide 32 H (22-30) mmol/L BUN 34 H (9-20) mg/dL Glucose 111 H (74-99) mg/dL POC Glucose (mg/dL) 282 H (70-110) mg/dL Magnesium 2.5 H (1.6-2.3) mg/dL
--- NOTE | 2024-07-22 14:15 | P.PN ---
Subjective Progress Note Date: 07/22/24 Reason for Consult (text): CHF and chest pain History of present illness: This is a 54-year-old male patient of Dr. Amador with past medical history of di abetes mellitus type 2, hypertension, hyperlipidemia, chronic tobacco use, COPD, morbid obesity. We have been asked to evaluate the patient for CHF and chest pain. Patient came into the hospital due to shortness of breath that has been ongoing for a long time but worsening over the past year. He also complains of swelling in his legs and hands along with the shortness of breath worsening. Patient was last seen in the office with Dr. Amador on 02/27/2024. Patient at that time was started on Entresto but unfortunately this was too costly for the patient. He was also started on Farxiga. Blood pressure 95/67, heart rate 81, pulse ox 97% on room air. Patient has been started on IV Lasix 40 mg every 12 hours as well as Tamiflu, Solu-Medrol. Patient has been a smoker of 2 packs/day and is now cut back to 1 pack/week. He denies any alcohol use or abuse. He does use marijuana regularly. -EKG: Sinus rhythm 87 bpm -Chest x-ray: Cardiomegaly without acute process. -VQ scan: Low probability for pulmonary embolism. -Venous duplex bilateral lower extremities negative for DVT, suboptimal due to body habitus. -Laboratory studies: WBC 11.9, hemoglobin 15.3, INR 1.2. D-dimer 1.62. Sodium 136, potassium 5, BUN 28 creatinine 1.1. Troponins 0.0490.046 and 0.053, 0.047. Influenza detected. AST 64, ALT 112, alkaline phosphatase 165. -Home cardiac medications: Aspirin 81 mg daily, atorvastatin 40 mg daily, Lasix 40 mg daily, lisinopril 2.5 mg at bedtime, metoprolol tartrate 25 mg twice daily, Nitrostat as needed, potassium chloride 20 mill equivalents daily, spironolactone 12.5 mg at 1300. Also on Farxiga 10 mg daily not on his home list. -Cardiac catheterization performed 02/10/2024 revealed normal coronary arteries. -Echocardiogram performed 02/15/2024 revealed EF of 35 to 40%, dilated LV. 07/21 Patient seen and examined. Patient denies having any chest pain. Breathing is not as bad. He is off oxygen. Blood pressure 110/72, heart rate 85, pulse ox 95%. Repeat blood work reveals potassium of 5.4, sodium 133, BUN 40 and creatinine 1.01. WBC 15.2 and hemoglobin 14.8. / Patient seen and examined. Patient denies chest pain or pressure. Patient denies any issues overnight. He still has mild edema. He is maintained on IV Lasix 40 mg every 12 hours. He has a negative fluid balance and weight loss of 8 kg total. Amyloidosis workup is pending. Blood pressure 119/68, heart rate 71, pulse ox 97% on room air. Repeat blood work reveals WBC 16, hemoglobin 15, sodium 135, potassium 4.9, CO2 32, BUN 34 and creatinine 0.92. Reviewed results of echocardiogram with the patient with worsening EF. Patient states that he has been taking all of his medications as directed. Echocardiogram with EF of 15 to 20%. Mildly dilated left ventricle. Mildly increased left ventricular wall thickness. RVSP 44. Moderate to severe right ventricular dilation. Severely dilated left atrium. Trace to mild mitral regurgitation, mild to moderate tricuspid regurgitation. Physical examination: Gen: This is a morbidly obese 54-year-old male in no acute distress VS: reviewed HEENT: Head is atraumatic, normocephalic. Pupils equal, round. Sclerae is anicteric. NECK: Supple. No JVD. LUNGS: Diminished to the bilateral bases. No intercostal retractions. HEART: Regular rate and rhythm. ABDOMEN: Soft No tenderness. EXTREMITIES: Bilateral lower extremity edema. No calf tenderness. NEUROLOGICAL: Patient is awake, alert and oriented x3. 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 Nurse practitioner note has been reviewed, I agree with documented findings and plan of care. Patient was seen and examined. Objective - Vital Signs Vital signs: Vital Signs Temp 97.4 F L 07/22/24 08:00 Pulse 88 07/22/24 08:00 Resp 16 07/22/24 08:00 BP 111/66 07/22/24 08:00 Pulse Ox 96 07/22/24 08:00 FiO2 Intake & Output 07/21/24 07/22/24 07/22/24 18:59 06:59 18:59 Intake Total 1740 720 Output Total 500 3050 1350 Balance 1240 -3050 -630 Weight 166.8 kg Intake: Oral 1740 720 Output: Urine 500 3050 1350 Other: Voiding Method Toilet Toilet Toilet - Labs CBC & Chem 7: 07/22/24 07:17 07/22/24 07:17 Labs: Abnormal Lab Results - Last 24 Hours (Table) 07/21/24 07/21/24 07/21/24 Range/Units 11:40 16:22 19:43 WBC (3.8-10.6) k/uL RBC (4.30-5.90) m/uL MCH (25.0-35.0) pg MCHC (31.0-37.0) g/dL Neutrophils # (1.3-7.7) k/uL Sodium (137-145) mmol/L Chloride (98-107) mmol/L Carbon Dioxide (22-30) mmol/L BUN (9-20) mg/dL Glucose (74-99) mg/dL POC Glucose (mg/dL) 223 H 177 H 159 H (70-110) mg/dL Magnesium (1.6-2.3) mg/dL 07/22/24 07/22/24 07/22/24 Range/Units 05:57 07:17 07:17 WBC 16.0 H (3.8-10.6) k/uL RBC 6.03 H (4.30-5.90) m/uL MCH 24.8 L (25.0-35.0) pg MCHC 30.5 L (31.0-37.0) g/dL Neutrophils # 12.6 H (1.3-7.7) k/uL Sodium 135 L (137-145) mmol/L Chloride 97 L (98-107) mmol/L Carbon Dioxide 32 H (22-30) mmol/L BUN 34 H (9-20) mg/dL Glucose 111 H (74-99) mg/dL POC Glucose (mg/dL) 134 H (70-110) mg/dL Magnesium 2.5 H (1.6-2.3) mg/dL
[2024-07-22 17:19] LABS: Glucose,Whole Blood 224 mg/dL (70-110)
[2024-07-22 20:14] LABS: Glucose,Whole Blood 264 mg/dL (70-110)
[2024-07-23 06:10] LABS: Glucose,Whole Blood 183 mg/dL (70-110)
[2024-07-23 11:35] LABS: Glucose,Whole Blood 302 mg/dL (70-110)
--- NOTE | 2024-07-23 13:52 | P.PN ---
Subjective HISTORY OF PRESENT ILLNESS: This is a 54-year-old male patient of Dr. Amador with past medical history of diabetes mellitus type 2, hypertension, hyperlipidemia, chronic tobacco use, COPD, morbid obesity. We have been asked to evaluate the patient for CHF and chest pain. Patient came into the hospital due to shortness of breath that has been ongoing for a long time but worsening over the past year. He also complains of swelling in his legs and hands along with the shortness of breath worsening. Patient was last seen in the office with Dr. Amador on 02/27/2024. Patient at that time was started on Entresto but unfortunately this was too costly for the patient. He was also started on Farxiga. Blood pressure 95/67, heart rate 81, pulse ox 97% on room air. Patient has been started on IV Lasix 40 mg every 12 hours as well as Tamiflu, Solu-Medrol. Patient has been a smoker of 2 packs/day and is now cut back to 1 pack/week. He denies any alcohol use or abuse. He does use marijuana regularly. -EKG: Sinus rhythm 87 bpm -Chest x-ray: Cardiomegaly without acute process. -VQ scan: Low probability for pulmonary embolism. -Venous duplex bilateral lower extremities negative for DVT, suboptimal due to body habitus. -Laboratory studies: WBC 11.9, hemoglobin 15.3, INR 1.2. D-dimer 1.62. Sodium 136, potassium 5, BUN 28 creatinine 1.1. Troponins 0.0490.046 and 0.053, 0.047. Influenza detected. AST 64, ALT 112, alkaline phosphatase 165. -Home cardiac medications: Aspirin 81 mg daily, atorvastatin 40 mg daily, Lasix 40 mg daily, lisinopril 2.5 mg at bedtime, metoprolol tartrate 25 mg twice daily, Nitrostat as needed, potassium chloride 20 mill equivalents daily, spironolactone 12.5 mg at 1300. Also on Farxiga 10 mg daily not on his home list. -Cardiac catheterization performed 02/10/2024 revealed normal coronary arteries. -Echocardiogram performed 02/15/2024 revealed EF of 35 to 40%, dilated LV. 07/21 Patient seen and examined. Patient denies having any chest pain. Breathing is not as bad. He is off oxygen. Blood pressure 110/72, heart rate 85, pulse ox 95%. Repeat blood work reveals potassium of 5.4, sodium 133, BUN 40 and creatinine 1.01. WBC 15.2 and hemoglobin 14.8. 07/22 Patient seen and examined. Patient denies chest pain or pressure. Patient denies any issues overnight. He still has mild edema. He is maintained on IV Lasix 40 mg every 12 hours. He has a negative fluid balance and weight loss of 8 kg total. Amyloidosis workup is pending. Blood pressure 119/68, heart rate 71, pulse ox 97% on room air. Repeat blood work reveals WBC 16, hemoglobin 15, sodium 135, potassium 4.9, CO2 32, BUN 34 and creatinine 0.92. Reviewed results of echocardiogram with the patient with worsening EF. Patient states that he has been taking all of his medications as directed. Echocardiogram with EF of 15 to 20%. Mildly dilated left ventricle. Mildly increased left ventricular wall thickness. RVSP 44. Moderate to severe right ventricular dilation. Severely dilated left atrium. Trace to mild mitral re gurgitation, mild to moderate tricuspid regurgitation. 07/23/2024 Patient examined this morning at the bedside. Patient currently denies any chest pain or pressure. He reports improvement in his shortness of breath. He continues to have a cough. Vital signs are stable. He is on room air with oxy gen saturations greater than 92%. Telemetry reveals sinus mechanism. PHYSICAL EXAM: VITAL SIGNS: Reviewed. GENERAL: Well-developed in no acute distress. NECK: Supple. No JVD or thyromegaly LUNGS: Respirations even and unlabored. Lungs with diminished lung sounds bilaterally. HEART: Regular rate and rhythm. S1 and S2 heard. EXTREMITIES: Normal range of motion. No clubbing or cyanosis. Peripheral pulses intact. Bilateral lower extremity edema noted. 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 Begin oral Bumex 1 mg twice a day Increase lisinopril to 10 mg at at bedtime. It is noted that patient is unable to forward Entresto. Change Aldactone to 25 mg daily instead of 4 times daily Continue additional cardiac medications including aspirin, atorvastatin, Farxiga, and metoprolol Recommend eventual ICD implantation Continue telemetry monitoring Further recommendations pending patient course Nurse practitioner note has been reviewed by physician. Signing provider agrees with the documented findings, assessment, and plan of care documented by INTERVENTIONAL TECHNOLOGIST as a scribe. Objective - Vital Signs Vital signs: Vital Signs Temp 98.1 F 07/23/24 08:38 Pulse 80 07/23/24 13:25 Resp 18 07/23/24 13:25 BP 114/70 07/23/24 11:13 Pulse Ox 94 L 07/23/24 11:13 FiO2 Intake & Output 07/22/24 07/23/24 07/23/24 18:59 06:59 18:59 Intake Total 1840 20 380 Output Total 2800 3100 400 Balance -960 -3080 -20 Weight 166.8 kg Intake: IV 20 20 Invasive Line 4 20 20 Oral 1840 360 Output: Urine 2800 3100 400 Other: Voiding Method Toilet Toilet Urinal - Labs CBC & Chem 7: 07/22/24 07:17 07/22/24 07:17 Labs: Abnormal Lab Results - Last 24 Hours (Table) 07/22/24 07/22/24 07/23/24 Range/Units 17:18 20:04 06:01 POC Glucose (mg/dL) 224 H 264 H 183 H (70-110) mg/dL 07/23/24 Range/Units 11:33 POC Glucose (mg/dL) 302 H (70-110) mg/dL
--- NOTE | 2024-07-23 14:21 | P.PN ---
Subjective Interval History: This is a pleasant 54 years old male with past medical history of multiple medical problems as below Presents because of dyspnea and shortness of breath and chest pain. Information was obtained mainly from the patient, at bedside Patient presents because of dyspnea since Tuesday especially with exertion. Also he is complaining from chest pain on the left side going to the central, About 8/10 worse with breathing and coughing. [place] like heaviness. He has little headache and dizziness Feels generally weak Denies any specific GI or symptoms. No specific limb weakness or tingling Denies alcohol. He smokes 1 pack which lasts about a week. And he smokes marijuana Patient states that he has been diagnosed with COPD and he follow-up with pulmonary physician in the system. Review of record showed that he has cardiac cath on 01/2024 showing normal coronary arteries Patient is hemodynamically stable, is mildly tachypneic while at rest. Afebrile. Blood pressure slightly elevated. Labs including CBC, BMP, liver enzymes and INR are unremarkable Troponin are elevated with flat affect at 0.04, 0.04, 0.05. Chest x-ray showing mild pulmonary vascular congestion proBNP is also elevated at 8030. 07/20 Patient feels improvement but not back to normal. He still have some exertional symptoms. He still tachypneic. No chest pain no significant coughing. Blood pressure is 95 /67. Patient saturating 97% on room air. D-dimer was elevated 1.6. However perfusion scans showing low probability for PE, ultrasound of the leg also negative for DVT. Patient remains on Tamiflu, Lovenox IV 40 mg twice daily and IV Solu-Medrol 40 mg as well as aspirin. 07/21--Patient was seen and examined today. Continue complain of shortness of breath, cough. Remained afebrile, heart rate 78, respiratory rate 18, blood pre ssure 124/76, saturating 94% on room air. Pulmonary and cardiology following. Potassium is elevated 5.4 today, we will hold off lisinopril and Aldactone if potassium remains elevated. Patient remains on bronchodilator/inhaler, steroids, Tamiflu, IV diuresis. 07/22--patient was seen and examined today. Remained afebrile, heart rate 71, respiratory 16, blood pressure 119/68, saturating 97% on room air. WBC 16.0, hemoglobin 15.0, platelet 446. BMP unremarkable. CO2 32. Magnesium 2.5. Pulm onary following. Remains on inhaler/bronchodilator protocol, prednisone taper, IV diuresis. 07/23--patient was seen and examined today. Remained afebrile, heart rate 80, respiratory rate 18, blood pressure 114/70, saturating 94% on room air. Cardiology following, changed to IV Lasix to Bumex. Unable to afford Entresto, continue aspirin, statin, lisinopril, metoprolol, Aldactone. Further recom mendations pending per cardiology. Assessment and plan: Acute on chronic systolic CHF: Acute COPD exacerbation Influenza A infection: Recent norovirus infection Elevated troponin: Type II [place] Hyperkalemia: Diabetes mellitus Obstructive sleep apnea on CPAP Hypertension Hyperlipidemia Diabetic neuropathy Marijuana use Morbid obesity with BMI of 50.8 ROSA: Mild transaminitis: Secondary to viral infection Plan: Continue with IV Lasix, continue home meds, cardiology consulted-- Continue home meds aspirin, statin, Farxiga, Aldactone, lisinopril,Aldactone. Further recs pending per cardiology Echocardiogram--EF of 15 to 20%. Tamiflu Pulmonary consulted, steroid taper, inhaler/bronchodilator protocol. Continue with insulin sliding scale and resume cardiac and diabetes medication Labs and medication were reviewed.. Continue same treatment. Continue with symptomatic treatment. Resume home medication. Monitor lytes and vitals. DVT and GI prophylaxis. Further recommendations depends on the clinical course of the patient DVT prophylaxis: Subcutaneous heparin Prognosis is guarded Monitor vital signs and labs Labs and medication were reviewed. Continue same treatment. Further recommendations as per clinical course of the patient PHYSICAL EXAMINATION: GENERAL: The patient is A&O x3, NAD HEENT: EOMI, Sclerae anicteric, Moist Mucous membranes Neck: Supple, Non tender, No JVD PULMONARY: Equal breath souds B/L, No wheezing, + crackles. CARDIOVASCULAR: S1, S2 present. No murmurs, rubs, or gallops. ABDOMEN: Soft, nontender, nondistended, normoactive bowel sounds. No guarding or rebound tenderness. MUSCULOSKELETAL: + edema, No cyanosis. No clubbing. Normal ROM. Intact peripheral pulses. NEUROLOGICAL: CN 2-12 grossly intact. No FND Skin: No Rash REVIEW OF SYSTEMS: CONSTITUTIONAL: No fever or chills. CARDIOVASCULAR: No chest pain, palpitations or syncope. PULMONARY: No shortness of breath, no cough, sore throat. GASTROINTESTINAL: No nausea, vomiting, diarrhea, abdominal pain. : No Dysuria, urgency, frequency. Extremities: No edema. NEUROLOGICAL: No headaches, no weakness, or numbness Dictation was produced using [employer] dictation software. please excuse any grammatical, word or spelling errors. Objective - Vital Signs Vital signs: Vital Signs Temp 98.1 F 07/23/24 08:38 Pulse 80 07/23/24 13:25 Resp 18 07/23/24 13:25 BP 114/70 07/23/24 11:13 Pulse Ox 94 L 07/23/24 11:13 FiO2 Intake & Output 07/22/24 07/23/24 07/23/24 18:59 06:59 18:59 Intake Total 1840 20 380 Output Total 2800 3100 400 Balance -960 -3080 -20 Weight 166.8 kg Intake: IV 20 20 Invasive Line 4 20 20 Oral 1840 360 Output: Urine 2800 3100 400 Other: Voiding Method Toilet Toilet Urinal - Labs CBC & Chem 7: 07/22/24 07:17 07/22/24 07:17 Labs: Abnormal Lab Results - Last 24 Hours (Table) 07/22/24 07/22/24 07/23/24 Range/Units 17:18 20:04 06:01 POC Glucose (mg/dL) 224 H 264 H 183 H (70-110) mg/dL 07/23/24 Range/Units 11:33 POC Glucose (mg/dL) 302 H (70-110) mg/dL
--- NOTE | 2024-07-23 14:28 | P.PN ---
Subjective Progress Note Date: 07/23/24 This is a 54-year-old male patient with a known history of diabetes mellitus, congestive heart failure, hypertension, hyperlipidemia, chronic obstructive pulmonary disease, former smoker, obstructive sleep apnea intolerant to CPAP. He had recently had the norovirus approximately 1 week ago. He was then in [facility] this week for influenza A. He was discharged from there yesterday and ended up here last night with increasing shortness of breath. Chest x-ray reveals cardiomegaly without an acute pulmonary process. White count 11.9. Hemoglobin 15.3. Platelets 364. D-dimer 1.62. Sodium 136. Potassium 5.0. Bicarb 29. BUN 28. Creatinine 1.10. Glucose 100. AST 64. ALT 112. Troponin 0.047. proBNP 8030. Viral screen positive for influenza A. He is seen today in consultation in the emergency department. He is currently resting on a stretcher. Awake and alert in no acute distress. Maintaining O2 saturations in the high 90s on 2 L/min per nasal cannula. He is afebrile. Hemodynamically stable. The patient is seen today July 20, 2024 in follow-up on the selective care unit. He is currently sitting up in bed. Awake and alert in no acute distress. Maintaining good O2 saturations in the 90s on room air. Been afebrile. Hemodynamically stable. Doppler of the bilateral lower extremities revealed no evidence of DVT. Ventilation perfusion scan revealed low probability for pulmonary embolism. Sodium 134. Potassium 5.1. Bicarb 29. BUN 33. Creatinine 1.00. Glucose 155. AST 46. ALT 91. He remains on IV diuretics. Continued on bronchodilators, steroids. Heparin for DVT prophylaxis. Currently in a -3.2 L balance. The patient is seen today July 21, 2024 in follow-up on the selective care unit. He is currently sitting up at the bedside. Awake and alert in no acute distress. Maintaining good O2 saturations in the 90s on room air. He is afebr ile. Hemodynamically stable. White count 15.2. Hemoglobin 14.8. Platelets 422. Sodium 133. Potassium 5.4. Bicarb 32. BUN 40. Creatinine 1.01. Glucose 142. Lasix 40 mg IV every 12 hours. Heparin for DVT prophylaxis. Remains on Tamiflu. Continued on bronchodilators and steroids. The patient is seen today July 22, 2024 in follow-up on the selective care unit. He is awake and alert in no acute distress. Sitting up in bed. Denies any worsening shortness of breath, cough or congestion. Maintaining good O2 saturations in the upper 90s on room air. He has been afebrile. Hemodyna mically stable. White count 16.0. Hemoglobin 15.0. Platelets 446. Sodium 135. Potassium 4.9. Bicarb 32. BUN 34. Creatinine 0.92. Glucose 111. Echocardiogram reveals severely impaired left ventricular systolic function with an ejection fraction of 15 to 20%. He remains on IV and oral diuretics. Currently in a -1.8 L balance. Continued on bronchodilators and prednisone taper. Remains on Tamiflu. Heparin for DVT prophylaxis. The patient is seen today July 23, 2024 in follow-up on the selective care unit. He is resting in bed. Awake and alert in no acute distress. Maintaining O2 saturations in the 90s on her oxygen. He is continued on Tamiflu. He has been transitioned to Bumex. Remains on DuoNeb inhalations, Symbicort, prednisone taper. Heparin for DVT prophylaxis. Glucose 183. Objective - Vital Signs Vital signs: Vital Signs Temp 98.1 F 07/23/24 08:38 Pulse 80 07/23/24 13:25 Resp 18 07/23/24 13:25 BP 114/70 07/23/24 11:13 Pulse Ox 94 L 07/23/24 11:13 FiO2 Intake & Output 07/22/24 07/23/24 07/23/24 18:59 06:59 18:59 Intake Total 1840 20 380 Output Total 2800 3100 400 Balance -960 -3080 -20 Weight 166.8 kg Intake: IV 20 20 Invasive Line 4 20 20 Oral 1840 360 Output: Urine 2800 3100 400 Other: Voiding Method Toilet Toilet Urinal - Exam GENERAL EXAM: Alert, obese, 54-year-old male, resting in bed, on room air, in no apparent distress. HEAD: Normocephalic. EYES: Normal reaction of pupils, equal size. NOSE: Clear with pink turbinates. THROAT: No erythema or exudates. NECK: No masses, no JVD. CHEST: No chest wall deformity. LUNGS: Equal air entry with no crackles, wheeze, rhonchi or dullness. CVS: S1 and S2 normal with no audible murmur, regular rhythm. ABDOMEN: No hepatosplenomegaly, normal bowel sounds, no guarding or rigidity. SPINE: No scoliosis or deformity SKIN: No rashes CENTRAL NERVOUS SYSTEM: No focal deficits, tone is normal in all 4 extremities. EXTREMITIES: There is 1-2+ peripheral edema. No clubbing, no cyanosis. Peripheral pulses are intact. - Labs CBC & Chem 7: 07/22/24 07:17 07/22/24 07:17 Labs: Abnormal Lab Results - Last 24 Hours (Table) 07/22/24 07/22/24 07/23/24 Range/Units 17:18 20:04 06:01 POC Glucose (mg/dL) 224 H 264 H 183 H (70-110) mg/dL 07/23/24 Range/Units 11:33 POC Glucose (mg/dL) 302 H (70-110) mg/dL Assessment and Plan Assessment: Acute influenza A infection Acute exacerbation of chronic obstructive pulmonary disease Acute exacerbation of chronic systolic congestive heart failure. Echocardiogram reveals severely impaired left ventricular systolic function with an ejection fraction of 15 to 20% Troponin leak secondary to above Recent norovirus infection Morbid obesity with a BMI of 48.5 kg/m Obstructive sleep apnea intolerant to CPAP Chronic tobacco dependence Diabetes mellitus Hypertension Hyperlipidemia Diabetic neuropathy Marijuana use Plan: The patient was seen and evaluated Currently stable and on room air Labs and medications reviewed Transitioned to oral diuretics Continue Tamiflu Continue Symbicort, Spiriva Continue prednisone taper Heparin for DVT prophylaxis Home once cleared by cardiology I have personally seen and examined the patient, performed the documentation and the assessment and plan as written. Number of minutes spent on the visit: 10 Dictation was produced using [employer] dictation software. Please excuse any grammatical, word or spelling errors.
[2024-07-23 15:06] LABS: Free Kappa Lt Chain Qnt, Serum 3.27 mg/dL (0.33-1.94); Free Lambda Lt Chain Qnt, Seru 3.04 mg/dL (0.57-2.63)
[2024-07-23 16:28] LABS: Glucose,Whole Blood 200 mg/dL (70-110)
[2024-07-23] MEDS: BUMETANIDE 1 MG TAB PO SCH (16:44)
[2024-07-23 17:51] LABS: African American GFR (CKD) >90 (>60 ml/min/1.73 sqM); Anion Gap 7 mmol/L; Blood Urea Nitrogen 29 mg/dL (9-20); Calcium 8.3 mg/dL (8.4-10.2); Carbon Dioxide 29 mmol/L (22-30); Chloride 97 mmol/L (98-107); Glucose 224 mg/dL (74-99); Magnesium 2.4 mg/dL (1.6-2.3); Non-African American GFR(CKD) >90 (>60 ml/min/1.73 sqM); Potassium 5.3 mmol/L (3.5-5.1); Sodium 133 mmol/L (137-145)
[2024-07-23 20:11] LABS: Glucose,Whole Blood 228 mg/dL (70-110)
[2024-07-23] MEDS: METOPROLOL TARTRATE 50 MG TAB PO SCH (20:19)
[2024-07-23] MEDS: lisinopriL 10 MG TAB PO SCH (20:19)
[2024-07-23 23:25] VITALS: RESP 17
[2024-07-23] MEDS: IPRATROPIUM-ALBUTEROL 3 ML NEB INHALATION PRN (23:50)
[2024-07-24] MEDS: BENZOCAINE/MENTHOL LOZENG 1 EACH LOZENGE MUCOUS MEM PRN (01:55)
[2024-07-24] MEDS: guaiFENesin SYRUP 100MG/5ML 200 MG/10 ML CUP PO PRN (01:55)
[2024-07-24 06:32] LABS: Glucose,Whole Blood 151 mg/dL (70-110)
[2024-07-24 07:35] LABS: African American GFR (CKD) >90 (>60 ml/min/1.73 sqM); Anion Gap 5 mmol/L; Blood Urea Nitrogen 28 mg/dL (9-20); Carbon Dioxide 30 mmol/L (22-30); Chloride 96 mmol/L (98-107); Glucose 185 mg/dL (74-99); Magnesium 2.1 mg/dL (1.6-2.3); Non-African American GFR(CKD) >90 (>60 ml/min/1.73 sqM); Potassium 4.5 mmol/L (3.5-5.1); Sodium 131 mmol/L (137-145)
[2024-07-24] MEDS: SPIRONOLACTONE 25 MG TAB PO SCH (07:52)
[2024-07-24 08:09] VITALS: BP 123/84; TEMP 97.9
--- NOTE | 2024-07-24 11:22 | P.DS ---
Providers Date of admission: 07/19/24 05:11 Attending physician: Jasson Montes MD Consults: 07/19/24 10:02 Consult Physician Routine Consulting Provider: Lynne Nicholas Consult Reason/Comments: copd , sob and cp Do you want consulting provider notified?: Yes 07/19/24 10:18 Consult Physician Routine Consulting Provider: Jazmin Amador Consult Reason/Comments: chf, cp Do you want consulting provider notified?: Yes Primary care physician: Yasmani Bernard Hospital Course: Discharge diagnoses: Acute on chronic systolic CHF: Acute COPD exacerbation Influenza A infection: Recent norovirus infection Elevated troponin: Type II [place] Hyperkalemia: Diabetes mellitus Obstructive sleep apnea on CPAP Hypertension Hyperlipidemia Diabetic neuropathy Marijuana use Morbid obesity with BMI of 50.8 ROSA: Mild transaminitis: Secondary to viral infection Plan: Patient treated with IV diuretics during hospitalization, cardiology consulted, echocardiogram showed EF 15 to 20%, patient continued on aspirin, statin, Farxi ga, Aldactone, lisinopril, metoprolol, Aldactone at discharge. Lasix changed to Bumex at discharge. Patient completed IV fluid during hospitalization for influenza A infection, also received inhaler steroid bronchodilator protocol, continued on steroid taper at discharge, pulmonary were consulted. Interval History: This is a pleasant 54 years old male with past medical history of multiple medic al problems as below Presents because of dyspnea and shortness of breath and chest pain. Information was obtained mainly from the patient, at bedside Patient presents because of dyspnea since Tuesday especially with exertion. Also he is complaining from chest pain on the left side going to the central, About 8/10 worse with breathing and coughing. [place] like heaviness. He has little headache and dizziness Feels generally weak Denies any specific GI or symptoms. No specific limb weakness or tingling Denies alcohol. He smokes 1 pack which lasts about a week. And he smokes marijuana Patient states that he has been diagnosed with COPD and he follow-up with pulmonary physician in the system. Review of record showed that he has cardiac cath on 01/2024 showing normal coronary arteries Patient is hemodynamically stable, is mildly tachypneic while at rest. Afebrile. Blood pressure slightly elevated. Labs including CBC, BMP, liver enzymes and INR are unremarkable Troponin are elevated with flat affect at 0.04, 0.04, 0.05. Chest x-ray showing mild pulmonary vascular congestion proBNP is also elevated at 8030. 07/20 Patient feels improvement but not back to normal. He still have some exertional symptoms. He still tachypneic. No chest pain no significant coughing. Blood pressure is 95 /67. Patient saturating 97% on room air. D-dimer was elevated 1.6. However perfusion scans showing low probability for PE, ultrasound of the leg also negative for DVT. Patient remains on Tamiflu, Lovenox IV 40 mg twice daily and IV Solu-Medrol 40 mg as well as aspirin. 07/21--Patient was seen and examined today. Continue complain of shortness of breath, cough. Remained afebrile, heart rate 78, respiratory rate 18, blood pressure 124/76, saturating 94% on room air. Pulmonary and cardiology following. Potassium is elevated 5.4 today, we will hold off lisinopril and Aldactone if potassium remains elevated. Patient remains on bronchodilator/inhaler, steroids, Tamiflu, IV diuresis. 07/22--patient was seen and examined today. Remained afebrile, heart rate 71, respiratory 16, blood pressure 119/68, saturating 97% on room air. WBC 16.0, hemoglobin 15.0, platelet 446. BMP unremarkable. CO2 32. Magnesium 2.5. Pulmonary following. Remains on inhaler/bronchodilator protocol, prednisone taper, IV diuresis. 07/23--patient was seen and examined today. Remained afebrile, heart rate 80, respiratory rate 18, blood pressure 114/70, saturating 94% on room air. Cardiology following, changed to IV Lasix to Bumex. Unable to afford Entresto, continue aspirin, statin, lisinopril, metoprolol, Aldactone. Further recommendations pending per cardiology. 07/24--- patient was seen and examined today, remains on room air. Vital stable. Feeling better today. Patient continued on aspirin, statin for seizure,, increase lisinopril, increase metoprolol, added Aldactone. Change Lasix to Bumex. Please refer to medical assessment plan for further details. Follow-up with PCP in 1 week Follow-up with cardiology in 1 to 2 weeks. Hospital course: PHYSICAL EXAMINATION: GENERAL: The patient is A&O x3, NAD HEENT: EOMI, Sclerae anicteric, Moist Mucous membranes Neck: Supple, Non tender, No JVD PULMONARY: Equal breath souds B/L, No wheezing, No crackles. CARDIOVASCULAR: S1, S2 present. No murmurs, rubs, or gallops. ABDOMEN: Soft, nontender, nondistended, normoactive bowel sounds. No guarding or rebound tenderness. MUSCULOSKELETAL: No edema, No cyanosis. No clubbing. Normal ROM. Intact peripheral pulses. NEUROLOGICAL: CN 2-12 grossly intact. No FND SKIN: No rashes. Dictation was produced using [employer] dictation software. please excuse any grammatical, word or spelling errors. Patient Condition at Discharge: Fair Plan - Discharge Summary Discharge Rx Participant: Yes New Discharge Prescriptions: New Spironolactone [Aldactone] 25 mg PO DAILY #30 tab Dapagliflozin Propanediol [Farxiga] 10 mg PO DAILY #30 tab Metoprolol Tartrate [Lopressor] 50 mg PO BID #60 tab lisinopriL [Zestril] 10 mg PO HS #30 tab Bumetanide [BUMEX] 1 mg PO BID@0900,1600 #60 tab predniSONE 10 mg PO DAILY #18 tab Continue Omeprazole 20 mg PO AC-BRKFST sitaGLIPtin [Januvia] 100 mg PO DAILY Albuterol Inhaler [Ventolin Hfa Inhaler] 2 puff INHALATION RT-Q4H PRN PRN Reason: Shortness Of Breath Potassium Chloride ER [K-Dur 20] 20 meq PO DAILY Budesonide [Pulmicort] 0.5 mg INHALATION RT-BID PRN PRN Reason: Shortness Of Breath Ipratropium-Albuterol Nebulize [Duoneb 0.5 mg-3 mg/3 ml Soln] 3 ml INHALATION RT-Q4H PRN PRN Reason: Shortness Of Breath Aspirin 81 mg PO DAILY tab Atorvastatin [Lipitor] 40 mg PO DAILY #30 tab Sildenafil Citrate 100 mg PO DAILY PRN PRN Reason: E.D. Pregabalin [Lyrica] 150 mg PO DAILY Dextroamphetamine/Amphetamine [Adderall] 30 mg PO DAILY Fluticasone/Umeclidin/Vilanter [Trelegy Ellipta 200-62.5-25] 1 puff INHALATION RT-DAILY Citalopram Hydrobromide [CeleXA] 40 mg PO DAILY glipiZIDE [Glucotrol] 5 mg PO DAILY Discontinued Furosemide [Lasix] 40 mg PO DAILY lisinopriL [Zestril] 2.5 mg PO HS Metoprolol Tartrate [Lopressor] 25 mg PO BID Nitroglycerin Sl Tabs [Nitrostat] 0.4 mg SUBLINGUAL Q5M PRN #30 tab PRN Reason: Chest Pain Spironolactone [Aldactone] 12.5 mg PO DAILY@1300 Discharge Medication List Omeprazole 20 mg PO AC-BRKFST 02/05/20 [History] sitaGLIPtin [Januvia] 100 mg PO DAILY 02/05/20 [History] Sildenafil Citrate 100 mg PO DAILY PRN 08/28/21 [History] Albuterol Inhaler [Ventolin Hfa Inhaler] 2 puff INHALATION RT-Q4H PRN 08/31/21 [History] Budesonide [Pulmicort] 0.5 mg INHALATION RT-BID PRN 02/13/24 [History] Dextroamphetamine/Amphetamine [Adderall] 30 mg PO DAILY 02/13/24 [History] Ipratropium-Albuterol Nebulize [Duoneb 0.5 mg-3 mg/3 ml Soln] 3 ml INHALATION RT-Q4H PRN 02/13/24 [History] Potassium Chloride ER [K-Dur 20] 20 meq PO DAILY 02/13/24 [History] Pregabalin [Lyrica] 150 mg PO DAILY 02/13/24 [History] Aspirin 81 mg PO DAILY tab 02/16/24 [Rx] Atorvastatin [Lipitor] 40 mg PO DAILY #30 tab 02/16/24 [Rx] Fluticasone/Umeclidin/Vilanter [Trelegy Ellipta 200-62.5-25] 1 puff INHALATION RT-DAILY 03/15/24 [History] Citalopram Hydrobromide [CeleXA] 40 mg PO DAILY 07/19/24 [History] glipiZIDE [Glucotrol] 5 mg PO DAILY 07/19/24 [History] Bumetanide [BUMEX] 1 mg PO BID@0900,1600 #60 tab 07/24/24 [Rx] Dapagliflozin Propanediol [Farxiga] 10 mg PO DAILY #30 tab 07/24/24 [Rx] Metoprolol Tartrate [Lopressor] 50 mg PO BID #60 tab 07/24/24 [Rx] Spironolactone [Aldactone] 25 mg PO DAILY #30 tab 07/24/24 [Rx] lisinopriL [Zestril] 10 mg PO HS #30 tab 07/24/24 [Rx] predniSONE 10 mg PO DAILY #18 tab 07/24/24 [Rx] Follow up Appointment(s)/Referral(s): Yasmani Bernard MD [Primary Care Provider] - 1 Week Jazmin Amador MD [STAFF PHYSICIAN] - 1 Week Discharge Disposition: HOME SELF-CARE
[2024-07-24 12:00] VITALS: PULSE 90
[2024-07-24 12:10] LABS: Glucose,Whole Blood 245 mg/dL (70-110)
--- NOTE | 2024-07-24 12:41 | P.PN ---
Subjective Progress Note Date: 07/24/24 This is a 54-year-old male patient with a known history of diabetes mellitus, congestive heart failure, hypertension, hyperlipidemia, chronic obstructive pulmonary disease, former smoker, obstructive sleep apnea intolerant to CPAP. He had recently had the norovirus approximately 1 week ago. He was then in [facility] this week for influenza A. He was discharged from there yesterday and ended up here last night with increasing shortness of breath. Chest x-ray reveals cardiomegaly without an acute pulmonary process. White count 11.9. Hemoglobin 15.3. Platelets 364. D-dimer 1.62. Sodium 136. Potassium 5.0. Bicarb 29. BUN 28. Creatinine 1.10. Glucose 100. AST 64. ALT 112. Troponin 0.047. proBNP 8030. Viral screen positive for influenza A. He is seen today in consultation in the emergency department. He is currently resting on a stretcher. Awake and alert in no acute distress. Maintaining O2 saturations in the high 90s on 2 L/min per nasal cannula. He is afebrile. Hemodynamically stable. The patient is seen today July 20, 2024 in follow-up on the selective care unit. He is currently sitting up in bed. Awake and alert in no acute distress. Maintaining good O2 saturations in the 90s on room air. Been afebrile. Hemodynamically stable. Doppler of the bilateral lower extremities revealed no evidence of DVT. Ventilation perfusion scan revealed low probability for pulmonary embolism. Sodium 134. Potassium 5.1. Bicarb 29. BUN 33. Creatinine 1.00. Glucose 155. AST 46. ALT 91. He remains on IV diuretics. Continued on bronchodilators, steroids. Heparin for DVT prophylaxis. Currently in a -3.2 L balance. The patient is seen today July 21, 2024 in follow-up on the selective care unit. He is currently sitting up at the bedside. Awake and alert in no acute distress. Maintaining good O2 saturations in the 90s on room air. He is afebr ile. Hemodynamically stable. White count 15.2. Hemoglobin 14.8. Platelets 422. Sodium 133. Potassium 5.4. Bicarb 32. BUN 40. Creatinine 1.01. Glucose 142. Lasix 40 mg IV every 12 hours. Heparin for DVT prophylaxis. Remains on Tamiflu. Continued on bronchodilators and steroids. The patient is seen today July 22, 2024 in follow-up on the selective care unit. He is awake and alert in no acute distress. Sitting up in bed. Denies any worsening shortness of breath, cough or congestion. Maintaining good O2 saturations in the upper 90s on room air. He has been afebrile. Hemodyna mically stable. White count 16.0. Hemoglobin 15.0. Platelets 446. Sodium 135. Potassium 4.9. Bicarb 32. BUN 34. Creatinine 0.92. Glucose 111. Echocardiogram reveals severely impaired left ventricular systolic function with an ejection fraction of 15 to 20%. He remains on IV and oral diuretics. Currently in a -1.8 L balance. Continued on bronchodilators and prednisone taper. Remains on Tamiflu. Heparin for DVT prophylaxis. The patient is seen today July 23, 2024 in follow-up on the selective care unit. He is resting in bed. Awake and alert in no acute distress. Maintaining O2 saturations in the 90s on her oxygen. He is continued on Tamiflu. He has been transitioned to Bumex. Remains on DuoNeb inhalations, Symbicort, prednisone taper. Heparin for DVT prophylaxis. Glucose 183. The patient is seen today July 24, 2024 in follow-up on the selective care unit. He is currently sitting up in bed. Awake and alert in no acute distress. He is maintaining good O2 saturations in the 90s on room air. No IV fluids. He is anxious to go home. He is maintained on oral diuretics. Heparin for DVT prophylaxis. Continued on Symbicort. Continued on a prednisone taper. Sodium 131. Potassium 4.5. Bicarb 30. BUN 28. Creatinine 0.92. Glucose 185. Objective - Vital Signs Vital signs: Vital Signs Temp 97.9 F 07/24/24 08:00 Pulse 90 07/24/24 11:59 Resp 17 07/24/24 11:59 BP 123/84 07/24/24 08:00 Pulse Ox 98 07/24/24 09:05 FiO2 Intake & Output 07/23/24 07/24/24 07/24/24 18:59 06:59 18:59 Intake Total 1100 1660 200 Output Total 1650 1925 Balance -550 -265 200 Weight 160 kg Intake: IV 20 10 Invasive Line 4 20 10 Oral 1080 1650 200 Output: Urine 1650 1925 Other: Voiding Method Urinal Urinal Urinal # Voids 6 - Exam GENERAL EXAM: Alert, obese, pleasant 54-year-old male, sitting up in bed, on room air, in no apparent distress. HEAD: Normocephalic. EYES: Normal reaction of pupils, equal size. NOSE: Clear with pink turbinates. THROAT: No erythema or exudates. NECK: No masses, no JVD. CHEST: No chest wall deformity. LUNGS: Equal air entry with no crackles, wheeze, rhonchi or dullness. CVS: S1 and S2 normal with no audible murmur, regular rhythm. ABDOMEN: No hepatosplenomegaly, normal bowel sounds, no guarding or rigidity. SPINE: No scoliosis or deformity SKIN: No rashes CENTRAL NERVOUS SYSTEM: No focal deficits, tone is normal in all 4 extremities. EXTREMITIES: There is 1+ peripheral edema. No clubbing, no cyanosis. Peripheral pulses are intact. - Labs CBC & Chem 7: 07/22/24 07:17 07/24/24 05:20 Labs: Abnormal Lab Results - Last 24 Hours (Table) 07/20/24 07/23/24 07/23/24 Range/Units 07:26 16:27 17:26 Sodium 133 L (137-145) mmol/L Potassium 5.3 H (3.5-5.1) mmol/L Chloride 97 L (98-107) mmol/L BUN 29 H (9-20) mg/dL Glucose 224 H (74-99) mg/dL POC Glucose (mg/dL) 200 H (70-110) mg/dL Calcium 8.3 L (8.4-10.2) mg/dL Magnesium 2.4 H (1.6-2.3) mg/dL Free [place] LC, Quant 3.27 H (0.33-1.94) mg/dL Free [place] LC, Quant 3.04 H (0.57-2.63) mg/dL 07/23/24 07/24/24 07/24/24 Range/Units 20:10 05:20 06:31 Sodium 131 L (137-145) mmol/L Potassium (3.5-5.1) mmol/L Chloride 96 L (98-107) mmol/L BUN 28 H (9-20) mg/dL Glucose 185 H (74-99) mg/dL POC Glucose (mg/dL) 228 H 151 H (70-110) mg/dL Calcium 8.0 L (8.4-10.2) mg/dL Magnesium (1.6-2.3) mg/dL Free [place] LC, Quant (0.33-1.94) mg/dL Free [place]ambda LC, Quant (0.57-2.63) mg/dL 07/24/24 Range/Units 12:09 Sodium (137-145) mmol/L Potassium (3.5-5.1) mmol/L Chloride (98-107) mmol/L BUN (9-20) mg/dL Glucose (74-99) mg/dL POC Glucose (mg/dL) 245 H (70-110) mg/dL Calcium (8.4-10.2) mg/dL Magnesium (1.6-2.3) mg/dL Free [place] LC, Quant (0.33-1.94) mg/dL Free [place]ambda LC, Quant (0.57-2.63) mg/dL Assessment and Plan Assessment: Acute influenza A infection Acute exacerbation of chronic obstructive pulmonary disease Acute exacerbation of chronic systolic congestive heart failure. Echocardiogram reveals severely impaired left ventricular systolic function with an ejection fraction of 15 to 20% Troponin leak secondary to above Recent norovirus infection Morbid obesity with a BMI of 48.5 kg/m Obstructive sleep apnea intolerant to CPAP Chronic tobacco dependence Diabetes mellitus Hypertension Hyperlipidemia Diabetic neuropathy Marijuana use Plan: The patient was seen and evaluated Currently stable and on room air Labs and medications reviewed Cleared for discharge from the pulmonary standpoint Continue his home pulmonary medications To follow-up closely with cardiology This patient was seen independently by the pulmonary nurse practitioner addressing pulmonary issues I have personally seen and examined the patient, performed the documentation and the assessment and plan as written. Number of minutes spent on the visit: 24 Dictation was produced using [email or web address] dictation software. Please excuse any grammatical, word or spelling errors.
--- NOTE | 2024-07-24 13:04 | P.PN ---
Subjective Progress Note Date: 07/24/24 This is a 54-year-old male patient of Dr. Amador with past medical history of diabetes mellitus type 2, hypertension, hyperlipidemia, chronic tobacco use, COPD, morbid obesity. We have been asked to evaluate the patient for CHF and chest pain. Patient came into the hospital due to shortness of breath that has been ongoing for a long time but worsening over the past year. He also complains of swelling in his legs and hands along with the shortness of breath worsening. Patient was last seen in the office with Dr. Amador on 02/27/2024. Patient at that time was started on Entresto but unfortunately this was too costly for the patient. He was also started on Farxiga. Blood pressure 95/67, heart rate 81, pulse ox 97% on room air. Patient has been started on IV Lasix 40 mg every 12 hours as well as Tamiflu, Solu-Medrol. Patient has been a smoker of 2 packs/day and is now cut back to 1 pack/week. He denies any alcohol use or abuse. He does use marijuana regularly. -EKG: Sinus rhythm 87 bpm -Chest x-ray: Cardiomegaly without acute process. -VQ scan: Low probability for pulmonary embolism. -Venous duplex bilateral lower extremities negative for DVT, suboptimal due to body habitus. -Laboratory studies: WBC 11.9, hemoglobin 15.3, INR 1.2. D-dimer 1.62. Sodium 136, potassium 5, BUN 28 creatinine 1.1. Troponins 0.0490.046 and 0.053, 0.047. Influenza detected. AST 64, ALT 112, alkaline phosphatase 165. -Home cardiac medications: Aspirin 81 mg daily, atorvastatin 40 mg daily, Lasix 40 mg daily, lisinopril 2.5 mg at bedtime, metoprolol tartrate 25 mg twice daily, Nitrostat as needed, potassium chloride 20 mill equivalents daily, spironolactone 12.5 mg at 1300. Also on Farxiga 10 mg daily not on his home list. -Cardiac catheterization performed 02/10/2024 revealed normal coronary arteries. -Echocardiogram performed 02/15/2024 revealed EF of 35 to 40%, dilated LV. 07/21 Patient seen and examined. Patient denies having any chest pain. Breathing is not as bad. He is off oxygen. Blood pressure 110/72, heart rate 85, pulse ox 95%. Repeat blood work reveals potassium of 5.4, sodium 133, BUN 40 and creatinine 1.01. WBC 15.2 and hemoglobin 14.8. 07/22 Patient seen and examined. Patient denies chest pain or pressure. Patient denies any issues overnight. He still has mild edema. He is maintained on IV Lasix 40 mg every 12 hours. He has a negative fluid balance and weight loss of 8 kg total. Amyloidosis workup is pending. Blood pressure 119/68, heart rate 71, pulse ox 97% on room air. Repeat blood work reveals WBC 16, hemoglobin 15, sodium 135, potassium 4.9, CO2 32, BUN 34 and creatinine 0.92. Reviewed results of echocardiogram with the patient with worsening EF. Patient states that he has been taking all of his medications as directed. Echocardiogram with EF of 15 to 20%. Mildly dilated left ventricle. Mildly increased left ventricular wall thickness. RVSP 44. Moderate to severe right ventricular dilation. Severely dilated left atrium. Trace to mild mitral regurgitation, mild to moderate tricuspid regurgitation. 07/23/2024 Patient examined this morning at the bedside. Patient currently denies any chest pain or pressure. He reports improvement in his shortness of breath. He continues to have a cough. Vital signs are stable. He is on room air with oxygen saturations greater than 92%. Telemetry reveals sinus mechanism. 07/24 Patient seen and examined on the [facility] floor. Patient has been transferred off the cardiac stepdown unit. Patient states that he has a little bit of a cough with white sputum. No chest pain. He has been transition to oral Bumex. Blood pressure 123/84, heart rate 90, pulse ox 98% on room air. Repeat blood work reveals sodium 131, potassium 4.5, creatinine 0.92. Telemetry is sinus rhythm. PHYSICAL EXAM: VITAL SIGNS: Reviewed. GENERAL: Well-developed in no acute distress. NECK: Supple. No JVD or thyromegaly LUNGS: Respirations even and unlabored. Lungs with diminished lung sounds bilaterally. HEART: Regular rate and rhythm. S1 and S2 heard. EXTREMITIES: No clubbing or cyanosis. Peripheral pulses intact. Bilateral lower extremity edema noted. 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 Amador in 1 to 2 weeks. Nurse practitioner note has been reviewed by physician. Signing provider agrees with the documented findings, assessment, and plan of care documented by PRODUCTION EDITOR as a scribe. Objective - Vital Signs Vital signs: Vital Signs Temp 97.9 F 07/24/24 08:00 Pulse 86 07/24/24 09:15 Resp 17 07/24/24 08:00 BP 123/84 07/24/24 08:00 Pulse Ox 98 07/24/24 09:05 FiO2 Intake & Output 07/23/24 07/24/24 07/24/24 18:59 06:59 18:59 Intake Total 1100 1660 200 Output Total 1650 1925 Balance -550 -265 200 Weight 160 kg Intake: IV 20 10 Invasive Line 4 20 10 Oral 1080 1650 200 Output: Urine 1650 1925 Other: Voiding Method Urinal Urinal # Voids 6 - Labs CBC & Chem 7: 07/22/24 07:17 07/24/24 05:20 Labs: Abnormal Lab Results - Last 24 Hours (Table) 07/20/24 07/23/24 07/23/24 Range/Units 07:26 11:33 16:27 Sodium (137-145) mmol/L Potassium (3.5-5.1) mmol/L Chloride (98-107) mmol/L BUN (9-20) mg/dL Glucose (74-99) mg/dL POC Glucose (mg/dL) 302 H 200 H (70-110) mg/dL Calcium (8.4-10.2) mg/dL Magnesium (1.6-2.3) mg/dL Free [place] LC, Quant 3.27 H (0.33-1.94) mg/dL Free [place] LC, Quant 3.04 H (0.57-2.63) mg/dL 07/23/24 07/23/24 07/24/24 Range/Units 17:26 20:10 05:20 Sodium 133 L 131 L (137-145) mmol/L Potassium 5.3 H (3.5-5.1) mmol/L Chloride 97 L 96 L (98-107) mmol/L BUN 29 H 28 H (9-20) mg/dL Glucose 224 H 185 H (74-99) mg/dL POC Glucose (mg/dL) 228 H (70-110) mg/dL Calcium 8.3 L 8.0 L (8.4-10.2) mg/dL Magnesium 2.4 H (1.6-2.3) mg/dL Free [place] LC, Quant (0.33-1.94) mg/dL Free [place] LC, Quant (0.57-2.63) mg/dL 07/24/24 Range/Units 06:31 Sodium (137-145) mmol/L Potassium (3.5-5.1) mmol/L Chloride (98-107) mmol/L BUN (9-20) mg/dL Glucose (74-99) mg/dL POC Glucose (mg/dL) 151 H (70-110) mg/dL Calcium (8.4-10.2) mg/dL Magnesium (1.6-2.3) mg/dL Free [place] LC, Quant (0.33-1.94) mg/dL Free [place] LC, Quant (0.57-2.63) mg/dL
[2024-08-01 12:23] LABS: Albumin 3.33 g/dL (3.80-4.90); Gamma Globulin 1.23 g/dL (0.70-1.50)
--- NOTE | 2024-08-13 07:03 | ED ---
SOB HPI - General Chief Complaint: Shortness of Breath Stated Complaint: Chest pain Time Seen by Provider: 07/19/24 01:32 Source: patient Mode of arrival: wheelchair Limitations: no limitations - History of Present Illness Initial Comments: This patient is a 54-year-old man with history of congestive heart failure who presents with concerns that he is developing congestive heart failure. He states that he is having pressure across the chest bilaterally as well as shortness of breath. He states it feels similar to previous episodes of CHF. He is also feeling like he is retaining fluid. He states that he usually has some degree of edema in the legs but he is also feeling that he has swelling of the forearms and hands. Patient has not noted fever or chills. States he does have occasional cough with clear sputum. No change in urination or bowel movements. MD Complaint: shortness of breath, chest pain -: days(s) Severity: moderate Quality: other (Tight) Consistency: constant Improves With: upright position Worsens With: lying flat Known History Of: COPD, congestive heart failure Associated Symptoms: chest pain, cough, orthopnea Treatments Prior to Arrival: none - Related Data Home Medications Medication Instructions Recorded Confirmed Omeprazole 20 mg PO AC-BRKFST 02/05/20 07/19/24 sitaGLIPtin [Januvia] 100 mg PO DAILY 02/05/20 07/19/24 Sildenafil Citrate 100 mg PO DAILY PRN 08/28/21 07/19/24 Albuterol Inhaler [Ventolin Hfa 2 puff INHALATION RT-Q4H PRN 08/31/21 07/19/24 Inhaler] Budesonide [Pulmicort] 0.5 mg INHALATION RT-BID PRN 02/13/24 07/19/24 Dextroamphetamine/Amphetamine 30 mg PO DAILY 02/13/24 07/19/24 [Adderall] Ipratropium-Albuterol Nebulize 3 ml INHALATION RT-Q4H PRN 02/13/24 07/19/24 [Duoneb 0.5 mg-3 mg/3 ml Soln] Potassium Chloride ER [K-Dur 20] 20 meq PO DAILY 02/13/24 07/19/24 Pregabalin [Lyrica] 150 mg PO DAILY 02/13/24 07/19/24 Fluticasone/Umeclidin/Vilanter 1 puff INHALATION RT-DAILY 03/15/24 07/19/24 [Norman Ruffin 200-62.5-25] Citalopram Hydrobromide [CeleXA] 40 mg PO DAILY 07/19/24 07/19/24 glipiZIDE [Glucotrol] 5 mg PO DAILY 07/19/24 07/19/24 Previous Rx's Medication Instructions Recorded Aspirin 81 mg PO DAILY tab 02/16/24 Atorvastatin [Lipitor] 40 mg PO DAILY #30 tab 02/16/24 Bumetanide [BUMEX] 1 mg PO BID@0900,1600 #60 tab 07/24/24 Dapagliflozin Propanediol [Farxiga] 10 mg PO DAILY #30 tab 07/24/24 Metoprolol Tartrate [Lopressor] 50 mg PO BID #60 tab 07/24/24 Spironolactone [Aldactone] 25 mg PO DAILY #30 tab 07/24/24 lisinopriL [Zestril] 10 mg PO HS #30 tab 07/24/24 predniSONE 10 mg PO DAILY #18 tab 07/24/24 Allergies Allergy/AdvReac Type Severity Reaction Status Date / Time No Known Allergies Allergy Verified 07/19/24 08:54 Review of Systems ROS Statement: Those systems with pertinent positive or pertinent negative responses have been documented in the HPI. ROS Other: All systems not noted in ROS Statement are negative. Constitutional: Denies: fever, chills, weakness Respiratory: Reports: cough, dyspnea. Denies: wheezes, hemoptysis Cardiovascular: Reports: chest pain, orthopnea, edema. Denies: palpitations, syncope Gastrointestinal: Denies: abdominal pain, nausea, vomiting, diarrhea Genitourinary: Denies: dysuria, hematuria Musculoskeletal: Denies: back pain Skin: Denies: rash Neurological: Denies: headache, weakness Past Medical History Past Medical History: Heart Failure, COPD, Diabetes Mellitus, GERD/Reflux, Hyperlipidemia, Hypertension, Neurologic Disorder, Vascular Disorder Additional Past Medical History / Comment(s): recent hospitalization to [facility] Jan 2024 for sob,abdominal pain and N/V,hx rt foot neuropathy History of Any Multi-Drug Resistant Organisms: None Reported Past Surgical History: Cholecystectomy, Orthopedic Surgery Additional Past Surgical History / Comment(s): Left hydrocelectomy, vasectomy, rt shoulder rotator cuff Past Anesthesia/Blood Transfusion Reactions: Motion Sickness Additional Past Anesthesia/Blood Transfusion Reaction / Comment(s): no hx blood transfusion Past Psychological History: No Psychological Hx Reported Smoking Status: Current some day smoker Past Alcohol Use History: None Reported Additional Past Alcohol Use History / Comment(s): started smoking cigarettes at age 8 Past Drug Use History: Marijuana Additional Drug Use History / Comment(s): smokes marijuana daily - Past Family History Father Family Medical History: Cancer Additional Family Medical History / Comment(s): prostate cancer Brother(s) Family Medical History: Cancer Additional Family Medical History / Comment(s): lymphoma bicep General Exam Limitations: no limitations General appearance: alert, in no apparent distress Head exam: Present: atraumatic, normocephalic Eye exam: Present: normal appearance. Absent: scleral icterus, conjunctival injection ENT exam: Present: normal oropharynx Neck exam: Present: normal inspection Respiratory exam: Present: rales (Bilateral bases). Absent: wheezes, rhonchi, stridor, chest wall tenderness, accessory muscle use, decreased breath sounds Cardiovascular Exam: Present: regular rate, normal rhythm, normal heart sounds. Absent: systolic murmur, diastolic murmur, rubs, gallop GI/Abdominal exam: Present: soft. Absent: distended, tenderness, guarding, rebound, rigid, mass Extremities exam: Present: normal inspection, normal capillary refill, pedal edema. Absent: calf tenderness Back exam: Present: normal inspection. Absent: CVA tenderness (R), CVA tenderness (L) Neurological exam: Present: alert Skin exam: Present: warm, dry, intact, normal color. Absent: rash Course Vital Signs 07/18/24 07/19/24 07/19/24 21:20 01:28 01:30 Temperature 98.4 F Pulse Rate 91 90 Respiratory 18 20 20 Rate Blood Pressure 108/78 119/95 O2 Sat by Pulse 98 97 Oximetry 07/19/24 07/19/24 07/19/24 02:44 04:00 06:00 Temperature Pulse Rate 92 86 98 Respiratory 20 20 18 Rate Blood Pressure 131/74 109/90 112/90 O2 Sat by Pulse 99 98 98 Oximetry 07/19/24 07/19/24 07/19/24 09:00 18:22 21:52 Temperature 98.1 F 97.6 F Pulse Rate 89 82 80 Respiratory 20 20 20 Rate Blood Pressure 142/100 129/97 123/88 O2 Sat by Pulse 97 97 95 Oximetry 07/19/24 07/20/24 23:29 00:19 Temperature 97.8 F Pulse Rate 81 75 Respiratory 24 16 Rate Blood Pressure 119/94 111/78 O2 Sat by Pulse 95 100 Oximetry Medical Decision Making - Medical Decision Making The patient had chest x-ray that I interpreted as negative for acute infiltrate, pneumothorax. There is cardiomegaly. Was pt. sent in by a medical professional or institution (, [facility], [facility] [employer], urgent care, hospital, or penitentiary...) When possible be specific @ -No Did you speak to anyone other than the patient for history (EMS, parent, family, police, friend...)? What history was obtained from this source @ -No Did you review nursing and triage notes (agree or disagree)? Why? @ -I reviewed and agree with nursing and triage notes Were old charts reviewed (outside hosp., previous admission, EMS record, old EKG, old radiological studies, urgent care reports/EKG's, penitentiary records)? Report findings @ -Yes, old charts were reviewed Differential Diagnosis (chest pain, altered mental status, abdominal pain women, abdominal pain men, vaginal bleeding, weakness, fever, dyspnea, syncope, headache, dizziness, GI bleed, back pain, seizure, CVA, palpatations, mental health, musculoskeletal)? @ -[Differential Dyspnea: Coronary syndrome, arrhythmia, tamponade, asthma, COPD, pulmonary embolism, pneumonia, pneumothorax, pulmonary effusion, anaphylaxis, diabetic ketoacidosis, flailed chest, pulmonary contusion, diaphragmatic rupture, anemia, neuromuscular, this is not meant to be an all-inclusive list. EKG interpreted by me (3pts min.). @ -I interpreted as above X-rays interpreted by me (1pt min.). @ -I interpreted as above CT interpreted by me (1pt min.). @ -None done U/S interpreted by me (1pt. min.). @ -None done What testing was considered but not performed or refused? (CT, X-rays, U/S, labs)? Why? @ -None What meds were considered but not given or refused? Why? @ -None Did you discuss the management of the patient with other professionals (professionals i.e. , [facility], [employer], lab, RT, psych nurse, adoption social worker, compliance reviewer, teacher, tax compliance officer, case filler)? Give summary @ -No Was smoking cessation discussed for >3mins.? @ -No Was critical care preformed (if so, how long)? @ -No Were there social determinants of health that impacted care today? How? (Homelessness, low income, unemployed, alcoholism, drug addiction, transportation, low edu. Level, literacy, decrease access to med. care, long-term, rehab)? @ -No Was there de-escalation of care discussed even if they declined (Discuss DNR or withdrawal of care, Hospice)? DNR status @ -No What co-morbidities impacted this encounter? (DM, HTN, Smoking, COPD, CAD, Cancer, CVA, ARF, Chemo, Hep., AIDS, mental health diagnosis, sleep apnea, morbid obesity)? @ -History of hypertension, congestive heart failure, COPD, diabetes, hyperlipidemia Was patient admitted / discharged? Hospital course, mention meds given and route, prescriptions, significant lab abnormalities, going to OR and other pertinent info. @ -Patient is 54-year-old man here with dyspnea and clinically appearing to have exacerbation of CHF. Patient will be admitted for diuresis and further cardiology evaluation. Undiagnosed new problem with uncertain prognosis? @ -No Drug Therapy requiring intensive monitoring for toxicity (Heparin, Nitro, Insulin, Cardizem)? @ -No Were any procedures done? @ -No Diagnosis/symptom? @ -Acute dyspnea CHF exacerbation Acute, or Chronic, or Acute on Chronic? @ -Acute Uncomplicated (without systemic symptoms) or Complicated (systemic symptoms)? @ -Complicated by dyspnea Side effects of treatment? @ -No Exacerbation, Progression, or Severe Exacerbation? @ -No Poses a threat to life or bodily function? How? (Chest pain, [place], [place], pneumonia, PE, COPD, DKA, ARF, appy, cholecystitis, CVA, Diverticulitis, Homicidal, Suicidal, threat to staff... and all critical care pts) @ -Yes there is risk of worsening of CHF leading to respiratory failure as well Please note that this is a repeat dictation as the original appears to have been lost from the system. - Lab Data Result diagrams: 07/22/24 07:17 07/24/24 05:20 Lab Results 07/19/24 07/19/24 07/19/24 Range/Units 01:03 01:03 01:03 WBC 11.9 H (3.8-10.6) k/uL RBC 6.16 H (4.30-5.90) m/uL Hgb 15.3 (13.0-17.5) gm/dL Hct 50.1 (39.0-53.0) % MCV 81.3 (80.0-100.0) fL MCH 24.9 L (25.0-35.0) pg MCHC 30.6 L (31.0-37.0) g/dL RDW 14.0 (11.5-15.5) % Plt Count 364 (150-450) k/uL MPV 7.4 Neutrophils % 79 % Lymphocytes % 12 % Monocytes % 6 % Eosinophils % 1 % Basophils % 0 % Neutrophils # 9.4 H (1.3-7.7) k/uL Lymphocytes # 1.4 (1.0-4.8) k/uL Monocytes # 0.7 (0-1.0) k/uL Eosinophils # 0.1 (0-0.7) k/uL Basophils # 0.1 (0-0.2) k/uL Hypochromasia Marked PT 12.7 H (10.0-12.5) sec INR 1.2 H (<1.2) APTT 20.5 L (22.0-30.0) sec Sodium 136 L (137-145) mmol/L Potassium 5.0 (3.5-5.1) mmol/L Chloride 97 L (98-107) mmol/L Carbon Dioxide 29 (22-30) mmol/L Anion Gap 10 mmol/L BUN 28 H (9-20) mg/dL Creatinine 1.10 (0.66-1.25) mg/dL Est GFR (CKD-EPI)AfAm 87 (>60 ml/min/1.73 sqM) Est GFR (CKD-EPI)NonAf 75 (>60 ml/min/1.73 sqM) Glucose 100 H (74-99) mg/dL Plasma Lactic Acid Giuseppe (0.7-2.0) mmol/L Calcium 9.2 (8.4-10.2) mg/dL Magnesium 2.1 (1.6-2.3) mg/dL Total Bilirubin 1.4 H (0.2-1.3) mg/dL AST 64 H (17-59) U/L ALT 112 H (4-49) U/L Alkaline Phosphatase 165 H (38-126) U/L Troponin I (0.000-0.034) ng/mL NT-Pro-B Natriuret Pep 8030 pg/mL Total Protein 7.2 (6.3-8.2) g/dL Albumin 3.9 (3.5-5.0) g/dL Influenza Type A (PCR) (Not Detectd) Influenza Type B (PCR) (Not Detectd) RSV (PCR) (Not Detectd) SARS-CoV-2 (PCR) (Not Detectd) 07/19/24 07/19/24 07/19/24 Range/Units 01:03 01:03 02:24 WBC (3.8-10.6) k/uL RBC (4.30-5.90) m/uL Hgb (13.0-17.5) gm/dL Hct (39.0-53.0) % MCV (80.0-100.0) fL MCH (25.0-35.0) pg MCHC (31.0-37.0) g/dL RDW (11.5-15.5) % Plt Count (150-450) k/uL MPV Neutrophils % % Lymphocytes % % Monocytes % % Eosinophils % % Basophils % % Neutrophils # (1.3-7.7) k/uL Lymphocytes # (1.0-4.8) k/uL Monocytes # (0-1.0) k/uL Eosinophils # (0-0.7) k/uL Basophils # (0-0.2) k/uL Hypochromasia PT (10.0-12.5) sec INR (<1.2) APTT (22.0-30.0) sec Sodium (137-145) mmol/L Potassium (3.5-5.1) mmol/L Chloride (98-107) mmol/L Carbon Dioxide (22-30) mmol/L Anion Gap mmol/L BUN (9-20) mg/dL Creatinine (0.66-1.25) mg/dL Est GFR (CKD-EPI)AfAm (>60 ml/min/1.73 sqM) Est GFR (CKD-EPI)NonAf (>60 ml/min/1.73 sqM) Glucose (74-99) mg/dL Plasma Lactic Acid Giuseppe 1.9 (0.7-2.0) mmol/L Calcium (8.4-10.2) mg/dL Magnesium (1.6-2.3) mg/dL Total Bilirubin (0.2-1.3) mg/dL AST (17-59) U/L ALT (4-49) U/L Alkaline Phosphatase (38-126) U/L Troponin I 0.049 H* 0.046 H* (0.000-0.034) ng/mL NT-Pro-B Natriuret Pep pg/mL Total Protein (6.3-8.2) g/dL Albumin (3.5-5.0) g/dL Influenza Type A (PCR) (Not Detectd) Influenza Type B (PCR) (Not Detectd) RSV (PCR) (Not Detectd) SARS-CoV-2 (PCR) (Not Detectd) 07/19/24 Range/Units 02:24 WBC (3.8-10.6) k/uL RBC (4.30-5.90) m/uL Hgb (13.0-17.5) gm/dL Hct (39.0-53.0) % MCV (80.0-100.0) fL MCH (25.0-35.0) pg MCHC (31.0-37.0) g/dL RDW (11.5-15.5) % Plt Count (150-450) k/uL MPV Neutrophils % % Lymphocytes % % Monocytes % % Eosinophils % % Basophils % % Neutrophils # (1.3-7.7) k/uL Lymphocytes # (1.0-4.8) k/uL Monocytes # (0-1.0) k/uL Eosinophils # (0-0.7) k/uL Basophils # (0-0.2) k/uL Hypochromasia PT (10.0-12.5) sec INR (<1.2) APTT (22.0-30.0) sec Sodium (137-145) mmol/L Potassium (3.5-5.1) mmol/L Chloride (98-107) mmol/L Carbon Dioxide (22-30) mmol/L Anion Gap mmol/L BUN (9-20) mg/dL Creatinine (0.66-1.25) mg/dL Est GFR (CKD-EPI)AfAm (>60 ml/min/1.73 sqM) Est GFR (CKD-EPI)NonAf (>60 ml/min/1.73 sqM) Glucose (74-99) mg/dL Plasma Lactic Acid Giuseppe (0.7-2.0) mmol/L Calcium (8.4-10.2) mg/dL Magnesium (1.6-2.3) mg/dL Total Bilirubin (0.2-1.3) mg/dL AST (17-59) U/L ALT (4-49) U/L Alkaline Phosphatase (38-126) U/L Troponin I (0.000-0.034) ng/mL NT-Pro-B Natriuret Pep pg/mL Total Protein (6.3-8.2) g/dL Albumin (3.5-5.0) g/dL Influenza Type A (PCR) Detected A (Not Detectd) Influenza Type B (PCR) Not Detected (Not Detectd) RSV (PCR) Not Detected (Not Detectd) SARS-CoV-2 (PCR) Not Detected (Not Detectd) - EKG Data -: EKG Interpreted by Ma EKG shows normal: sinus rhythm (Rate 87 bpm), axis (Normal), intervals (Normal), QRS complexes ( possible old septal infarct) Disposition Clinical Impression: NSTEMI (non-ST elevated myocardial infarction), COPD (chronic obstructive pulmonary disease), CHF (congestive heart failure) Disposition: ADMITTED IP TO THIS HOSP Condition: Fair Is patient prescribed a controlled substance at d/c from ED?: No
== END 2024-07-24 13:45 | disposition home or self-care (01) | DRG 280 ==
LOC: EC 21:14 → OBSVTOIN 07-19 05:11 → 3SCARD 07-19 05:11 → 4SSUR 07-23 22:34
PROVIDERS: ADMIT Internal Medicine; ATTEND Internal Medicine
DX: I11.0 Hypertensive heart disease with heart failure (principal); I50.23 Acute on chronic systolic (congestive) heart failure; I21.A1 Myocardial infarction type 2; J44.1 Chronic obstructive pulmonary disease with (acute) exacerbation; Z68.43 Body mass index [BMI] 50.0-59.9, adult; N17.9 Acute kidney failure, unspecified; R56.9 Unspecified convulsions; E11.42 Type 2 diabetes mellitus with diabetic polyneuropathy; E66.01 Morbid (severe) obesity due to excess calories; I42.8 Other cardiomyopathies; J10.1 Influenza due to other identified influenza virus with other respiratory manifestations; E78.5 Hyperlipidemia, unspecified; H91.90 Unspecified hearing loss, unspecified ear; G47.33 Obstructive sleep apnea (adult) (pediatric); E87.5 Hyperkalemia; F17.210 Nicotine dependence, cigarettes, uncomplicated; R74.01 Elevation of levels of liver transaminase levels; Z79.84 Long term (current) use of oral hypoglycemic drugs; Z79.899 Other long term (current) drug therapy; Z79.82 Long term (current) use of aspirin; Z79.51 Long term (current) use of inhaled steroids
CPT/HCPCS: 36415; 71046; 78580; 80048; 80053; 83036; 83605; 83735; 83880; 83883; 84165; 84166; 84484; 85025; 85379; 85610; 85730; 87636; 93005; 93306; 93970; 94640; 94760; 96372; 96374; 96375; 96376; 99285